=== PATIENT | female | born 1940 | race Caucasian/White ===

== ENCOUNTER 2018-02-25 17:10 | Inpatient (IN) ==
[2018-02-25] MEDS ORDERED: Acetaminophen 325 MG Tablet PO PRN (17:57)
[2018-02-25] MEDS ORDERED: Bisacodyl 10 MG Supp RECTAL PRN (17:57)
--- NOTE | 2018-02-25 18:05 | P.HPIM ---
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 Patient with recent hospitalization at [facility] in around Jan 03 until January 23 after being diagnosed with pneumonia, sepsis, encephalopathy and UTI. She was discharged home but ended up falling at home resulting in a closed impacted comminuted distal radial and ulnar fracture on the left side. She was hospitalized at [facility] in [place]. She was evaluated by Ortho and had a cast placed. She is currently non-weight bearing to the left upper extremity. Patient was also noted to have volume overload with a history of diastolic heart failure and stage III chronic kidney disease. Patient was diuresed with Lasix and Bumex during her hospitalization. Patient has CLL and was noted to be anemic with a Hgb of 6.1 and required 2 units of PRBC's with improvement in her hemoglobin to 9.1. Patients stated that she has required repeat transfusions over the past year. She was admitted to [facility] from [facility] 02/17/18. The hospitalist service was consulted for medical management. stated that patient has had recurrent pneumonia since July of this year. Patient reports travel to [place] in July of this year. Patient became increasingly more hypoxic while at rehab. She required 4 L of supplemental O2 via nasal cannula. Chest x-ray was completed 02/22/18 and showed a diffusely abnormal lung exam, probable acute multifocal pneumonia vs diffuse fibrotic process. CT chest was completed for follow up 02/22/18 and showed patchy diffuse mixed interstitial and alveolar infiltrates involving all segments of both lungs. Bilateral pleural effusions were noted right greater than left. Patient was started on Zosyn and Levaquin IV. VQ scan was completed 02/23/18 and showed low probability of PE. A BNP level was checked and resulted as slightly over 400. Patient received IV Lasix 2 days in a row with worsening shortness of breath. Patient complains of moderate shortness of breath while at rest and moderate to severe dyspnea with mild exertion. She denies chest pain, cough, fever or chills. Also denies lower extremity pain/edema. Olivia was called and patient is being transferred to [facility] under the care of the hospitalist service for continued treatment of pneumonia. Inpatient Certification Inpatient Certification: I certify that the inpatient services were ordered in accordance with Medicare regulations governing the order. This includes certification that hospital inpatient services are reasonable and necessary and in the case of services not specified as inpatient-only under 42 CFR 419.22(n), that they are appropriately provided as inpatient services in accordance to with the 2-midnight benchmark under 43 CFR 412.3(e) Review of Systems ROS Unobtainable: other (except as documented in HPI all other systems reviewed and negative) PMFSH History History Provided By: Patient, Family Member and Medical Record Medical History Medical History Alzheimer's dementia (Acute) Anxiety (Acute) CAD (coronary artery disease) (Acute) CKD (chronic kidney disease), stage III (Acute) CLL (chronic lymphocytic leukemia) (Acute) CVA (cerebral vascular accident) (Acute) H/O recurrent pneumonia (Acute) History of recurrent UTIs (Acute) Hyperlipidemia (Acute) Hypertension (Acute) Urinary incontinence (Acute) Surgical History Surgical History History of appendectomy (Acute) History of bilateral knee replacement (Acute) Family History Family History Mother CAD (coronary artery disease) CVA (cerebral vascular accident) Father CVA (cerebral vascular accident) Social History Social History Substance History: No History of Abuse Second Hand Smoke Exposure: No Smoking Status: Former smoker Tobacco Type: Cigarettes Packs Per Day: 1 Cigarettes Per Day: 20.0 Years Smoked: 30 Pack-Years: 30.00 Number of Pack-Years (if former smoker): 30 Smoking End Date: 1998 How Often Do You Have a Drink Containing Alcohol: Never Hx Recent Travel: No Medications and Allergies Allergies Allergy/AdvReac Type Severity Reaction Status Date / Time latex Allergy Rash, Verified 02/18/18 06:07 Localized soy Allergy Congestion Verified 02/18/18 06:07 sulfadiazine Allergy Hives Verified 02/18/18 06:07 wheat [Flour] Allergy Rash Verified 02/18/18 06:07 Home Medications Medication Instructions Recorded Confirmed Type amlodipine [Norvasc] 5 mg PO BID 02/17/18 02/17/18 History cholestyramine (with sugar) 4 g PO BID 02/17/18 02/17/18 History donepezil 10 mg PO HS 02/17/18 02/17/18 History escitalopram oxalate 20 mg PO DAILY 02/17/18 02/17/18 History hydralazine 75 mg PO Q8H 02/17/18 02/17/18 History levothyroxine [Synthroid] 50 mcg PO DAILY@0600 02/17/18 02/17/18 History metoprolol tartrate 25 mg PO BID 02/17/18 02/17/18 History montelukast 10 mg PO HS 02/17/18 02/17/18 History pantoprazole 20 mg PO DAILY 02/17/18 02/17/18 History pravastatin 20 mg PO HS 02/17/18 02/17/18 History Physical Exam Constitutional mild distress, average body habitus and diaphoretic Routine HEENT Exam Head: Present normocephalic and atraumatic Eye: Present EOMI, PERRL and normal accommodation ENT: Present mucous membranes moist Routine Neck Exam Present supple; Absent JVD and tracheal deviation Routine Respiratory Exam Present crackles; Absent accessory muscle use and wheezes Routine Cardiovascular Exam Present RRR, S1 and S2; Absent murmur Routine Abdominal Exam Present soft and normoactive bowel sounds; Absent distended Routine Extremities Exam Present full ROM and pulses intact; Absent cyanosis and edema Routine Skin Exam Present intact Routine Neurological Exam Present alert, oriented X3, CN II-XII intact and moving all extremities Routine Psychiatric Exam Present normal affect and cooperative Caprini VTE Risk Assessment Caprini VTE Risk Assessment: Moderate/High Risk (score >= 2) Caprini Risk Assessment Model: Point Value = 1 Point Value = 2 Point Value = 3 Point Value = 5 Age 41-60 Minor surgery BMI > 25 kg/m2 Swollen legs Varicose veins or History of unexplained or recurrent spontaneous Oral contraceptives or hormone replacement Sepsis (< 1 month) Serious lung disease, including pneumonia (< 1 month) Abnormal pulmonary function Acute myocardial infarction Congestive heart failure (< 1 month) History of inflammatory bowel disease Medical patient at bed rest Age 61-74 Arthroscopic surgery Major open surgery (> 45 min) Laparoscopic surgery (> 45 min) Malignancy Confined to bed (> 72 hours) Immobilizing plaster cast Central venous access Age >= 75 History of VTE Family history of VTE Factor V Leiden Prothrombin [id number] Lupus anticoagulant Anticardiolipin antibodies Elevated serum homocysteine Heparin-induced thrombocytopenia Other congenital or acquired thrombophilia Stroke (< 1 month) Elective arthroplasty Hip, pelvis, or leg fracture Acute spinal cord injury (< 1 month) Prophylaxis Regimen: Total Risk Factor Score Risk Level Prophylaxis Regimen 0-1 Low Early ambulation 2 Moderate Order ONE of the following: *Sequential Compression Device (SCD) *Heparin 5000 units SQ BID 3-4 Higher Order ONE of the following medications: *Heparin 5000 units SQ TID *Enoxaparin/Lovenox 40 mg SQ daily (WT < 150 kg, CrCl > 30 mL/min) *Enoxaparin/Lovenox 30 mg SQ daily (WT < 150 kg, CrCl > 10-29 mL/min) *Enoxaparin/Lovenox 30 mg SQ BID (WT < 150 kg, CrCl > 30 mL/min) AND/OR *Sequential Compression Device (SCD) 5 or more Highest Order ONE of the following medications: *Heparin 5000 units SQ TID (Preferred with Epidurals) *Enoxaparin/Lovenox 40 mg SQ daily (WT < 150 kg, CrCl > 30 mL/min) *Enoxaparin/Lovenox 30 mg SQ daily (WT < 150 kg, CrCl > 10-29 mL/min) *Enoxaparin/Lovenox 30 mg SQ BID (WT < 150 kg, CrCl > 30 mL/min) AND *Sequential Compression Device (SCD) Assessment and Plan Plan Patient is a 78 year old female with a past medical history significant for CLL, recent pneumonia, diastolic heart failure, stage III CKD, and left sided hand fracture. She was admitted from [facility] to [facility] under the care of the hospitalist service for progressively worsening shortness secondary to recurrent pneumonia. Pneumonia, suspect atypical? -pt will be admitted to [facility] -continue Zosyn and Levaquin -Solumedrol IV -duonebs IV Q6H -consult pulmonary and ID -check urine legionella, histoplasma urine -blastomyces Abs -repeat labs in am Acute on chronic hypoxic respiratory failure -continue supplemental O2 PRN -see treatment plan as outlined above Diastolic heart failure w/ volume overload -no echo on file, unknown EF -continue diuretics, monitor renal function and electrolytes -cardiology consulted and we appreciate their input -tele monitoring -strict I&O, daily weight, low NA diet -cardiology consulted Chronic kidney disease, stage III -monitor renal function closely -avoid nephrotoxic meds Closed, impacted, comminuted left distal radial and ulnar fracture with cast in place -PT/OT eval/treat -pain meds PRN CLL with hx of blood transfusions -continue to monitor H/H -transfuse for Hgb < 7 -consult Oncology Anemia, multifactorial -type and screen ordered today -repeat CBC in am Alzheimer dementia with no behavioral disturbance -continue home meds MDM: self Code: Full GI ppx: PPI, PO intake DVT ppx: SCD's
[2018-02-25] MEDS: MethylPREDNISolone Sod Succinate Inj 40 MG/ML Vial IV.PUSH SCH ×2 (18:24→23:53)
[2018-02-25] MEDS: levoFLOXacin 750 MG Tablet PO SCH (18:30)
[2018-02-25 18:32] LABS: ABG Base Excess -4.7 mmol/L (-2-2); ABG PCO2 29 mmHg (38-42); ABG PO2 59 mmHG (61-120)
--- NOTE | 2018-02-25 18:42 | XR ---
EXAM DATE: 02/25/2018 6:33 PM EST AGE/SEX: 78 years / Female INDICATIONS: CHF. CLINICAL DATA: This is the patient's subsequent encounter. Patient reports that signs and symptoms h ave been present for 2 weeks and indicates a pain score of Nonresponsive. MEDICAL/SURGICAL HISTORY: Hypertension. CABG. COMPARISON: [facility], CHEST 1V SINGLE AP, 02/22/2018. . FINDINGS: Diffuse pulmonary infiltrates persist. There is slight worsening in the right mid lung. Left side myra ears relatively unchanged. Very small bilateral effusions are likely. No pneumothorax. Heart size stable, within normal limits. Median sternotomy and CABG changes are again noted. CONCLUSION: Diffuse pulmonary opacities again noted, slightly worse on the right and not significantly changed on the left. Electronically signed by: Joao Srivastava MD 02/25/2018 6:41 PM EST
[2018-02-25] MEDS: Piperacil/Tazo 3.375 GM Premix 50 ML IV.SIG SCH (20:30)
[2018-02-25 20:50] LABS: Amorphous Sediment,Urine Few /hpf; Bacteria,Urine Few /hpf; Bilirubin,Urine Negative (Negative); Clarity,Urine Cloudy (Clear); Glucose,Urine (UA) Negative (Negative); Leukocyte Esterase,Urine Negative (Negative); Mucus,Urine Few /lpf (Occasional); Nitrite,Urine Negative (Negative); Specific Gravity,Urine 1.008 (1.002-1.035); Squamous Epithelial Cell,Urine 4 /hpf (0-5)
[2018-02-25] MEDS: Montelukast 10 MG Tablet PO SCH (21:21)
[2018-02-25] MEDS: Senna/Docusate Sodium 8.6/50 MG Tablet PO SCH (21:21)
[2018-02-25] MEDS: amLODIPine 5 MG Tablet PO SCH (21:23)
[2018-02-25] MEDS: hydrALAZINE 25 MG Tablet PO SCH (21:23)
[2018-02-25] MEDS: Metoprolol Tartrate 25 MG Tablet PO SCH (21:23)
[2018-02-26] MEDS: Piperacil/Tazo 3.375 GM Premix 50 ML IV.SIG SCH ×4 (02:30→20:30)
[2018-02-26] MEDS: Chlorhexidine Gluconate 2% 1 Pack (2 Cloths) TOPICAL SCH (03:58)
[2018-02-26] MEDS ORDERED: Chlorhexidine Gluconate 2% 1 Pack (2 Cloths) TOPICAL PRN (04:00)
[2018-02-26 05:55] LABS: INR 1.1 Ratio; Prothrombin Time 10.7 sec (9.8-11.6)
[2018-02-26 05:56] LABS: Baso % (Auto) 0.2 % (0.0-2.0); Hematocrit 23.1 % (35.0-46.0); Hemoglobin 7.8 gm/dL (11.6-15.3); Lymph # (Auto) 0.1 th/mm3 (1.0-4.8); Lymph % (Auto) 0.9 % (9.0-44.0); Mean Corpuscular HGB Conc 33.8 % (32.0-36.0); Mean Corpuscular Hemoglobin 32.1 pg (27.0-34.0); Mean Platelet Volume 7.8 fL (7.0-11.0); Mono % (Auto) 0.4 % (0.0-8.0); Neut # (Auto) 9.9 th/mm3 (1.8-7.7); Neut % (Auto) 98.5 % (16.0-70.0); Platelet Count 119 th/mm3 (150-450); Red Blood Count 2.43 mil/mm3 (4.00-5.30); Red Cell Distribution Width 18.9 % (11.6-17.2); White Blood Count 10.1 th/mm3 (4.0-11.0)
[2018-02-26] MEDS: hydrALAZINE 25 MG Tablet PO SCH ×3 (06:05→21:27)
[2018-02-26] MEDS: MethylPREDNISolone Sod Succinate Inj 40 MG/ML Vial IV.PUSH SCH ×3 (06:05→18:12)
[2018-02-26] MEDS: Isosorbide Mononitrate 30 MG ER 24HR Tablet (Imdur) PO SCH (06:08)
[2018-02-26 06:16] LABS: Albumin 2.3 g/dL (3.4-5.0); Anion Gap 12 meq/L (5-15); Aspartate Aminotransferase 14 U/L (15-37); Blood Urea Nitrogen 50 mg/dL (7-18); Chloride 107 meq/L (98-107); Glomerular Filtration Rate 28 mL/min (>89); Glucose,Random 180 mg/dL (74-106); Potassium 4.1 meq/L (3.5-5.1); Sodium 139 meq/L (136-145)
[2018-02-26 06:21] LABS: Alanine Aminotransferase 22 U/L (10-53); Alkaline Phosphatase 99 U/L (45-117); Total Protein 6.3 g/dL (6.4-8.2)
[2018-02-26] MEDS: amLODIPine 5 MG Tablet PO SCH ×2 (08:06→21:27)
[2018-02-26] MEDS: Pantoprazole Sodium 20 MG DR Tablet PO SCH (08:06)
[2018-02-26] MEDS: Metoprolol Tartrate 25 MG Tablet PO SCH ×2 (08:06→21:26)
[2018-02-26] MEDS: Senna/Docusate Sodium 8.6/50 MG Tablet PO SCH ×2 (08:06→21:26)
[2018-02-26] MEDS: buPROPion 150 MG 12 HR Tablet PO SCH (08:06)
--- NOTE | 2018-02-26 08:13 | P.PN ---
Subjective Interval history: Follow up for possible pneumonia, congestive heart failure, CKD. Patient is resting in bed. No acute concerns. Currently on nasal cannula. Remains afebrile. Physical Exam Vital signs: Vital Signs 02/25/18 17:45 02/25/18 19:15 02/25/18 19:52 Temperature 97.8 F Pulse Rate 66 68 Respiratory Rate 26 H 28 H Blood Pressure 118/51 L Pulse Oximetry 88 L 95 02/25/18 19:55 02/25/18 20:00 02/25/18 21:00 Temperature Pulse Rate 69 77 73 Respiratory Rate 16 16 29 H Blood Pressure Pulse Oximetry 92 L 95 02/25/18 21:16 02/25/18 22:00 02/25/18 23:00 Temperature Pulse Rate 75 61 59 L Respiratory Rate 25 H 22 24 Blood Pressure 102/58 L Pulse Oximetry 94 L 93 L 95 02/25/18 23:11 02/25/18 23:31 02/26/18 00:00 Temperature 97.7 F Pulse Rate 64 58 L 62 Respiratory Rate 16 19 16 Blood Pressure 109/52 L 104/50 L Pulse Oximetry 93 L 93 L 02/26/18 01:00 02/26/18 02:00 02/26/18 03:00 Temperature Pulse Rate 63 61 64 Respiratory Rate 27 H 32 H 24 Blood Pressure 107/51 L 122/56 L Pulse Oximetry 91 L 90 L 91 L 02/26/18 03:01 02/26/18 03:23 02/26/18 04:00 Temperature Pulse Rate 65 70 70 Respiratory Rate 24 16 29 H Blood Pressure 166/69 H Pulse Oximetry 91 L 94 L 02/26/18 04:01 02/26/18 05:00 02/26/18 06:00 Temperature 97.8 F Pulse Rate 68 80 75 Respiratory Rate 32 H 23 29 H Blood Pressure 146/65 H 142/62 H Pulse Oximetry 94 L 90 L 91 L 02/26/18 06:01 02/26/18 08:10 Temperature Pulse Rate 77 73 Respiratory Rate 25 H 18 Blood Pressure 141/57 H Pulse Oximetry 91 L 94 L Intake & Output 02/25/18 02/26/18 02/26/18 18:59 06:59 18:59 Intake Total 100 / 100 Output Total 1500 / 1500 Balance -1400 / -1400 Weight 53.5 kg Intake: IV 100 / 100 Zosyn 3.375 GM Premix 50 ML @ 100 / 100 100 mls/hr IV.SIG Q6H [facility] Rx#: [id number] Output: Urine Amount (Catheter) 1500 / 1500 Indwelling Urethral Catheter 1500 / 1500 Other: Date of Last Bowel Movement 02/24/18 Weight On Admission 54 kg Narrative: GENERAL: Alert, NAD. SKIN: Warm and dry. HEAD: Normocephalic. EYES: No scleral icterus. No injection or drainage. NECK: Supple, trachea midline. No JVD or lymphadenopathy. CARDIOVASCULAR: Regular rate and rhythm without gallops, or rubs. There is a systolic murmur present best heard on the left sternal border. RESPIRATORY: Moderate air entry, coarse breath sounds noted. GASTROINTESTINAL: Abdomen soft, non-tender, nondistended. MUSCULOSKELETAL: No cyanosis, or edema. BACK: Nontender without obvious deformity. No CVA tenderness. - Urinary Catheter Management Indwelling Urethral Catheter Cath placed during this visit: yes Reason for continuing: Hourly intake/output Insertion date: 02/25/18 Insertion time: 19:58 Results - Labs CBC & Chem 7: 02/26/18 04:40 02/26/18 04:40 Laboratory Results - last 24 hr 02/25/18 02/25/18 02/25/18 18:05 18:18 19:45 WBC RBC Hgb Hct MCV MCH MCHC RDW Plt Count MPV Neut % (Auto) Lymph % (Auto) [place] % (Auto) Eos % (Auto) Baso % (Auto) Neut # (Auto) Lymph # (Auto) [place] # (Auto) Eos # (Auto) Baso # (Auto) WBC Differential Differential Comment PT INR Puncture Site Right radial Patient Temperature 98.6 O2 Saturation 87 L* ABG pH 7.43 H ABG pCO2 29 L ABG pO2 59 L* ABG HCO3 19 L ABG O2 Content 11.1 L ABG Base Excess -4.7 L ABG Methemoglobin 2.1 H Andrew Test Present Hemoglobin 9.0 L Carboxyhemoglobin 1.6 O2 Delivery Device Sm Liter Flow 6.00 Critical Value Yes Sodium Potassium Chloride Carbon Dioxide Anion Gap BUN Creatinine Estimated GFR Random Glucose Calcium Ferritin Total Bilirubin AST ALT Alkaline Phosphatase Total Protein Albumin Urine Color Light-yellow Urine Clarity Cloudy H Urine pH 5.0 Ur Specific [place] 1.008 Urine Protein 100 H Urine Glucose (UA) Negative Urine Ketones Negative Urine Occult Blood Negative Urine Nitrate Negative Urine Bilirubin Negative Urine Urobilinogen Less than 2 Ur Leukocyte Esterase Negative Urine RBC Less than 1 Urine WBC Less than 1 Ur Squamous Epith Cells 4 Amorphous Sediment Few H Urine Bacteria Few H Urine Mucus Few H Ur Microscopic Review Not Reportable Nasal Screen MRSA (PCR) Not detected 02/25/18 02/26/18 02/26/18 20:14 04:40 04:40 WBC 10.1 RBC 2.43 L Hgb 7.8 L Hct 23.1 L MCV 95.0 MCH 32.1 MCHC 33.8 RDW 18.9 H Plt Count 119 L MPV 7.8 Neut % (Auto) 98.5 H Lymph % (Auto) 0.9 L [place] % (Auto) 0.4 Eos % (Auto) 0.0 Baso % (Auto) 0.2 Neut # (Auto) 9.9 H Lymph # (Auto) 0.1 L [place] # (Auto) 0.0 Eos # (Auto) 0.0 Baso # (Auto) 0.0 WBC Differential . Differential Comment Auto diff final PT 10.7 INR 1.1 Puncture Site Patient Temperature O2 Saturation ABG pH ABG pCO2 ABG pO2 ABG HCO3 ABG O2 Content ABG Base Excess ABG Methemoglobin Andrew Test Hemoglobin Carboxyhemoglobin O2 Delivery Device Liter Flow Critical Value Sodium Potassium Chloride Carbon Dioxide Anion Gap BUN Creatinine Estimated GFR Random Glucose Calcium Ferritin 1906 H Total Bilirubin AST ALT Alkaline Phosphatase Total Protein Albumin Urine Color Urine Clarity Urine pH Ur Specific [place] Urine Protein Urine Glucose (UA) Urine Ketones Urine Occult Blood Urine Nitrate Urine Bilirubin Urine Urobilinogen Ur Leukocyte Esterase Urine RBC Urine WBC Ur Squamous Epith Cells Amorphous Sediment Urine Bacteria Urine Mucus Ur Microscopic Review Nasal Screen MRSA (PCR) 02/26/18 04:40 WBC RBC Hgb Hct MCV MCH MCHC RDW Plt Count MPV Neut % (Auto) Lymph % (Auto) [place] % (Auto) Eos % (Auto) Baso % (Auto) Neut # (Auto) Lymph # (Auto) [place] # (Auto) Eos # (Auto) Baso # (Auto) WBC Differential Differential Comment PT INR Puncture Site Patient Temperature O2 Saturation ABG pH ABG pCO2 ABG pO2 ABG HCO3 ABG O2 Content ABG Base Excess ABG Methemoglobin Andrew Test Hemoglobin Carboxyhemoglobin O2 Delivery Device Liter Flow Critical Value Sodium 139 Potassium 4.1 Chloride 107 Carbon Dioxide 20.0 L Anion Gap 12 BUN 50 H Creatinine 1.75 H Estimated GFR 28 L Random Glucose 180 H Calcium 8.0 L Ferritin Total Bilirubin 0.5 AST 14 L ALT 22 Alkaline Phosphatase 99 Total Protein 6.3 L D Albumin 2.3 L Urine Color Urine Clarity Urine pH Ur Specific [place] Urine Protein Urine Glucose (UA) Urine Ketones Urine Occult Blood Urine Nitrate Urine Bilirubin Urine Urobilinogen Ur Leukocyte Esterase Urine RBC Urine WBC Ur Squamous Epith Cells Amorphous Sediment Urine Bacteria Urine Mucus Ur Microscopic Review Nasal Screen MRSA (PCR) Microbiology 02/25/18 20:20 Urine - Catheterized Urine Legionella Antigen - Final Presumptive negative for Legionella pneumophila serogroup 1 antigen in urine, suggesting no recent or recurrent infection. Infection due to Legionella cannot be ruled out since other serogroups and species may cause disease, antigen may not be present in urine in early infection, and the level of antigen present in the urine may be below the detection limit of the test. - Imaging Impressions Chest X-Ray 02/25/18 00:00 CONCLUSION: Diffuse pulmonary opacities again noted, slightly worse on the right and not significantly changed on the left. - Procedures None Assessment and Plan - Plan Patient is a 78 year old female with a past medical history significant for CLL, recent pneumonia, diastolic heart failure, stage III CKD, and left sided hand fracture. She was admitted from [facility] to [facility] under the care of the hospitalist service for progressively worsening shortness secondary to recurrent pneumonia. Acute on chronic hypoxic respiratory failure Pneumonia - possibly atypical. -continue Zosyn and Levaquin. ID consulted. -Solumedrol IV -duonebs IV Q6H -pulmonary consulted. Patient may need bronchoscopy. -Urine legionella, histoplasma urine pending. -Blastomyces ab pending. -continue supplemental O2 PRN Diastolic heart failure w/ volume overload -Will order Echo. -continue diuretics, monitor renal function and electrolytes -cardiology following. -strict I&O, daily weight, low Na diet Chronic kidney disease, stage III -Creatinine around 1.75, baseline appears to be around 1.6. -avoid nephrotoxic meds Closed, impacted, comminuted left distal radial and ulnar fracture with cast in place -PT/OT eval/treat -pain meds PRN CLL with hx of blood transfusions -continue to monitor H/H -transfuse for Hgb < 7 -consult Oncology Anemia, multifactorial -type and screen ordered today -repeat CBC in am Alzheimer dementia with no behavioral disturbance -continue home meds Full code. SCDs.
--- NOTE | 2018-02-26 09:03 | MB ---
cc: Dung Carson MD DATE: 02/26/2018 REQUESTING PHYSICIAN: Desean August MD REASON FOR CONSULTATION: Evaluation of 78-year-old lady with anemia and possible history of CLL requiring multiple blood transfusions. I saw Mrs. Christian in room 523. She is on oxygen by nonrebreather mask. She gave me the history that she had been receiving blood transfusions, under Dr. Evans's supervision. She had a bone marrow biopsy a year ago, which showed what she described as a prelude to leukemia, I presume it is a myelodysplastic syndrome, and was being managed apparently with multiple blood transfusions, last about a month prior to coming to the hospital. In the interim, she also received Procrit injections for the same diagnosis and apparently developed a stroke 3 months ago, hence Procrit was stopped. She is currently admitted to the hospital with shortness of breath and was transferred from rehab to 523 after worsening of shortness of breath. She had a history of multiple blood transfusions, recent pneumonia and sepsis, diastolic heart failure, CKD stage III and coronary artery disease, and CVA as mentioned. She also has a diagnosis of Alzheimer's dementia, per the medical record here in the hospital, and history of recurrent urinary tract infections. Currently Mrs. Christian states she actually feels much better and she appears to be more comfortable on the oxygen by nonrebreather. She has no specific complaints, specifically no chest pains or palpitations. No dizziness or blackouts. REVIEW OF SYSTEMS: She denies any motor or sensory symptoms at this time. She has no hemoptysis, but has chronic cough and shortness of breath, but appears comfortable at this time with nonrebreather. No abdominal pain, distention, nausea or vomiting. No blood in the stool or black stools. No frequency or urgency. No fevers. PAST MEDICAL HISTORY: As above. PAST SURGICAL HISTORY: Appendectomy, bilateral knee replacement surgeries. FAMILY HISTORY: Noncontributory. MEDICATIONS: She is on: 1. Albuterol. 2. Amlodipine. 3. Aspirin. 4. Bisacodyl. 5. Bumetanide. 6. Bupropion. 7. Chlorhexidine. 8. Cholestyramine. 9. Diphenhydramine. 10. Escitalopram. 11. Imdur. 12. Lactulose. 13. Levaquin. 14. Cozaar. 15. Methylprednisolone. 16. Montelukast. 17. Ondansetron p.r.n. 18. Pantoprazole. 19. Zosyn. 20. Mirapex. 21. Pravachol. 22. Colace. 23. Senokot. PHYSICAL EXAMINATION: GENERAL: Elderly lady, appearing older than stated age and chronically ill, appears in no acute distress. VITAL SIGNS: Stable. She is afebrile. Pallor present. No icterus. No palpable adenopathy in the neck or axilla. HEENT: Without oropharyngeal lesion, specifically no gum bleeding or hypertrophy. Alert and oriented x 4. Responsive to questions appropriately. Memory seems to have been decreased. No meningeal signs. NECK: No JVD. HEART: S1, S2. Regular rate and rhythm, tachycardic. No gallops or rubs could be heard. LUNGS: Bilaterally with coarse breath sounds and expiratory crackles, but no wheezes, No dullness. ABDOMEN: Soft, without palpable organomegaly, specifically no splenomegaly. EXTREMITIES: No edema or evidence of DVTs. No petechia, ecchymosis or bruises. Bilateral knee replacement surgical scars noted. LABORATORY DATA: Reviewed. Her hemoglobin today is 7.8 with hematocrit of 23.1, MCV 95, platelets 119 and white count of 10,100 with 9900 neutrophils. Chest x-ray from yesterday showed decreased pulmonary opacities again noted, slightly worse on the right and not significantly changed in the left compared to 02/22/2018. IMPRESSION: A 78-year-old lady with a history of possible MDS by bone marrow biopsy approximately a year ago, managed initially with Procrit and subsequently with blood transfusions. Currently has a worsening pneumonia requiring hospitalizations. I reviewed her old history from the hospital, starting from 01/03/2018. She has been in [facility] and had to be transferred with acute worsening of shortness of breath, possibly due to worsening of pneumonia. Her hematologic issues appear to be mainly transfusion-dependent myelodysplastic syndrome. She has received multiple blood transfusions and apparently developed a stroke while on Procrit, and hence Procrit was discontinued. At this point, her mainstay of hematologic management would be blood transfusion to keep hemoglobin above 7 grams, which it is now, and avoid aggressive transfusions in view of possible iron overload. In addition, her shortness of breath is mostly from her pneumonia and congestive heart failure, and fluid overload could be provided by minimizing blood transfusions at this time unless the patient is decompensating. In view of her multiple blood transfusions I will check serum iron levels at this time, and also her hemoglobin has dropped over the last few weeks without obvious etiology and hence will check her stool occult blood. In addition, she has anemia of renal insufficiency, but because of the history of recent stroke, we will avoid Procrit. She also has mild thrombocytopenia secondary possibly to her MDS but contributing factors of infection and medications also taken into consideration. She does not need any platelet transfusion at this time. We will see her in followup in the hospital. Please do not hesitate to call me if you have any questions. MD NIKA Lara/raj , 08:33 AM , 08:46 AM
--- NOTE | 2018-02-26 10:12 | P.CONID ---
History of Present Illness Service: infectious disease Consult date: 02/26/18 Requesting Physician: Romeo Aguilera Reason for Consult: Evaluation and Mment of Recurrent Pneumonia Primary Care Provider: UNKNOWN Chief Complaint: progressively worsening shortness of breath, pneumonia History of Present Illness: Ms. Christian a 78-year-old female with past medical history significant for, CLL requiring multiple transfusions in the past. 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 Most of the history was obtained by review of medical records as patient is a poor historian. Patient was also recently hospitalized at [place] and thereafter transferred to [facility]. She was hospitalized between January 03 after being diagnosed with pneumonia, sepsis, encephalopathy reportedly discharged home and ended up falling at home resulting in a closed impacted community distal radial and ulnar fracture on the left side. She was thereafter hospitalized at [facility]. She was evaluated by orthopedics at that hospital. Patient has needing transfusions in the past. Patient has been treated for recurrent pneumonia as well as recurrent urinary tract infections. Reported travel history to [place] in July 2017 but patient reports that she stayed at home mostly. Prior to these occurrences Patient became increasingly short of breath while at [facility] requiring 4 L supplemental O2 via nasal cannula. A CT of the chest was done on February 22 which showed patchy diffuse mixed interstitial and alveolar infiltrates all patient was also noted to have bilateral pleural effusions. She was empirically treated with Zosyn and Levaquin IV. A VQ scan done on February 23 showed low probability of PE. 400 and patient is known to have diastolic heart failure. Patient received IV Lasix 2 days in a row with worsening shortness of breath and therefore I had a CAT was called and patient was transferred to [facility] under the care of infectious diseases consulted for evaluation and management of recurrent pneumonia. PMHx Alzheimer's dementia (Acute) Anxiety (Acute) CAD (coronary artery disease) (Acute) CKD (chronic kidney disease), stage III (Acute) CLL (chronic lymphocytic leukemia) (Acute) CVA (cerebral vascular accident) (Acute) H/O recurrent pneumonia (Acute) History of recurrent UTIs (Acute) Hyperlipidemia (Acute) Hypertension (Acute) Urinary incontinence (Acute) PSHX History of appendectomy (Acute) History of bilateral knee replacement (Acute) Review of Systems All other systems reviewed negative except as stated in HPI [facility] - History History Provided By: Patient, Family Member, Medical Record - Medical History Medical History: Medical History (Last Reviewed 02/26/18 @ 07:31 by Nicolas Venegas) Alzheimer's dementia Anxiety CAD (coronary artery disease) CKD (chronic kidney disease), stage III CLL (chronic lymphocytic leukemia) CVA (cerebral vascular accident) H/O recurrent pneumonia History of recurrent UTIs Hyperlipidemia Hypertension Urinary incontinence - Surgical History Surgical History: Surgical History (Last Reviewed 02/26/18 @ 07:31 by Nicolas Venegas) History of appendectomy History of bilateral knee replacement - Family History Family History: Family History (Last Reviewed 02/25/18 @ 18:35 by Bryanna Weaver APRN) Mother CAD (coronary artery disease) CVA (cerebral vascular accident) Father CVA (cerebral vascular accident) - Tobacco History Second Hand Smoke Exposure: No Smoking Status: Former smoker Tobacco Type: Cigarettes Packs Per Day: 1 Years Smoked: 30 Number of Pack Years (if former smoker): 30 Smoking End Date: 1998 - Alcohol History How Often Do You Have a Drink Containing Alcohol: Never - Substance Use History Substance History: No History of Abuse - Travel History History of Recent Travel: No - Immunization History Tetanus Immunization: Unable to Assess Hx Influenza Vaccine This Season: Yes Medications and Allergies Active Medications: Active Medications Acetaminophen (Tylenol) 650 mg PO Q4H PRN PRN Reason: Temp > 100.4 Al Hydroxide/Mg Hydroxide (Milk Of Radha Liq) 30 ml PO Q12H PRN PRN Reason: Mild Constipation Albuterol (Albuterol Neb (Prn)) 2.5 mg NEB Q2HR NEB PRN PRN Reason: SHORTNESS OF BREATH Albuterol (Duoneb Neb (Miryam)) 1 ampul NEB Q4HR NEB MIRYAM Last Admin: 02/26/18 08:09 Dose: 1 ampul Amlodipine Besylate (Norvasc) 5 mg PO BID [facility] Last Admin: 02/26/18 08:06 Dose: 5 mg Aspirin (Ecotrin) 81 mg PO DAILY [facility] Last Admin: 02/26/18 08:06 Dose: 81 mg Bisacodyl (Dulcolax Supp) 10 mg RECTAL DAILY PRN PRN Reason: SEVERE CONSITIPATION Bumetanide (Bumex Inj) 1 mg IV.PUSH BID@0900,1800 [facility] Last Admin: 02/26/18 09:07 Dose: 1 mg Bupropion HCl (Wellbutrin Sr) 150 mg PO DAILY [facility] Last Admin: 02/26/18 08:06 Dose: 150 mg Chlorhexidine Gluconate (Chlorhexidine 2% Cloth) 3 pack TOPICAL DAILY@0400 [facility] Stop: 03/03/18 03:59 Last Admin: 02/26/18 03:58 Dose: 3 pack Chlorhexidine Gluconate (Chlorhexidine 2% Cloth) 3 pack TOPICAL DAILY@0400 PRN PRN Reason: Extra cloth needed Stop: 03/03/18 03:59 Cholestyramine Resin (Questran 4 Gm Pkt) 4 gm PO BID@0700,1900 [facility] Last Admin: 02/26/18 06:09 Dose: 4 gm Diphenhydramine HCl (Benadryl) 25 mg PO HS PRN PRN Reason: Insomnia Donepezil HCl (Aricept) 10 mg PO HS [facility] Last Admin: 02/25/18 21:23 Dose: 10 mg Escitalopram Oxalate (Lexapro) 20 mg PO DAILY [facility] Last Admin: 02/26/18 08:06 Dose: 20 mg Hydralazine HCl (Apresoline) 75 mg PO Q8HR [facility] Last Admin: 02/26/18 06:05 Dose: 75 mg Piperacillin/Tazobactam/Dextrose (Zosyn 3.375 Gm Premix) 50 mls @ 100 mls/hr IV.SIG Q6H [facility] Last Infusion: 02/26/18 08:30 Dose: Infused Isosorbide Mononitrate (Imdur) 30 mg PO DAILY@0700 [facility] Last Admin: 02/26/18 06:08 Dose: 30 mg Lactulose (Lactulose Liq) 30 ml PO DAILY PRN PRN Reason: SEVERE CONSITIPATION Levofloxacin (Levaquin) 750 mg PO Q48H [facility] Last Admin: 02/25/18 18:30 Dose: 750 mg Losartan Potassium (Cozaar) 50 mg PO DAILY [facility] Last Admin: 02/26/18 08:05 Dose: 50 mg Methylprednisolone Sodium Succinate (Solumedrol Inj) 60 mg IV.PUSH Q6H [facility] Last Admin: 02/26/18 06:05 Dose: 60 mg Metoprolol Tartrate (Lopressor) 25 mg PO BID [facility] Last Admin: 02/26/18 08:06 Dose: 25 mg Miscellaneous (Pill Splitter) 1 each OTHER [facility] [place] Montelukast Sodium (Singulair) 10 mg PO HS [facility] Last Admin: 02/25/18 21:21 Dose: 10 mg Ondansetron HCl (Zofran Inj) 4 mg IV.PUSH Q6H PRN PRN Reason: NAUSEA OR VOMITING Pantoprazole Sodium (Protonix) 20 mg PO DAILY [facility] Last Admin: 02/26/18 08:06 Dose: 20 mg Pramipexole Dihydrochloride (Mirapex) 0.125 mg PO BID [facility] Last Admin: 02/26/18 08:06 Dose: 0.125 mg Pravastatin Sodium (Pravachol) 20 mg PO HS [facility] Last Admin: 02/25/18 21:22 Dose: 20 mg Senna/Docusate Sodium (Mima-Colace) 1 tab PO BID [facility] Last Admin: 02/26/18 08:06 Dose: 1 tab Sennosides (Senokot) 17.2 mg PO Q12H PRN PRN Reason: Moderate Constipation Sodium Chloride (Ns Flush) 2 ml IV.FLUSH BID [facility] Last Admin: 02/26/18 08:06 Dose: 2 ml Sodium Chloride (Ns Flush) 2 ml IV.FLUSH PRN PRN PRN Reason: FLUSH AFTER USING IV ACCESS Allergies Allergy/AdvReac Type Severity Reaction Status Date / Time latex Allergy Rash, Verified 02/18/18 06:07 Localized soy Allergy Congestion Verified 02/18/18 06:07 sulfadiazine Allergy Hives Verified 02/18/18 06:07 wheat [Flour] Allergy Rash Verified 02/18/18 06:07 Home Medications Medication Instructions Recorded Confirmed Type amlodipine [Norvasc] 5 mg PO BID 02/17/18 02/17/18 History cholestyramine (with sugar) 4 g PO BID 02/17/18 02/17/18 History donepezil 10 mg PO HS 02/17/18 02/17/18 History escitalopram oxalate 20 mg PO DAILY 02/17/18 02/17/18 History hydralazine 75 mg PO Q8H 02/17/18 02/17/18 History levothyroxine [Synthroid] 50 mcg PO DAILY@0600 02/17/18 02/17/18 History metoprolol tartrate 25 mg PO BID 02/17/18 02/17/18 History montelukast 10 mg PO HS 02/17/18 02/17/18 History pantoprazole 20 mg PO DAILY 02/17/18 02/17/18 History pravastatin 20 mg PO HS 02/17/18 02/17/18 History Exam Vital signs: Vital Signs 02/25/18 17:45 02/25/18 19:15 02/25/18 19:52 Temperature 97.8 F Pulse Rate 66 68 Respiratory Rate 26 H 28 H Blood Pressure 118/51 L Pulse Oximetry 88 L 95 02/25/18 19:55 02/25/18 20:00 02/25/18 21:00 Temperature Pulse Rate 69 77 73 Respiratory Rate 16 16 29 H Blood Pressure Pulse Oximetry 92 L 95 02/25/18 21:16 02/25/18 22:00 02/25/18 23:00 Temperature Pulse Rate 75 61 59 L Respiratory Rate 25 H 22 24 Blood Pressure 102/58 L Pulse Oximetry 94 L 93 L 95 02/25/18 23:11 02/25/18 23:31 02/26/18 00:00 Temperature 97.7 F Pulse Rate 64 58 L 62 Respiratory Rate 16 19 16 Blood Pressure 109/52 L 104/50 L Pulse Oximetry 93 L 93 L 02/26/18 01:00 02/26/18 02:00 02/26/18 03:00 Temperature Pulse Rate 63 61 64 Respiratory Rate 27 H 32 H 24 Blood Pressure 107/51 L 122/56 L Pulse Oximetry 91 L 90 L 91 L 02/26/18 03:01 02/26/18 03:23 02/26/18 04:00 Temperature Pulse Rate 65 70 70 Respiratory Rate 24 16 29 H Blood Pressure 166/69 H Pulse Oximetry 91 L 94 L 02/26/18 04:01 02/26/18 05:00 02/26/18 06:00 Temperature 97.8 F Pulse Rate 68 80 75 Respiratory Rate 32 H 23 29 H Blood Pressure 146/65 H 142/62 H Pulse Oximetry 94 L 90 L 91 L 02/26/18 06:01 02/26/18 08:00 02/26/18 08:10 Temperature 98.4 F Pulse Rate 77 65 73 Respiratory Rate 25 H 25 H 18 Blood Pressure 141/57 H 143/63 H Pulse Oximetry 91 L 96 94 L Intake & Output 02/25/18 02/26/18 02/26/18 18:59 06:59 18:59 Intake Total 100 / 100 50 / 50 Output Total 1500 / 1500 Balance -1400 / -1400 50 / 50 Weight 53.5 kg Intake: IV 100 / 100 50 / 50 Zosyn 3.375 GM Premix 50 ML @ 100 / 100 50 / 50 100 mls/hr IV.SIG Q6H MIRYAM Rx#: [id number] Output: Urine Amount (Catheter) 1500 / 1500 Indwelling Urethral Catheter 1500 / 1500 Other: Date of Last Bowel Movement 02/24/18 02/24/18 Weight On Admission 54 kg Narrative: GENERAL: Well-nourished well-developed, not in acute distress SKIN: Cool and dry, no generalized rash HEAD: Atraumatic. Normocephalic. No temporal or scalp tenderness. EYES: Pupils equal round and reactive. Scleral icterus. No injection or drainage. No petechia ENT: Nothing abnormal detected NECK: Trachea midline. Supple, nontender, no meningeal signs. CARDIOVASCULAR: HS audible. RESPIRATORY: Clear to auscultation bilaterally. Air entry decreased in the bases. GASTROINTESTINAL: Abdomen soft nontender. MUSCULOSKELETAL: Extremities without clubbing, cyanosis. NEUROLOGICAL: Alert oriented 3. Psych cooperative IV line sites ok. Results - Labs CBC & Chem 7: 03/02/18 00:50 03/01/18 10:37 Labs: Laboratory Results - last 24 hr 02/25/18 02/25/18 02/25/18 18:05 18:18 19:45 WBC RBC Hgb Hct MCV MCH MCHC RDW Plt Count MPV Neut % (Auto) Lymph % (Auto) Colbert % (Auto) Eos % (Auto) Baso % (Auto) Neut # (Auto) Lymph # (Auto) Colbert # (Auto) Eos # (Auto) Baso # (Auto) WBC Differential Differential Comment PT INR Puncture Site Right radial Patient Temperature 98.6 O2 Saturation 87 L* ABG pH 7.43 H ABG pCO2 29 L ABG pO2 59 L* ABG HCO3 19 L ABG O2 Content 11.1 L ABG Base Excess -4.7 L ABG Methemoglobin 2.1 H Andrew Test Present Hemoglobin 9.0 L Carboxyhemoglobin 1.6 O2 Delivery Device Sm Liter Flow 6.00 Critical Value Yes Sodium Potassium Chloride Carbon Dioxide Anion Gap BUN Creatinine Estimated GFR Random Glucose Calcium Ferritin Total Bilirubin AST ALT Alkaline Phosphatase Total Protein Albumin Urine Color Light-yellow Urine Clarity Cloudy H Urine pH 5.0 Ur Specific Blackstone 1.008 Urine Protein 100 H Urine Glucose (UA) Negative Urine Ketones Negative Urine Occult Blood Negative Urine Nitrate Negative Urine Bilirubin Negative Urine Urobilinogen Less than 2 Ur Leukocyte Esterase Negative Urine RBC Less than 1 Urine WBC Less than 1 Ur Squamous Epith Cells 4 Amorphous Sediment Few H Urine Bacteria Few H Urine Mucus Few H Ur Microscopic Review Not Reportable Nasal Screen MRSA (PCR) Not detected 02/25/18 02/26/18 02/26/18 20:14 04:40 04:40 WBC 10.1 RBC 2.43 L Hgb 7.8 L Hct 23.1 L MCV 95.0 MCH 32.1 MCHC 33.8 RDW 18.9 H Plt Count 119 L MPV 7.8 Neut % (Auto) 98.5 H Lymph % (Auto) 0.9 L Colbert % (Auto) 0.4 Eos % (Auto) 0.0 Baso % (Auto) 0.2 Neut # (Auto) 9.9 H Lymph # (Auto) 0.1 L Colbert # (Auto) 0.0 Eos # (Auto) 0.0 Baso # (Auto) 0.0 WBC Differential . Differential Comment Auto diff final PT 10.7 INR 1.1 Puncture Site Patient Temperature O2 Saturation ABG pH ABG pCO2 ABG pO2 ABG HCO3 ABG O2 Content ABG Base Excess ABG Methemoglobin Andrew Test Hemoglobin Carboxyhemoglobin O2 Delivery Device Liter Flow Critical Value Sodium Potassium Chloride Carbon Dioxide Anion Gap BUN Creatinine Estimated GFR Random Glucose Calcium Ferritin 1906 H Total Bilirubin AST ALT Alkaline Phosphatase Total Protein Albumin Urine Color Urine Clarity Urine pH Ur Specific Blackstone Urine Protein Urine Glucose (UA) Urine Ketones Urine Occult Blood Urine Nitrate Urine Bilirubin Urine Urobilinogen Ur Leukocyte Esterase Urine RBC Urine WBC Ur Squamous Epith Cells Amorphous Sediment Urine Bacteria Urine Mucus Ur Microscopic Review Nasal Screen MRSA (PCR) 02/26/18 04:40 WBC RBC Hgb Hct MCV MCH MCHC RDW Plt Count MPV Neut % (Auto) Lymph % (Auto) Colbert % (Auto) Eos % (Auto) Baso % (Auto) Neut # (Auto) Lymph # (Auto) Colbert # (Auto) Eos # (Auto) Baso # (Auto) WBC Differential Differential Comment PT INR Puncture Site Patient Temperature O2 Saturation ABG pH ABG pCO2 ABG pO2 ABG HCO3 ABG O2 Content ABG Base Excess ABG Methemoglobin Andrew Test Hemoglobin Carboxyhemoglobin O2 Delivery Device Liter Flow Critical Value Sodium 139 Potassium 4.1 Chloride 107 Carbon Dioxide 20.0 L Anion Gap 12 BUN 50 H Creatinine 1.75 H Estimated GFR 28 L Random Glucose 180 H Calcium 8.0 L Ferritin Total Bilirubin 0.5 AST 14 L ALT 22 Alkaline Phosphatase 99 Total Protein 6.3 L D Albumin 2.3 L Urine Color Urine Clarity Urine pH Ur Specific Blackstone Urine Protein Urine Glucose (UA) Urine Ketones Urine Occult Blood Urine Nitrate Urine Bilirubin Urine Urobilinogen Ur Leukocyte Esterase Urine RBC Urine WBC Ur Squamous Epith Cells Amorphous Sediment Urine Bacteria Urine Mucus Ur Microscopic Review Nasal Screen MRSA (PCR) - Imaging Impressions Chest X-Ray 02/25/18 00:00 CONCLUSION: Diffuse pulmonary opacities again noted, slightly worse on the right and not significantly changed on the left. Assessment and Plan - Plan Healthcare associated pneumonia Recurrent pneumonia History of recurrent UTIs History of dementia History of CLL with chronic anemia requiring multiple transfusions. Recommendations Continue Zosyn IV Continue Levaquin IV Fungal workup for recurrent pneumonia sent follow cultures Follow clinical course Wait pulmonary input: Will likely need bronchoscopy considering this is a recurrent process. No family in the room would like to get palliative care on board to address goals of care to determine if they would like to proceed with bronchoscopy and aggressive care. Discussed with nurse taking care of the patient.
--- NOTE | 2018-02-26 10:20 | P.PNCA ---
Subjective Interval history: asleep in nad Medications and Allergies Active Medications: Active Medications Acetaminophen (Tylenol) 650 mg PO Q4H PRN PRN Reason: Temp > 100.4 Al Hydroxide/Mg Hydroxide (Milk Of Radha Litom) 30 ml PO Q12H PRN PRN Reason: Mild Constipation Albuterol (Albuterol Neb (Prn)) 2.5 mg NEB Q2HR NEB PRN PRN Reason: SHORTNESS OF BREATH Albuterol (Duoneb Neb ([facility])) 1 ampul NEB Q4HR NEB [facility] Last Admin: 02/26/18 08:09 Dose: 1 ampul Amlodipine Besylate (Norvasc) 5 mg PO BID [facility] Last Admin: 02/26/18 08:06 Dose: 5 mg Aspirin (Ecotrin) 81 mg PO DAILY [facility] Last Admin: 02/26/18 08:06 Dose: 81 mg Bisacodyl (Dulcolax Supp) 10 mg RECTAL DAILY PRN PRN Reason: SEVERE CONSITIPATION Bumetanide (Bumex Inj) 1 mg IV.PUSH BID@0900,1800 [facility] Last Admin: 02/26/18 09:07 Dose: 1 mg Bupropion HCl (Wellbutrin Sr) 150 mg PO DAILY [facility] Last Admin: 02/26/18 08:06 Dose: 150 mg Chlorhexidine Gluconate (Chlorhexidine 2% Cloth) 3 pack TOPICAL DAILY@0400 [facility] Stop: 03/03/18 03:59 Last Admin: 02/26/18 03:58 Dose: 3 pack Chlorhexidine Gluconate (Chlorhexidine 2% Cloth) 3 pack TOPICAL DAILY@0400 PRN PRN Reason: Extra cloth needed Stop: 03/03/18 03:59 Cholestyramine Resin (Questran 4 Gm Pkt) 4 gm PO BID@0700,1900 [facility] Last Admin: 02/26/18 06:09 Dose: 4 gm Diphenhydramine HCl (Benadryl) 25 mg PO HS PRN PRN Reason: Insomnia Donepezil HCl (Aricept) 10 mg PO HS [facility] Last Admin: 02/25/18 21:23 Dose: 10 mg Escitalopram Oxalate (Lexapro) 20 mg PO DAILY [facility] Last Admin: 02/26/18 08:06 Dose: 20 mg Hydralazine HCl (Apresoline) 75 mg PO Q8HR [facility] Last Admin: 02/26/18 06:05 Dose: 75 mg Piperacillin/Tazobactam/Dextrose (Zosyn 3.375 Gm Premix) 50 mls @ 100 mls/hr IV.SIG Q6H [facility] Last Infusion: 02/26/18 08:30 Dose: Infused Isosorbide Mononitrate (Imdur) 30 mg PO DAILY@0700 [facility] Last Admin: 02/26/18 06:08 Dose: 30 mg Lactulose (Lactulose Liq) 30 ml PO DAILY PRN PRN Reason: SEVERE CONSITIPATION Levofloxacin (Levaquin) 750 mg PO Q48H [facility] Last Admin: 02/25/18 18:30 Dose: 750 mg Losartan Potassium (Cozaar) 50 mg PO DAILY [facility] Last Admin: 02/26/18 08:05 Dose: 50 mg Methylprednisolone Sodium Succinate (Solumedrol Inj) 60 mg IV.PUSH Q6H [facility] Last Admin: 02/26/18 06:05 Dose: 60 mg Metoprolol Tartrate (Lopressor) 25 mg PO BID [facility] Last Admin: 02/26/18 08:06 Dose: 25 mg Miscellaneous (Pill Splitter) 1 each OTHER [facility] Montelukast Sodium (Singulair) 10 mg PO [facility] Last Admin: 02/25/18 21:21 Dose: 10 mg Ondansetron HCl (Zofran Inj) 4 mg IV.PUSH Q6H PRN PRN Reason: NAUSEA OR VOMITING Pantoprazole Sodium (Protonix) 20 mg PO DAILY [facility] Last Admin: 02/26/18 08:06 Dose: 20 mg Pramipexole Dihydrochloride (Mirapex) 0.125 mg PO BID [facility] Last Admin: 02/26/18 08:06 Dose: 0.125 mg Pravastatin Sodium (Pravachol) 20 mg PO HS [facility] Last Admin: 02/25/18 21:22 Dose: 20 mg Senna/Docusate Sodium (Mima-Colace) 1 tab PO BID [facility] Last Admin: 02/26/18 08:06 Dose: 1 tab Sennosides (Senokot) 17.2 mg PO Q12H PRN PRN Reason: Moderate Constipation Sodium Chloride (Ns Flush) 2 ml IV.FLUSH BID [facility] Last Admin: 02/26/18 08:06 Dose: 2 ml Sodium Chloride (Ns Flush) 2 ml IV.FLUSH PRN PRN PRN Reason: FLUSH AFTER USING IV ACCESS Allergies Allergy/AdvReac Type Severity Reaction Status Date / Time latex Allergy Rash, Verified 02/18/18 06:07 Localized soy Allergy Congestion Verified 02/18/18 06:07 sulfadiazine Allergy Hives Verified 02/18/18 06:07 wheat [Flour] Allergy Rash Verified 02/18/18 06:07 Home Medications Medication Instructions Recorded Confirmed Type amlodipine [Norvasc] 5 mg PO BID 02/17/18 02/17/18 History cholestyramine (with sugar) 4 g PO BID 02/17/18 02/17/18 History donepezil 10 mg PO HS 02/17/18 02/17/18 History escitalopram oxalate 20 mg PO DAILY 02/17/18 02/17/18 History hydralazine 75 mg PO Q8H 02/17/18 02/17/18 History levothyroxine [Synthroid] 50 mcg PO DAILY@0600 02/17/18 02/17/18 History metoprolol tartrate 25 mg PO BID 02/17/18 02/17/18 History montelukast 10 mg PO HS 02/17/18 02/17/18 History pantoprazole 20 mg PO DAILY 02/17/18 02/17/18 History pravastatin 20 mg PO HS 02/17/18 02/17/18 History Physical Exam Vital signs: Vital Signs 02/25/18 17:45 02/25/18 19:15 02/25/18 19:52 Temperature 97.8 F Pulse Rate 66 68 Respiratory Rate 26 H 28 H Blood Pressure 118/51 L Pulse Oximetry 88 L 95 02/25/18 19:55 02/25/18 20:00 02/25/18 21:00 Temperature Pulse Rate 69 77 73 Respiratory Rate 16 16 29 H Blood Pressure Pulse Oximetry 92 L 95 02/25/18 21:16 02/25/18 22:00 02/25/18 23:00 Temperature Pulse Rate 75 61 59 L Respiratory Rate 25 H 22 24 Blood Pressure 102/58 L Pulse Oximetry 94 L 93 L 95 02/25/18 23:11 02/25/18 23:31 02/26/18 00:00 Temperature 97.7 F Pulse Rate 64 58 L 62 Respiratory Rate 16 19 16 Blood Pressure 109/52 L 104/50 L Pulse Oximetry 93 L 93 L 02/26/18 01:00 02/26/18 02:00 02/26/18 03:00 Temperature Pulse Rate 63 61 64 Respiratory Rate 27 H 32 H 24 Blood Pressure 107/51 L 122/56 L Pulse Oximetry 91 L 90 L 91 L 02/26/18 03:01 02/26/18 03:23 02/26/18 04:00 Temperature Pulse Rate 65 70 70 Respiratory Rate 24 16 29 H Blood Pressure 166/69 H Pulse Oximetry 91 L 94 L 02/26/18 04:01 02/26/18 05:00 02/26/18 06:00 Temperature 97.8 F Pulse Rate 68 80 75 Respiratory Rate 32 H 23 29 H Blood Pressure 146/65 H 142/62 H Pulse Oximetry 94 L 90 L 91 L 02/26/18 06:01 02/26/18 08:00 02/26/18 08:10 Temperature 98.4 F Pulse Rate 77 65 73 Respiratory Rate 25 H 25 H 18 Blood Pressure 141/57 H 143/63 H Pulse Oximetry 91 L 96 94 L Intake & Output 02/25/18 02/26/18 02/26/18 18:59 06:59 18:59 Intake Total 100 / 100 50 / 50 Output Total 1500 / 1500 Balance -1400 / -1400 50 / 50 Weight 53.5 kg Intake: IV 100 / 100 50 / 50 Zosyn 3.375 GM Premix 50 ML @ 100 / 100 50 / 50 100 mls/hr IV.SIG Q6H [facility] Rx#: [id number] Output: Urine Amount (Catheter) 1500 / 1500 Indwelling Urethral Catheter 1500 / 1500 Other: Date of Last Bowel Movement 02/24/18 02/24/18 Weight On Admission 54 kg - Constitutional no acute distress - Routine HEENT Exam Head: Present: normocephalic - Routine Neck Exam Present: supple - Routine Respiratory Exam Present: CTA bilaterally - Routine Cardiovascular Exam Present: S1, S2 - Routine Abdominal Exam Present: soft - Routine Extremities Exam Comments: no damien - Urinary Catheter Management Indwelling Urethral Catheter Cath placed during this visit: yes Reason for continuing: Hourly intake/output Insertion date: 02/25/18 Insertion time: 19:58 Results 02/26/18 04:40 02/26/18 04:40 Cardiac Enzymes 02/26/18 Range/Units 04:40 AST 14 L (15-37) U/L Coagulation 02/26/18 Range/Units 04:40 PT 10.7 (9.8-11.6) sec CBC 02/26/18 Range/Units 04:40 WBC 10.1 (4.0-11.0) th/mm3 RBC 2.43 L (4.00-5.30) mil/mm3 Hgb 7.8 L (11.6-15.3) gm/dL Hct 23.1 L (35.0-46.0) % Plt Count 119 L (150-450) th/mm3 Neut # (Auto) 9.9 H (1.8-7.7) th/mm3 Lymph # (Auto) 0.1 L (1.0-4.8) th/mm3 [place] # (Auto) 0.0 (0.0-0.9) th/mm3 Eos # (Auto) 0.0 (0.0-0.4) th/mm3 Baso # (Auto) 0.0 (0.0-0.2) th/mm3 Comprehensive Metabolic Panel 02/26/18 Range/Units 04:40 Sodium 139 (136-145) meq/L Potassium 4.1 (3.5-5.1) meq/L Chloride 107 (98-107) meq/L Carbon Dioxide 20.0 L (21.0-32.0) meq/L BUN 50 H (7-18) mg/dL Creatinine 1.75 H (0.50-1.00) mg/dL Calcium 8.0 L (8.5-10.1) mg/dL AST 14 L (15-37) U/L ALT 22 (10-53) U/L Alkaline Phosphatase 99 (45-117) U/L Total Protein 6.3 L D (6.4-8.2) g/dL Albumin 2.3 L (3.4-5.0) g/dL Intake and Output 02/25/18 02/26/18 02/26/18 22:59 06:59 14:59 Intake Total 50 / 50 50 / 50 50 / 50 Output Total 1500 / 1500 Balance 50 / 50 -1450 / -1450 50 / 50 Intake: IV 50 / 50 50 / 50 50 / 50 Zosyn 3.375 GM Premix 50 ML @ 50 / 50 50 / 50 50 / 50 100 mls/hr IV.SIG Q6H [facility] Rx#: [id number] Output: Urine Amount (Catheter) 1500 / 1500 Indwelling Urethral Catheter 1500 / 1500 Other: Date of Last Bowel Movement 02/24/18 02/24/18 02/24/18 Weight 54 kg 53.5 kg Weight On Admission 54 kg - Imaging and Cardiology Imaging: Impressions Chest X-Ray 02/25/18 00:00 CONCLUSION: Diffuse pulmonary opacities again noted, slightly worse on the right and not significantly changed on the left. Assessment and Plan - Assessment (1) Dyspnea Code(s): R06.00 - Dyspnea, unspecified Status: Acute (2) Chronic kidney disease Code(s): N18.9 - Chronic kidney disease, unspecified Status: Chronic (3) CLL (chronic lymphocytic leukemia) Code(s): C91.90 - Lymphoid leukemia, unspecified not having achieved remission Status: Chronic (4) Wrist fracture, left Code(s): S62.102A - Fracture of unspecified carpal bone, left wrist, initial encounter for closed fracture Status: Acute (5) Acute hypoxemic respiratory failure Code(s): J96.01 - Acute respiratory failure with hypoxia Status: Resolved (6) Diastolic CHF Code(s): I50.30 - Unspecified diastolic (congestive) heart failure Status: Chronic - Plan 1.) CHF - rec f/u 2d echo and trend in bnp, check serial trop (4) Wrist fracture, left Qualifiers: Encounter type: subsequent encounter Fracture type: closed Fracture healing : with routine healing Qualified Code(s): S62.102D - Fracture of unspecified carpal bone, left wrist, subsequent encounter for fracture with routine healing (6) Diastolic CHF Qualifiers: Heart failure chronicity: acute on chronic Qualified Code(s): I50.33 - Acute on chronic diastolic (congestive) heart failure
[2018-02-26] MEDS: Montelukast 10 MG Tablet PO SCH (21:27)
--- NOTE | 2018-02-26 23:16 | ECG ---
Date Performed: 02/25/2018 Time Performed: 18:42:57 PTAGE: 78 years EKG: Sinus rhythm NORMAL ECG NO PREVIOUS TRACING DOCTOR: Jerad Topete Interpretating Date/Time 02/26/2018 23:15:24
[2018-02-27] MEDS: MethylPREDNISolone Sod Succinate Inj 40 MG/ML Vial IV.PUSH SCH ×4 (00:30→18:05)
[2018-02-27] MEDS: Piperacil/Tazo 3.375 GM Premix 50 ML IV.SIG SCH ×4 (01:30→21:24)
[2018-02-27] MEDS: Chlorhexidine Gluconate 2% 1 Pack (2 Cloths) TOPICAL SCH (05:21)
[2018-02-27] MEDS: Isosorbide Mononitrate 30 MG ER 24HR Tablet (Imdur) PO SCH (06:20)
[2018-02-27] MEDS: hydrALAZINE 25 MG Tablet PO SCH ×3 (06:20→21:24)
[2018-02-27] MEDS: Senna/Docusate Sodium 8.6/50 MG Tablet PO SCH ×2 (08:00→21:24)
[2018-02-27] MEDS: Pantoprazole Sodium 20 MG DR Tablet PO SCH (08:01)
[2018-02-27] MEDS: buPROPion 150 MG 12 HR Tablet PO SCH (08:01)
--- NOTE | 2018-02-27 09:51 | P.PNONC ---
Subjective Interval history: Afebrile. Patient sleeping on approach, awakens easily to voice. She reports she is feeling much better, breathing has improved. She is currently on high flow O2 via NC. Objective Vital Signs/Intake & Output: Vital Signs 02/26/18 10:00 02/26/18 10:01 02/26/18 11:00 Temperature Pulse Rate 75 76 73 Respiratory Rate 26 H 35 H 30 H Blood Pressure 105/67 101/48 L Pulse Oximetry 02/26/18 11:31 02/26/18 12:00 02/26/18 12:31 Temperature 98.4 F Pulse Rate 70 66 69 Respiratory Rate 24 16 20 Blood Pressure 116/54 L 111/53 L Pulse Oximetry 96 97 02/26/18 13:00 02/26/18 14:00 02/26/18 14:55 Temperature Pulse Rate 62 68 70 Respiratory Rate 22 20 24 Blood Pressure 113/52 L 86/43 L 88/44 L Pulse Oximetry 97 93 L 97 02/26/18 15:00 02/26/18 15:45 02/26/18 16:00 Temperature 98.6 F Pulse Rate 67 67 66 Respiratory Rate 27 H 22 18 Blood Pressure 88/44 L 92/49 L 86/43 L Pulse Oximetry 98 97 96 02/26/18 16:03 02/26/18 17:00 02/26/18 17:01 Temperature Pulse Rate 68 65 66 Respiratory Rate 20 28 H 26 H Blood Pressure 107/50 L Pulse Oximetry 87 L 88 L 02/26/18 18:00 02/26/18 18:01 02/26/18 19:00 Temperature Pulse Rate 74 78 72 Respiratory Rate 26 H 31 H 28 H Blood Pressure 106/50 L 109/54 L Pulse Oximetry 88 L 89 L 98 02/26/18 20:00 02/26/18 20:12 02/26/18 21:00 Temperature 98.3 F Pulse Rate 68 70 67 Respiratory Rate 19 20 16 Blood Pressure 114/59 L 111/51 L Pulse Oximetry 94 L 95 94 L 02/26/18 22:00 02/26/18 23:00 02/26/18 23:29 Temperature Pulse Rate 60 62 58 L Respiratory Rate 17 23 20 Blood Pressure 110/50 L 110/52 L Pulse Oximetry 94 L 02/27/18 00:00 02/27/18 01:00 02/27/18 02:00 Temperature 98.3 F Pulse Rate 60 59 L 60 Respiratory Rate 16 18 21 Blood Pressure 112/48 L 102/49 L 118/53 L Pulse Oximetry 95 100 96 02/27/18 03:00 02/27/18 03:39 02/27/18 04:00 Temperature 98.3 F Pulse Rate 60 60 68 Respiratory Rate 17 24 20 Blood Pressure 115/55 L 128/60 Pulse Oximetry 98 95 02/27/18 05:00 02/27/18 05:01 02/27/18 06:00 Temperature Pulse Rate 60 60 61 Respiratory Rate 24 25 H 28 H Blood Pressure 116/52 L 122/56 L Pulse Oximetry 86 L 86 L 92 L 02/27/18 07:00 02/27/18 07:47 02/27/18 07:48 Temperature Pulse Rate 64 79 Respiratory Rate 24 22 Blood Pressure 125/57 L Pulse Oximetry 93 L 94 L 02/27/18 08:00 02/27/18 08:01 02/27/18 09:00 Temperature 98.3 F Pulse Rate 65 65 73 Respiratory Rate Blood Pressure 103/49 L Pulse Oximetry 100 02/27/18 09:14 Temperature Pulse Rate 71 Respiratory Rate Blood Pressure 100/49 L Pulse Oximetry Intake & Output 02/26/18 02/27/18 02/27/18 18:59 06:59 18:59 Intake Total 820 / 820 820 / 820 Output Total 650 / 650 650 / 650 Balance 170 / 170 170 / 170 Weight 55 kg Intake: IV 100 / 100 100 / 100 Zosyn 3.375 GM Premix 50 ML @ 100 / 100 100 / 100 100 mls/hr IV.SIG Q6H [facility] Rx#: [id number] Oral 720 / 720 720 / 720 Output: Urine Amount (Catheter) 650 / 650 650 / 650 Indwelling Urethral Catheter 650 / 650 650 / 650 Other: Date of Last Bowel Movement 02/24/18 02/24/18 # Bowel Movements 0 0 Result Diagrams: 02/28/18 05:51 02/26/18 04:40 Laboratory Results: Laboratory Results - last 24 hr 02/26/18 02/26/18 02/27/18 10:58 10:58 05:27 Troponin I Less than 0.02 L B-Natriuretic Peptide 511 H 369 H 02/27/18 05:27 Troponin I Less than 0.02 L B-Natriuretic Peptide Culture Results: Microbiology 02/25/18 20:20 Legionella Antigen - Final Urine - Catheterized Urine Presumptive negative for Legionella pneumophila serogroup 1 antigen in urine, suggesting no recent or recurrent infection. Infection due to Legionella cannot be ruled out since other serogroups and species may cause disease, antigen may not be present in urine in early infection, and the level of antigen present in the urine may be below the detection limit of the test. Medications: Active Medications Generic Name Dose Route Start Last Admin Trade Name Freq PRN Reason Stop Dose Admin Albuterol 1 ampul 02/25/18 20:00 02/27/18 07:48 Duoneb Neb ([facility]) NEB 1 ampul Q4HR NEB IMRYAM Administration Amlodipine Besylate 5 mg 02/25/18 21:00 02/26/18 21:27 Norvasc PO 5 mg BID MIRYAM Administration Aspirin 81 mg 02/26/18 09:00 02/27/18 08:02 Ecotrin PO 81 mg DAILY MIR[facility]AM Administration Bumetanide 1 mg 02/25/18 23:30 02/27/18 08:04 Bumex Inj IV.PUSH 1 mg BID@0900,1800 M[facility] Administration Bupropion HCl 150 mg 02/26/18 09:00 02/27/18 08:01 Wellbutrin Sr PO 150 mg DAILY [facility] Administration Chlorhexidine Gluconate 3 pack 02/26/18 04:00 02/27/18 05:21 Chlorhexidine 2% Cloth TOPICAL 03/03/18 03:59 3 pack DAILY@0400 M[facility] Administration Cholestyramine Resin 4 gm 02/25/18 19:00 02/27/18 06:20 Questran 4 Gm Pkt PO 4 gm BID@0700,1900 [facility] Administration Donepezil HCl 10 mg 02/25/18 21:00 02/26/18 21:27 Aricept PO 10 mg HS MIR[facility]AM Administration Escitalopram Oxalate 20 mg 02/26/18 09:00 02/27/18 08:00 Lexapro PO 20 mg DAILY [facility] Administration Hydralazine HCl 75 mg 02/25/18 22:00 02/27/18 06:20 Apresoline PO 75 mg Q8HR [facility] Administration Piperacillin/Tazobactam/Dextrose 50 mls @ 100 mls/hr 02/25/18 20:00 02/27/18 07:59 Zosyn 3.375 Gm Premix IV.SIG 100 mls/hr Q6H [facility] Administration Isosorbide Mononitrate 30 mg 02/26/18 07:00 02/27/18 06:20 Imdur PO 30 mg DAILY@0700 [facility] Administration Levofloxacin 750 mg 02/25/18 18:15 02/25/18 18:30 Levaquin PO 750 mg Q48H [facility] Administration Losartan Potassium 50 mg 02/26/18 09:00 02/26/18 08:05 Cozaar PO 50 mg DAILY M[facility] Administration Methylprednisolone Sodium Succinate 60 mg 02/25/18 18:30 02/27/18 06:20 Solumedrol Inj IV.PUSH 60 mg Q6H [facility] Administration Metoprolol Tartrate 25 mg 02/25/18 21:00 02/26/18 21:26 Lopressor PO 25 mg BID [facility] Administration Montelukast Sodium 10 mg 02/25/18 21:00 02/26/18 21:27 Singulair PO 10 mg HS [facility] Administration Pantoprazole Sodium 20 mg 02/26/18 09:00 02/27/18 08:01 Protonix PO 20 mg DAILY [facility] Administration Pramipexole Dihydrochloride 0.125 mg 02/25/18 21:00 02/27/18 07:59 Mirapex PO 0.125 mg BID [facility] Administration Pravastatin Sodium 20 mg 02/25/18 21:00 02/26/18 21:26 Pravachol PO 20 mg HS MIR[facility]AM Administration Senna/Docusate Sodium 1 tab 02/25/18 21:00 02/27/18 08:00 Mima-Colace PO 1 tab BID [facility] Administration Sennosides 17.2 mg 02/25/18 17:57 02/27/18 08:01 Senokot PO 17.2 mg Q12H PRN Administration Moderate Constipation Sodium Chloride 2 ml 02/25/18 21:00 02/27/18 08:01 Ns Flush IV.FLUSH 2 ml BID [facility] Administration Objective Remarks: GENERAL: Well-nourished, well-developed elderly female patient, in no acute distress. SKIN: Warm and dry. HEAD: Normocephalic. EYES: No scleral icterus. No injection or drainage. NECK: Supple, trachea midline. CARDIOVASCULAR: Regular rate and rhythm without murmurs. RESPIRATORY: Breath sounds equal bilaterally. No accessory muscle use. High flow O2 via NC. GASTROINTESTINAL: Abdomen soft, non-tender, nondistended. EXTREMITIES: No cyanosis, or edema. MUSCULOSKELETAL: Adequate muscle tone. NEUROLOGICAL: No obvious focal deficit. Alert, and oriented x3. PSYCHIATRIC: Appropriate mood and affect; insight and judgment normal. Assessment/Plan - Plan Ms. Christian is a pleasant 78-year-old female patient who is currently hospitalized from [facility] for acute worsening of shortness of breath. 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 Other medical ailments include CVA 3 months ago, pneumonia, sepsis, diastolic heart failure, CKD stage III and coronary artery disease. Per her medical chart she also has a history of Alzheimer's dementia. Recommendations: 1. Possible MDS, Procrit has been held related to recent strokes, patient reports frequent blood transfusions. 2. Anemia of renal insufficiency, avoid Procrit due to recent stroke, avoid aggressive transfusions due to iron overload. Maintain hemoglobin above 7 g/dL. 3. Repeat CBC in the a.m. - Attending Statement Pt seen in room 523. "I feel better". Off oxygen and looks comfortable. No evidence of active bleeding. No other change in PE. No evidence of active bleeding. Will check CBC stat and transfuse as needed.
[2018-02-27] MEDS: Metoprolol Tartrate 25 MG Tablet PO SCH ×2 (10:05→21:24)
[2018-02-27] MEDS: amLODIPine 5 MG Tablet PO SCH ×2 (10:05→21:24)
--- NOTE | 2018-02-27 10:38 | P.PNPAL ---
Reason for Visit Reason for visit: Dyspnea, pain, debility/weakness Subjective Subjective/Interval History: Patient seen for follow-up of dyspnea, pain, debility and weakness as well as goals of medical treatment. This is a 78-year-old female previously seen by palliative care 02/[facility], see consultation by Luma Marquis APRN, who was subsequently transferred to intensive medical care due to worsening dyspnea and more fragile respiratory status. She was seen by Dr. Desean August for cardiology, covering for Dr. Wells, for management of diastolic CHF. He opined that her hypoxia appeared disproportionate to the elevation of BNP, suggesting that her hypoxia was related to underlying lung disease and/or pneumonia. Her troponin has been remained flat at less than 0.02 x 3 draws. Her B natruretic peptide remains mildly elevated at 369. She was also seen by Dr. 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 Her Procrit was discontinued after sustaining a stroke while on Procrit. He recommended maintaining hemoglobin greater than 7 and monitoring CBC. Infectious disease consultation was obtained for recurrent pneumonia, healthcare associated pneumonia, recurrent UTIs and recommended continuing Zosyn and Levaquin with fungal workup for recurrent pneumonia and suggested bronchoscopy considering this is a recurrent process. Blood cultures drawn are pending. Urine cultures show presumptive negative for Legionella, confirming 02/23 specimen also negative for Legionella and strep pneumoniae. At this time pulmonology is not recommending bronchoscopy as patient appears to be improving. She remains on high flow nasal cannula O2 at 30 L/min and is dyspneic with conversation. . Family/Friend Interactions: No family is at bedside at this time. Objective Vital Signs: Vital Signs 02/26/18 11:00 02/26/18 11:02/26/18 12:00 Temperature 98.4 F Pulse Rate 73 70 66 Respiratory Rate 30 H 24 16 Blood Pressure 101/48 L 116/54 L Pulse Oximetry 96 02/26/18 12:31 02/26/18 13:00 02/26/18 14:00 Temperature Pulse Rate 69 62 68 Respiratory Rate 20 22 20 Blood Pressure 111/53 L 113/52 L 86/43 L Pulse Oximetry 97 97 93 L 02/26/18 14:55 02/26/18 15:00 02/26/18 15:45 Temperature Pulse Rate 70 67 67 Respiratory Rate 24 27 H 22 Blood Pressure 88/44 L 88/44 L 92/49 L Pulse Oximetry 97 98 97 02/26/18 16:00 02/26/18 16:03 02/26/18 17:00 Temperature 98.6 F Pulse Rate 66 68 65 Respiratory Rate 18 20 28 H Blood Pressure 86/43 L Pulse Oximetry 96 87 L 02/26/18 17:01 02/26/18 18:00 02/26/18 18:01 Temperature Pulse Rate 66 74 78 Respiratory Rate 26 H 26 H 31 H Blood Pressure 107/50 L 106/50 L Pulse Oximetry 88 L 88 L 89 L 02/26/18 19:00 02/26/18 20:00 02/26/18 20:12 Temperature 98.3 F Pulse Rate 72 68 70 Respiratory Rate 28 H 19 20 Blood Pressure 109/54 L 114/59 L Pulse Oximetry 98 94 L 95 02/26/18 21:00 02/26/18 22:00 02/26/18 23:00 Temperature Pulse Rate 67 60 62 Respiratory Rate 16 17 23 Blood Pressure 111/51 L 110/50 L 110/52 L Pulse Oximetry 94 L 94 L 02/26/18 23:29 02/27/18 00:00 02/27/18 01:00 Temperature 98.3 F Pulse Rate 58 L 60 59 L Respiratory Rate 20 16 18 Blood Pressure 112/48 L 102/49 L Pulse Oximetry 95 100 02/27/18 02:00 02/27/18 03:00 02/27/18 03:39 Temperature Pulse Rate 60 60 60 Respiratory Rate 21 17 24 Blood Pressure 118/53 L 115/55 L Pulse Oximetry 96 98 02/27/18 04:00 02/27/18 05:00 02/27/18 05:01 Temperature 98.3 F Pulse Rate 68 60 60 Respiratory Rate 20 24 25 H Blood Pressure 128/60 116/52 L Pulse Oximetry 95 86 L 86 L 02/27/18 06:00 02/27/18 07:00 02/27/18 07:47 Temperature Pulse Rate 61 64 79 Respiratory Rate 28 H 24 22 Blood Pressure 122/56 L 125/57 L Pulse Oximetry 92 L 93 L 02/27/18 07:48 02/27/18 08:00 02/27/18 08:01 Temperature 98.3 F Pulse Rate 65 65 Respiratory Rate Blood Pressure 103/49 L Pulse Oximetry 94 L 02/27/18 09:00 02/27/18 09:14 02/27/18 10:00 Temperature Pulse Rate 73 71 62 Respiratory Rate 22 Blood Pressure 100/49 L Pulse Oximetry 100 100 02/27/18 10:01 Temperature Pulse Rate 62 Respiratory Rate 16 Blood Pressure 112/51 L Pulse Oximetry 100 Intake & Output 02/26/18 02/27/18 02/27/18 18:59 06:59 18:59 Intake Total 820 / 820 820 / 820 50 / 50 Output Total 650 / 650 650 / 650 Balance 170 / 170 170 / 170 50 / 50 Weight 121 lb 4.068 oz Intake: IV 100 / 100 100 / 100 50 / 50 Zosyn 3.375 GM Premix 50 ML @ 100 / 100 100 / 100 50 / 50 100 mls/hr IV.SIG Q6H [facility] Rx#: [id number] Oral 720 / 720 720 / 720 Output: Urine Amount (Catheter) 650 / 650 650 / 650 Indwelling Urethral Catheter 650 / 650 650 / 650 Other: Date of Last Bowel Movement 02/24/18 02/24/18 # Bowel Movements 0 0 Physical Exam: GENERAL: Well-nourished, well-developed elderly female patient, in no acute distress. SKIN: Warm and dry. HEAD: Normocephalic. EYES: No scleral icterus. No injection or drainage. NECK: Supple, trachea midline. CARDIOVASCULAR: Regular rate and rhythm without murmurs. RESPIRATORY: Breath sounds equal, diminished bilaterally. No accessory muscle use. High flow O2 via NC at 38 L/min. GASTROINTESTINAL: Abdomen soft, non-tender, nondistended. EXTREMITIES: No cyanosis, or edema. MUSCULOSKELETAL: Adequate muscle tone. NEUROLOGICAL: Alert, and oriented x3. No focal deficit noted. PSYCHIATRIC: Appears mildly anxious, slightly flat affect. . Diagnostic Tests Laboratory: Laboratory Results - last 72 hr 02/25/18 02/25/18 02/25/18 18:05 18:18 19:45 WBC RBC Hgb Hct MCV MCH MCHC RDW Plt Count MPV Neut % (Auto) Lymph % (Auto) [place] % (Auto) Eos % (Auto) Baso % (Auto) Neut # (Auto) Lymph # (Auto) [place] # (Auto) Eos # (Auto) Baso # (Auto) WBC Differential Differential Comment PT INR Puncture Site Right radial Patient Temperature 98.6 O2 Saturation 87 L* ABG pH 7.43 H ABG pCO2 29 L ABG pO2 59 L* ABG HCO3 19 L ABG O2 Content 11.1 L ABG Base Excess -4.7 L ABG Methemoglobin 2.1 H Andrew Test Present Hemoglobin 9.0 L Carboxyhemoglobin 1.6 O2 Delivery Device Sm Liter Flow 6.00 Critical Value Yes Sodium Potassium Chloride Carbon Dioxide Anion Gap BUN Creatinine Estimated GFR Random Glucose Calcium Ferritin Total Bilirubin AST ALT Alkaline Phosphatase Troponin I B-Natriuretic Peptide Total Protein Albumin Urine Color Light-yellow Urine Clarity Cloudy H Urine pH 5.0 Ur Specific [place] 1.008 Urine Protein 100 H Urine Glucose (UA) Negative Urine Ketones Negative Urine Occult Blood Negative Urine Nitrate Negative Urine Bilirubin Negative Urine Urobilinogen Less than 2 Ur Leukocyte Esterase Negative Urine RBC Less than 1 Urine WBC Less than 1 Ur Squamous Epith Cells 4 Amorphous Sediment Few H Urine Bacteria Few H Urine Mucus Few H Ur Microscopic Review Not Reportable Nasal Screen MRSA (PCR) Not detected 02/25/18 02/26/18 02/26/18 20:14 04:40 04:40 WBC 10.1 RBC 2.43 L Hgb 7.8 L Hct 23.1 L MCV 95.0 MCH 32.1 MCHC 33.8 RDW 18.9 H Plt Count 119 L MPV 7.8 Neut % (Auto) 98.5 H Lymph % (Auto) 0.9 L [place] % (Auto) 0.4 Eos % (Auto) 0.0 Baso % (Auto) 0.2 Neut # (Auto) 9.9 H Lymph # (Auto) 0.1 L [place] # (Auto) 0.0 Eos # (Auto) 0.0 Baso # (Auto) 0.0 WBC Differential . Differential Comment Auto diff final PT 10.7 INR 1.1 Puncture Site Patient Temperature O2 Saturation ABG pH ABG pCO2 ABG pO2 ABG HCO3 ABG O2 Content ABG Base Excess ABG Methemoglobin Andrew Test Hemoglobin Carboxyhemoglobin O2 Delivery Device Liter Flow Critical Value Sodium Potassium Chloride Carbon Dioxide Anion Gap BUN Creatinine Estimated GFR Random Glucose Calcium Ferritin 1906 H Total Bilirubin AST ALT Alkaline Phosphatase Troponin I B-Natriuretic Peptide Total Protein Albumin Urine Color Urine Clarity Urine pH Ur Specific [place] Urine Protein Urine Glucose (UA) Urine Ketones Urine Occult Blood Urine Nitrate Urine Bilirubin Urine Urobilinogen Ur Leukocyte Esterase Urine RBC Urine WBC Ur Squamous Epith Cells Amorphous Sediment Urine Bacteria Urine Mucus Ur Microscopic Review Nasal Screen MRSA (PCR) 02/26/18 02/26/18 02/26/18 04:40 10:58 10:58 WBC RBC Hgb Hct MCV MCH MCHC RDW Plt Count MPV Neut % (Auto) Lymph % (Auto) [place] % (Auto) Eos % (Auto) Baso % (Auto) Neut # (Auto) Lymph # (Auto) [place] # (Auto) Eos # (Auto) Baso # (Auto) WBC Differential Differential Comment PT INR Puncture Site Patient Temperature O2 Saturation ABG pH ABG pCO2 ABG pO2 ABG HCO3 ABG O2 Content ABG Base Excess ABG Methemoglobin Andrew Test Hemoglobin Carboxyhemoglobin O2 Delivery Device Liter Flow Critical Value Sodium 139 Potassium 4.1 Chloride 107 Carbon Dioxide 20.0 L Anion Gap 12 BUN 50 H Creatinine 1.75 H Estimated GFR 28 L Random Glucose 180 H Calcium 8.0 L Ferritin Total Bilirubin 0.5 AST 14 L ALT 22 Alkaline Phosphatase 99 Troponin I Less than 0.02 L B-Natriuretic Peptide 511 H Total Protein 6.3 L D Albumin 2.3 L Urine Color Urine Clarity Urine pH Ur Specific [place] Urine Protein Urine Glucose (UA) Urine Ketones Urine Occult Blood Urine Nitrate Urine Bilirubin Urine Urobilinogen Ur Leukocyte Esterase Urine RBC Urine WBC Ur Squamous Epith Cells Amorphous Sediment Urine Bacteria Urine Mucus Ur Microscopic Review Nasal Screen MRSA (PCR) 02/27/18 02/27/18 05:27 05:27 WBC RBC Hgb Hct MCV MCH MCHC RDW Plt Count MPV Neut % (Auto) Lymph % (Auto) [place] % (Auto) Eos % (Auto) Baso % (Auto) Neut # (Auto) Lymph # (Auto) [place] # (Auto) Eos # (Auto) Baso # (Auto) WBC Differential Differential Comment PT INR Puncture Site Patient Temperature O2 Saturation ABG pH ABG pCO2 ABG pO2 ABG HCO3 ABG O2 Content ABG Base Excess ABG Methemoglobin Andrew Test Hemoglobin Carboxyhemoglobin O2 Delivery Device Liter Flow Critical Value Sodium Potassium Chloride Carbon Dioxide Anion Gap BUN Creatinine Estimated GFR Random Glucose Calcium Ferritin Total Bilirubin AST ALT Alkaline Phosphatase Troponin I Less than 0.02 L B-Natriuretic Peptide 369 H Total Protein Albumin Urine Color Urine Clarity Urine pH Ur Specific [place] Urine Protein Urine Glucose (UA) Urine Ketones Urine Occult Blood Urine Nitrate Urine Bilirubin Urine Urobilinogen Ur Leukocyte Esterase Urine RBC Urine WBC Ur Squamous Epith Cells Amorphous Sediment Urine Bacteria Urine Mucus Ur Microscopic Review Nasal Screen MRSA (PCR) Result Diagrams: 02/26/18 04:40 02/26/18 04:40 Microbiology: Microbiology 02/25/18 20:20 Legionella Antigen - Final Urine - Catheterized Urine Presumptive negative for Legionella pneumophila serogroup 1 antigen in urine, suggesting no recent or recurrent infection. Infection due to Legionella cannot be ruled out since other serogroups and species may cause disease, antigen may not be present in urine in early infection, and the level of antigen present in the urine may be below the detection limit of the test. Imaging: Chest X-Ray 02/25/18 00:00 CONCLUSION: Diffuse pulmonary opacities again noted, slightly worse on the right and not significantly changed on the left. Assessment and Plan Pertinent Non-Medical Issues: Psychosocial: Patient originally from [place] area has lived in [place] since the . Moved here to retire. Formerly worked for the [employer] in [place]. Has an adult daughter in [place] remains in close communication with. Also supported by . They have a small dog named Umair whom they greatly enjoy. Spiritual: Furniture [employer] Inspector available Legal:pt currently a&o, able to make her decisions, she indicates she has paperwork completed naming her wishes and decision makers states it is her . Proxy Would be her per [place] statutes. Ethical issues impacting care:no ethical issues identified Important Contacts: Bishop Christian [phone] . Prognosis: This patient was admitted to [facility] 02/17/18. This was following acute hospitalization for arm fracture, complicated by pneumonia. Patient reports multiple hospitalizations for recurrent pneumonia since July of this year. She has had progressive physical and functional decline since that time. Shortness of breath and current medical conditions are limiting her ability to rehab in the past few days. Currently with maximized medical treatment. High risk for further decline. Possible may get through this and resume rehabilitation attempts however does remain continued decline and recurrent complications/setbacks due to debilitated status, multiple comorbidities and recurrent pneumonia. Code Status: Full Code Plan: PLAN: Legal decision maker: Patient is currently capacitated to make her own decisions and states that she does have completed advanced directives naming her as her healthcare surrogate. Per [place] statutes, her would be the proxy decision-maker Goals: Remain aggressive to include full code. Extensive patient education provided regarding the burdens and benefits of intubation/resuscitation. CODE STATUS: FULL CODE SYMPTOMS: * Dyspnea: Patient has had multiple recurrent pneumonia episodes since July 2017 with frequent hospitalizations. She is currently receiving albuterol, Robitussin, Levaquin, Solu-Medrol, Singulair, Zosyn. She is currently on 30 L nasal cannula O2 via high flow saturating adequately, but remains mildly dyspneic with conversation. * Pain: Mild pain second to left upper extremity fracture, hydrocodone is available as needed, used sparingly. * Debility/weakness: Failed [facility] re[facility] secondary to increasing dyspnea and recurrent pneumonia. Per physical therapy evaluation, she is at extraordinarily high risk for falls and will need continued rehabilitation at a facility upon discharge. Patient states her ultimate goal is to return home with her who provides her care. Palliative care will continue to follow the patient during hospital course as condition evolves, to assist patient/decision-maker with understanding of their medical conditions, weighing benefits/burdens of treatment options, for clarification of goals of treatment. Additionally will assist with any symptoms of palliative concern. . Attestation Attestation: To help prompt me to consider important information that might be impacting today's encounter and assessment, information from prior notes written by myself or my colleagues may have been "brought forward" into today's note. My signature on this note, however, is an attestation that I personally performed the exam, history, and/or decision-making noted today, and, unless otherwise indicated, the interactions with patient, family, and staff as well as the review of records all occurred today. I also attest that the listed assessment and stated plan reflect my best clinical judgment today based on the combination of historical information, prior notes, and today's exam/ interactions. When time spent is documented, it refers only to time spent today by the signer, or if indicated, combined time spent today by collaborating physician/nurse practitioner. .
--- NOTE | 2018-02-27 10:46 | P.PNID ---
Subjective Remarks: Ms. Christian a 78-year-old female with past medical history significant for, CLL requiring multiple transfusions in the past. 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 Most of the history was obtained by review of medical records as patient is a poor historian. Patient was also recently hospitalized at [facility] and thereafter transferred to [facility]. She was hospitalized between January 03 after being diagnosed with pneumonia, sepsis, encephalopathy reportedly discharged home and ended up falling at home resulting in a closed impacted community distal radial and ulnar fracture on the left side. She was thereafter hospitalized at [facility]. She was evaluated by orthopedics at that hospital. Patient has needing transfusions in the past. Patient has been treated for recurrent pneumonia as well as recurrent urinary tract infections. Reported travel history to [place] in July 2017 but patient reports that she stayed at home mostly. Prior to these occurrences Patient became increasingly short of breath while at [facility] requiring 4 L supplemental O2 via nasal cannula. A CT of the chest was done on February 22 which showed patchy diffuse mixed interstitial and alveolar infiltrates all patient was also noted to have bilateral pleural effusions. She was empirically treated with Zosyn and Levaquin IV. A VQ scan done on February 23 showed low probability of PE. Patient is known to have diastolic heart failure. Patient received IV Lasix 2 days in a row with worsening shortness of breath and therefore I had a CAT was called and [place] [facility] the care of factious diseases consulted for evaluation and management of recurrent pneumonia. Overnight events reviewed. No fever No rash No diarrhea Antibiotics: Zosyn IV Levaquin Lines: Lines ok Past Medical History: reviewed Allergies/Adverse Reactions: Allergies latex Allergy (Verified 02/18/18 06:07) Rash, Localized soy Allergy (Verified 02/18/18 06:07) Congestion sinus congestion sulfadiazine Allergy (Verified 02/18/18 06:07) Hives wheat [Flour] Allergy (Verified 02/18/18 06:07) Rash Eczema Objective Vital Signs 02/26/18 11:00 02/26/18 11:31 02/26/18 12:00 Temperature 98.4 F Pulse Rate 73 70 66 Respiratory Rate 30 H 24 16 Blood Pressure 101/48 L 116/54 L Pulse Oximetry 96 02/26/18 12:31 02/26/18 13:00 02/26/18 14:00 Temperature Pulse Rate 69 62 68 Respiratory Rate 20 22 20 Blood Pressure 111/53 L 113/52 L 86/43 L Pulse Oximetry 97 97 93 L 02/26/18 14:55 02/26/18 15:00 02/26/18 15:45 Temperature Pulse Rate 70 67 67 Respiratory Rate 24 27 H 22 Blood Pressure 88/44 L 88/44 L 92/49 L Pulse Oximetry 97 98 97 02/26/18 16:00 02/26/18 16:03 02/26/18 17:00 Temperature 98.6 F Pulse Rate 66 68 65 Respiratory Rate 18 20 28 H Blood Pressure 86/43 L Pulse Oximetry 96 87 L 02/26/18 17:01 02/26/18 18:00 02/26/18 18:01 Temperature Pulse Rate 66 74 78 Respiratory Rate 26 H 26 H 31 H Blood Pressure 107/50 L 106/50 L Pulse Oximetry 88 L 88 L 89 L 02/26/18 19:00 02/26/18 20:00 02/26/18 20:12 Temperature 98.3 F Pulse Rate 72 68 70 Respiratory Rate 28 H 19 20 Blood Pressure 109/54 L 114/59 L Pulse Oximetry 98 94 L 95 02/26/18 21:00 02/26/18 22:00 02/26/18 23:00 Temperature Pulse Rate 67 60 62 Respiratory Rate 16 17 23 Blood Pressure 111/51 L 110/50 L 110/52 L Pulse Oximetry 94 L 94 L 02/26/18 23:29 02/27/18 00:00 02/27/18 01:00 Temperature 98.3 F Pulse Rate 58 L 60 59 L Respiratory Rate 20 16 18 Blood Pressure 112/48 L 102/49 L Pulse Oximetry 95 100 02/27/18 02:00 02/27/18 03:00 02/27/18 03:39 Temperature Pulse Rate 60 60 60 Respiratory Rate 21 17 24 Blood Pressure 118/53 L 115/55 L Pulse Oximetry 96 98 02/27/18 04:00 02/27/18 05:00 02/27/18 05:01 Temperature 98.3 F Pulse Rate 68 60 60 Respiratory Rate 20 24 25 H Blood Pressure 128/60 116/52 L Pulse Oximetry 95 86 L 86 L 02/27/18 06:00 02/27/18 07:00 02/27/18 07:47 Temperature Pulse Rate 61 64 79 Respiratory Rate 28 H 24 22 Blood Pressure 122/56 L 125/57 L Pulse Oximetry 92 L 93 L 02/27/18 07:48 02/27/18 08:00 02/27/18 08:01 Temperature 98.3 F Pulse Rate 65 65 Respiratory Rate Blood Pressure 103/49 L Pulse Oximetry 94 L 02/27/18 09:00 02/27/18 09:14 02/27/18 10:00 Temperature Pulse Rate 73 71 62 Respiratory Rate 22 Blood Pressure 100/49 L Pulse Oximetry 100 100 02/27/18 10:01 Temperature Pulse Rate 62 Respiratory Rate 16 Blood Pressure 112/51 L Pulse Oximetry 100 Intake & Output 02/26/18 02/27/18 02/27/18 18:59 06:59 18:59 Intake Total 820 / 820 820 / 820 50 / 50 Output Total 650 / 650 650 / 650 Balance 170 / 170 170 / 170 50 / 50 Weight 55 kg Intake: IV 100 / 100 100 / 100 50 / 50 Zosyn 3.375 GM Premix 50 ML @ 100 / 100 100 / 100 50 / 50 100 mls/hr IV.SIG Q6H [facility] Rx#: [id number] Oral 720 / 720 720 / 720 Output: Urine Amount (Catheter) 650 / 650 650 / 650 Indwelling Urethral Catheter 650 / 650 650 / 650 Other: Date of Last Bowel Movement 02/24/18 02/24/18 # Bowel Movements 0 0 02/26/18 10:55 Blood - Peripheral Aerobic Blood Culture - Pending 02/26/18 10:55 Blood - Peripheral Anaerobic Blood Culture - Pending 02/26/18 10:55 Blood - Peripheral Aerobic Blood Culture - Pending 02/26/18 10:55 Blood - Peripheral Anaerobic Blood Culture - Pending 02/26/18 11:08 Blood - Peripheral Blood Fungal Culture - Pending 02/26/18 11:08 Blood - Peripheral Blood Fungal Culture - Pending 02/25/18 20:20 Urine - Catheterized Urine Legionella Antigen - Final Presumptive negative for Legionella pneumophila serogroup 1 antigen in urine, suggesting no recent or recurrent infection. Infection due to Legionella cannot be ruled out since other serogroups and species may cause disease, antigen may not be present in urine in early infection, and the level of antigen present in the urine may be below the detection limit of the test. Lab - Hematology Results 02/26/18 04:40 WBC 10.1 RBC 2.43 L Hgb 7.8 L Hct 23.1 L MCV 95.0 MCH 32.1 MCHC 33.8 RDW 18.9 H Plt Count 119 L MPV 7.8 Neut % (Auto) 98.5 H Lymph % (Auto) 0.9 L [place] % (Auto) 0.4 Eos % (Auto) 0.0 Baso % (Auto) 0.2 Neut # (Auto) 9.9 H Lymph # (Auto) 0.1 L [place] # (Auto) 0.0 Eos # (Auto) 0.0 Baso # (Auto) 0.0 WBC Differential . Differential Comment Auto diff final Lab - Chemistry Results 02/25/18 02/26/18 02/26/18 20:14 04:40 10:58 Sodium 139 Potassium 4.1 Chloride 107 Carbon Dioxide 20.0 L Anion Gap 12 BUN 50 H Creatinine 1.75 H Estimated GFR 28 L Random Glucose 180 H Calcium 8.0 L Ferritin 1906 H Total Bilirubin 0.5 AST 14 L ALT 22 Alkaline Phosphatase 99 Troponin I B-Natriuretic Peptide 511 H Total Protein 6.3 L D Albumin 2.3 L 02/26/18 02/27/18 02/27/18 10:58 05:27 05:27 Sodium Potassium Chloride Carbon Dioxide Anion Gap BUN Creatinine Estimated GFR Random Glucose Calcium Ferritin Total Bilirubin AST ALT Alkaline Phosphatase Troponin I Less than 0.02 L Less than 0.02 L B-Natriuretic Peptide 369 H Total Protein Albumin Imaging: ITS Impressions Chest X-Ray 02/25/18 00:00 CONCLUSION: Diffuse pulmonary opacities again noted, slightly worse on the right and not significantly changed on the left. Physical Exam: GENERAL: Well-nourished well-developed, not in acute distress SKIN: Cool and dry, no generalized rash HEAD: Atraumatic. Normocephalic. No temporal or scalp tenderness. EYES: Pupils equal round and reactive. Scleral icterus. No injection or drainage. No petechia ENT: Nothing abnormal detected NECK: Trachea midline. Supple, nontender, no meningeal signs. CARDIOVASCULAR: HS audible. RESPIRATORY: Clear to auscultation bilaterally. Air entry decreased in the bases. GASTROINTESTINAL: Abdomen soft nontender. MUSCULOSKELETAL: Extremities without clubbing, cyanosis. NEUROLOGICAL: Alert oriented 3. Psych cooperative IV line sites ok. Assessment and Plan - Plan Healthcare associated pneumonia Recurrent pneumonia History of recurrent UTIs History of dementia History of CLL with chronic anemia requiring multiple transfusions. Recommendations Continue Zosyn IV Continue Levaquin Follow clinical course covering for me this weekend.
[2018-02-27 12:27] LABS: Mean Corpuscular HGB Conc 33.6 % (32.0-36.0); Mean Corpuscular Hemoglobin 32.1 pg (27.0-34.0); Mean Corpuscular Volume 95.5 fL (80.0-100.0); Mean Platelet Volume 7.7 fL (7.0-11.0); Platelet Count 100 th/mm3 (150-450); Red Blood Count 2.16 mil/mm3 (4.00-5.30); Red Cell Distribution Width 18.4 % (11.6-17.2)
[2018-02-27 12:35] LABS: Hematocrit 20.6 % (35.0-46.0); Hemoglobin 6.9 gm/dL (11.6-15.3)
--- NOTE | 2018-02-27 12:55 | P.PN ---
Subjective Interval history: Follow up for pneumonia, congestive heart failure, CKD. Patient is currently doing well. No acute concerns. Currently undergoing echo study. No fever, chills. Her Hgb is 6.9 today. Physical Exam Vital signs: Vital Signs 02/26/18 13:00 02/26/18 14:00 02/26/18 14:55 Temperature Pulse Rate 62 68 70 Respiratory Rate 22 20 24 Blood Pressure 113/52 L 86/43 L 88/44 L Pulse Oximetry 97 93 L 97 02/26/18 15:00 02/26/18 15:45 02/26/18 16:00 Temperature 98.6 F Pulse Rate 67 67 66 Respiratory Rate 27 H 22 18 Blood Pressure 88/44 L 92/49 L 86/43 L Pulse Oximetry 98 97 96 02/26/18 16:03 02/26/18 17:00 02/26/18 17:01 Temperature Pulse Rate 68 65 66 Respiratory Rate 20 28 H 26 H Blood Pressure 107/50 L Pulse Oximetry 87 L 88 L 02/26/18 18:00 02/26/18 18:01 02/26/18 19:00 Temperature Pulse Rate 74 78 72 Respiratory Rate 26 H 31 H 28 H Blood Pressure 106/50 L 109/54 L Pulse Oximetry 88 L 89 L 98 02/26/18 20:00 02/26/18 20:12 02/26/18 21:00 Temperature 98.3 F Pulse Rate 68 70 67 Respiratory Rate 19 20 16 Blood Pressure 114/59 L 111/51 L Pulse Oximetry 94 L 95 94 L 02/26/18 22:00 02/26/18 23:00 02/26/18 23:29 Temperature Pulse Rate 60 62 58 L Respiratory Rate 17 23 20 Blood Pressure 110/50 L 110/52 L Pulse Oximetry 94 L 02/27/18 00:00 02/27/18 01:00 02/27/18 02:00 Temperature 98.3 F Pulse Rate 60 59 L 60 Respiratory Rate 16 18 21 Blood Pressure 112/48 L 102/49 L 118/53 L Pulse Oximetry 95 100 96 02/27/18 03:00 02/27/18 03:39 02/27/18 04:00 Temperature 98.3 F Pulse Rate 60 60 68 Respiratory Rate 17 24 20 Blood Pressure 115/55 L 128/60 Pulse Oximetry 98 95 02/27/18 05:00 02/27/18 05:01 02/27/18 06:00 Temperature Pulse Rate 60 60 61 Respiratory Rate 24 25 H 28 H Blood Pressure 116/52 L 122/56 L Pulse Oximetry 86 L 86 L 92 L 02/27/18 07:00 02/27/18 07:47 02/27/18 07:48 Temperature Pulse Rate 64 79 Respiratory Rate 24 22 Blood Pressure 125/57 L Pulse Oximetry 93 L 94 L 02/27/18 08:00 02/27/18 08:01 02/27/18 09:00 Temperature 98.3 F Pulse Rate 65 65 73 Respiratory Rate Blood Pressure 103/49 L Pulse Oximetry 100 02/27/18 09:14 02/27/18 10:00 02/27/18 10:01 Temperature Pulse Rate 71 62 62 Respiratory Rate 22 16 Blood Pressure 100/49 L 112/51 L Pulse Oximetry 100 100 02/27/18 11:10 Temperature Pulse Rate 65 Respiratory Rate 17 Blood Pressure Pulse Oximetry Intake & Output 02/26/18 02/27/18 02/27/18 18:59 06:59 18:59 Intake Total 820 / 820 820 / 820 50 / 50 Output Total 650 / 650 650 / 650 Balance 170 / 170 170 / 170 50 / 50 Weight 55 kg Intake: IV 100 / 100 100 / 100 50 / 50 Zosyn 3.375 GM Premix 50 ML @ 100 / 100 100 / 100 50 / 50 100 mls/hr IV.SIG Q6H CHELI Rx#: [id number] Oral 720 / 720 720 / 720 Output: Urine Amount (Catheter) 650 / 650 650 / 650 Indwelling Urethral Catheter 650 / 650 650 / 650 Other: Date of Last Bowel Movement 02/24/18 02/24/18 # Bowel Movements 0 0 Narrative: GENERAL: Alert, NAD. SKIN: Warm and dry. HEAD: Normocephalic. EYES: No scleral icterus. No injection or drainage. NECK: Supple, trachea midline. No JVD or lymphadenopathy. CARDIOVASCULAR: Regular rate and rhythm without gallops, or rubs. There is a systolic murmur present best heard on the left sternal border. RESPIRATORY: Moderate air entry, coarse breath sounds noted. GASTROINTESTINAL: Abdomen soft, non-tender, nondistended. MUSCULOSKELETAL: No cyanosis, or edema. BACK: Nontender without obvious deformity. No CVA tenderness. - Urinary Catheter Management Indwelling Urethral Catheter Cath placed during this visit: yes Reason for continuing: Hourly intake/output Insertion date: 02/25/18 Insertion time: 19:58 Results - Labs CBC & Chem 7: 02/27/18 11:50 02/26/18 04:40 Laboratory Results - last 24 hr 02/27/18 02/27/18 02/27/18 05:27 05:27 11:50 WBC 10.0 RBC 2.16 L Hgb 6.9 L* Hct 20.6 L* MCV 95.5 MCH 32.1 MCHC 33.6 RDW 18.4 H Plt Count 100 L MPV 7.7 Troponin I Less than 0.02 L B-Natriuretic Peptide 369 H Microbiology 02/26/18 10:55 Blood - Peripheral Aerobic Blood Culture - Preliminary No growth in 1 day 02/26/18 10:55 Blood - Peripheral Anaerobic Blood Culture - Preliminary No growth in 1 day 02/26/18 10:55 Blood - Peripheral Aerobic Blood Culture - Preliminary No growth in 1 day 02/26/18 10:55 Blood - Peripheral Anaerobic Blood Culture - Preliminary No growth in 1 day 02/25/18 20:20 Urine - Catheterized Urine Legionella Antigen - Final Presumptive negative for Legionella pneumophila serogroup 1 antigen in urine, suggesting no recent or recurrent infection. Infection due to Legionella cannot be ruled out since other serogroups and species may cause disease, antigen may not be present in urine in early infection, and the level of antigen present in the urine may be below the detection limit of the test. - Procedures None Assessment and Plan - Plan Patient is a 78 year old female with a past medical history significant for CLL, recent pneumonia, diastolic heart failure, stage III CKD, and left sided hand fracture. She was admitted from [facility] to [facility] under the care of the hospitalist service for progressively worsening shortness secondary to recurrent pneumonia. Acute on chronic hypoxic respiratory failure Pneumonia - possibly atypical. -continue Zosyn and Levaquin. ID consulted. -Solumedrol IV -duonebs IV Q6H -pulmonary consulted. Patient may need bronchoscopy. -Urine legionella, histoplasma urine pending. -Blastomyces ab pending. -continue supplemental O2 PRN -Palliative care on board. Diastolic heart failure w/ volume overload -Echo pending today. -continue diuretics, monitor renal function and electrolytes -cardiology following. -strict I&O, daily weight, low Na diet Chronic kidney disease, stage III -Creatinine around 1.75, baseline appears to be around 1.6. -avoid nephrotoxic meds Closed, impacted, comminuted left distal radial and ulnar fracture with cast in place -PT/OT eval/treat -pain meds PRN CLL with hx of blood transfusions -continue to monitor H/H -Hgb 6.9 today. Will likely need 1-2 units of PRBCs today. RN to let Oncologist know. Alzheimer dementia with no behavioral disturbance -continue home meds Full code. SCDs.
--- NOTE | 2018-02-27 15:55 | ECHRPT ---
Indication: HEART FAILURE CONCLUSIONS Normal left ventricular size. Mild concentric left ventricular hypertrophy. The left ventricular systolic function is normal with an estimated ejection fraction in the range of 60-65%. The left atrial size is moderately dilated. Moderate to severe aortic valve regurgitation. Mild aortic valve stenosis. 19 mean mmhg gradient The estimated pulmonary arterial pressure is 61 mmHg. There is moderate to severe tricuspid valve regurgitation. BP: / HR: Rhythm: MEASUREMENTS (Male / Female) Normal Values Technical Quality: 2D ECHO LV Diastolic Diameter PLAX 4.2 cm 4.2 - 5.9 / 3.9 - 5.3 cm LV Systolic Diameter PLAX 2.8 cm IVS Diastolic Thickness 1.3 cm 0.6 - 1.0 / 0.6 - 0.9 cm LVPW Diastolic Thickness 1.4 cm 0.6 - 1.0 / 0.6 - 0.9 cm LV Relative Wall Thickness 0.6 RV Internal Dim ED PLAX 2.2 cm LVOT Diameter 1.7 cm Aortic Root Diameter 2.6 cm LA Systolic Diameter LX 4.0 cm 3.0 - 4.0 / 2.7 - 3.8 cm LV Ejection Fraction MOD BP 69.8 % >= 55 % LV Ejection Fraction MOD 4C 71.3 % LV Ejection Fraction 4C AL 71.9 % LV Ejection Fraction MOD 2C 67.6 % LV Ejection Fraction 2C AL 68.6 % M-MODE Aortic Root Diameter MM 3.2 cm LA Systolic Diameter MM 5.0 cm LA Ao Ratio MM 1.6 AV Cusp Separation MM 1.3 cm DOPPLER AV Peak Velocity 299.8 cm/s AV Peak Gradient 35.9 mmHg AV Mean Gradient 18.7 mmHg AV Velocity Time Integral 68.5 cm AI Peak Velocity 439.0 cm/s AI Peak Gradient 77.1 mmHg AI Pressure Half Time 264.0 ms LVOT Peak Velocity 113.0 cm/s LVOT Peak Gradient 5.1 mmHg LVOT Velocity Time Integral 33.0 cm AV Area Cont Eq vti 1.1 cm AV Area Cont Eq pk 0.9 cm Mitral E Point Velocity 123.0 cm/s Mitral A Point Velocity 104.0 cm/s Mitral E to A Ratio 1.2 LV E' Lateral Velocity 10.5 cm/s Mitral E to LV E' Lateral Ratio 11.7 LV E' Septal Velocity 5.7 cm/s Mitral E to LV E' Septal Ratio 21.8 TR Peak Velocity 358.0 cm/s TR Peak Gradient 51.3 mmHg Right Atrial Pressure 10.0 mmHg Pulmonary Artery Systolic Pressu 61.3 mmHg Right Ventricular Systolic Press 61.3 mmHg PV Peak Velocity 194.0 cm/s PV Peak Gradient 15.1 mmHg FINDINGS LEFT VENTRICLE Normal left ventricular size. Mild concentric left ventricular hypertrophy. The left ventricular systolic function is normal with an estimated ejection fraction in the range of 60-65%. LEFT ATRIUM The left atrial size is moderately dilated. AORTIC VALVE [id number] aortic valve regurgitation. Mild aortic valve stenosis. 19 mean mmhg gradient TRICUSPID VALVE The estimated pulmonary arterial pressure is 61 mmHg. There is moderate to severe tricuspid valve regurgitation. Desean August MD, FACC, [facility] (Electronically Signed) Final Date:27 February 2018 15:54
--- NOTE | 2018-02-27 17:00 | P.PNCA ---
Subjective Interval history: asleep in nad Medications and Allergies Active Medications: Active Medications Acetaminophen (Tylenol) 650 mg PO Q4H PRN PRN Reason: Temp > 100.4 Al Hydroxide/Mg Hydroxide (Milk Of Radha Litom) 30 ml PO Q12H PRN PRN Reason: Mild Constipation Albuterol (Albuterol Neb (Prn)) 2.5 mg NEB Q2HR NEB PRN PRN Reason: SHORTNESS OF BREATH Albuterol (Duoneb Neb ([facility])) 1 ampul NEB Q4HR NEB [facility] Last Admin: 02/27/18 16:47 Dose: 1 ampul Amlodipine Besylate (Norvasc) 5 mg PO BID [facility] Last Admin: 02/27/18 10:05 Dose: Not Given Aspirin (Ecotrin) 81 mg PO DAILY [facility] Last Admin: 02/27/18 08:02 Dose: 81 mg Bisacodyl (Dulcolax Supp) 10 mg RECTAL DAILY PRN PRN Reason: SEVERE CONSITIPATION Bumetanide (Bumex Inj) 1 mg IV.PUSH BID@0900,1800 [facility] Last Admin: 02/27/18 08:04 Dose: 1 mg Bupropion HCl (Wellbutrin Sr) 150 mg PO DAILY [facility] Last Admin: 02/27/18 08:01 Dose: 150 mg Chlorhexidine Gluconate (Chlorhexidine 2% Cloth) 3 pack TOPICAL DAILY@0400 [facility] Stop: 03/03/18 03:59 Last Admin: 02/27/18 05:21 Dose: 3 pack Chlorhexidine Gluconate (Chlorhexidine 2% Cloth) 3 pack TOPICAL DAILY@0400 PRN PRN Reason: Extra cloth needed Stop: 03/03/18 03:59 Cholestyramine Resin (Questran 4 Gm Pkt) 4 gm PO BID@0700,1900 [facility] Last Admin: 02/27/18 06:20 Dose: 4 gm Diphenhydramine HCl (Benadryl) 25 mg PO HS PRN PRN Reason: Insomnia Donepezil HCl (Aricept) 10 mg PO HS [facility] Last Admin: 02/26/18 21:27 Dose: 10 mg Escitalopram Oxalate (Lexapro) 20 mg PO DAILY [facility] Last Admin: 02/27/18 08:00 Dose: 20 mg Hydralazine HCl (Apresoline) 75 mg PO Q8HR [facility] Last Admin: 02/27/18 13:46 Dose: Not Given Piperacillin/Tazobactam/Dextrose (Zosyn 3.375 Gm Premix) 50 mls @ 100 mls/hr IV.SIG Q6H [facility] Last Infusion: 02/27/18 15:06 Dose: Infused Isosorbide Mononitrate (Imdur) 30 mg PO DAILY@0700 [facility] Last Admin: 02/27/18 06:20 Dose: 30 mg Lactulose (Lactulose Liq) 30 ml PO DAILY PRN PRN Reason: SEVERE CONSITIPATION Levofloxacin (Levaquin) 750 mg PO Q48H [facility] Last Admin: 02/25/18 18:30 Dose: 750 mg Losartan Potassium (Cozaar) 50 mg PO DAILY [facility] Last Admin: 02/27/18 10:05 Dose: Not Given Methylprednisolone Sodium Succinate (Solumedrol Inj) 60 mg IV.PUSH Q6H [facility] Last Admin: 02/27/18 13:46 Dose: 60 mg Metoprolol Tartrate (Lopressor) 25 mg PO BID [facility] Last Admin: 02/27/18 10:05 Dose: Not Given Miscellaneous (Pill Splitter) 1 each OTHER [facility] Montelukast Sodium (Singulair) 10 mg PO [facility] Last Admin: 02/26/18 21:27 Dose: 10 mg Ondansetron HCl (Zofran Inj) 4 mg IV.PUSH Q6H PRN PRN Reason: NAUSEA OR VOMITING Pantoprazole Sodium (Protonix) 20 mg PO DAILY [facility] Last Admin: 02/27/18 08:01 Dose: 20 mg Pramipexole Dihydrochloride (Mirapex) 0.125 mg PO BID [facility] Last Admin: 02/27/18 07:59 Dose: 0.125 mg Pravastatin Sodium (Pravachol) 20 mg PO HS [facility] Last Admin: 02/26/18 21:26 Dose: 20 mg Senna/Docusate Sodium (Mima-Colace) 1 tab PO BID [facility] Last Admin: 02/27/18 08:00 Dose: 1 tab Sennosides (Senokot) 17.2 mg PO Q12H PRN PRN Reason: Moderate Constipation Last Admin: 02/27/18 08:01 Dose: 17.2 mg Sodium Chloride (Ns Flush) 2 ml IV.FLUSH BID [facility] Last Admin: 02/27/18 08:01 Dose: 2 ml Sodium Chloride (Ns Flush) 2 ml IV.FLUSH PRN PRN PRN Reason: FLUSH AFTER USING IV ACCESS Allergies Allergy/AdvReac Type Severity Reaction Status Date / Time latex Allergy Rash, Verified 02/18/18 06:07 Localized soy Allergy Congestion Verified 02/18/18 06:07 sulfadiazine Allergy Hives Verified 02/18/18 06:07 wheat [Flour] Allergy Rash Verified 02/18/18 06:07 Home Medications Medication Instructions Recorded Confirmed Type amlodipine [Norvasc] 5 mg PO BID 02/17/18 02/17/18 History cholestyramine (with sugar) 4 g PO BID 02/17/18 02/17/18 History donepezil 10 mg PO HS 02/17/18 02/17/18 History escitalopram oxalate 20 mg PO DAILY 02/17/18 02/17/18 History hydralazine 75 mg PO Q8H 02/17/18 02/17/18 History levothyroxine [Synthroid] 50 mcg PO DAILY@0600 02/17/18 02/17/18 History metoprolol tartrate 25 mg PO BID 02/17/18 02/17/18 History montelukast 10 mg PO HS 02/17/18 02/17/18 History pantoprazole 20 mg PO DAILY 02/17/18 02/17/18 History pravastatin 20 mg PO HS 02/17/18 02/17/18 History Physical Exam Vital signs: Vital Signs 02/26/18 17:00 02/26/18 17:01 02/26/18 18:00 Temperature Pulse Rate 65 66 74 Respiratory Rate 28 H 26 H 26 H Blood Pressure 107/50 L Pulse Oximetry 87 L 88 L 88 L 02/26/18 18:01 02/26/18 19:00 02/26/18 20:00 Temperature 98.3 F Pulse Rate 78 72 68 Respiratory Rate 31 H 28 H 19 Blood Pressure 106/50 L 109/54 L 114/59 L Pulse Oximetry 89 L 98 94 L 02/26/18 20:12 02/26/18 21:00 02/26/18 22:00 Temperature Pulse Rate 70 67 60 Respiratory Rate 20 16 17 Blood Pressure 111/51 L 110/50 L Pulse Oximetry 95 94 L 02/26/18 23:00 02/26/18 23:29 02/27/18 00:00 Temperature 98.3 F Pulse Rate 62 58 L 60 Respiratory Rate 23 20 16 Blood Pressure 110/52 L 112/48 L Pulse Oximetry 94 L 95 02/27/18 01:00 02/27/18 02:00 02/27/18 03:00 Temperature Pulse Rate 59 L 60 60 Respiratory Rate 18 21 17 Blood Pressure 102/49 L 118/53 L 115/55 L Pulse Oximetry 100 96 98 02/27/18 03:39 02/27/18 04:00 02/27/18 05:00 Temperature 98.3 F Pulse Rate 60 68 60 Respiratory Rate 24 20 24 Blood Pressure 128/60 Pulse Oximetry 95 86 L 02/27/18 05:01 02/27/18 06:00 02/27/18 07:00 Temperature Pulse Rate 60 61 64 Respiratory Rate 25 H 28 H 24 Blood Pressure 116/52 L 122/56 L 125/57 L Pulse Oximetry 86 L 92 L 93 L 02/27/18 07:47 02/27/18 07:48 02/27/18 08:00 Temperature Pulse Rate 79 65 Respiratory Rate 22 Blood Pressure Pulse Oximetry 94 L 02/27/18 08:01 02/27/18 09:00 02/27/18 09:14 Temperature 98.3 F Pulse Rate 65 73 71 Respiratory Rate Blood Pressure 103/49 L 100/49 L Pulse Oximetry 100 02/27/18 10:00 02/27/18 10:01 02/27/18 11:00 Temperature Pulse Rate 62 62 68 Respiratory Rate 22 16 17 Blood Pressure 112/51 L 110/53 L Pulse Oximetry 100 100 02/27/18 11:10 02/27/18 12:00 02/27/18 13:00 Temperature Pulse Rate 65 63 70 Respiratory Rate 17 15 19 Blood Pressure 101/48 L 97/46 L Pulse Oximetry 02/27/18 14:00 02/27/18 15:00 02/27/18 15:01 Temperature Pulse Rate 80 70 70 Respiratory Rate 23 17 16 Blood Pressure 98/49 L 112/52 L Pulse Oximetry 97 100 99 02/27/18 15:21 02/27/18 15:30 02/27/18 15:31 Temperature 97.9 F 97.9 F Pulse Rate 71 68 68 Respiratory Rate 16 18 16 Blood Pressure 112/52 L 113/51 L 113/51 L Pulse Oximetry 94 L 95 96 02/27/18 15:45 02/27/18 15:59 02/27/18 16:00 Temperature 97.9 F 98 F Pulse Rate 86 65 Respiratory Rate 15 15 Blood Pressure 128/56 L 113/51 L 113/51 L Pulse Oximetry 95 99 02/27/18 16:48 Temperature Pulse Rate 65 Respiratory Rate 15 Blood Pressure Pulse Oximetry Intake & Output 02/26/18 02/27/18 02/27/18 18:59 06:59 18:59 Intake Total 820 / 820 820 / 820 100 / 100 Output Total 650 / 650 650 / 650 Balance 170 / 170 170 / 170 100 / 100 Weight 55 kg Intake: IV 100 / 100 100 / 100 100 / 100 Zosyn 3.375 GM Premix 50 ML @ 100 / 100 100 / 100 100 / 100 100 mls/hr IV.SIG Q6H [facility]LI Rx#: [id number] Oral 720 / 720 720 / 720 Intake (Blood Product) Amt 0 / 0 Rbc As-3 Leukoreduced Unit 0 / 0 [id number] Output: Urine Amount (Catheter) 650 / 650 650 / 650 Indwelling Urethral Catheter 650 / 650 650 / 650 Other: Date of Last Bowel Movement 02/24/18 02/24/18 # Bowel Movements 0 0 - Constitutional no acute distress - Routine HEENT Exam Head: Present: normocephalic - Routine Neck Exam Present: supple, JVD - Routine Respiratory Exam Present: decreased breath sounds - Routine Cardiovascular Exam Present: S1, S2 - Routine Abdominal Exam Present: soft - Routine Extremities Exam Comments: no damien - Urinary Catheter Management Indwelling Urethral Catheter Cath placed during this visit: yes Reason for continuing: Hourly intake/output Insertion date: 02/25/18 Insertion time: 19:58 Results 02/27/18 11:50 02/26/18 04:40 Cardiac Enzymes 02/26/18 02/26/18 02/26/18 Range/Units 04:40 10:58 10:58 AST 14 L (15-37) U/L Troponin I Less than 0.02 L (0.02-0.05) ng/mL B-Natriuretic Peptide 511 H (0-100) pg/mL 02/27/18 02/27/18 Range/Units 05:27 05:27 AST (15-37) U/L Troponin I Less than 0.02 L (0.02-0.05) ng/mL B-Natriuretic Peptide 369 H (0-100) pg/mL Coagulation 02/26/18 02/26/18 02/27/18 Range/Units 04:40 10:58 05:27 PT 10.7 (9.8-11.6) sec B-Natriuretic Peptide 511 H 369 H (0-100) pg/mL CBC 02/26/18 02/27/18 Range/Units 04:40 11:50 WBC 10.1 10.0 (4.0-11.0) th/mm3 RBC 2.43 L 2.16 L (4.00-5.30) mil/mm3 Hgb 7.8 L 6.9 L* (11.6-15.3) gm/dL Hct 23.1 L 20.6 L* (35.0-46.0) % Plt Count 119 L 100 L (150-450) th/mm3 Neut # (Auto) 9.9 H (1.8-7.7) th/mm3 Lymph # (Auto) 0.1 L (1.0-4.8) th/mm3 [place] # (Auto) 0.0 (0.0-0.9) th/mm3 Eos # (Auto) 0.0 (0.0-0.4) th/mm3 Baso # (Auto) 0.0 (0.0-0.2) th/mm3 Comprehensive Metabolic Panel 02/26/18 Range/Units 04:40 Sodium 139 (136-145) meq/L Potassium 4.1 (3.5-5.1) meq/L Chloride 107 (98-107) meq/L Carbon Dioxide 20.0 L (21.0-32.0) meq/L BUN 50 H (7-18) mg/dL Creatinine 1.75 H (0.50-1.00) mg/dL Calcium 8.0 L (8.5-10.1) mg/dL AST 14 L (15-37) U/L ALT 22 (10-53) U/L Alkaline Phosphatase 99 (45-117) U/L Total Protein 6.3 L D (6.4-8.2) g/dL Albumin 2.3 L (3.4-5.0) g/dL Intake and Output 02/27/18 02/27/18 02/27/18 06:59 14:59 22:59 Intake Total 770 / 770 50 / 50 50 / 50 Output Total 650 / 650 Balance 120 / 120 50 / 50 50 / 50 Intake: IV 50 / 50 50 / 50 50 / 50 Zosyn 3.375 GM Premix 50 ML @ 50 / 50 50 / 50 50 / 50 100 mls/hr IV.SIG Q6H [facility]LI Rx#: [id number] Oral 720 / 720 Intake (Blood Product) Amt 0 / 0 Rbc As-3 Leukoreduced Unit 0 / 0 [id number] Output: Urine Amount (Catheter) 650 / 650 Indwelling Urethral Catheter 650 / 650 Other: Date of Last Bowel Movement 02/24/18 # Bowel Movements 0 Weight 55 kg - Imaging and Cardiology Imaging: Impressions Chest X-Ray 02/25/18 00:00 CONCLUSION: Diffuse pulmonary opacities again noted, slightly worse on the right and not significantly changed on the left. Assessment and Plan - Assessment (1) Dyspnea Code(s): R06.00 - Dyspnea, unspecified Status: Acute (2) Chronic kidney disease Code(s): N18.9 - Chronic kidney disease, unspecified Status: Chronic (3) CLL (chronic lymphocytic leukemia) Code(s): C91.90 - Lymphoid leukemia, unspecified not having achieved remission Status: Chronic (4) Wrist fracture, left Code(s): S62.102A - Fracture of unspecified carpal bone, left wrist, initial encounter for closed fracture Status: Acute (5) Acute hypoxemic respiratory failure Code(s): J96.01 - Acute respiratory failure with hypoxia Status: Resolved (6) Diastolic CHF Code(s): I50.30 - Unspecified diastolic (congestive) heart failure Status: Chronic - Plan 1.) CHF - rai=475, ef=65%, pasp=61 mm hg, mod severe AI, mild as, hypoxia appears to be primarily due to anemia and pneumonia; transfusion has been ordered; rec continue medical management due to multiple comorbidities and contraindications to anticoagulation (4) Wrist fracture, left Qualifiers: Encounter type: subsequent encounter Fracture type: closed Fracture healing : with routine healing Qualified Code(s): S62.102D - Fracture of unspecified carpal bone, left wrist, subsequent encounter for fracture with routine healing (6) Diastolic CHF Qualifiers: Heart failure chronicity: acute on chronic Qualified Code(s): I50.33 - Acute on chronic diastolic (congestive) heart failure
--- NOTE | 2018-02-27 17:13 | P.PN ---
Subjective Interval history: LAERT ON O2 VIA MASK NAD Physical Exam Vital signs: Vital Signs 02/26/18 18:00 02/26/18 18:01 02/26/18 19:00 Temperature Pulse Rate 74 78 72 Respiratory Rate 26 H 31 H 28 H Blood Pressure 106/50 L 109/54 L Pulse Oximetry 88 L 89 L 98 02/26/18 20:00 02/26/18 20:12 02/26/18 21:00 Temperature 98.3 F Pulse Rate 68 70 67 Respiratory Rate 19 20 16 Blood Pressure 114/59 L 111/51 L Pulse Oximetry 94 L 95 94 L 02/26/18 22:00 02/26/18 23:00 02/26/18 23:29 Temperature Pulse Rate 60 62 58 L Respiratory Rate 17 23 20 Blood Pressure 110/50 L 110/52 L Pulse Oximetry 94 L 02/27/18 00:00 02/27/18 01:00 02/27/18 02:00 Temperature 98.3 F Pulse Rate 60 59 L 60 Respiratory Rate 16 18 21 Blood Pressure 112/48 L 102/49 L 118/53 L Pulse Oximetry 95 100 96 02/27/18 03:00 02/27/18 03:39 02/27/18 04:00 Temperature 98.3 F Pulse Rate 60 60 68 Respiratory Rate 17 24 20 Blood Pressure 115/55 L 128/60 Pulse Oximetry 98 95 02/27/18 05:00 02/27/18 05:01 02/27/18 06:00 Temperature Pulse Rate 60 60 61 Respiratory Rate 24 25 H 28 H Blood Pressure 116/52 L 122/56 L Pulse Oximetry 86 L 86 L 92 L 02/27/18 07:00 02/27/18 07:47 02/27/18 07:48 Temperature Pulse Rate 64 79 Respiratory Rate 24 22 Blood Pressure 125/57 L Pulse Oximetry 93 L 94 L 02/27/18 08:00 02/27/18 08:01 02/27/18 09:00 Temperature 98.3 F Pulse Rate 65 65 73 Respiratory Rate Blood Pressure 103/49 L Pulse Oximetry 100 02/27/18 09:14 02/27/18 10:00 02/27/18 10:01 Temperature Pulse Rate 71 62 62 Respiratory Rate 22 16 Blood Pressure 100/49 L 112/51 L Pulse Oximetry 100 100 02/27/18 11:00 02/27/18 11:10 02/27/18 12:00 Temperature Pulse Rate 68 65 63 Respiratory Rate 17 17 15 Blood Pressure 110/53 L 101/48 L Pulse Oximetry 02/27/18 13:00 02/27/18 14:00 02/27/18 15:00 Temperature Pulse Rate 70 80 70 Respiratory Rate 19 23 17 Blood Pressure 97/46 L 98/49 L Pulse Oximetry 97 100 02/27/18 15:01 02/27/18 15:21 02/27/18 15:30 Temperature 97.9 F Pulse Rate 70 71 68 Respiratory Rate 16 16 18 Blood Pressure 112/52 L 112/52 L 113/51 L Pulse Oximetry 99 94 L 95 02/27/18 15:31 02/27/18 15:45 02/27/18 15:59 Temperature 97.9 F 97.9 F 98 F Pulse Rate 68 86 65 Respiratory Rate 16 15 15 Blood Pressure 113/51 L 128/56 L 113/51 L Pulse Oximetry 96 95 99 02/27/18 16:00 02/27/18 16:48 Temperature Pulse Rate 65 Respiratory Rate 15 Blood Pressure 113/51 L Pulse Oximetry Intake & Output 02/26/18 02/27/18 02/27/18 18:59 06:59 18:59 Intake Total 820 / 820 820 / 820 100 / 100 Output Total 650 / 650 650 / 650 Balance 170 / 170 170 / 170 100 / 100 Weight 55 kg Intake: IV 100 / 100 100 / 100 100 / 100 Zosyn 3.375 GM Premix 50 ML @ 100 / 100 100 / 100 100 / 100 100 mls/hr IV.SIG Q6H [facility] Rx#: [id number] Oral 720 / 720 720 / 720 Intake (Blood Product) Amt 0 / 0 Rbc As-3 Leukoreduced Unit 0 / 0 [id number] Output: Urine Amount (Catheter) 650 / 650 650 / 650 Indwelling Urethral Catheter 650 / 650 650 / 650 Other: Date of Last Bowel Movement 02/24/18 02/24/18 # Bowel Movements 0 0 Narrative: GENERAL: Alert, NAD. SKIN: Warm and dry. HEAD: Normocephalic. EYES: No scleral icterus. No injection or drainage. NECK: Supple, trachea midline. No JVD or lymphadenopathy. CARDIOVASCULAR: Regular rate and rhythm without gallops, or rubs. There is a systolic murmur present best heard on the left sternal border. RESPIRATORY: Moderate air entry, coarse breath sounds noted. GASTROINTESTINAL: Abdomen soft, non-tender, nondistended. MUSCULOSKELETAL: No cyanosis, or edema. BACK: Nontender without obvious deformity. No CVA tenderness. - Urinary Catheter Management Indwelling Urethral Catheter Cath placed during this visit: yes Reason for continuing: Hourly intake/output Insertion date: 02/25/18 Insertion time: 19:58 Results - Labs CBC & Chem 7: 02/27/18 11:50 02/26/18 04:40 Laboratory Results - last 24 hr 02/27/18 02/27/18 02/27/18 05:27 05:27 11:50 WBC 10.0 RBC 2.16 L Hgb 6.9 L* Hct 20.6 L* MCV 95.5 MCH 32.1 MCHC 33.6 RDW 18.4 H Plt Count 100 L MPV 7.7 Troponin I Less than 0.02 L B-Natriuretic Peptide 369 H MTS Gel Crossmatch Bld Prod Order Comment 02/27/18 13:49 WBC RBC Hgb Hct MCV MCH MCHC RDW Plt Count MPV Troponin I B-Natriuretic Peptide MTS Gel Crossmatch See Detail Bld Prod Order Comment Microbiology 02/26/18 10:55 Blood - Peripheral Aerobic Blood Culture - Preliminary No growth in 1 day 02/26/18 10:55 Blood - Peripheral Anaerobic Blood Culture - Preliminary No growth in 1 day 02/26/18 10:55 Blood - Peripheral Aerobic Blood Culture - Preliminary No growth in 1 day 02/26/18 10:55 Blood - Peripheral Anaerobic Blood Culture - Preliminary No growth in 1 day - Procedures None Assessment and Plan - Plan RESPIRATORY FAILRE PNA CHF CKD PLAN O2 ANTIBX BRONCHODILATORS O2 NEEDED F/U CXRAY
[2018-02-27] MEDS: levoFLOXacin 750 MG Tablet PO SCH (18:05)
[2018-02-27] MEDS: Montelukast 10 MG Tablet PO SCH (21:24)
[2018-02-28] MEDS: MethylPREDNISolone Sod Succinate Inj 40 MG/ML Vial IV.PUSH SCH ×4 (00:25→18:37)
[2018-02-28] MEDS: Piperacil/Tazo 3.375 GM Premix 50 ML IV.SIG SCH ×4 (02:31→21:00)
[2018-02-28] MEDS: Chlorhexidine Gluconate 2% 1 Pack (2 Cloths) TOPICAL SCH (04:34)
[2018-02-28] MEDS: hydrALAZINE 25 MG Tablet PO SCH ×3 (06:35→21:20)
[2018-02-28 07:11] LABS: Hematocrit 21.2 % (35.0-46.0); Hemoglobin 7.5 gm/dL (11.6-15.3); Lymph # (Auto) 0.1 th/mm3 (1.0-4.8); Lymph % (Auto) 0.9 % (9.0-44.0); Mean Corpuscular HGB Conc 35.5 % (32.0-36.0); Mean Corpuscular Hemoglobin 32.9 pg (27.0-34.0); Mean Corpuscular Volume 92.6 fL (80.0-100.0); Mean Platelet Volume 7.6 fL (7.0-11.0); Mono # (Auto) 0.2 th/mm3 (0.0-0.9); Mono % (Auto) 2.2 % (0.0-8.0); Neut # (Auto) 9.5 th/mm3 (1.8-7.7); Neut % (Auto) 96.9 % (16.0-70.0); Platelet Count 91 th/mm3 (150-450); Red Blood Count 2.29 mil/mm3 (4.00-5.30); Red Cell Distribution Width 17.1 % (11.6-17.2); White Blood Count 9.8 th/mm3 (4.0-11.0)
[2018-02-28] MEDS: Isosorbide Mononitrate 30 MG ER 24HR Tablet (Imdur) PO SCH (07:38)
[2018-02-28] MEDS: amLODIPine 5 MG Tablet PO SCH ×2 (08:32→21:20)
[2018-02-28] MEDS: Metoprolol Tartrate 25 MG Tablet PO SCH ×2 (08:32→21:20)
[2018-02-28] MEDS: Senna/Docusate Sodium 8.6/50 MG Tablet PO SCH ×2 (08:33→20:25)
[2018-02-28] MEDS: Pantoprazole Sodium 20 MG DR Tablet PO SCH (08:33)
[2018-02-28] MEDS: buPROPion 150 MG 12 HR Tablet PO SCH (08:36)
--- NOTE | 2018-02-28 08:43 | XR ---
EXAM DATE: 02/28/2018 8:37 AM EST AGE/SEX: 78 years / Female INDICATIONS: Pneumonia. CLINICAL DATA: This is the patient's subsequent encounter. Patient reports that signs and symptoms h ave been present for 2 weeks and indicates a pain score of 0/10. MEDICAL/SURGICAL HISTORY: . Hypertension. CABG. . COMPARISON: [facility] [place], CHEST 1V SINGLE AP, 02/25/2018. . FINDINGS: The patient is status post sternotomy. The heart size is enlarged. There is diffuse increased density seen throughout the lungs being asymmetric and worse on the right. The costophrenic angles appear gr ossly clear. There are high riding humeral heads bilaterally with degenerative change. CONCLUSION: Diffuse pulmonary consolidation likely related to diffuse processes such as edema or diffuse infectio n. Compared to the prior exam, significant change has not occurred. Electronically signed by: Joao Glaser MD 02/28/2018 8:42 AM EST
[2018-02-28 09:30] LABS: Platelet Morphology Normal (Normal)
--- NOTE | 2018-02-28 09:46 | P.PN ---
Subjective Interval history: Follow up for pneumonia, congestive heart failure, CKD. Patient is resting in bed, doing well. No acute concerns. Denies any chest pain or shortness of breath no fever or chills. Physical Exam Vital signs: Vital Signs 02/27/18 10:00 02/27/18 10:01 02/27/18 11:00 Temperature Pulse Rate 62 62 68 Respiratory Rate 22 16 17 Blood Pressure 112/51 L 110/53 L Pulse Oximetry 100 100 02/27/18 11:10 02/27/18 12:00 02/27/18 13:00 Temperature Pulse Rate 65 63 70 Respiratory Rate 17 15 19 Blood Pressure 101/48 L 97/46 L Pulse Oximetry 02/27/18 14:00 02/27/18 15:00 02/27/18 15:01 Temperature Pulse Rate 80 70 70 Respiratory Rate 23 17 16 Blood Pressure 98/49 L 112/52 L Pulse Oximetry 97 100 99 02/27/18 15:21 02/27/18 15:30 02/27/18 15:31 Temperature 97.9 F 97.9 F Pulse Rate 71 68 68 Respiratory Rate 16 18 16 Blood Pressure 112/52 L 113/51 L 113/51 L Pulse Oximetry 94 L 95 96 02/27/18 15:45 02/27/18 15:59 02/27/18 16:00 Temperature 97.9 F 98 F Pulse Rate 86 65 64 Respiratory Rate 15 15 14 Blood Pressure 128/56 L 113/51 L 113/51 L Pulse Oximetry 95 99 99 02/27/18 16:15 02/27/18 16:30 02/27/18 16:45 Temperature Pulse Rate 65 64 67 Respiratory Rate 15 14 22 Blood Pressure 112/55 L 99/48 L 103/51 L Pulse Oximetry 91 L 02/27/18 16:48 02/27/18 17:00 02/27/18 17:15 Temperature Pulse Rate 65 67 74 Respiratory Rate 15 21 19 Blood Pressure 108/51 L 118/52 L Pulse Oximetry 96 02/27/18 17:30 02/27/18 17:45 02/27/18 18:00 Temperature Pulse Rate 68 75 87 Respiratory Rate 21 18 26 H Blood Pressure 112/53 L 108/51 L 114/55 L Pulse Oximetry 94 L 95 97 02/27/18 18:15 02/27/18 18:30 02/27/18 18:45 Temperature Pulse Rate 76 78 77 Respiratory Rate 19 21 22 Blood Pressure 97/50 L 100/49 L 103/53 L Pulse Oximetry 97 97 96 02/27/18 19:00 02/27/18 19:15 02/27/18 19:30 Temperature Pulse Rate 73 71 69 Respiratory Rate 22 20 22 Blood Pressure 104/52 L 107/51 L 114/56 L Pulse Oximetry 98 98 98 02/27/18 19:45 02/27/18 19:51 02/27/18 20:00 Temperature 98.1 F Pulse Rate 77 68 Respiratory Rate 27 H 20 Blood Pressure 120/56 L Pulse Oximetry 86 L 97 98 02/27/18 20:01 02/27/18 20:15 02/27/18 20:30 Temperature Pulse Rate 70 78 71 Respiratory Rate 21 21 19 Blood Pressure 131/60 121/59 L 113/53 L Pulse Oximetry 97 93 L 97 02/27/18 20:45 02/27/18 21:00 02/27/18 21:15 Temperature Pulse Rate 77 72 72 Respiratory Rate 19 18 16 Blood Pressure 114/56 L 108/51 L 102/51 L Pulse Oximetry 95 96 96 02/27/18 21:30 02/27/18 22:00 02/27/18 22:31 Temperature Pulse Rate 75 80 71 Respiratory Rate 19 24 19 Blood Pressure 100/55 L 95/55 L 117/53 L Pulse Oximetry 94 L 93 L 94 L 02/27/18 23:00 02/27/18 23:30 02/28/18 00:00 Temperature 98.2 F Pulse Rate 73 73 72 Respiratory Rate 19 18 20 Blood Pressure 122/56 L 129/60 124/56 L Pulse Oximetry 97 97 92 L 02/28/18 00:30 02/28/18 01:00 02/28/18 01:30 Temperature Pulse Rate 69 74 76 Respiratory Rate 14 17 11 L Blood Pressure 122/56 L 112/55 L 124/58 L Pulse Oximetry 97 96 94 L 02/28/18 02:00 02/28/18 02:30 02/28/18 03:00 Temperature Pulse Rate 73 74 77 Respiratory Rate 11 L 17 23 Blood Pressure 121/57 L 129/60 140/65 Pulse Oximetry 94 L 94 L 94 L 02/28/18 03:31 02/28/18 04:00 02/28/18 04:01 Temperature 98.3 F Pulse Rate 72 84 79 Respiratory Rate 16 14 8 L Blood Pressure 127/57 L 113/51 L Pulse Oximetry 96 02/28/18 04:11 02/28/18 04:30 02/28/18 05:00 Temperature Pulse Rate 69 90 Respiratory Rate 20 22 Blood Pressure 114/57 L 126/60 Pulse Oximetry 94 L 95 95 02/28/18 05:30 02/28/18 06:00 02/28/18 06:01 Temperature Pulse Rate 82 69 69 Respiratory Rate 13 16 19 Blood Pressure 154/66 H 122/53 L Pulse Oximetry 97 96 96 02/28/18 07:00 Temperature Pulse Rate 73 Respiratory Rate 18 Blood Pressure Pulse Oximetry 98 Intake & Output 02/27/18 02/28/18 02/28/18 18:59 06:59 18:59 Intake Total 100 / 100 340 / 340 Output Total 600 / 600 1000 / 1000 Balance -500 / -500 -660 / -660 Weight 54.2 kg Intake: IV 100 / 100 100 / 100 Zosyn 3.375 GM Premix 50 ML @ 100 / 100 100 / 100 100 mls/hr IV.SIG Q6H [facility] Rx#: [id number] Oral 240 / 240 Intake (Blood Product) Amt 0 / 0 Rbc As-3 Leukoreduced Unit 0 / 0 [id number] Output: Urine 1000 / 1000 Urine Amount (Catheter) 600 / 600 Indwelling Urethral Catheter 600 / 600 Other: # Bowel Movements 0 Narrative: GENERAL: Alert, NAD. SKIN: Warm and dry. HEAD: Normocephalic. EYES: No scleral icterus. No injection or drainage. NECK: Supple, trachea midline. No JVD or lymphadenopathy. CARDIOVASCULAR: Regular rate and rhythm without gallops, or rubs. There is a systolic murmur present best heard on the left sternal border. RESPIRATORY: Moderate air entry, coarse breath sounds noted. GASTROINTESTINAL: Abdomen soft, non-tender, nondistended. MUSCULOSKELETAL: No cyanosis, or edema. BACK: Nontender without obvious deformity. No CVA tenderness. - Urinary Catheter Management Indwelling Urethral Catheter Cath placed during this visit: yes Reason for continuing: Hourly intake/output Insertion date: 02/25/18 Insertion time: 19:58 Results - Labs CBC & Chem 7: 02/28/18 05:51 02/26/18 04:40 Laboratory Results - last 24 hr 02/27/18 02/27/18 02/28/18 11:50 13:49 05:51 WBC 10.0 9.8 RBC 2.16 L 2.29 L Hgb 6.9 L* 7.5 L Hct 20.6 L* 21.2 L MCV 95.5 92.6 MCH 32.1 32.9 MCHC 33.6 35.5 RDW 18.4 H 17.1 Plt Count 100 L 91 L MPV 7.7 7.6 Prelim Diff (Auto) Slide review pending Neut % (Auto) 96.9 H Lymph % (Auto) 0.9 L [place] % (Auto) 2.2 Eos % (Auto) 0.0 Baso % (Auto) 0.0 Neut # (Auto) 9.5 H Lymph # (Auto) 0.1 L [place] # (Auto) 0.2 Eos # (Auto) 0.0 Baso # (Auto) 0.0 WBC Differential . Diff Scan Auto diff confirmed Differential Comment . Platelet Estimate Low L Platelet Morphology Normal B-Natriuretic Peptide MTS Gel Crossmatch See Detail Bld Prod Order Comment 02/28/18 05:51 WBC RBC Hgb Hct MCV MCH MCHC RDW Plt Count MPV Prelim Diff (Auto) Neut % (Auto) Lymph % (Auto) [place] % (Auto) Eos % (Auto) Baso % (Auto) Neut # (Auto) Lymph # (Auto) [place] # (Auto) Eos # (Auto) Baso # (Auto) WBC Differential Diff Scan Differential Comment Platelet Estimate Platelet Morphology B-Natriuretic Peptide 293 H MTS Gel Crossmatch Bld Prod Order Comment Microbiology 02/26/18 10:55 Blood - Peripheral Aerobic Blood Culture - Preliminary No growth in 1 day 02/26/18 10:55 Blood - Peripheral Anaerobic Blood Culture - Preliminary No growth in 1 day 02/26/18 10:55 Blood - Peripheral Aerobic Blood Culture - Preliminary No growth in 1 day 02/26/18 10:55 Blood - Peripheral Anaerobic Blood Culture - Preliminary No growth in 1 day - Imaging Impressions Chest X-Ray 02/28/18 00:00 CONCLUSION: Diffuse pulmonary consolidation likely related to diffuse processes such as edema or diffuse infection. Compared to the prior exam, significant change has not occurred. - Procedures None Assessment and Plan - Plan Patient is a 78 year old female with a past medical history significant for CLL, recent pneumonia, diastolic heart failure, stage III CKD, and left sided hand fracture. She was admitted from [facility] to [facility] [place] under the care of the hospitalist service for progressively worsening shortness secondary to recurrent pneumonia. Acute on chronic hypoxic respiratory failure Pneumonia - possibly atypical. -continue Zosyn and Levaquin per infectious disease recommendations. -Solumedrol IV -duonebs IV Q6H -pulmonary consulted. Patient may need bronchoscopy. -Urine legionella, histoplasma urine pending. -Blastomyces ab pending. -continue supplemental O2 PRN -Palliative care on board. Diastolic heart failure w/ volume overload Pulmonary hypertension -Echo shows normal LV size, EF 60-65%. Pulmonary artery pressure 61 mmHg. -continue diuretics, monitor renal function and electrolytes -cardiology following. -strict I&O, daily weight, low Na diet Chronic kidney disease, stage III -Creatinine around 1.75, baseline appears to be around 1.6. -avoid nephrotoxic meds Closed, impacted, comminuted left distal radial and ulnar fracture with cast in place -PT/OT eval/treat -pain meds PRN CLL with hx of blood transfusions -continue to monitor H/H -Hgb 6.9 yesterday, received 1 unit transfusion. Repeat Hgb 7.5. Alzheimer dementia with no behavioral disturbance -continue home meds Full code. SCDs.
--- NOTE | 2018-02-28 10:34 | P.PNONC ---
Subjective Interval history: Patient sleeping on approach, awakens easily to voice. She denies any of breath. Denies any bleeding. Objective Vital Signs/Intake & Output: Vital Signs 02/27/18 11:00 02/27/18 11:10 02/27/18 12:00 Temperature Pulse Rate 68 65 63 Respiratory Rate 17 17 15 Blood Pressure 110/53 L 101/48 L Pulse Oximetry 02/27/18 13:00 02/27/18 14:00 02/27/18 15:00 Temperature Pulse Rate 70 80 70 Respiratory Rate 19 23 17 Blood Pressure 97/46 L 98/49 L Pulse Oximetry 97 100 02/27/18 15:01 02/27/18 15:21 02/27/18 15:30 Temperature 97.9 F Pulse Rate 70 71 68 Respiratory Rate 16 16 18 Blood Pressure 112/52 L 112/52 L 113/51 L Pulse Oximetry 99 94 L 95 02/27/18 15:31 02/27/18 15:45 02/27/18 15:59 Temperature 97.9 F 97.9 F 98 F Pulse Rate 68 86 65 Respiratory Rate 16 15 15 Blood Pressure 113/51 L 128/56 L 113/51 L Pulse Oximetry 96 95 99 02/27/18 16:00 02/27/18 16:15 02/27/18 16:30 Temperature Pulse Rate 64 65 64 Respiratory Rate 14 15 14 Blood Pressure 113/51 L 112/55 L 99/48 L Pulse Oximetry 99 91 L 02/27/18 16:45 02/27/18 16:48 02/27/18 17:00 Temperature Pulse Rate 67 65 67 Respiratory Rate 22 15 21 Blood Pressure 103/51 L 108/51 L Pulse Oximetry 02/27/18 17:15 02/27/18 17:30 02/27/18 17:45 Temperature Pulse Rate 74 68 75 Respiratory Rate 19 21 18 Blood Pressure 118/52 L 112/53 L 108/51 L Pulse Oximetry 96 94 L 95 02/27/18 18:00 02/27/18 18:15 02/27/18 18:30 Temperature Pulse Rate 87 76 78 Respiratory Rate 26 H 19 21 Blood Pressure 114/55 L 97/50 L 100/49 L Pulse Oximetry 97 97 97 02/27/18 18:45 02/27/18 19:00 02/27/18 19:15 Temperature Pulse Rate 77 73 71 Respiratory Rate 22 22 20 Blood Pressure 103/53 L 104/52 L 107/51 L Pulse Oximetry 96 98 98 02/27/18 19:30 02/27/18 19:45 02/27/18 19:51 Temperature Pulse Rate 69 77 Respiratory Rate 22 27 H Blood Pressure 114/56 L 120/56 L Pulse Oximetry 98 86 L 97 02/27/18 20:00 02/27/18 20:01 02/27/18 20:15 Temperature 98.1 F Pulse Rate 68 70 78 Respiratory Rate 20 21 21 Blood Pressure 131/60 121/59 L Pulse Oximetry 98 97 93 L 02/27/18 20:30 02/27/18 20:45 02/27/18 21:00 Temperature Pulse Rate 71 77 72 Respiratory Rate 19 19 18 Blood Pressure 113/53 L 114/56 L 108/51 L Pulse Oximetry 97 95 96 02/27/18 21:15 02/27/18 21:30 02/27/18 22:00 Temperature Pulse Rate 72 75 80 Respiratory Rate 16 19 24 Blood Pressure 102/51 L 100/55 L 95/55 L Pulse Oximetry 96 94 L 93 L 02/27/18 22:31 02/27/18 23:00 02/27/18 23:30 Temperature 98.2 F Pulse Rate 71 73 73 Respiratory Rate 19 19 18 Blood Pressure 117/53 L 122/56 L 129/60 Pulse Oximetry 94 L 97 97 02/28/18 00:00 02/28/18 00:30 02/28/18 01:00 Temperature Pulse Rate 72 69 74 Respiratory Rate 20 14 17 Blood Pressure 124/56 L 122/56 L 112/55 L Pulse Oximetry 92 L 97 96 02/28/18 01:30 02/28/18 02:00 02/28/18 02:30 Temperature Pulse Rate 76 73 74 Respiratory Rate 11 L 11 L 17 Blood Pressure 124/58 L 121/57 L 129/60 Pulse Oximetry 94 L 94 L 94 L 02/28/18 03:00 02/28/18 03:31 02/28/18 04:00 Temperature 98.3 F Pulse Rate 77 72 84 Respiratory Rate 23 16 14 Blood Pressure 140/65 127/57 L Pulse Oximetry 94 L 96 02/28/18 04:01 02/28/18 04:11 02/28/18 04:30 Temperature Pulse Rate 79 69 Respiratory Rate 8 L 20 Blood Pressure 113/51 L 114/57 L Pulse Oximetry 94 L 95 02/28/18 05:00 02/28/18 05:30 02/28/18 06:00 Temperature Pulse Rate 90 82 69 Respiratory Rate 22 13 16 Blood Pressure 126/60 154/66 H Pulse Oximetry 95 97 96 02/28/18 06:01 02/28/18 07:00 Temperature Pulse Rate 69 73 Respiratory Rate 19 18 Blood Pressure 122/53 L Pulse Oximetry 96 98 Intake & Output 02/27/18 02/28/18 02/28/18 18:59 06:59 18:59 Intake Total 100 / 100 340 / 340 Output Total 600 / 600 1000 / 1000 Balance -500 / -500 -660 / -660 Weight 54.2 kg Intake: IV 100 / 100 100 / 100 Zosyn 3.375 GM Premix 50 ML @ 100 / 100 100 / 100 100 mls/hr IV.SIG Q6H [facility] Rx#: [id number] Oral 240 / 240 Intake (Blood Product) Amt 0 / 0 Rbc As-3 Leukoreduced Unit 0 / 0 [id number] Output: Urine 1000 / 1000 Urine Amount (Catheter) 600 / 600 Indwelling Urethral Catheter 600 / 600 Other: # Bowel Movements 0 Result Diagrams: 02/28/18 05:51 02/26/18 04:40 Laboratory Results: Laboratory Results - last 24 hr 02/27/18 02/27/18 02/28/18 11:50 13:49 05:51 WBC 10.0 9.8 RBC 2.16 L 2.29 L Hgb 6.9 L* 7.5 L Hct 20.6 L* 21.2 L MCV 95.5 92.6 MCH 32.1 32.9 MCHC 33.6 35.5 RDW 18.4 H 17.1 Plt Count 100 L 91 L MPV 7.7 7.6 Prelim Diff (Auto) Slide review pending Neut % (Auto) 96.9 H Lymph % (Auto) 0.9 L [place] % (Auto) 2.2 Eos % (Auto) 0.0 Baso % (Auto) 0.0 Neut # (Auto) 9.5 H Lymph # (Auto) 0.1 L [place] # (Auto) 0.2 Eos # (Auto) 0.0 Baso # (Auto) 0.0 WBC Differential . Diff Scan Auto diff confirmed Differential Comment . Platelet Estimate Low L Platelet Morphology Normal B-Natriuretic Peptide MTS Gel Crossmatch See Detail Bld Prod Order Comment 02/28/18 05:51 WBC RBC Hgb Hct MCV MCH MCHC RDW Plt Count MPV Prelim Diff (Auto) Neut % (Auto) Lymph % (Auto) [place] % (Auto) Eos % (Auto) Baso % (Auto) Neut # (Auto) Lymph # (Auto) [place] # (Auto) Eos # (Auto) Baso # (Auto) WBC Differential Diff Scan Differential Comment Platelet Estimate Platelet Morphology B-Natriuretic Peptide 293 H MTS Gel Crossmatch Bld Prod Order Comment Culture Results: Microbiology 02/26/18 10:55 Aerobic Blood Culture - Preliminary Blood - Peripheral No growth in 1 day Anaerobic Blood Culture - Preliminary No growth in 1 day 02/26/18 10:55 Aerobic Blood Culture - Preliminary Blood - Peripheral No growth in 1 day Anaerobic Blood Culture - Preliminary No growth in 1 day 02/25/18 20:20 Legionella Antigen - Final Urine - Catheterized Urine Presumptive negative for Legionella pneumophila serogroup 1 antigen in urine, suggesting no recent or recurrent infection. Infection due to Legionella cannot be ruled out since other serogroups and species may cause disease, antigen may not be present in urine in early infection, and the level of antigen present in the urine may be below the detection limit of the test. Imaging Studies: Impressions Chest X-Ray 02/28/18 00:00 CONCLUSION: Diffuse pulmonary consolidation likely related to diffuse processes such as edema or diffuse infection. Compared to the prior exam, significant change has not occurred. Medications: Active Medications Generic Name Dose Route Start Last Admin Trade Name Everq PRN Reason Stop Dose Admin Albuterol 1 ampul 02/25/18 20:00 02/28/18 08:37 Duoneb Neb ([facility]) NEB 1 ampul Q4HR NEB [facility] Administration Amlodipine Besylate 5 mg 02/25/18 21:00 02/28/18 08:32 Norvasc PO 5 mg BID [facility] Administration Aspirin 81 mg 02/26/18 09:00 02/28/18 08:32 Ecotrin PO 81 mg DAILY [facility] Administration Bumetanide 1 mg 02/25/18 23:30 02/28/18 08:37 Bumex Inj IV.PUSH 1 mg BID@0900,1800 [facility] Administration Bupropion HCl 150 mg 02/26/18 09:00 02/28/18 08:36 Wellbutrin Sr PO 150 mg DAILY [facility] Administration Chlorhexidine Gluconate 3 pack 02/26/18 04:00 02/28/18 04:34 Chlorhexidine 2% Cloth TOPICAL 03/03/18 03:59 3 pack DAILY@0400 [facility] Administration Cholestyramine Resin 4 gm 02/25/18 19:00 02/28/18 08:31 Questran 4 Gm Pkt PO 4 gm BID@0700,1900 [facility] Administration Donepezil HCl 10 mg 02/25/18 21:00 02/27/18 21:24 Aricept PO 10 mg HS [facility] Administration Escitalopram Oxalate 20 mg 02/26/18 09:00 02/28/18 08:32 Lexapro PO 20 mg DAILY [facility] Administration Hydralazine HCl 75 mg 02/25/18 22:00 02/27/18 21:24 Apresoline PO Not Given Q8HR [facility] Piperacillin/Tazobactam/Dextrose 50 mls @ 100 mls/hr 02/25/18 20:00 02/28/18 08:31 Zosyn 3.375 Gm Premix IV.SIG 100 mls/hr Q6H [facility] Administration Isosorbide Mononitrate 30 mg 02/26/18 07:00 02/27/18 06:20 Imdur PO 30 mg DAILY@0700 [facility] Administration Levofloxacin 750 mg 02/25/18 18:15 02/27/18 18:05 Levaquin PO 750 mg Q48H [facility] Administration Losartan Potassium 50 mg 02/26/18 09:00 02/28/18 08:32 Cozaar PO 50 mg DAILY [facility] Administration Methylprednisolone Sodium Succinate 60 mg 02/25/18 18:30 02/28/18 00:25 Solumedrol Inj IV.PUSH 60 mg Q6H [facility] Administration Metoprolol Tartrate 25 mg 02/25/18 21:00 02/28/18 08:32 Lopressor PO 25 mg BID [facility] Administration Montelukast Sodium 10 mg 02/25/18 21:00 02/27/18 21:24 Singulair PO 10 mg HS [facility] Administration Pantoprazole Sodium 20 mg 02/26/18 09:00 02/28/18 08:33 Protonix PO 20 mg DAILY [facility] Administration Pramipexole Dihydrochloride 0.125 mg 02/25/18 21:00 02/28/18 08:32 Mirapex PO 0.125 mg BID [facility] Administration Pravastatin Sodium 20 mg 02/25/18 21:00 02/27/18 21:23 Pravachol PO 20 mg HS [facility] Administration Senna/Docusate Sodium 1 tab 02/25/18 21:00 02/28/18 08:33 Mima-Colace PO 1 tab BID [facility] Administration Sennosides 17.2 mg 02/25/18 17:57 02/27/18 08:01 Senokot PO 17.2 mg Q12H PRN Administration Moderate Constipation Sodium Chloride 2 ml 02/25/18 21:00 02/28/18 08:32 Ns Flush IV.FLUSH 2 ml BID [facility] Administration Objective Remarks: GENERAL: Well-nourished, well-developed elderly female patient, in no acute distress. SKIN: Warm and dry. HEAD: Normocephalic. EYES: No scleral icterus. No injection or drainage. NECK: Supple, trachea midline. CARDIOVASCULAR: +S1/S2 without murmurs. RESPIRATORY: Breath sounds equal bilaterally. Nonlabored at rest. High flow O2 via NC. GASTROINTESTINAL: Abdomen soft, non-tender, nondistended. EXTREMITIES: No cyanosis, or edema. MUSCULOSKELETAL: Adequate muscle tone. NEUROLOGICAL: No obvious focal deficit. Sleep on approach, awakens easily to voice. PSYCHIATRIC: Appropriate mood and affect; insight and judgment normal. Assessment/Plan - Plan Ms. Christian is a pleasant 78-year-old female patient who is currently hospitalized from [facility] for acute worsening of shortness of breath. 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 Other medical ailments include CVA 3 months ago, pneumonia, sepsis, diastolic heart failure, CKD stage III and coronary artery disease. Per her medical chart she also has a history of Alzheimer's dementia. Recommendations: 1. Possible MDS, Procrit has been held related to recent strokes, patient reports frequent blood transfusions. 2. Anemia of renal insufficiency, avoid Procrit due to recent stroke, avoid aggressive transfusions due to iron overload. Maintain hemoglobin above 7 g/dL. 3. BNP trending down, patient denies any shortness of breath. 4. Repeat CBC in the a.m. - Attending Statement The exam, history, and the medical decision-making described in the above note were completed with the assistance of the mid-level provider. I reviewed and agree with the findings presented. I attest that I had a [id number] encounter with the patient on the same day, and personally performed and documented my assessment and findings in the medical record. Heart failure remains the major issue. She was given a transfusion and her current hemoglobin is 7.5. I am not too worried about cardiac damage due to iron overload with a serum saturation of 38%. One usually sees higher saturations in clinically meaningful iron overload regardless of the mechanism. In addition the ejection fraction is 60-65% which will not be compatible with a cardiomyopathy from iron overload. We will continue to transfuse if hemoglobin is less than 7 and if a higher hemoglobin was required I would not be reluctant to give her an extra unit.
--- NOTE | 2018-02-28 14:10 | P.PNCA ---
Subjective Interval history: eating lunch in nad Medications and Allergies Active Medications: Active Medications Acetaminophen (Tylenol) 650 mg PO Q4H PRN PRN Reason: Temp > 100.4 Al Hydroxide/Mg Hydroxide (Milk Of Radha Liq) 30 ml PO Q12H PRN PRN Reason: Mild Constipation Albuterol (Albuterol Neb (Prn)) 2.5 mg NEB Q2HR NEB PRN PRN Reason: SHORTNESS OF BREATH Albuterol (Duoneb Neb ([facility])) 1 ampul NEB Q4HR NEB [facility] Last Admin: 02/28/18 12:04 Dose: 1 ampul Amlodipine Besylate (Norvasc) 5 mg PO BID [facility] Last Admin: 02/28/18 08:32 Dose: 5 mg Aspirin (Ecotrin) 81 mg PO DAILY [facility] Last Admin: 02/28/18 08:32 Dose: 81 mg Bisacodyl (Dulcolax Supp) 10 mg RECTAL DAILY PRN PRN Reason: SEVERE CONSITIPATION Bumetanide (Bumex Inj) 1 mg IV.PUSH BID@0900,1800 [facility] Last Admin: 02/28/18 08:37 Dose: 1 mg Bupropion HCl (Wellbutrin Sr) 150 mg PO DAILY [facility] Last Admin: 02/28/18 08:36 Dose: 150 mg Chlorhexidine Gluconate (Chlorhexidine 2% Cloth) 3 pack TOPICAL DAILY@0400 [facility] Stop: 03/03/18 03:59 Last Admin: 02/28/18 04:34 Dose: 3 pack Chlorhexidine Gluconate (Chlorhexidine 2% Cloth) 3 pack TOPICAL DAILY@0400 PRN PRN Reason: Extra cloth needed Stop: 03/03/18 03:59 Cholestyramine Resin (Questran 4 Gm Pkt) 4 gm PO BID@0700,1900 [facility] Last Admin: 02/28/18 08:31 Dose: 4 gm Diphenhydramine HCl (Benadryl) 25 mg PO HS PRN PRN Reason: Insomnia Donepezil HCl (Aricept) 10 mg PO HS [facility] Last Admin: 02/27/18 21:24 Dose: 10 mg Escitalopram Oxalate (Lexapro) 20 mg PO DAILY [facility] Last Admin: 02/28/18 08:32 Dose: 20 mg Hydralazine HCl (Apresoline) 75 mg PO Q8HR [facility] Last Admin: 02/27/18 21:24 Dose: Not Given Piperacillin/Tazobactam/Dextrose (Zosyn 3.375 Gm Premix) 50 mls @ 100 mls/hr IV.SIG Q6H [facility] Last Admin: 02/28/18 08:31 Dose: 100 mls/hr Isosorbide Mononitrate (Imdur) 30 mg PO DAILY@0700 [facility] Last Admin: 02/27/18 06:20 Dose: 30 mg Lactulose (Lactulose Liq) 30 ml PO DAILY PRN PRN Reason: SEVERE CONSITIPATION Levofloxacin (Levaquin) 750 mg PO Q48H [facility] Last Admin: 02/27/18 18:05 Dose: 750 mg Losartan Potassium (Cozaar) 50 mg PO DAILY [facility] Last Admin: 02/28/18 08:32 Dose: 50 mg Methylprednisolone Sodium Succinate (Solumedrol Inj) 60 mg IV.PUSH Q6H [facility] Last Admin: 02/28/18 00:25 Dose: 60 mg Metoprolol Tartrate (Lopressor) 25 mg PO BID [facility] Last Admin: 02/28/18 08:32 Dose: 25 mg Miscellaneous (Pill Splitter) 1 each OTHER [facility] Montelukast Sodium (Singulair) 10 mg PO HS [facility] Last Admin: 02/27/18 21:24 Dose: 10 mg Ondansetron HCl (Zofran Inj) 4 mg IV.PUSH Q6H PRN PRN Reason: NAUSEA OR VOMITING Pantoprazole Sodium (Protonix) 20 mg PO DAILY [facility] Last Admin: 02/28/18 08:33 Dose: 20 mg Pramipexole Dihydrochloride (Mirapex) 0.125 mg PO BID [facility] Last Admin: 02/28/18 08:32 Dose: 0.125 mg Pravastatin Sodium (Pravachol) 20 mg PO HS [facility] Last Admin: 02/27/18 21:23 Dose: 20 mg Senna/Docusate Sodium (Mima-Colace) 1 tab PO BID [facility] Last Admin: 02/28/18 08:33 Dose: 1 tab Sennosides (Senokot) 17.2 mg PO Q12H PRN PRN Reason: Moderate Constipation Last Admin: 02/27/18 08:01 Dose: 17.2 mg Sodium Chloride (Ns Flush) 2 ml IV.FLUSH BID [facility] Last Admin: 02/28/18 08:32 Dose: 2 ml Sodium Chloride (Ns Flush) 2 ml IV.FLUSH PRN PRN PRN Reason: FLUSH AFTER USING IV ACCESS Allergies Allergy/AdvReac Type Severity Reaction Status Date / Time latex Allergy Rash, Verified 02/18/18 06:07 Localized soy Allergy Congestion Verified 02/18/18 06:07 sulfadiazine Allergy Hives Verified 02/18/18 06:07 wheat [Flour] Allergy Rash Verified 02/18/18 06:07 Home Medications Medication Instructions Recorded Confirmed Type amlodipine [Norvasc] 5 mg PO BID 02/17/18 02/17/18 History cholestyramine (with sugar) 4 g PO BID 02/17/18 02/17/18 History donepezil 10 mg PO HS 02/17/18 02/17/18 History escitalopram oxalate 20 mg PO DAILY 02/17/18 02/17/18 History hydralazine 75 mg PO Q8H 02/17/18 02/17/18 History levothyroxine [Synthroid] 50 mcg PO DAILY@0600 02/17/18 02/17/18 History metoprolol tartrate 25 mg PO BID 02/17/18 02/17/18 History montelukast 10 mg PO HS 02/17/18 02/17/18 History pantoprazole 20 mg PO DAILY 02/17/18 02/17/18 History pravastatin 20 mg PO HS 02/17/18 02/17/18 History Physical Exam Vital signs: Vital Signs 02/27/18 15:00 02/27/18 15:01 02/27/18 15:21 Temperature 97.9 F Pulse Rate 70 70 71 Respiratory Rate 17 16 16 Blood Pressure 112/52 L 112/52 L Pulse Oximetry 100 99 94 L 02/27/18 15:30 02/27/18 15:31 02/27/18 15:45 Temperature 97.9 F 97.9 F Pulse Rate 68 68 86 Respiratory Rate 18 16 15 Blood Pressure 113/51 L 113/51 L 128/56 L Pulse Oximetry 95 96 95 02/27/18 15:59 02/27/18 16:00 02/27/18 16:15 Temperature 98 F Pulse Rate 65 64 65 Respiratory Rate 15 14 15 Blood Pressure 113/51 L 113/51 L 112/55 L Pulse Oximetry 99 99 02/27/18 16:30 02/27/18 16:45 02/27/18 16:48 Temperature Pulse Rate 64 67 65 Respiratory Rate 14 22 15 Blood Pressure 99/48 L 103/51 L Pulse Oximetry 91 L 02/27/18 17:00 02/27/18 17:15 02/27/18 17:30 Temperature Pulse Rate 67 74 68 Respiratory Rate 21 19 21 Blood Pressure 108/51 L 118/52 L 112/53 L Pulse Oximetry 96 94 L 02/27/18 17:45 02/27/18 18:00 02/27/18 18:15 Temperature Pulse Rate 75 87 76 Respiratory Rate 18 26 H 19 Blood Pressure 108/51 L 114/55 L 97/50 L Pulse Oximetry 95 97 97 02/27/18 18:30 02/27/18 18:45 02/27/18 19:00 Temperature Pulse Rate 78 77 73 Respiratory Rate 21 22 22 Blood Pressure 100/49 L 103/53 L 104/52 L Pulse Oximetry 97 96 98 02/27/18 19:15 02/27/18 19:30 02/27/18 19:45 Temperature Pulse Rate 71 69 77 Respiratory Rate 20 22 27 H Blood Pressure 107/51 L 114/56 L 120/56 L Pulse Oximetry 98 98 86 L 02/27/18 19:51 02/27/18 20:00 02/27/18 20:01 Temperature 98.1 F Pulse Rate 68 70 Respiratory Rate 20 21 Blood Pressure 131/60 Pulse Oximetry 97 98 97 02/27/18 20:15 02/27/18 20:30 02/27/18 20:45 Temperature Pulse Rate 78 71 77 Respiratory Rate 21 19 19 Blood Pressure 121/59 L 113/53 L 114/56 L Pulse Oximetry 93 L 97 95 02/27/18 21:00 02/27/18 21:15 02/27/18 21:30 Temperature Pulse Rate 72 72 75 Respiratory Rate 18 16 19 Blood Pressure 108/51 L 102/51 L 100/55 L Pulse Oximetry 96 96 94 L 02/27/18 22:00 02/27/18 22:31 02/27/18 23:00 Temperature Pulse Rate 80 71 73 Respiratory Rate 24 19 19 Blood Pressure 95/55 L 117/53 L 122/56 L Pulse Oximetry 93 L 94 L 97 02/27/18 23:30 02/28/18 00:00 02/28/18 00:30 Temperature 98.2 F Pulse Rate 73 72 69 Respiratory Rate 18 20 14 Blood Pressure 129/60 124/56 L 122/56 L Pulse Oximetry 97 92 L 97 02/28/18 01:00 02/28/18 01:30 02/28/18 02:00 Temperature Pulse Rate 74 76 73 Respiratory Rate 17 11 L 11 L Blood Pressure 112/55 L 124/58 L 121/57 L Pulse Oximetry 96 94 L 94 L 02/28/18 02:30 02/28/18 03:00 02/28/18 03:31 Temperature Pulse Rate 74 77 72 Respiratory Rate 17 23 16 Blood Pressure 129/60 140/65 127/57 L Pulse Oximetry 94 L 94 L 96 02/28/18 04:00 02/28/18 04:01 02/28/18 04:11 Temperature 98.3 F Pulse Rate 84 79 Respiratory Rate 14 8 L Blood Pressure 113/51 L Pulse Oximetry 94 L 02/28/18 04:30 02/28/18 05:00 02/28/18 05:30 Temperature Pulse Rate 69 90 82 Respiratory Rate 20 22 13 Blood Pressure 114/57 L 126/60 154/66 H Pulse Oximetry 95 95 97 02/28/18 06:00 02/28/18 06:01 02/28/18 07:00 Temperature Pulse Rate 69 69 73 Respiratory Rate 16 19 18 Blood Pressure 122/53 L Pulse Oximetry 96 96 98 02/28/18 11:00 Temperature Pulse Rate 77 Respiratory Rate 18 Blood Pressure Pulse Oximetry Intake & Output 02/27/18 02/28/18 02/28/18 18:59 06:59 18:59 Intake Total 100 / 100 340 / 340 Output Total 600 / 600 1000 / 1000 Balance -500 / -500 -660 / -660 Weight 54.2 kg Intake: IV 100 / 100 100 / 100 Zosyn 3.375 GM Premix 50 ML @ 100 / 100 100 / 100 100 mls/hr IV.SIG Q6H [facility] Rx#: [id number] Oral 240 / 240 Intake (Blood Product) Amt 0 / 0 Rbc As-3 Leukoreduced Unit 0 / 0 [id number] Output: Urine 1000 / 1000 Urine Amount (Catheter) 600 / 600 Indwelling Urethral Catheter 600 / 600 Other: # Bowel Movements 0 - Constitutional no acute distress - Routine HEENT Exam Head: Present: normocephalic - Routine Neck Exam Present: supple - Routine Respiratory Exam Present: decreased breath sounds, CTA bilaterally - Routine Cardiovascular Exam Present: S1, S2 - Routine Abdominal Exam Present: soft - Routine Extremities Exam Comments: no damien - Urinary Catheter Management Indwelling Urethral Catheter Cath placed during this visit: yes Reason for continuing: Hourly intake/output Insertion date: 02/25/18 Insertion time: 19:58 Results 02/28/18 05:51 02/26/18 04:40 Cardiac Enzymes 02/27/18 02/27/18 02/28/18 Range/Units 05:27 05:27 05:51 Troponin I Less than 0.02 L (0.02-0.05) ng/mL B-Natriuretic Peptide 369 H 293 H (0-100) pg/mL Coagulation 02/27/18 02/28/18 Range/Units 05:27 05:51 B-Natriuretic Peptide 369 H 293 H (0-100) pg/mL CBC 02/27/18 02/28/18 Range/Units 11:50 05:51 WBC 10.0 9.8 (4.0-11.0) th/mm3 RBC 2.16 L 2.29 L (4.00-5.30) mil/mm3 Hgb 6.9 L* 7.5 L (11.6-15.3) gm/dL Hct 20.6 L* 21.2 L (35.0-46.0) % Plt Count 100 L 91 L (150-450) th/mm3 Neut # (Auto) 9.5 H (1.8-7.7) th/mm3 Lymph # (Auto) 0.1 L (1.0-4.8) th/mm3 [place] # (Auto) 0.2 (0.0-0.9) th/mm3 Eos # (Auto) 0.0 (0.0-0.4) th/mm3 Baso # (Auto) 0.0 (0.0-0.2) th/mm3 Intake and Output 02/27/18 02/28/18 02/28/18 22:59 06:59 14:59 Intake Total 100 / 100 290 / 290 Output Total 600 / 600 1000 / 1000 Balance -500 / -500 -710 / -710 Intake: IV 100 / 100 50 / 50 Zosyn 3.375 GM Premix 50 ML @ 100 / 100 50 / 50 100 mls/hr IV.SIG Q6H [facility] Rx#: [id number] Oral 240 / 240 Intake (Blood Product) Amt 0 / 0 Rbc As-3 Leukoreduced Unit 0 / 0 [id number] Output: Urine 1000 / 1000 Urine Amount (Catheter) 600 / 600 Indwelling Urethral Catheter 600 / 600 Other: # Bowel Movements 0 Weight 54.2 kg - Imaging and Cardiology Imaging: Impressions Chest X-Ray 02/28/18 00:00 CONCLUSION: Diffuse pulmonary consolidation likely related to diffuse processes such as edema or diffuse infection. Compared to the prior exam, significant change has not occurred. Assessment and Plan - Assessment (1) Dyspnea Code(s): R06.00 - Dyspnea, unspecified Status: Acute (2) Chronic kidney disease Code(s): N18.9 - Chronic kidney disease, unspecified Status: Chronic (3) CLL (chronic lymphocytic leukemia) Code(s): C91.90 - Lymphoid leukemia, unspecified not having achieved remission Status: Chronic (4) Wrist fracture, left Code(s): S62.102A - Fracture of unspecified carpal bone, left wrist, initial encounter for closed fracture Status: Acute (5) Acute hypoxemic respiratory failure Code(s): J96.01 - Acute respiratory failure with hypoxia Status: Resolved (6) Diastolic CHF Code(s): I50.30 - Unspecified diastolic (congestive) heart failure Status: Chronic - Plan 1.) CHF - fju=018, ef=65%, pasp=61 mm hg, mod severe AI, mild as, hypoxia appears to be primarily due to anemia and pneumonia; clinically improved after transfusion. rec continue medical management due to multiple comorbidities and contraindications to anticoagulation (4) Wrist fracture, left Qualifiers: Encounter type: subsequent encounter Fracture type: closed Fracture healing : with routine healing Qualified Code(s): S62.102D - Fracture of unspecified carpal bone, left wrist, subsequent encounter for fracture with routine healing (6) Diastolic CHF Qualifiers: Heart failure chronicity: acute on chronic Qualified Code(s): I50.33 - Acute on chronic diastolic (congestive) heart failure
--- NOTE | 2018-02-28 17:53 | P.PN ---
Subjective Interval history: ALERT LESS SOB Physical Exam Vital signs: Vital Signs 02/27/18 18:00 02/27/18 18:15 02/27/18 18:30 Temperature Pulse Rate 87 76 78 Respiratory Rate 26 H 19 21 Blood Pressure 114/55 L 97/50 L 100/49 L Pulse Oximetry 97 97 97 02/27/18 18:45 02/27/18 19:00 02/27/18 19:15 Temperature Pulse Rate 77 73 71 Respiratory Rate 22 22 20 Blood Pressure 103/53 L 104/52 L 107/51 L Pulse Oximetry 96 98 98 02/27/18 19:30 02/27/18 19:45 02/27/18 19:51 Temperature Pulse Rate 69 77 Respiratory Rate 22 27 H Blood Pressure 114/56 L 120/56 L Pulse Oximetry 98 86 L 97 02/27/18 20:00 02/27/18 20:01 02/27/18 20:15 Temperature 98.1 F Pulse Rate 68 70 78 Respiratory Rate 20 21 21 Blood Pressure 131/60 121/59 L Pulse Oximetry 98 97 93 L 02/27/18 20:30 02/27/18 20:45 02/27/18 21:00 Temperature Pulse Rate 71 77 72 Respiratory Rate 19 19 18 Blood Pressure 113/53 L 114/56 L 108/51 L Pulse Oximetry 97 95 96 02/27/18 21:15 02/27/18 21:30 02/27/18 22:00 Temperature Pulse Rate 72 75 80 Respiratory Rate 16 19 24 Blood Pressure 102/51 L 100/55 L 95/55 L Pulse Oximetry 96 94 L 93 L 02/27/18 22:31 02/27/18 23:00 02/27/18 23:30 Temperature 98.2 F Pulse Rate 71 73 73 Respiratory Rate 19 19 18 Blood Pressure 117/53 L 122/56 L 129/60 Pulse Oximetry 94 L 97 97 02/28/18 00:00 02/28/18 00:30 02/28/18 01:00 Temperature Pulse Rate 72 69 74 Respiratory Rate 20 14 17 Blood Pressure 124/56 L 122/56 L 112/55 L Pulse Oximetry 92 L 97 96 02/28/18 01:30 02/28/18 02:00 02/28/18 02:30 Temperature Pulse Rate 76 73 74 Respiratory Rate 11 L 11 L 17 Blood Pressure 124/58 L 121/57 L 129/60 Pulse Oximetry 94 L 94 L 94 L 02/28/18 03:00 02/28/18 03:31 02/28/18 04:00 Temperature 98.3 F Pulse Rate 77 72 84 Respiratory Rate 23 16 14 Blood Pressure 140/65 127/57 L Pulse Oximetry 94 L 96 02/28/18 04:01 02/28/18 04:11 02/28/18 04:30 Temperature Pulse Rate 79 69 Respiratory Rate 8 L 20 Blood Pressure 113/51 L 114/57 L Pulse Oximetry 94 L 95 02/28/18 05:00 02/28/18 05:30 02/28/18 06:00 Temperature Pulse Rate 90 82 69 Respiratory Rate 22 13 16 Blood Pressure 126/60 154/66 H Pulse Oximetry 95 97 96 02/28/18 06:01 02/28/18 07:00 02/28/18 11:00 Temperature Pulse Rate 69 73 77 Respiratory Rate 19 18 18 Blood Pressure 122/53 L Pulse Oximetry 96 98 02/28/18 16:34 Temperature Pulse Rate 78 Respiratory Rate 18 Blood Pressure Pulse Oximetry Intake & Output 02/27/18 02/28/18 02/28/18 18:59 06:59 18:59 Intake Total 100 / 100 340 / 340 Output Total 600 / 600 1000 / 1000 Balance -500 / -500 -660 / -660 Weight 54.2 kg Intake: IV 100 / 100 100 / 100 Zosyn 3.375 GM Premix 50 ML @ 100 / 100 100 / 100 100 mls/hr IV.SIG Q6H [facility] Rx#: [id number] Oral 240 / 240 Intake (Blood Product) Amt 0 / 0 Rbc As-3 Leukoreduced Unit 0 / 0 [id number] Output: Urine 1000 / 1000 Urine Amount (Catheter) 600 / 600 Indwelling Urethral Catheter 600 / 600 Other: # Bowel Movements 0 Narrative: GENERAL: Alert, NAD. SKIN: Warm and dry. HEAD: Normocephalic. EYES: No scleral icterus. No injection or drainage. NECK: Supple, trachea midline. No JVD or lymphadenopathy. CARDIOVASCULAR: Regular rate and rhythm without gallops, or rubs. There is a systolic murmur present best heard on the left sternal border. RESPIRATORY: Moderate air entry, coarse breath sounds noted. GASTROINTESTINAL: Abdomen soft, non-tender, nondistended. MUSCULOSKELETAL: No cyanosis, or edema. BACK: Nontender without obvious deformity. No CVA tenderness. - Urinary Catheter Management Indwelling Urethral Catheter Cath placed during this visit: yes Reason for continuing: Hourly intake/output Insertion date: 02/25/18 Insertion time: 19:58 Results - Labs CBC & Chem 7: 02/28/18 05:51 02/26/18 04:40 Laboratory Results - last 24 hr 02/27/18 02/28/18 02/28/18 13:49 05:51 05:51 WBC 9.8 RBC 2.29 L Hgb 7.5 L Hct 21.2 L MCV 92.6 MCH 32.9 MCHC 35.5 RDW 17.1 Plt Count 91 L MPV 7.6 Prelim Diff (Auto) Slide review pending Neut % (Auto) 96.9 H Lymph % (Auto) 0.9 L [place] % (Auto) 2.2 Eos % (Auto) 0.0 Baso % (Auto) 0.0 Neut # (Auto) 9.5 H Lymph # (Auto) 0.1 L [place] # (Auto) 0.2 Eos # (Auto) 0.0 Baso # (Auto) 0.0 WBC Differential . Diff Scan Auto diff confirmed Differential Comment . Platelet Estimate Low L Platelet Morphology Normal B-Natriuretic Peptide 293 H MTS Gel Crossmatch See Detail Microbiology 02/26/18 10:55 Blood - Peripheral Aerobic Blood Culture - Preliminary No growth in 2 days 02/26/18 10:55 Blood - Peripheral Anaerobic Blood Culture - Preliminary No growth in 2 days 02/26/18 10:55 Blood - Peripheral Aerobic Blood Culture - Preliminary No growth in 2 days 02/26/18 10:55 Blood - Peripheral Anaerobic Blood Culture - Preliminary No growth in 2 days - Imaging Impressions Chest X-Ray 02/28/18 00:00 CONCLUSION: Diffuse pulmonary consolidation likely related to diffuse processes such as edema or diffuse infection. Compared to the prior exam, significant change has not occurred. - Procedures None Assessment and Plan - Plan RESPIRATORY FAILRE PNA CHF CKD PLAN O2 ANTIBX BRONCHODILATORS O2 NEEDED
[2018-02-28] MEDS: Montelukast 10 MG Tablet PO SCH (20:24)
[2018-03-01] MEDS: MethylPREDNISolone Sod Succinate Inj 40 MG/ML Vial IV.PUSH SCH ×3 (00:08→13:25)
[2018-03-01] MEDS: Piperacil/Tazo 3.375 GM Premix 50 ML IV.SIG SCH ×4 (03:09→21:53)
[2018-03-01] MEDS: Chlorhexidine Gluconate 2% 1 Pack (2 Cloths) TOPICAL SCH (03:09)
[2018-03-01] MEDS: hydrALAZINE 25 MG Tablet PO SCH ×3 (06:49→21:58)
[2018-03-01] MEDS: Isosorbide Mononitrate 30 MG ER 24HR Tablet (Imdur) PO SCH (07:10)
[2018-03-01] MEDS: amLODIPine 5 MG Tablet PO SCH ×2 (09:18→21:57)
--- NOTE | 2018-03-01 09:41 | P.PNONC ---
Subjective Interval history: Patient sitting up in bed, awake and alert, in no acute distress. She is just finished her breakfast, it appears she ate 100% of her meal. She denies any shortness of breath. Objective Vital Signs/Intake & Output: Vital Signs 02/28/18 11:00 02/28/18 11:50 02/28/18 12:00 Temperature Pulse Rate 77 75 75 Respiratory Rate 18 21 22 Blood Pressure 97/51 L Pulse Oximetry 98 96 02/28/18 12:10 02/28/18 12:20 02/28/18 12:30 Temperature Pulse Rate 74 71 75 Respiratory Rate 18 19 17 Blood Pressure 97/49 L 88/43 L 95/50 L Pulse Oximetry 100 98 99 02/28/18 12:40 02/28/18 12:50 02/28/18 13:00 Temperature Pulse Rate 78 97 H 101 H Respiratory Rate 21 20 29 H Blood Pressure 104/51 L 103/55 L 104/53 L Pulse Oximetry 98 97 97 02/28/18 13:10 02/28/18 13:20 02/28/18 13:30 Temperature Pulse Rate 88 87 86 Respiratory Rate 28 H 23 24 Blood Pressure 96/55 L 94/46 L 94/51 L Pulse Oximetry 94 L 95 97 02/28/18 13:40 02/28/18 13:50 02/28/18 14:00 Temperature Pulse Rate 85 84 83 Respiratory Rate 23 23 21 Blood Pressure 97/51 L 92/48 L 98/51 L Pulse Oximetry 97 98 97 02/28/18 14:10 02/28/18 14:20 02/28/18 14:30 Temperature Pulse Rate 83 81 80 Respiratory Rate 22 23 22 Blood Pressure 98/54 L 100/52 L 98/51 L Pulse Oximetry 97 97 97 02/28/18 14:45 02/28/18 15:00 02/28/18 15:30 Temperature Pulse Rate 79 77 76 Respiratory Rate 27 H 24 21 Blood Pressure 99/53 L 96/49 L 100/52 L Pulse Oximetry 96 98 98 02/28/18 16:00 02/28/18 16:30 02/28/18 16:34 Temperature Pulse Rate 78 81 78 Respiratory Rate 25 H 27 H 18 Blood Pressure 110/55 L 122/55 L Pulse Oximetry 97 91 L 02/28/18 17:00 02/28/18 17:30 02/28/18 18:00 Temperature Pulse Rate 95 H 83 98 H Respiratory Rate 21 22 24 Blood Pressure 109/54 L 102/50 L Pulse Oximetry 99 95 94 L 02/28/18 18:01 02/28/18 18:30 02/28/18 19:00 Temperature Pulse Rate 101 H 97 H 86 Respiratory Rate 27 H 27 H 29 H Blood Pressure 146/60 H 111/52 L 111/56 L Pulse Oximetry 94 L 95 96 02/28/18 19:30 02/28/18 20:00 02/28/18 20:02 Temperature 97.8 F Pulse Rate 82 82 81 Respiratory Rate 23 21 24 Blood Pressure 122/58 L 109/55 L Pulse Oximetry 96 94 L 93 L 02/28/18 20:30 02/28/18 21:00 02/28/18 21:07 Temperature Pulse Rate 81 79 79 Respiratory Rate 23 23 25 H Blood Pressure 102/51 L 93/45 L 91/48 L Pulse Oximetry 94 L 94 L 96 02/28/18 21:30 02/28/18 22:00 02/28/18 22:30 Temperature Pulse Rate 78 80 80 Respiratory Rate 16 20 23 Blood Pressure 123/58 L 120/59 L 146/63 H Pulse Oximetry 95 94 L 92 L 02/28/18 23:00 02/28/18 23:01 02/28/18 23:30 Temperature Pulse Rate 82 82 79 Respiratory Rate 21 23 28 H Blood Pressure 133/60 126/60 Pulse Oximetry 91 L 92 L 93 L 02/28/18 23:52 03/01/18 00:00 03/01/18 00:30 Temperature 98.5 F Pulse Rate 80 81 79 Respiratory Rate 24 30 H 23 Blood Pressure 132/63 123/57 L Pulse Oximetry 94 L 96 03/01/18 01:00 03/01/18 01:30 03/01/18 02:00 Temperature Pulse Rate 79 80 81 Respiratory Rate 22 23 25 H Blood Pressure 122/59 L 129/58 L 123/60 Pulse Oximetry 94 L 96 95 03/01/18 02:30 03/01/18 03:00 03/01/18 03:30 Temperature Pulse Rate 77 78 80 Respiratory Rate 26 H 24 28 H Blood Pressure 136/61 131/74 146/66 H Pulse Oximetry 96 96 96 03/01/18 04:00 03/01/18 04:01 03/01/18 04:12 Temperature 98.4 F Pulse Rate 80 77 82 Respiratory Rate 21 19 20 Blood Pressure 117/55 L Pulse Oximetry 90 L 93 L 93 L 03/01/18 04:30 03/01/18 05:00 03/01/18 05:30 Temperature Pulse Rate 75 71 71 Respiratory Rate 22 19 20 Blood Pressure 125/62 127/55 L 135/60 Pulse Oximetry 96 93 L 95 03/01/18 06:00 03/01/18 07:00 Temperature Pulse Rate 74 81 Respiratory Rate 17 18 Blood Pressure 154/68 H Pulse Oximetry 94 L 95 Intake & Output 02/28/18 03/01/18 03/01/18 18:59 06:59 18:59 Intake Total 925 / 925 300 / 300 Output Total 1000 / 1000 1000 / 1000 Balance -75 / -75 -700 / -700 Weight 55 kg Intake: IV 100 / 100 100 / 100 Zosyn 3.375 GM Premix 50 ML @ 100 / 100 100 / 100 100 mls/hr IV.SIG Q6H [facility] Rx#: [id number] Oral 825 / 825 200 / 200 Output: Urine Amount (Catheter) 1000 / 1000 1000 / 1000 Indwelling Urethral Catheter 1000 / 1000 1000 / 1000 Other: Date of Last Bowel Movement 02/28/18 03/01/18 # Bowel Movements 1 2 Result Diagrams: 03/01/18 10:37 03/01/18 10:37 Laboratory Results: Laboratory Results - last 24 hr 03/01/18 05:19 B-Natriuretic Peptide 226 H Culture Results: Microbiology 02/26/18 10:55 Aerobic Blood Culture - Preliminary Blood - Peripheral No growth in 2 days Anaerobic Blood Culture - Preliminary No growth in 2 days 02/26/18 10:55 Aerobic Blood Culture - Preliminary Blood - Peripheral No growth in 2 days Anaerobic Blood Culture - Preliminary No growth in 2 days 02/25/18 20:20 Legionella Antigen - Final Urine - Catheterized Urine Presumptive negative for Legionella pneumophila serogroup 1 antigen in urine, suggesting no recent or recurrent infection. Infection due to Legionella cannot be ruled out since other serogroups and species may cause disease, antigen may not be present in urine in early infection, and the level of antigen present in the urine may be below the detection limit of the test. Medications: Active Medications Generic Name Dose Route Start Last Admin Trade Name Nicole PRN Reason Stop Dose Admin Albuterol 1 ampul 02/25/18 20:00 03/01/18 09:26 Duoneb Neb (Miryam) NEB 1 ampul Q4HR NEB MIRYAM Administration Amlodipine Besylate 5 mg 02/25/18 21:00 02/28/18 21:20 Norvasc PO Not Given BID MIRYAM Aspirin 81 mg 02/26/18 09:00 02/28/18 08:32 Ecotrin PO 81 mg DAILY MIRYAM Administration Bumetanide 1 mg 02/25/18 23:30 02/28/18 21:13 Bumex Inj IV.PUSH Not Given BID@0900,1800 [facility] Bupropion HCl 150 mg 02/26/18 09:00 02/28/18 08:36 Wellbutrin Sr PO 150 mg DAILY MIRYAM Administration Chlorhexidine Gluconate 3 pack 02/26/18 04:00 03/01/18 03:09 Chlorhexidine 2% Cloth TOPICAL 03/03/18 03:59 3 pack DAILY@0400 MIRYAM Administration Cholestyramine Resin 4 gm 02/25/18 19:00 02/28/18 19:41 Questran 4 Gm Pkt PO 4 gm BID@0700,1900 [facility] Administration Donepezil HCl 10 mg 02/25/18 21:00 02/28/18 20:25 Aricept PO 10 mg HS MIRYAM Administration Escitalopram Oxalate 20 mg 02/26/18 09:00 02/28/18 08:32 Lexapro PO 20 mg DAILY MIRYAM Administration Hydralazine HCl 75 mg 02/25/18 22:00 03/01/18 06:49 Apresoline PO 75 mg Q8HR MIRYAM Administration Piperacillin/Tazobactam/Dextrose 50 mls @ 100 mls/hr 02/25/18 20:00 03/01/18 06:47 Zosyn 3.375 Gm Premix IV.SIG Infused Q6H [facility] Infusion Isosorbide Mononitrate 30 mg 02/26/18 07:00 03/01/18 07:10 Imdur PO Not Given DAILY@0700 [facility] Levofloxacin 750 mg 02/25/18 18:15 02/27/18 18:05 Levaquin PO 750 mg Q48H MIRYAM Administration Losartan Potassium 50 mg 02/26/18 09:00 02/28/18 08:32 Cozaar PO 50 mg DAILY MIRYAM Administration Methylprednisolone Sodium Succinate 60 mg 02/25/18 18:30 03/01/18 06:48 Solumedrol Inj IV.PUSH 60 mg Q6H MIRYAM Administration Metoprolol Tartrate 25 mg 02/25/18 21:00 02/28/18 21:20 Lopressor PO Not Given BID MIRYAM Montelukast Sodium 10 mg 02/25/18 21:00 02/28/18 20:24 Singulair PO 10 mg HS MIRYAM Administration Pantoprazole Sodium 20 mg 02/26/18 09:00 02/28/18 08:33 Protonix PO 20 mg DAILY MIRYAM Administration Pramipexole Dihydrochloride 0.125 mg 02/25/18 21:00 02/28/18 20:26 Mirapex PO 0.125 mg BID MIRYAM Administration Pravastatin Sodium 20 mg 02/25/18 21:00 02/28/18 20:25 Pravachol PO 20 mg HS MIRYAM Administration Senna/Docusate Sodium 1 tab 02/25/18 21:00 02/28/18 20:25 Mima-Colace PO 1 tab BID MIRYAM Administration Sennosides 17.2 mg 02/25/18 17:57 02/27/18 08:01 Senokot PO 17.2 mg Q12H PRN Administration Moderate Constipation Sodium Chloride 2 ml 02/25/18 21:00 02/28/18 20:25 Ns Flush IV.FLUSH 2 ml BID MIRYAM Administration Objective Remarks: GENERAL: Well-nourished, well-developed elderly female patient, in no acute distress. SKIN: Warm and dry. HEAD: Normocephalic. EYES: No scleral icterus. No injection or drainage. NECK: Supple, trachea midline. CARDIOVASCULAR: +S1/S2 3/6 systolic murmur. RESPIRATORY: Breath sounds equal bilaterally. Nonlabored at rest. High flow O2 via NC. GASTROINTESTINAL: Abdomen soft, non-tender, nondistended. EXTREMITIES: No cyanosis, or edema. cast to left forearm. MUSCULOSKELETAL: Adequate muscle tone. NEUROLOGICAL: No obvious focal deficit. Awake and alert. PSYCHIATRIC: Appropriate mood and affect; insight and judgment normal. Assessment/Plan - Plan Ms. Christian is a pleasant 78-year-old female patient who is currently hospitalized from [facility] for acute worsening of shortness of breath. 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 Other medical ailments include CVA 3 months ago, pneumonia, sepsis, diastolic heart failure, CKD stage III and coronary artery disease. Per her medical chart she also has a history of Alzheimer's dementia. Recommendations: 1. Possible MDS, Procrit has been held related to recent strokes, patient reports frequent blood transfusions. 2. Anemia of renal insufficiency, avoid Procrit due to recent stroke, avoid aggressive transfusions due to iron overload. Maintain hemoglobin above 7 g/ dL. CBC pending. 3. BNP trending down, patient denies any shortness of breath. 4. Continue supportive care. - Attending Statement The exam, history, and the medical decision-making described in the above note were completed with the assistance of the mid-level provider. I reviewed and agree with the findings presented. I attest that I had a [id number] encounter with the patient on the same day, and personally performed and documented my assessment and findings in the medical record. Since receiving 1 unit of blood the patient feels better. Her field nurse case manager and her hospitalist Dr. Aguilera likewise feel she is better. I am going to give her second unit of packed cells. I am not worried about the iron issue as her saturation is not elevated and her major problem is getting through the immediate events. She is receiving high-dose steroids. Have spoken with Dr. Aguilera and the dose will be decreased. Will transfuse a unit slowly and check a CBC tomorrow.
[2018-03-01] MEDS: Senna/Docusate Sodium 8.6/50 MG Tablet PO SCH ×2 (10:07→21:57)
[2018-03-01] MEDS: Metoprolol Tartrate 25 MG Tablet PO SCH ×2 (10:07→21:57)
[2018-03-01] MEDS: buPROPion 150 MG 12 HR Tablet PO SCH (10:08)
[2018-03-01] MEDS: Pantoprazole Sodium 20 MG DR Tablet PO SCH (10:08)
[2018-03-01 11:01] LABS: Baso % (Auto) 0.1 % (0.0-2.0); Hematocrit 21.5 % (35.0-46.0); Hemoglobin 7.6 gm/dL (11.6-15.3); Lymph # (Auto) 0.1 th/mm3 (1.0-4.8); Lymph % (Auto) 0.8 % (9.0-44.0); Mean Corpuscular HGB Conc 35.2 % (32.0-36.0); Mean Corpuscular Hemoglobin 32.8 pg (27.0-34.0); Mean Corpuscular Volume 93.3 fL (80.0-100.0); Mean Platelet Volume 7.5 fL (7.0-11.0); Mono # (Auto) 0.1 th/mm3 (0.0-0.9); Mono % (Auto) 1.2 % (0.0-8.0); Neut % (Auto) 97.9 % (16.0-70.0); Platelet Count 76 th/mm3 (150-450); Red Blood Count 2.31 mil/mm3 (4.00-5.30); Red Cell Distribution Width 17.1 % (11.6-17.2); White Blood Count 9.2 th/mm3 (4.0-11.0)
[2018-03-01 11:20] LABS: Alanine Aminotransferase 52 U/L (10-53); Albumin 2.3 g/dL (3.4-5.0); Alkaline Phosphatase 90 U/L (45-117); Anion Gap 12 meq/L (5-15); Aspartate Aminotransferase 37 U/L (15-37); Blood Urea Nitrogen 59 mg/dL (7-18); Calcium 7.7 mg/dL (8.5-10.1); Carbon Dioxide 21.5 meq/L (21.0-32.0); Chloride 106 meq/L (98-107); Glomerular Filtration Rate 25 mL/min (>89); Glucose,Random 209 mg/dL (74-106); Sodium 139 meq/L (136-145); Total Protein 5.7 g/dL (6.4-8.2)
[2018-03-01 11:53] LABS: Platelet Morphology Normal (Normal)
--- NOTE | 2018-03-01 12:52 | P.PN ---
Subjective Interval history: Follow up for pneumonia, congestive heart failure, CKD. Patient is resting in bed, reports feeling much better. No fever or chills. She is still on high flow oxygen. Physical Exam Vital signs: Vital Signs 02/28/18 13:00 02/28/18 13:10 02/28/18 13:20 Temperature Pulse Rate 101 H 88 87 Respiratory Rate 29 H 28 H 23 Blood Pressure 104/53 L 96/55 L 94/46 L Pulse Oximetry 97 94 L 95 02/28/18 13:30 02/28/18 13:40 02/28/18 13:50 Temperature Pulse Rate 86 85 84 Respiratory Rate 24 23 23 Blood Pressure 94/51 L 97/51 L 92/48 L Pulse Oximetry 97 97 98 02/28/18 14:00 02/28/18 14:10 02/28/18 14:20 Temperature Pulse Rate 83 83 81 Respiratory Rate 21 22 23 Blood Pressure 98/51 L 98/54 L 100/52 L Pulse Oximetry 97 97 97 02/28/18 14:30 02/28/18 14:45 02/28/18 15:00 Temperature Pulse Rate 80 79 77 Respiratory Rate 22 27 H 24 Blood Pressure 98/51 L 99/53 L 96/49 L Pulse Oximetry 97 96 98 02/28/18 15:30 02/28/18 16:00 02/28/18 16:30 Temperature Pulse Rate 76 78 81 Respiratory Rate 21 25 H 27 H Blood Pressure 100/52 L 110/55 L 122/55 L Pulse Oximetry 98 97 91 L 02/28/18 16:34 02/28/18 17:00 02/28/18 17:30 Temperature Pulse Rate 78 95 H 83 Respiratory Rate 18 21 22 Blood Pressure 109/54 L 102/50 L Pulse Oximetry 99 95 02/28/18 18:00 02/28/18 18:01 02/28/18 18:30 Temperature Pulse Rate 98 H 101 H 97 H Respiratory Rate 24 27 H 27 H Blood Pressure 146/60 H 111/52 L Pulse Oximetry 94 L 94 L 95 02/28/18 19:00 02/28/18 19:30 02/28/18 20:00 Temperature 97.8 F Pulse Rate 86 82 82 Respiratory Rate 29 H 23 21 Blood Pressure 111/56 L 122/58 L 109/55 L Pulse Oximetry 96 96 94 L 02/28/18 20:02 11/24/18 20:30 02/28/18 21:00 Temperature Pulse Rate 81 81 79 Respiratory Rate 24 23 23 Blood Pressure 102/51 L 93/45 L Pulse Oximetry 93 L 94 L 94 L 02/28/18 21:07 02/28/18 21:30 02/28/18 22:00 Temperature Pulse Rate 79 78 80 Respiratory Rate 25 H 16 20 Blood Pressure 91/48 L 123/58 L 120/59 L Pulse Oximetry 96 95 94 L 02/28/18 22:30 02/28/18 23:00 02/28/18 23:01 Temperature Pulse Rate 80 82 82 Respiratory Rate 23 21 23 Blood Pressure 146/63 H 133/60 Pulse Oximetry 92 L 91 L 92 L 02/28/18 23:30 02/28/18 23:52 03/01/18 00:00 Temperature 98.5 F Pulse Rate 79 80 81 Respiratory Rate 28 H 24 30 H Blood Pressure 126/60 132/63 Pulse Oximetry 93 L 94 L 03/01/18 00:30 03/01/18 01:00 03/01/18 01:30 Temperature Pulse Rate 79 79 80 Respiratory Rate 23 22 23 Blood Pressure 123/57 L 122/59 L 129/58 L Pulse Oximetry 96 94 L 96 03/01/18 02:00 03/01/18 02:30 03/01/18 03:00 Temperature Pulse Rate 81 77 78 Respiratory Rate 25 H 26 H 24 Blood Pressure 123/60 136/61 131/74 Pulse Oximetry 95 96 96 03/01/18 03:30 03/01/18 04:00 03/01/18 04:01 Temperature 98.4 F Pulse Rate 80 80 77 Respiratory Rate 28 H 21 19 Blood Pressure 146/66 H 117/55 L Pulse Oximetry 96 90 L 93 L 03/01/18 04:12 03/01/18 04:30 03/01/18 05:00 Temperature Pulse Rate 82 75 71 Respiratory Rate 20 22 19 Blood Pressure 125/62 127/55 L Pulse Oximetry 93 L 96 93 L 03/01/18 05:30 03/01/18 06:00 03/01/18 07:00 Temperature Pulse Rate 71 74 81 Respiratory Rate 20 17 18 Blood Pressure 135/60 154/68 H Pulse Oximetry 95 94 L 95 03/01/18 11:00 Temperature Pulse Rate 68 Respiratory Rate 18 Blood Pressure Pulse Oximetry Intake & Output 02/28/18 03/01/18 03/01/18 18:59 06:59 18:59 Intake Total 925 / 925 300 / 300 Output Total 1000 / 1000 1000 / 1000 Balance -75 / -75 -700 / -700 Weight 55 kg Intake: IV 100 / 100 100 / 100 Zosyn 3.375 GM Premix 50 ML @ 100 / 100 100 / 100 100 mls/hr IV.SIG Q6H [facility] Rx#: [id number] Oral 825 / 825 200 / 200 Output: Urine Amount (Catheter) 1000 / 1000 1000 / 1000 Indwelling Urethral Catheter 1000 / 1000 1000 / 1000 Other: Date of Last Bowel Movement 02/28/18 03/01/18 # Bowel Movements 1 2 Narrative: GENERAL: Alert, NAD. SKIN: Warm and dry. HEAD: Normocephalic. EYES: No scleral icterus. No injection or drainage. NECK: Supple, trachea midline. No JVD or lymphadenopathy. CARDIOVASCULAR: Regular rate and rhythm without gallops, or rubs. There is a systolic murmur present best heard on the left sternal border. RESPIRATORY: Moderate air entry, coarse breath sounds noted. GASTROINTESTINAL: Abdomen soft, non-tender, nondistended. MUSCULOSKELETAL: No cyanosis, or edema. BACK: Nontender without obvious deformity. No CVA tenderness. - Urinary Catheter Management Indwelling Urethral Catheter Cath placed during this visit: yes Reason for continuing: Hourly intake/output Insertion date: 02/25/18 Insertion time: 19:58 Results - Labs CBC & Chem 7: 03/01/18 10:37 03/01/18 10:37 Laboratory Results - last 24 hr 03/01/18 03/01/18 03/01/18 05:19 10:37 10:37 WBC 9.2 RBC 2.31 L Hgb 7.6 L Hct 21.5 L MCV 93.3 MCH 32.8 MCHC 35.2 RDW 17.1 Plt Count 76 L MPV 7.5 Prelim Diff (Auto) Slide review pending Neut % (Auto) 97.9 H Lymph % (Auto) 0.8 L [place] % (Auto) 1.2 Eos % (Auto) 0.0 Baso % (Auto) 0.1 Neut # (Auto) 9.0 H Lymph # (Auto) 0.1 L [place] # (Auto) 0.1 Eos # (Auto) 0.0 Baso # (Auto) 0.0 WBC Differential . Diff Scan Auto diff confirmed Differential Comment . Platelet Estimate Low L Platelet Morphology Normal Sodium 139 Potassium 4.0 Chloride 106 Carbon Dioxide 21.5 Anion Gap 12 BUN 59 H Creatinine 1.94 H Estimated GFR 25 L Random Glucose 209 H Calcium 7.7 L Total Bilirubin 0.5 AST 37 ALT 52 Alkaline Phosphatase 90 B-Natriuretic Peptide 226 H Total Protein 5.7 L D Albumin 2.3 L Microbiology 02/26/18 10:55 Blood - Peripheral Aerobic Blood Culture - Preliminary No growth in 3 days 02/26/18 10:55 Blood - Peripheral Anaerobic Blood Culture - Preliminary No growth in 3 days 02/26/18 10:55 Blood - Peripheral Aerobic Blood Culture - Preliminary No growth in 3 days 02/26/18 10:55 Blood - Peripheral Anaerobic Blood Culture - Preliminary No growth in 3 days - Procedures None Assessment and Plan - Plan Patient is a 78 year old female with a past medical history significant for CLL, recent pneumonia, diastolic heart failure, stage III CKD, and left sided hand fracture. She was admitted from [facility] to [facility] under the care of the hospitalist service for progressively worsening shortness secondary to recurrent pneumonia. Acute on chronic hypoxic respiratory failure Pneumonia - possibly atypical. -continue Zosyn and Levaquin per infectious disease recommendations. -Solumedrol IV -duonebs IV Q6H -pulmonary consulted. Patient may need bronchoscopy. -Urine legionella, histoplasma urine pending. -Blastomyces ab pending. -continue supplemental oxygen. Currently on high flow oxygen. Once she is on simple nasal cannula, patient can likely be transferred to the floor. -Palliative care on board. Diastolic heart failure w/ volume overload Pulmonary hypertension -Echo shows normal LV size, EF 60-65%. Pulmonary artery pressure 61 mmHg. -continue diuretics, monitor renal function and electrolytes -cardiology following. -strict I&O, daily weight, low Na diet Chronic kidney disease, stage III -Creatinine around 1.75, baseline appears to be around 1.6. -avoid nephrotoxic meds Closed, impacted, comminuted left distal radial and ulnar fracture with cast in place -PT/OT eval/treat -pain meds PRN CLL with hx of blood transfusions -continue to monitor H/H -Hgb 6.9 on 02/27/2018, received 1 unit transfusion. Repeat Hgb 7.5. Alzheimer dementia with no behavioral disturbance -continue home meds Full code. SCDs.
--- NOTE | 2018-03-01 14:36 | P.PNCA ---
Subjective Interval history: alert in nad Medications and Allergies Active Medications: Active Medications Acetaminophen (Tylenol) 650 mg PO Q4H PRN PRN Reason: Temp > 100.4 Al Hydroxide/Mg Hydroxide (Milk Of Radha Liq) 30 ml PO Q12H PRN PRN Reason: Mild Constipation Albuterol (Albuterol Neb (Prn)) 2.5 mg NEB Q2HR NEB PRN PRN Reason: SHORTNESS OF BREATH Albuterol (Duoneb Neb (Formerly [facility])) 1 ampul NEB Q4HR NEB [facility] Last Admin: 03/01/18 12:44 Dose: 1 ampul Amlodipine Besylate (Norvasc) 5 mg PO BID [facility] Last Admin: 02/28/18 21:20 Dose: Not Given Aspirin (Ecotrin) 81 mg PO DAILY [facility] Last Admin: 03/01/18 10:06 Dose: 81 mg Bisacodyl (Dulcolax Supp) 10 mg RECTAL DAILY PRN PRN Reason: SEVERE CONSITIPATION Bumetanide (Bumex Inj) 1 mg IV.PUSH BID@0900,1800 [facility] Last Admin: 03/01/18 10:05 Dose: 1 mg Bupropion HCl (Wellbutrin Sr) 150 mg PO DAILY [facility] Last Admin: 03/01/18 10:08 Dose: 150 mg Chlorhexidine Gluconate (Chlorhexidine 2% Cloth) 3 pack TOPICAL DAILY@0400 [facility] Stop: 03/03/18 03:59 Last Admin: 03/01/18 03:09 Dose: 3 pack Chlorhexidine Gluconate (Chlorhexidine 2% Cloth) 3 pack TOPICAL DAILY@0400 PRN PRN Reason: Extra cloth needed Stop: 03/03/18 03:59 Cholestyramine Resin (Questran 4 Gm Pkt) 4 gm PO BID@0700,1900 [facility] Last Admin: 03/01/18 07:04 Dose: 4 gm Diphenhydramine HCl (Benadryl) 25 mg PO HS PRN PRN Reason: Insomnia Donepezil HCl (Aricept) 10 mg PO HS [facility] Last Admin: 02/28/18 20:25 Dose: 10 mg Escitalopram Oxalate (Lexapro) 20 mg PO DAILY [facility] Last Admin: 03/01/18 10:06 Dose: 20 mg Hydralazine HCl (Apresoline) 75 mg PO Q8HR [facility] Last Admin: 03/01/18 06:49 Dose: 75 mg Piperacillin/Tazobactam/Dextrose (Zosyn 3.375 Gm Premix) 50 mls @ 100 mls/hr IV.SIG Q6H [facility] Last Admin: 03/01/18 10:04 Dose: 100 mls/hr Isosorbide Mononitrate (Imdur) 30 mg PO DAILY@0700 [facility] Last Admin: 03/01/18 07:10 Dose: Not Given Lactulose (Lactulose Liq) 30 ml PO DAILY PRN PRN Reason: SEVERE CONSITIPATION Levofloxacin (Levaquin) 750 mg PO Q48H [facility] Last Admin: 02/27/18 18:05 Dose: 750 mg Losartan Potassium (Cozaar) 50 mg PO DAILY [facility] Last Admin: 03/01/18 10:06 Dose: Not Given Methylprednisolone Sodium Succinate (Solumedrol Inj) 60 mg IV.PUSH Q6H [facility] Last Admin: 03/01/18 06:48 Dose: 60 mg Metoprolol Tartrate (Lopressor) 25 mg PO BID [facility] Last Admin: 03/01/18 10:07 Dose: Not Given Miscellaneous (Pill Splitter) 1 each OTHER [facility] Montelukast Sodium (Singulair) 10 mg PO HS [facility] Last Admin: 02/28/18 20:24 Dose: 10 mg Ondansetron HCl (Zofran Inj) 4 mg IV.PUSH Q6H PRN PRN Reason: NAUSEA OR VOMITING Pantoprazole Sodium (Protonix) 20 mg PO DAILY [facility] Last Admin: 03/01/18 10:08 Dose: 20 mg Pramipexole Dihydrochloride (Mirapex) 0.125 mg PO BID [facility] Last Admin: 03/01/18 10:07 Dose: 0.125 mg Pravastatin Sodium (Pravachol) 20 mg PO HS [facility] Last Admin: 02/28/18 20:25 Dose: 20 mg Senna/Docusate Sodium (Mima-Colace) 1 tab PO BID [facility] Last Admin: 03/01/18 10:07 Dose: 1 tab Sennosides (Senokot) 17.2 mg PO Q12H PRN PRN Reason: Moderate Constipation Last Admin: 02/27/18 08:01 Dose: 17.2 mg Sodium Chloride (Ns Flush) 2 ml IV.FLUSH BID [facility] Last Admin: 03/01/18 10:07 Dose: 2 ml Sodium Chloride (Ns Flush) 2 ml IV.FLUSH PRN PRN PRN Reason: FLUSH AFTER USING IV ACCESS Allergies Allergy/AdvReac Type Severity Reaction Status Date / Time latex Allergy Rash, Verified 02/18/18 06:07 Localized soy Allergy Congestion Verified 02/18/18 06:07 sulfadiazine Allergy Hives Verified 02/18/18 06:07 wheat [Flour] Allergy Rash Verified 02/18/18 06:07 Home Medications Medication Instructions Recorded Confirmed Type amlodipine [Norvasc] 5 mg PO BID 02/17/18 02/17/18 History cholestyramine (with sugar) 4 g PO BID 02/17/18 02/17/18 History donepezil 10 mg PO HS 02/17/18 02/17/18 History escitalopram oxalate 20 mg PO DAILY 02/17/18 02/17/18 History hydralazine 75 mg PO Q8H 02/17/18 02/17/18 History levothyroxine [Synthroid] 50 mcg PO DAILY@0600 02/17/18 02/17/18 History metoprolol tartrate 25 mg PO BID 02/17/18 02/17/18 History montelukast 10 mg PO HS 02/17/18 02/17/18 History pantoprazole 20 mg PO DAILY 02/17/18 02/17/18 History pravastatin 20 mg PO HS 02/17/18 02/17/18 History Physical Exam Vital signs: Vital Signs 02/28/18 14:45 02/28/18 15:00 02/28/18 15:30 Temperature Pulse Rate 79 77 76 Respiratory Rate 27 H 24 21 Blood Pressure 99/53 L 96/49 L 100/52 L Pulse Oximetry 96 98 98 02/28/18 16:00 02/28/18 16:30 02/28/18 16:34 Temperature Pulse Rate 78 81 78 Respiratory Rate 25 H 27 H 18 Blood Pressure 110/55 L 122/55 L Pulse Oximetry 97 91 L 02/28/18 17:00 02/28/18 17:30 02/28/18 18:00 Temperature Pulse Rate 95 H 83 98 H Respiratory Rate 21 22 24 Blood Pressure 109/54 L 102/50 L Pulse Oximetry 99 95 94 L 02/28/18 18:01 02/28/18 18:30 02/28/18 19:00 Temperature Pulse Rate 101 H 97 H 86 Respiratory Rate 27 H 27 H 29 H Blood Pressure 146/60 H 111/52 L 111/56 L Pulse Oximetry 94 L 95 96 02/28/18 19:30 02/28/18 20:00 02/28/18 20:02 Temperature 97.8 F Pulse Rate 82 82 81 Respiratory Rate 23 21 24 Blood Pressure 122/58 L 109/55 L Pulse Oximetry 96 94 L 93 L 02/28/18 20:30 02/28/18 21:00 02/28/18 21:07 Temperature Pulse Rate 81 79 79 Respiratory Rate 23 23 25 H Blood Pressure 102/51 L 93/45 L 91/48 L Pulse Oximetry 94 L 94 L 96 02/28/18 21:30 02/28/18 22:00 02/28/18 22:30 Temperature Pulse Rate 78 80 80 Respiratory Rate 16 20 23 Blood Pressure 123/58 L 120/59 L 146/63 H Pulse Oximetry 95 94 L 92 L 02/28/18 23:00 02/28/18 23:01 02/28/18 23:30 Temperature Pulse Rate 82 82 79 Respiratory Rate 21 23 28 H Blood Pressure 133/60 126/60 Pulse Oximetry 91 L 92 L 93 L 02/28/18 23:52 03/01/18 00:00 03/01/18 00:30 Temperature 98.5 F Pulse Rate 80 81 79 Respiratory Rate 24 30 H 23 Blood Pressure 132/63 123/57 L Pulse Oximetry 94 L 96 03/01/18 01:00 03/01/18 01:30 03/01/18 02:00 Temperature Pulse Rate 79 80 81 Respiratory Rate 22 23 25 H Blood Pressure 122/59 L 129/58 L 123/60 Pulse Oximetry 94 L 96 95 03/01/18 02:30 03/01/18 03:00 03/01/18 03:30 Temperature Pulse Rate 77 78 80 Respiratory Rate 26 H 24 28 H Blood Pressure 136/61 131/74 146/66 H Pulse Oximetry 96 96 96 03/01/18 04:00 03/01/18 04:01 03/01/18 04:12 Temperature 98.4 F Pulse Rate 80 77 82 Respiratory Rate 21 19 20 Blood Pressure 117/55 L Pulse Oximetry 90 L 93 L 93 L 03/01/18 04:30 03/01/18 05:00 03/01/18 05:30 Temperature Pulse Rate 75 71 71 Respiratory Rate 22 19 20 Blood Pressure 125/62 127/55 L 135/60 Pulse Oximetry 96 93 L 95 03/01/18 06:00 03/01/18 07:00 03/01/18 11:00 Temperature Pulse Rate 74 81 68 Respiratory Rate 17 18 18 Blood Pressure 154/68 H Pulse Oximetry 94 L 95 Intake & Output 02/28/18 03/01/18 03/01/18 18:59 06:59 18:59 Intake Total 925 / 925 300 / 300 Output Total 1000 / 1000 1000 / 1000 Balance -75 / -75 -700 / -700 Weight 55 kg Intake: IV 100 / 100 100 / 100 Zosyn 3.375 GM Premix 50 ML @ 100 / 100 100 / 100 100 mls/hr IV.SIG Q6H [facility] Rx#: [id number] Oral 825 / 825 200 / 200 Output: Urine Amount (Catheter) 1000 / 1000 1000 / 1000 Indwelling Urethral Catheter 1000 / 1000 1000 / 1000 Other: Date of Last Bowel Movement 02/28/18 03/01/18 # Bowel Movements 1 2 - Constitutional no acute distress - Routine HEENT Exam Head: Present: normocephalic - Routine Neck Exam Present: supple - Routine Respiratory Exam Present: CTA bilaterally - Routine Cardiovascular Exam Present: S1 - Routine Abdominal Exam Present: soft - Routine Extremities Exam Comments: no damien - Urinary Catheter Management Indwelling Urethral Catheter Cath placed during this visit: yes Reason for continuing: Hourly intake/output Insertion date: 02/25/18 Insertion time: 19:58 Results 03/01/18 10:37 03/01/18 10:37 Cardiac Enzymes 02/28/18 03/01/18 03/01/18 Range/Units 05:51 05:19 10:37 AST 37 (15-37) U/L B-Natriuretic Peptide 293 H 226 H (0-100) pg/mL Coagulation 02/28/18 03/01/18 Range/Units 05:51 05:19 B-Natriuretic Peptide 293 H 226 H (0-100) pg/mL CBC 02/28/18 03/01/18 Range/Units 05:51 10:37 WBC 9.8 9.2 (4.0-11.0) th/mm3 RBC 2.29 L 2.31 L (4.00-5.30) mil/mm3 Hgb 7.5 L 7.6 L (11.6-15.3) gm/dL Hct 21.2 L 21.5 L (35.0-46.0) % Plt Count 91 L 76 L (150-450) th/mm3 Neut # (Auto) 9.5 H 9.0 H (1.8-7.7) th/mm3 Lymph # (Auto) 0.1 L 0.1 L (1.0-4.8) th/mm3 Kimball # (Auto) 0.2 0.1 (0.0-0.9) th/mm3 Eos # (Auto) 0.0 0.0 (0.0-0.4) th/mm3 Baso # (Auto) 0.0 0.0 (0.0-0.2) th/mm3 Comprehensive Metabolic Panel 03/01/18 Range/Units 10:37 Sodium 139 (136-145) meq/L Potassium 4.0 (3.5-5.1) meq/L Chloride 106 (98-107) meq/L Carbon Dioxide 21.5 (21.0-32.0) meq/L BUN 59 H (7-18) mg/dL Creatinine 1.94 H (0.50-1.00) mg/dL Calcium 7.7 L (8.5-10.1) mg/dL AST 37 (15-37) U/L ALT 52 (10-53) U/L Alkaline Phosphatase 90 (45-117) U/L Total Protein 5.7 L D (6.4-8.2) g/dL Albumin 2.3 L (3.4-5.0) g/dL Intake and Output 02/28/18 03/01/18 03/01/18 22:59 06:59 14:59 Intake Total 925 / 925 250 / 250 Output Total 999 / 999 999 / 999 Balance -75 / -75 -750 / -750 Intake: IV 100 / 100 50 / 50 Zosyn 3.375 GM Premix 50 ML @ 100 / 100 50 / 50 100 mls/hr IV.SIG Q6H [facility] Rx#: [id number] Oral 825 / 825 200 / 200 Output: Urine Amount (Catheter) 999 1000 / 1000 Indwelling Urethral Catheter 1000 / 1000 1000 / 1000 Other: Date of Last Bowel Movement 02/28/18 03/01/18 # Bowel Movements 1 2 Weight 55 kg - Imaging and Cardiology Imaging: Impressions Chest X-Ray 02/28/18 00:00 CONCLUSION: Diffuse pulmonary consolidation likely related to diffuse processes such as edema or diffuse infection. Compared to the prior exam, significant change has not occurred. Assessment and Plan - Assessment (1) Dyspnea Code(s): R06.00 - Dyspnea, unspecified Status: Acute (2) Chronic kidney disease Code(s): N18.9 - Chronic kidney disease, unspecified Status: Chronic (3) CLL (chronic lymphocytic leukemia) Code(s): C91.90 - Lymphoid leukemia, unspecified not having achieved remission Status: Chronic (4) Wrist fracture, left Code(s): S62.102A - Fracture of unspecified carpal bone, left wrist, initial encounter for closed fracture Status: Acute (5) Diastolic CHF Code(s): I50.30 - Unspecified diastolic (congestive) heart failure Status: Chronic - Plan 1.) CHF - bnp and hgb improving, ef=65%, pasp=61 mm hg, mod severe AI, mild as, hypoxia appears to be primarily due to anemia and pneumonia; clinically improved after transfusion. rec continue medical management due to multiple comorbidities and contraindications to anticoagulation, f/u bnp (4) Wrist fracture, left Qualifiers: Encounter type: subsequent encounter Fracture type: closed Fracture healing : with routine healing Qualified Code(s): S62.102D - Fracture of unspecified carpal bone, left wrist, subsequent encounter for fracture with routine healing (5) Diastolic CHF Qualifiers: Heart failure chronicity: acute on chronic Qualified Code(s): I50.33 - Acute on chronic diastolic (congestive) heart failure
[2018-03-01] MEDS ORDERED: Acetaminophen 325 MG Tablet PO PRN (15:31)
[2018-03-01] MEDS ORDERED: Sodium Chlor 0.9% Inj 250 ML IV.SIG SCH (16:00)
--- NOTE | 2018-03-01 16:05 | P.PN ---
Subjective Interval history: alert nad on o2 Physical Exam Vital signs: Vital Signs 02/28/18 16:30 02/28/18 16:34 02/28/18 17:00 Temperature Pulse Rate 81 78 95 H Respiratory Rate 27 H 18 21 Blood Pressure 122/55 L 109/54 L Pulse Oximetry 91 L 99 02/28/18 17:30 02/28/18 18:00 02/28/18 18:01 Temperature Pulse Rate 83 98 H 101 H Respiratory Rate 22 24 27 H Blood Pressure 102/50 L 146/60 H Pulse Oximetry 95 94 L 94 L 02/28/18 18:30 02/28/18 19:00 02/28/18 19:30 Temperature Pulse Rate 97 H 86 82 Respiratory Rate 27 H 29 H 23 Blood Pressure 111/52 L 111/56 L 122/58 L Pulse Oximetry 95 96 96 02/28/18 20:00 02/28/18 20:02 02/28/18 20:30 Temperature 97.8 F Pulse Rate 82 81 81 Respiratory Rate 21 24 23 Blood Pressure 109/55 L 102/51 L Pulse Oximetry 94 L 93 L 94 L 02/28/18 21:00 02/28/18 21:07 02/28/18 21:30 Temperature Pulse Rate 79 79 78 Respiratory Rate 23 25 H 16 Blood Pressure 93/45 L 91/48 L 123/58 L Pulse Oximetry 94 L 96 95 02/28/18 22:00 02/28/18 22:30 02/28/18 23:00 Temperature Pulse Rate 80 80 82 Respiratory Rate 20 23 21 Blood Pressure 120/59 L 146/63 H Pulse Oximetry 94 L 92 L 91 L 02/28/18 23:01 02/28/18 23:30 02/28/18 23:52 Temperature Pulse Rate 82 79 80 Respiratory Rate 23 28 H 24 Blood Pressure 133/60 126/60 Pulse Oximetry 92 L 93 L 03/01/18 00:00 03/01/18 00:30 03/01/18 01:00 Temperature 98.5 F Pulse Rate 81 79 79 Respiratory Rate 30 H 23 22 Blood Pressure 132/63 123/57 L 122/59 L Pulse Oximetry 94 L 96 94 L 03/01/18 01:30 03/01/18 02:00 03/01/18 02:30 Temperature Pulse Rate 80 81 77 Respiratory Rate 23 25 H 26 H Blood Pressure 129/58 L 123/60 136/61 Pulse Oximetry 96 95 96 03/01/18 03:00 03/01/18 03:30 03/01/18 04:00 Temperature 98.4 F Pulse Rate 78 80 80 Respiratory Rate 24 28 H 21 Blood Pressure 131/74 146/66 H Pulse Oximetry 96 96 90 L 03/01/18 04:01 03/01/18 04:12 03/01/18 04:30 Temperature Pulse Rate 77 82 75 Respiratory Rate 19 20 22 Blood Pressure 117/55 L 125/62 Pulse Oximetry 93 L 93 L 96 03/01/18 05:00 03/01/18 05:30 03/01/18 06:00 Temperature Pulse Rate 71 71 74 Respiratory Rate 19 20 17 Blood Pressure 127/55 L 135/60 154/68 H Pulse Oximetry 93 L 95 94 L 03/01/18 07:00 03/01/18 11:00 03/01/18 15:00 Temperature Pulse Rate 81 68 93 H Respiratory Rate 18 18 18 Blood Pressure Pulse Oximetry 95 Intake & Output 02/28/18 03/01/18 03/01/18 18:59 06:59 18:59 Intake Total 925 / 925 300 / 300 Output Total 1000 / 1000 1000 / 1000 Balance -75 / -75 -700 / -700 Weight 55 kg Intake: IV 100 / 100 100 / 100 Zosyn 3.375 GM Premix 50 ML @ 100 / 100 100 / 100 100 mls/hr IV.SIG Q6H [facility] Rx#: [id number] Oral 825 / 825 200 / 200 Output: Urine Amount (Catheter) 1000 / 1000 1000 / 1000 Indwelling Urethral Catheter 1000 / 1000 1000 / 1000 Other: Date of Last Bowel Movement 02/28/18 03/01/18 # Bowel Movements 1 2 Narrative: GENERAL: Alert, NAD. SKIN: Warm and dry. HEAD: Normocephalic. EYES: No scleral icterus. No injection or drainage. NECK: Supple, trachea midline. No JVD or lymphadenopathy. CARDIOVASCULAR: Regular rate and rhythm without gallops, or rubs. There is a systolic murmur present best heard on the left sternal border. RESPIRATORY: Moderate air entry, coarse breath sounds noted. GASTROINTESTINAL: Abdomen soft, non-tender, nondistended. MUSCULOSKELETAL: No cyanosis, or edema. BACK: Nontender without obvious deformity. No CVA tenderness. - Urinary Catheter Management Indwelling Urethral Catheter Cath placed during this visit: yes Reason for continuing: Hourly intake/output Insertion date: 02/25/18 Insertion time: 19:58 Results - Labs CBC & Chem 7: 03/01/18 10:37 03/01/18 10:37 Laboratory Results - last 24 hr 03/01/18 03/01/18 03/01/18 05:19 10:37 10:37 WBC 9.2 RBC 2.31 L Hgb 7.6 L Hct 21.5 L MCV 93.3 MCH 32.8 MCHC 35.2 RDW 17.1 Plt Count 76 L MPV 7.5 Prelim Diff (Auto) Slide review pending Neut % (Auto) 97.9 H Lymph % (Auto) 0.8 L Robertson % (Auto) 1.2 Eos % (Auto) 0.0 Baso % (Auto) 0.1 Neut # (Auto) 9.0 H Lymph # (Auto) 0.1 L Robertson # (Auto) 0.1 Eos # (Auto) 0.0 Baso # (Auto) 0.0 WBC Differential . Diff Scan Auto diff confirmed Differential Comment . Platelet Estimate Low L Platelet Morphology Normal Sodium 139 Potassium 4.0 Chloride 106 Carbon Dioxide 21.5 Anion Gap 12 BUN 59 H Creatinine 1.94 H Estimated GFR 25 L Random Glucose 209 H Calcium 7.7 L Total Bilirubin 0.5 AST 37 ALT 52 Alkaline Phosphatase 90 B-Natriuretic Peptide 226 H Total Protein 5.7 L D Albumin 2.3 L Microbiology 02/26/18 10:55 Blood - Peripheral Aerobic Blood Culture - Preliminary No growth in 3 days 02/26/18 10:55 Blood - Peripheral Anaerobic Blood Culture - Preliminary No growth in 3 days 02/26/18 10:55 Blood - Peripheral Aerobic Blood Culture - Preliminary No growth in 3 days 02/26/18 10:55 Blood - Peripheral Anaerobic Blood Culture - Preliminary No growth in 3 days - Procedures None Assessment and Plan - Plan RESPIRATORY FAILRE PNA CHF CKD PLAN O2 ANTIBX BRONCHODILATORS O2 NEEDED
[2018-03-01] MEDS: levoFLOXacin 750 MG Tablet PO SCH (20:05)
[2018-03-01] MEDS: predniSONE 20 MG Tablet PO SCH (21:54)
[2018-03-01] MEDS: Montelukast 10 MG Tablet PO SCH (22:00)
[2018-03-02] MEDS: Piperacil/Tazo 3.375 GM Premix 50 ML IV.SIG SCH ×4 (01:02→20:19)
[2018-03-02] MEDS: hydrALAZINE 25 MG Tablet PO SCH ×4 (01:02→21:29)
[2018-03-02 01:13] LABS: Hematocrit 24.3 % (35.0-46.0); Hemoglobin 8.1 gm/dL (11.6-15.3)
[2018-03-02] MEDS: Chlorhexidine Gluconate 2% 1 Pack (2 Cloths) TOPICAL SCH (06:20)
[2018-03-02] MEDS: Isosorbide Mononitrate 30 MG ER 24HR Tablet (Imdur) PO SCH (06:20)
[2018-03-02] MEDS: amLODIPine 5 MG Tablet PO SCH ×2 (10:29→21:31)
[2018-03-02] MEDS: predniSONE 20 MG Tablet PO SCH ×2 (10:29→21:31)
[2018-03-02] MEDS: Pantoprazole Sodium 20 MG DR Tablet PO SCH (10:29)
[2018-03-02] MEDS: Metoprolol Tartrate 25 MG Tablet PO SCH ×2 (10:29→21:31)
[2018-03-02] MEDS: buPROPion 150 MG 12 HR Tablet PO SCH (10:29)
[2018-03-02] MEDS: Senna/Docusate Sodium 8.6/50 MG Tablet PO SCH ×2 (10:30→21:32)
--- NOTE | 2018-03-02 10:46 | P.PNONC ---
Subjective Interval history: Afebrile. Patient sitting in chair, eyes closed on approach, awakens easily. She has no complaints at this time. She denies any shortness of breath. Objective Vital Signs/Intake & Output: Vital Signs 03/01/18 11:00 03/01/18 11:31 03/01/18 12:00 Temperature Pulse Rate 72 74 72 Respiratory Rate 26 H 23 24 Blood Pressure 112/55 L 139/60 Pulse Oximetry 94 L 94 L 93 L 03/01/18 12:12 03/01/18 12:18 03/01/18 12:30 Temperature Pulse Rate 69 74 69 Respiratory Rate 21 26 H 20 Blood Pressure 121/58 L 122/56 L 117/54 L Pulse Oximetry 93 L 92 L 95 03/01/18 13:00 03/01/18 13:31 03/01/18 14:00 Temperature Pulse Rate 68 72 97 H Respiratory Rate 19 15 33 H Blood Pressure 119/57 L 137/58 L 115/81 Pulse Oximetry 95 94 L 82 L 03/01/18 14:30 03/01/18 15:00 03/01/18 15:30 Temperature Pulse Rate 98 H 91 H 87 Respiratory Rate 20 29 H 24 Blood Pressure 119/56 L 132/55 L 114/56 L Pulse Oximetry 90 L 91 L 91 L 03/01/18 16:00 03/01/18 16:30 03/01/18 17:00 Temperature Pulse Rate 82 86 77 Respiratory Rate 28 H 29 H 27 H Blood Pressure 114/55 L 112/52 L 107/51 L Pulse Oximetry 96 96 93 L 03/01/18 18:00 03/01/18 18:03 03/01/18 19:00 Temperature 97.9 F 98.3 F 97.8 F Pulse Rate 87 78 93 H Respiratory Rate 19 19 21 Blood Pressure 174/74 H 128/56 L 211/86 H Pulse Oximetry 92 L 96 03/01/18 20:00 03/01/18 20:54 03/01/18 20:55 Temperature Pulse Rate 85 80 Respiratory Rate 24 16 Blood Pressure 175/74 H Pulse Oximetry 95 95 03/01/18 21:00 03/01/18 22:00 03/01/18 23:00 Temperature Pulse Rate 80 79 76 Respiratory Rate 14 13 14 Blood Pressure 154/67 H 152/65 H 159/72 H Pulse Oximetry 97 97 97 03/02/18 00:00 03/02/18 01:00 03/02/18 02:00 Temperature 97.5 F L Pulse Rate 76 78 83 Respiratory Rate 17 14 25 H Blood Pressure 174/77 H 173/76 H 162/71 H Pulse Oximetry 96 96 95 03/02/18 03:00 03/02/18 04:00 03/02/18 05:00 Temperature 97.9 F Pulse Rate 80 77 77 Respiratory Rate 27 H 27 H 17 Blood Pressure 160/73 H 160/74 H 157/94 H Pulse Oximetry 95 89 L 94 L 03/02/18 06:00 03/02/18 07:42 Temperature Pulse Rate 75 79 Respiratory Rate 20 24 Blood Pressure 170/76 H Pulse Oximetry 95 93 L Intake & Output 03/01/18 03/02/18 03/02/18 18:59 06:59 18:59 Intake Total 950 / 950 700 / 700 50 / 50 Output Total 900 / 900 1200 / 1200 Balance 50 / 50 -500 / -500 50 / 50 Weight 57 kg Intake: IV 100 / 100 100 / 100 50 / 50 Zosyn 3.375 GM Premix 50 ML @ 100 / 100 100 / 100 50 / 50 100 mls/hr IV.SIG Q6H [facility] Rx#: [id number] Oral 850 / 850 200 / 200 Intake (Blood Product) Amt 0 / 0 400 / 400 Rbc As-3 Leukoreduced Unit 0 / 0 400 / 400 [id number] Output: Urine 900 / 900 Urine Amount (Catheter) 1200 / 1200 Indwelling Urethral Catheter 1200 / 1200 Other: Date of Last Bowel Movement 03/01/18 03/02/18 # Bowel Movements 2 1 Result Diagrams: 03/02/18 00:50 03/01/18 10:37 Laboratory Results: Laboratory Results - last 24 hr 02/27/18 03/01/18 03/01/18 13:49 10:37 10:37 WBC 9.2 RBC 2.31 L Hgb 7.6 L Hct 21.5 L MCV 93.3 MCH 32.8 MCHC 35.2 RDW 17.1 Plt Count 76 L MPV 7.5 Prelim Diff (Auto) Slide review pending Neut % (Auto) 97.9 H Lymph % (Auto) 0.8 L [place] % (Auto) 1.2 Eos % (Auto) 0.0 Baso % (Auto) 0.1 Neut # (Auto) 9.0 H Lymph # (Auto) 0.1 L [place] # (Auto) 0.1 Eos # (Auto) 0.0 Baso # (Auto) 0.0 WBC Differential . Diff Scan Auto diff confirmed Differential Comment . Platelet Estimate Low L Platelet Morphology Normal Sodium 139 Potassium 4.0 Chloride 106 Carbon Dioxide 21.5 Anion Gap 12 BUN 59 H Creatinine 1.94 H Estimated GFR 25 L Random Glucose 209 H Calcium 7.7 L Total Bilirubin 0.5 AST 37 ALT 52 Alkaline Phosphatase 90 B-Natriuretic Peptide Total Protein 5.7 L D Albumin 2.3 L Blood Type Antibody Screen MTS Gel Crossmatch See Detail 03/01/18 03/02/18 03/02/18 16:35 00:50 00:50 WBC RBC Hgb 8.1 L Hct 24.3 L MCV MCH MCHC RDW Plt Count MPV Prelim Diff (Auto) Neut % (Auto) Lymph % (Auto) [place] % (Auto) Eos % (Auto) Baso % (Auto) Neut # (Auto) Lymph # (Auto) [place] # (Auto) Eos # (Auto) Baso # (Auto) WBC Differential Diff Scan Differential Comment Platelet Estimate Platelet Morphology Sodium Potassium Chloride Carbon Dioxide Anion Gap BUN Creatinine Estimated GFR Random Glucose Calcium Total Bilirubin AST ALT Alkaline Phosphatase B-Natriuretic Peptide 263 H Total Protein Albumin Blood Type O Positive Antibody Screen Negative MTS Gel Crossmatch See Detail Culture Results: Microbiology 03/01/18 16:00 Stool Occult Blood (EAN) - Final Stool Hemoccult positive 02/26/18 10:55 Aerobic Blood Culture - Preliminary Blood - Peripheral No growth in 3 days Anaerobic Blood Culture - Preliminary No growth in 3 days 02/26/18 10:55 Aerobic Blood Culture - Preliminary Blood - Peripheral No growth in 3 days Anaerobic Blood Culture - Preliminary No growth in 3 days Medications: Active Medications Generic Name Dose Route Start Last Admin Trade Name Freq PRN Reason Stop Dose Admin Acetaminophen 650 mg 02/25/18 17:57 03/01/18 17:58 Tylenol PO 650 mg Q4H PRN Administration Temp > 100.4 Albuterol 2.5 mg 02/25/18 18:09 03/02/18 07:42 Albuterol Neb (Prn) NEB 2.5 mg Q2HR NEB PRN Administration SHORTNESS OF BREATH Amlodipine Besylate 5 mg 02/25/18 21:00 03/02/18 10:29 Norvasc PO 5 mg BID CHELI Administration Aspirin 81 mg 02/26/18 09:00 03/02/18 10:29 Ecotrin PO 81 mg DAILY CHELI Administration Bumetanide 1 mg 02/25/18 23:30 03/02/18 10:33 Bumex Inj IV.PUSH 1 mg BID@0900,1800 CHELI Administration Bupropion HCl 150 mg 02/26/18 09:00 03/02/18 10:29 Wellbutrin Sr PO 150 mg DAILY CHELI Administration Chlorhexidine Gluconate 3 pack 02/26/18 04:00 03/02/18 06:20 Chlorhexidine 2% Cloth TOPICAL 03/03/18 03:59 3 pack DAILY@0400 CHELI Administration Cholestyramine Resin 4 gm 02/25/18 19:00 03/02/18 07:51 Questran 4 Gm Pkt PO 4 gm BID@0700,1900 CHELI Administration Diphenhydramine HCl 25 mg 03/01/18 15:31 03/01/18 17:58 Benadryl PO 25 mg Q4H PRN Administration SEE LABEL COMMENTS Donepezil HCl 10 mg 02/25/18 21:00 03/01/18 21:54 Aricept PO 10 mg HS CHELI Administration Escitalopram Oxalate 20 mg 02/26/18 09:00 03/02/18 10:29 Lexapro PO 20 mg DAILY CHELI Administration Hydralazine HCl 75 mg 02/25/18 22:00 03/02/18 06:20 Apresoline PO 75 mg Q8HR CHELI Administration Piperacillin/Tazobactam/Dextrose 50 mls @ 100 mls/hr 02/25/18 20:00 03/02/18 09:51 Zosyn 3.375 Gm Premix IV.SIG Infused Q6H CHELI Infusion Isosorbide Mononitrate 30 mg 02/26/18 07:00 03/02/18 06:20 Imdur PO 30 mg DAILY@0700 CHELI Administration Levofloxacin 750 mg 02/25/18 18:15 03/01/18 20:05 Levaquin PO 750 mg Q48H CHELI Administration Losartan Potassium 50 mg 02/26/18 09:00 03/02/18 10:29 Cozaar PO 50 mg DAILY CHELI Administration Metoprolol Tartrate 25 mg 02/25/18 21:00 03/02/18 10:29 Lopressor PO 25 mg BID CHELI Administration Montelukast Sodium 10 mg 02/25/18 21:00 03/01/18 22:00 Singulair PO 10 mg HS CHELI Administration Pantoprazole Sodium 20 mg 02/26/18 09:00 03/02/18 10:29 Protonix PO 20 mg DAILY CHELI Administration Pramipexole Dihydrochloride 0.125 mg 02/25/18 21:00 03/02/18 10:28 Mirapex PO 0.125 mg BID CHELI Administration Pravastatin Sodium 20 mg 02/25/18 21:00 03/01/18 21:53 Pravachol PO 20 mg HS CEHLI Administration Prednisone 20 mg 03/01/18 21:00 03/02/18 10:29 Deltasone PO 03/04/18 20:59 20 mg BID CHELI Administration Senna/Docusate Sodium 1 tab 02/25/18 21:00 03/02/18 10:30 Mima-Colace PO Not Given BID CHELI Sennosides 17.2 mg 02/25/18 17:57 02/27/18 08:01 Senokot PO 17.2 mg Q12H PRN Administration Moderate Constipation Sodium Chloride 2 ml 02/25/18 21:00 03/02/18 10:29 Ns Flush IV.FLUSH 2 ml BID CHELI Administration Objective Remarks: GENERAL: Well-nourished, well-developed elderly female patient, in no acute distress. SKIN: Warm and dry. HEAD: Normocephalic. EYES: No scleral icterus. No injection or drainage. NECK: Supple, trachea midline. CARDIOVASCULAR: +S1/S2 3/6 systolic murmur. RESPIRATORY: Breath sounds equal bilaterally. Nonlabored at rest. High flow O2 via NC. GASTROINTESTINAL: Abdomen soft, non-tender, nondistended. EXTREMITIES: No cyanosis, or edema. cast to left forearm. MUSCULOSKELETAL: Adequate muscle tone. NEUROLOGICAL: No obvious focal deficit. Awake and alert. PSYCHIATRIC: Appropriate mood and affect; insight and judgment normal. Assessment/Plan - Plan Ms. Christian is a pleasant 78-year-old female patient who is currently hospitalized from [facility] for acute worsening of shortness of breath. 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 Other medical ailments include CVA 3 months ago, pneumonia, sepsis, diastolic heart failure, CKD stage III and coronary artery disease. Per her medical chart she also has a history of Alzheimer's dementia. Recommendations: 1. Possible MDS, Procrit has been held related to recent strokes, patient reports frequent blood transfusions. 2. Anemia of renal insufficiency, avoid Procrit due to recent stroke, avoid aggressive transfusions due to iron overload. Maintain hemoglobin above 7 g/dL. 3. Patient has received 2 units of PRBCs this hospitalization. She was found to be stool Hemoccult positive, will defer to attending in regards to possible further GI workup given the patients current respiratory status. 3. BNP trended up slightly today. Objectively denies shortness of breath. No edema noted. 4. Continue supportive care. - Attending Statement Pt seen in rm 523; appears much stronger and in NAD. States v"I feel fine". On O2 by NC. Pallor present. Grade III Systolic murmur unchanged. Rest of PE also unchanged. Labs reviewed. Impr : MDS. Supportive transfusions in view of h/o CVA while on Procrit. Will be followed up.
--- NOTE | 2018-03-02 11:02 | P.PNID ---
Subjective Remarks: Ms. Christian a 78-year-old female with past medical history significant for, CLL requiring multiple transfusions in the past. 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 Most of the history was obtained by review of medical records as patient is a poor historian. Patient was also recently hospitalized at [place] and thereafter transferred to [facility]. She was hospitalized between January 03 after being diagnosed with pneumonia, sepsis, encephalopathy reportedly discharged home and ended up falling at home resulting in a closed impacted community distal radial and ulnar fracture on the left side. She was thereafter hospitalized at [facility]. She was evaluated by orthopedics at that hospital. Patient has needing transfusions in the past. Patient has been treated for recurrent pneumonia as well as recurrent urinary tract infections. Reported travel history to [place] in July 2017 but patient reports that she stayed at home mostly. Prior to these occurrences Patient became increasingly short of breath while at [facility] requiring 4 L supplemental O2 via nasal cannula. A CT of the chest was done on February 22 which showed patchy diffuse mixed interstitial and alveolar infiltrates all patient was also noted to have bilateral pleural effusions. She was empirically treated with Zosyn and Levaquin IV. A VQ scan done on February 23 showed low probability of PE. Patient is known to have diastolic heart failure. Patient received IV Lasix 2 days in a row with worsening shortness of breath and therefore I had a CAT was called and patient was transferred to [facility] under the care of factious diseases consulted for evaluation and management of recurrent pneumonia. Overnight events reviewed. No fever No rash No diarrhea Still on high flow oxygen remains in ICU desats on change of position Pulm following. Antibiotics: Zosyn IV Levaquin Lines: Lines ok Past Medical History: reviewed Allergies/Adverse Reactions: Allergies latex Allergy (Verified 02/18/18 06:07) Rash, Localized soy Allergy (Verified 02/18/18 06:07) Congestion sinus congestion sulfadiazine Allergy (Verified 02/18/18 06:07) Hives wheat [Flour] Allergy (Verified 02/18/18 06:07) Rash Eczema Objective Vital Signs 03/01/18 11:31 03/01/18 12:00 03/01/18 12:12 Temperature Pulse Rate 74 72 69 Respiratory Rate 23 24 21 Blood Pressure 139/60 121/58 L Pulse Oximetry 94 L 93 L 93 L 03/01/18 12:18 03/01/18 12:30 03/01/18 13:00 Temperature Pulse Rate 74 69 68 Respiratory Rate 26 H 20 19 Blood Pressure 122/56 L 117/54 L 119/57 L Pulse Oximetry 92 L 95 95 03/01/18 13:31 03/01/18 14:00 03/01/18 14:30 Temperature Pulse Rate 72 97 H 98 H Respiratory Rate 15 33 H 20 Blood Pressure 137/58 L 115/81 119/56 L Pulse Oximetry 94 L 82 L 90 L 03/01/18 15:00 03/01/18 15:30 03/01/18 16:00 Temperature Pulse Rate 91 H 87 82 Respiratory Rate 29 H 24 28 H Blood Pressure 132/55 L 114/56 L 114/55 L Pulse Oximetry 91 L 91 L 96 03/01/18 16:30 03/01/18 17:00 03/01/18 18:00 Temperature 97.9 F Pulse Rate 86 77 87 Respiratory Rate 29 H 27 H 19 Blood Pressure 112/52 L 107/51 L 174/74 H Pulse Oximetry 96 93 L 03/01/18 18:03 03/01/18 19:00 03/01/18 20:00 Temperature 98.3 F 97.8 F Pulse Rate 78 93 H 85 Respiratory Rate 19 21 24 Blood Pressure 128/56 L 211/86 H 175/74 H Pulse Oximetry 92 L 96 95 03/01/18 20:54 03/01/18 20:55 03/01/18 21:00 Temperature Pulse Rate 80 80 Respiratory Rate 16 14 Blood Pressure 154/67 H Pulse Oximetry 95 97 03/01/18 22:00 03/01/18 23:00 03/02/18 00:00 Temperature 97.5 F L Pulse Rate 79 76 76 Respiratory Rate 13 14 17 Blood Pressure 152/65 H 159/72 H 174/77 H Pulse Oximetry 97 97 96 03/02/18 01:00 03/02/18 02:00 03/02/18 03:00 Temperature Pulse Rate 78 83 80 Respiratory Rate 14 25 H 27 H Blood Pressure 173/76 H 162/71 H 160/73 H Pulse Oximetry 96 95 95 03/02/18 04:00 03/02/18 05:00 03/02/18 06:00 Temperature 97.9 F Pulse Rate 77 77 75 Respiratory Rate 27 H 17 20 Blood Pressure 160/74 H 157/94 H 170/76 H Pulse Oximetry 89 L 94 L 95 03/02/18 07:42 Temperature Pulse Rate 79 Respiratory Rate 24 Blood Pressure Pulse Oximetry 93 L Intake & Output 03/01/18 03/02/18 03/02/18 18:59 06:59 18:59 Intake Total 950 / 950 700 / 700 50 / 50 Output Total 900 / 900 1200 / 1200 Balance 50 / 50 -500 / -500 50 / 50 Weight 57 kg Intake: IV 100 / 100 100 / 100 50 / 50 Zosyn 3.375 GM Premix 50 ML @ 100 / 100 100 / 100 50 / 50 100 mls/hr IV.SIG Q6H [facility] Rx#: [id number] Oral 850 / 850 200 / 200 Intake (Blood Product) Amt 0 / 0 400 / 400 Rbc As-3 Leukoreduced Unit 0 / 0 400 / 400 [id number] Output: Urine 900 / 900 Urine Amount (Catheter) 1200 / 1200 Indwelling Urethral Catheter 1200 / 1200 Other: Date of Last Bowel Movement 03/01/18 03/02/18 # Bowel Movements 2 1 03/01/18 16:00 Stool Stool Occult Blood (EAN) - Final Hemoccult positive 02/26/18 10:55 Blood - Peripheral Aerobic Blood Culture - Preliminary No growth in 3 days 02/26/18 10:55 Blood - Peripheral Anaerobic Blood Culture - Preliminary No growth in 3 days 02/26/18 10:55 Blood - Peripheral Aerobic Blood Culture - Preliminary No growth in 3 days 02/26/18 10:55 Blood - Peripheral Anaerobic Blood Culture - Preliminary No growth in 3 days Lab - Hematology Results 03/01/18 03/02/18 10:37 00:50 WBC 9.2 RBC 2.31 L Hgb 7.6 L 8.1 L Hct 21.5 L 24.3 L MCV 93.3 MCH 32.8 MCHC 35.2 RDW 17.1 Plt Count 76 L MPV 7.5 Prelim Diff (Auto) Slide review pending Neut % (Auto) 97.9 H Lymph % (Auto) 0.8 L [place] % (Auto) 1.2 Eos % (Auto) 0.0 Baso % (Auto) 0.1 Neut # (Auto) 9.0 H Lymph # (Auto) 0.1 L [place] # (Auto) 0.1 Eos # (Auto) 0.0 Baso # (Auto) 0.0 WBC Differential . Diff Scan Auto diff confirmed Differential Comment . Platelet Estimate Low L Platelet Morphology Normal Lab - Chemistry Results 03/01/18 03/01/18 03/02/18 05:19 10:37 00:50 Sodium 139 Potassium 4.0 Chloride 106 Carbon Dioxide 21.5 Anion Gap 12 BUN 59 H Creatinine 1.94 H Estimated GFR 25 L Random Glucose 209 H Calcium 7.7 L Total Bilirubin 0.5 AST 37 ALT 52 Alkaline Phosphatase 90 B-Natriuretic Peptide 226 H 263 H Total Protein 5.7 L D Albumin 2.3 L Imaging: ITS Impressions Chest X-Ray 02/28/18 00:00 CONCLUSION: Diffuse pulmonary consolidation likely related to diffuse processes such as edema or diffuse infection. Compared to the prior exam, significant change has not occurred. Physical Exam: GENERAL: Well-nourished well-developed, not in acute distress SKIN: Cool and dry, no generalized rash HEAD: Atraumatic. Normocephalic. No temporal or scalp tenderness. EYES: Pupils equal round and reactive. Scleral icterus. No injection or drainage. No petechia ENT: Nothing abnormal detected NECK: Trachea midline. Supple, nontender, no meningeal signs. CARDIOVASCULAR: HS audible. RESPIRATORY: Clear to auscultation bilaterally. Air entry decreased in the bases. GASTROINTESTINAL: Abdomen soft nontender. MUSCULOSKELETAL: Extremities without clubbing, cyanosis. NEUROLOGICAL: Alert oriented 3. Psych cooperative IV line sites ok. Assessment and Plan - Plan Healthcare associated pneumonia Recurrent pneumonia History of recurrent UTIs History of dementia History of CLL with chronic anemia requiring multiple transfusions. Recommendations Continue Zosyn IV Continue Levaquin Follow clinical course If resp status improves would like to get bronch as this is recurrent pneumonia now several times a year. Appreciate palliative care consult. everette Stephens.
--- NOTE | 2018-03-02 13:28 | P.PN ---
Subjective Interval history: Follow up for pneumonia, congestive heart failure, CKD. Patient is currently sitting in her chair, denies any chest pain, fever or chills. She is on high flow oxygen. After blood transfusion, she feels much better. We discussed again regarding CODE STATUS. Patient unequivocally mentions that she would like to be full code and continue aggressive care. Physical Exam Vital signs: Vital Signs 03/01/18 13:31 03/01/18 14:00 03/01/18 14:30 Temperature Pulse Rate 72 97 H 98 H Respiratory Rate 15 33 H 20 Blood Pressure 137/58 L 115/81 119/56 L Pulse Oximetry 94 L 82 L 90 L 03/01/18 15:00 03/01/18 15:30 03/01/18 16:00 Temperature Pulse Rate 91 H 87 82 Respiratory Rate 29 H 24 28 H Blood Pressure 132/55 L 114/56 L 114/55 L Pulse Oximetry 91 L 91 L 96 03/01/18 16:30 03/01/18 17:00 03/01/18 18:00 Temperature 97.9 F Pulse Rate 86 77 87 Respiratory Rate 29 H 27 H 19 Blood Pressure 112/52 L 107/51 L 174/74 H Pulse Oximetry 96 93 L 03/01/18 18:03 03/01/18 18:45 03/01/18 19:00 Temperature 98.3 F 97.8 F Pulse Rate 78 80 93 H Respiratory Rate 19 25 H 21 Blood Pressure 128/56 L 166/70 H 211/86 H Pulse Oximetry 92 L 96 96 03/01/18 19:15 03/01/18 19:30 03/01/18 20:00 Temperature Pulse Rate 85 87 85 Respiratory Rate 23 15 24 Blood Pressure 184/76 H 174/74 H 175/74 H Pulse Oximetry 95 94 L 95 03/01/18 20:54 03/01/18 20:55 03/01/18 21:00 Temperature Pulse Rate 80 80 Respiratory Rate 16 14 Blood Pressure 154/67 H Pulse Oximetry 95 97 03/01/18 21:55 03/01/18 22:00 03/01/18 22:16 Temperature Pulse Rate 78 79 81 Respiratory Rate 11 L 13 15 Blood Pressure 148/63 H 152/65 H 173/72 H Pulse Oximetry 96 97 96 03/01/18 22:30 03/01/18 23:00 03/02/18 00:00 Temperature 97.5 F L Pulse Rate 78 76 76 Respiratory Rate 14 14 17 Blood Pressure 152/67 H 159/72 H 174/77 H Pulse Oximetry 97 97 96 03/02/18 01:00 03/02/18 01:52 03/02/18 02:00 Temperature Pulse Rate 78 79 83 Respiratory Rate 14 27 H 25 H Blood Pressure 173/76 H 152/70 H 162/71 H Pulse Oximetry 96 95 95 03/02/18 03:00 03/02/18 04:00 03/02/18 05:00 Temperature 97.9 F Pulse Rate 80 77 77 Respiratory Rate 27 H 27 H 17 Blood Pressure 160/73 H 160/74 H 157/94 H Pulse Oximetry 95 89 L 94 L 03/02/18 06:00 03/02/18 06:43 03/02/18 07:00 Temperature Pulse Rate 75 79 69 Respiratory Rate 20 10 L 19 Blood Pressure 170/76 H 148/67 H 154/70 H Pulse Oximetry 95 93 L 96 03/02/18 07:42 03/02/18 08:00 03/02/18 09:00 Temperature 97.5 F L Pulse Rate 79 73 81 Respiratory Rate 24 18 26 H Blood Pressure 166/72 H 158/70 H Pulse Oximetry 93 L 94 L 91 L 03/02/18 10:00 03/02/18 11:00 Temperature Pulse Rate 82 68 Respiratory Rate 22 23 Blood Pressure 133/60 140/65 Pulse Oximetry 91 L 95 Intake & Output 03/01/18 03/02/18 03/02/18 18:59 06:59 18:59 Intake Total 950 / 950 700 / 700 50 / 50 Output Total 900 / 900 1200 / 1200 Balance 50 / 50 -500 / -500 50 / 50 Weight 57 kg Intake: IV 100 / 100 100 / 100 50 / 50 Zosyn 3.375 GM Premix 50 ML @ 100 / 100 100 / 100 50 / 50 100 mls/hr IV.SIG Q6H [facility] Rx#: [id number] Oral 850 / 850 200 / 200 Intake (Blood Product) Amt 0 / 0 400 / 400 Rbc As-3 Leukoreduced Unit 0 / 0 400 / 400 [id number] Output: Urine 900 / 900 Urine Amount (Catheter) 1200 / 1200 Indwelling Urethral Catheter 1200 / 1200 Other: Date of Last Bowel Movement 03/01/18 03/02/18 # Bowel Movements 2 1 Narrative: GENERAL: Alert, NAD. SKIN: Warm and dry. HEAD: Normocephalic. EYES: No scleral icterus. No injection or drainage. NECK: Supple, trachea midline. No JVD or lymphadenopathy. CARDIOVASCULAR: Regular rate and rhythm without murmurs, gallops, or rubs. RESPIRATORY: Moderate air entry, no appreciable wheezing. No accessory muscle use. GASTROINTESTINAL: Abdomen soft, non-tender, nondistended. MUSCULOSKELETAL: No cyanosis, or edema. BACK: Nontender without obvious deformity. No CVA tenderness. - Urinary Catheter Management Indwelling Urethral Catheter Cath placed during this visit: yes Reason for continuing: Hourly intake/output Insertion date: 02/25/18 Insertion time: 19:58 Results - Labs CBC & Chem 7: 03/02/18 00:50 03/01/18 10:37 Laboratory Results - last 24 hr 02/25/18 02/26/18 02/26/18 20:14 10:58 10:58 Hgb Hct B-Natriuretic Peptide Blastomyces Ab (EIA) Negative Negative M. pneumoniae Interp . Mycoplasma pneumon IgG Positive Mycoplasma pneumon IgM Negative Blood Type Antibody Screen MTS Gel Crossmatch 02/27/18 03/01/18 03/02/18 13:49 16:35 00:50 Hgb Hct B-Natriuretic Peptide 263 H Blastomyces Ab (EIA) M. pneumoniae Interp Mycoplasma pneumon IgG Mycoplasma pneumon IgM Blood Type O Positive Antibody Screen Negative MTS Gel Crossmatch See Detail See Detail 03/02/18 00:50 Hgb 8.1 L Hct 24.3 L B-Natriuretic Peptide Blastomyces Ab (EIA) M. pneumoniae Interp Mycoplasma pneumon IgG Mycoplasma pneumon IgM Blood Type Antibody Screen MTS Gel Crossmatch Microbiology 02/26/18 10:55 Blood - Peripheral Aerobic Blood Culture - Preliminary No growth in 4 days 02/26/18 10:55 Blood - Peripheral Anaerobic Blood Culture - Preliminary No growth in 4 days 02/26/18 10:55 Blood - Peripheral Aerobic Blood Culture - Preliminary No growth in 4 days 02/26/18 10:55 Blood - Peripheral Anaerobic Blood Culture - Preliminary No growth in 4 days 03/01/18 16:00 Stool Stool Occult Blood (EAN) - Final Hemoccult positive - Procedures None Assessment and Plan - Plan Patient is a 78 year old female with a past medical history significant for CLL, recent pneumonia, diastolic heart failure, stage III CKD, and left sided hand fracture. She was admitted from [facility] to [facility] under the care of the hospitalist service for progressively worsening shortness secondary to recurrent pneumonia. Acute on chronic hypoxic respiratory failure Pneumonia - possibly atypical. -continue Zosyn and Levaquin per infectious disease recommendations. -Continue prednisone 20 mg twice daily -duonebs IV Q6H -pulmonary consulted. Patient may need bronchoscopy. -Urine legionella, histoplasma urine pending. Mycoplasma pneumonia IgG positive. -Blastomyces ab pending. -continue supplemental oxygen. Currently on high flow oxygen. Once she is on simple nasal cannula, patient can likely be transferred to the floor. -Palliative care on board. Patient desires aggressive care and full code. Diastolic heart failure w/ volume overload Pulmonary hypertension -Echo shows normal LV size, EF 60-65%. Pulmonary artery pressure 61 mmHg. -continue diuretics, monitor renal function and electrolytes -cardiology following. -strict I&O, daily weight, low Na diet Chronic kidney disease, stage III -Creatinine around 1.75, baseline appears to be around 1.6. -avoid nephrotoxic meds Closed, impacted, comminuted left distal radial and ulnar fracture with cast in place -PT/OT eval/treat -pain meds PRN CLL with hx of blood transfusions -continue to monitor H/H -Hgb 6.9 on 02/27/2018, received 2 units of PRBCs so far. Hemoglobin 8.1 today. 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 nightly. Full code. SCDs.
[2018-03-02 14:04] LABS: Histoplasma Antigen Result Negative (Negative); Histoplasma Antigen Value 0 ng/mL
--- NOTE | 2018-03-02 14:52 | P.PNPAL ---
Reason for Visit Reason for visit: Dyspnea, debility/weakness Subjective Subjective/Interval History: Patient seen for follow-up of dyspnea, debility and weakness as well as goals of medical treatment. This is a 78-year-old female previously seen by palliative care 02/25 in [facility], see consultation by Luma Marquis APRN, who was subsequently transferred to intensive medical care due to worsening dyspnea and more fragile respiratory status. She remains in the intensive care unit on high flow nasal cannula oxygen at 20 L /min at 40% FiO2. She has been having some mild epistaxis and complains that her nose feels very dry from the high flow oxygen. She does not appear to be dyspneic with conversation and was able to ambulate from bed to chair with assistance today. She denied dyspnea during that transfer. Her oxygen is being weaned, but slowly. She will remain in ICU as long as she is on high flow nasal oxygen. She remains a maximum assist transfer to ambulate the 2-3 feet from bed to chair. Per physical therapy evaluation she tends to fall back with poor balance. She recently suffered a fall fracturing her left wrist, now in cast. She was previously receiving therapy at [facility] and plans to return to [facility] when cleared medically to continue her rehabilitation. She also would like to continue physical therapy at home. She is declining inpatient admission to a penitentiary facility and wants to go home. . Family/Friend Interactions: Spoke with patient's via telephone. He has difficulty making the trip up to [place] which is 30 miles away from his home in [place]. He is agreeable with his 's plan to go to [facility] to attempt to complete therapy but does have some concerns about her returning home as he feels she will be a "lot to handle". He states that they do not have the financial resources for additional therapy beyond [facility] but if funded, he would consider continuing her therapy beyond the acute inpatient stage to assist her in regaining some strength to be able to return home. Palliative care contact information provided for any further concerns or questions. . Objective Vital Signs: Vital Signs 03/01/18 14:30 03/01/18 15:00 03/01/18 15:30 Temperature Pulse Rate 98 H 91 H 87 Respiratory Rate 20 29 H 24 Blood Pressure 119/56 L 132/55 L 114/56 L Pulse Oximetry 90 L 91 L 91 L 03/01/18 16:00 03/01/18 16:30 03/01/18 17:00 Temperature Pulse Rate 82 86 77 Respiratory Rate 28 H 29 H 27 H Blood Pressure 114/55 L 112/52 L 107/51 L Pulse Oximetry 96 96 93 L 03/01/18 18:00 03/01/18 18:03 03/01/18 18:45 Temperature 97.9 F 98.3 F Pulse Rate 87 78 80 Respiratory Rate 19 19 25 H Blood Pressure 174/74 H 128/56 L 166/70 H Pulse Oximetry 92 L 96 03/01/18 19:00 03/01/18 19:15 03/01/18 19:30 Temperature 97.8 F Pulse Rate 93 H 85 87 Respiratory Rate 21 23 15 Blood Pressure 211/86 H 184/76 H 174/74 H Pulse Oximetry 96 95 94 L 03/01/18 20:00 03/01/18 20:54 03/01/18 20:55 Temperature Pulse Rate 85 80 Respiratory Rate 24 16 Blood Pressure 175/74 H Pulse Oximetry 95 95 03/01/18 21:00 03/01/18 21:55 03/01/18 22:00 Temperature Pulse Rate 80 78 79 Respiratory Rate 14 11 L 13 Blood Pressure 154/67 H 148/63 H 152/65 H Pulse Oximetry 97 96 97 03/01/18 22:16 03/01/18 22:30 03/01/18 23:00 Temperature Pulse Rate 81 78 76 Respiratory Rate 15 14 14 Blood Pressure 173/72 H 152/67 H 159/72 H Pulse Oximetry 96 97 97 03/02/18 00:00 03/02/18 01:00 03/02/18 01:52 Temperature 97.5 F L Pulse Rate 76 78 79 Respiratory Rate 17 14 27 H Blood Pressure 174/77 H 173/76 H 152/70 H Pulse Oximetry 96 96 95 03/02/18 02:00 03/02/18 03:00 03/02/18 04:00 Temperature 97.9 F Pulse Rate 83 80 77 Respiratory Rate 25 H 27 H 27 H Blood Pressure 162/71 H 160/73 H 160/74 H Pulse Oximetry 95 95 89 L 03/02/18 05:00 03/02/18 06:00 03/02/18 06:43 Temperature Pulse Rate 77 75 79 Respiratory Rate 17 20 10 L Blood Pressure 157/94 H 170/76 H 148/67 H Pulse Oximetry 94 L 95 93 L 03/02/18 07:00 03/02/18 07:42 03/02/18 08:00 Temperature 97.5 F L Pulse Rate 69 79 73 Respiratory Rate 19 24 18 Blood Pressure 154/70 H 166/72 H Pulse Oximetry 96 93 L 94 L 03/02/18 09:00 03/02/18 10:00 03/02/18 11:00 Temperature Pulse Rate 81 82 68 Respiratory Rate 26 H 22 23 Blood Pressure 158/70 H 133/60 140/65 Pulse Oximetry 91 L 91 L 95 Intake & Output 03/01/18 03/02/18 03/02/18 18:59 06:59 18:59 Intake Total 950 / 950 700 / 700 50 / 50 Output Total 900 / 900 1200 / 1200 Balance 50 / 50 -500 / -500 50 / 50 Weight 125 lb 10.616 oz Intake: IV 100 / 100 100 / 100 50 / 50 Zosyn 3.375 GM Premix 50 ML @ 100 / 100 100 / 100 50 / 50 100 mls/hr IV.SIG Q6H [facility] Rx#: [id number] Oral 850 / 850 200 / 200 Intake (Blood Product) Amt 0 / 0 400 / 400 Rbc As-3 Leukoreduced Unit 0 / 0 400 / 400 [id number] Output: Urine 900 / 900 Urine Amount (Catheter) 1200 / 1200 Indwelling Urethral Catheter 1200 / 1200 Other: Date of Last Bowel Movement 03/01/18 03/02/18 # Bowel Movements 2 1 Physical Exam: GENERAL: Well-nourished, well-developed elderly female patient, in no acute distress. SKIN: Warm and dry. HEAD: Normocephalic. EYES/nose: No scleral icterus. No injection or drainage. Nose with small amount of dried blood around nares. NECK: Supple, trachea midline. CARDIOVASCULAR: Regular rate and rhythm 2/6 systolic ejection murmur. RESPIRATORY: Breath sounds equal, diminished bilaterally. No accessory muscle use. High flow O2 via NC at 20 L/min 40% FI02. GASTROINTESTINAL: Abdomen soft, non-tender, nondistended. EXTREMITIES: No cyanosis, or edema. MUSCULOSKELETAL: Adequate muscle tone. Left arm cast without edema. NEUROLOGICAL: Alert, and oriented x3. No focal deficit noted. PSYCHIATRIC: Appears mildly anxious, slightly flat affect. . Diagnostic Tests Laboratory: Laboratory Results - last 72 hr 02/25/18 02/25/18 02/26/18 20:14 20:20 10:58 WBC RBC Hgb Hct MCV MCH MCHC RDW Plt Count MPV Prelim Diff (Auto) Neut % (Auto) Lymph % (Auto) [place] % (Auto) Eos % (Auto) Baso % (Auto) Neut # (Auto) Lymph # (Auto) [place] # (Auto) Eos # (Auto) Baso # (Auto) WBC Differential Diff Scan Differential Comment Platelet Estimate Platelet Morphology Sodium Potassium Chloride Carbon Dioxide Anion Gap BUN Creatinine Estimated GFR Random Glucose Calcium Total Bilirubin AST ALT Alkaline Phosphatase B-Natriuretic Peptide Total Protein Albumin Blastomyces Ab (EIA) Negative Urine Histoplasma Ag 0 U Histoplasma Ag Detec Negative M. pneumoniae Interp . Mycoplasma pneumon IgG Positive Mycoplasma pneumon IgM Negative Blood Type Antibody Screen MTS Gel Crossmatch Bld Prod Order Comment 02/26/18 02/27/18 02/28/18 10:58 13:49 05:51 WBC 9.8 RBC 2.29 L Hgb 7.5 L Hct 21.2 L MCV 92.6 MCH 32.9 MCHC 35.5 RDW 17.1 Plt Count 91 L MPV 7.6 Prelim Diff (Auto) Slide review pending Neut % (Auto) 96.9 H Lymph % (Auto) 0.9 L [place] % (Auto) 2.2 Eos % (Auto) 0.0 Baso % (Auto) 0.0 Neut # (Auto) 9.5 H Lymph # (Auto) 0.1 L [place] # (Auto) 0.2 Eos # (Auto) 0.0 Baso # (Auto) 0.0 WBC Differential . Diff Scan Auto diff confirmed Differential Comment . Platelet Estimate Low L Platelet Morphology Normal Sodium Potassium Chloride Carbon Dioxide Anion Gap BUN Creatinine Estimated GFR Random Glucose Calcium Total Bilirubin AST ALT Alkaline Phosphatase B-Natriuretic Peptide Total Protein Albumin Blastomyces Ab (EIA) Negative Urine Histoplasma Ag U Histoplasma Ag Detec M. pneumoniae Interp Mycoplasma pneumon IgG Mycoplasma pneumon IgM Blood Type Antibody Screen MTS Gel Crossmatch See Detail Bld Prod Order Comment 02/28/18 03/01/18 03/01/18 05:51 05:19 10:37 WBC 9.2 RBC 2.31 L Hgb 7.6 L Hct 21.5 L MCV 93.3 MCH 32.8 MCHC 35.2 RDW 17.1 Plt Count 76 L MPV 7.5 Prelim Diff (Auto) Slide review pending Neut % (Auto) 97.9 H Lymph % (Auto) 0.8 L [place] % (Auto) 1.2 Eos % (Auto) 0.0 Baso % (Auto) 0.1 Neut # (Auto) 9.0 H Lymph # (Auto) 0.1 L [place] # (Auto) 0.1 Eos # (Auto) 0.0 Baso # (Auto) 0.0 WBC Differential . Diff Scan Auto diff confirmed Differential Comment . Platelet Estimate Low L Platelet Morphology Normal Sodium Potassium Chloride Carbon Dioxide Anion Gap BUN Creatinine Estimated GFR Random Glucose Calcium Total Bilirubin AST ALT Alkaline Phosphatase B-Natriuretic Peptide 293 H 226 H Total Protein Albumin Blastomyces Ab (EIA) Urine Histoplasma Ag U Histoplasma Ag Detec M. pneumoniae Interp Mycoplasma pneumon IgG Mycoplasma pneumon IgM Blood Type Antibody Screen MTS Gel Crossmatch Bld Prod Order Comment 03/01/18 03/01/18 03/02/18 10:37 16:35 00:50 WBC RBC Hgb Hct MCV MCH MCHC RDW Plt Count MPV Prelim Diff (Auto) Neut % (Auto) Lymph % (Auto) [place] % (Auto) Eos % (Auto) Baso % (Auto) Neut # (Auto) Lymph # (Auto) [place] # (Auto) Eos # (Auto) Baso # (Auto) WBC Differential Diff Scan Differential Comment Platelet Estimate Platelet Morphology Sodium 139 Potassium 4.0 Chloride 106 Carbon Dioxide 21.5 Anion Gap 12 BUN 59 H Creatinine 1.94 H Estimated GFR 25 L Random Glucose 209 H Calcium 7.7 L Total Bilirubin 0.5 AST 37 ALT 52 Alkaline Phosphatase 90 B-Natriuretic Peptide 263 H Total Protein 5.7 L D Albumin 2.3 L Blastomyces Ab (EIA) Urine Histoplasma Ag U Histoplasma Ag Detec M. pneumoniae Interp Mycoplasma pneumon IgG Mycoplasma pneumon IgM Blood Type O Positive Antibody Screen Negative MTS Gel Crossmatch See Detail Bld Prod Order Comment 03/02/18 00:50 WBC RBC Hgb 8.1 L Hct 24.3 L MCV MCH MCHC RDW Plt Count MPV Prelim Diff (Auto) Neut % (Auto) Lymph % (Auto) [place] % (Auto) Eos % (Auto) Baso % (Auto) Neut # (Auto) Lymph # (Auto) [place] # (Auto) Eos # (Auto) Baso # (Auto) WBC Differential Diff Scan Differential Comment Platelet Estimate Platelet Morphology Sodium Potassium Chloride Carbon Dioxide Anion Gap BUN Creatinine Estimated GFR Random Glucose Calcium Total Bilirubin AST ALT Alkaline Phosphatase B-Natriuretic Peptide Total Protein Albumin Blastomyces Ab (EIA) Urine Histoplasma Ag U Histoplasma Ag Detec M. pneumoniae Interp Mycoplasma pneumon IgG Mycoplasma pneumon IgM Blood Type Antibody Screen MTS Gel Crossmatch Bld Prod Order Comment Result Diagrams: 03/02/18 00:50 03/01/18 10:37 Microbiology: Microbiology 02/26/18 10:55 Aerobic Blood Culture - Preliminary Blood - Peripheral No growth in 4 days Anaerobic Blood Culture - Preliminary No growth in 4 days 02/26/18 10:55 Aerobic Blood Culture - Preliminary Blood - Peripheral No growth in 4 days Anaerobic Blood Culture - Preliminary No growth in 4 days 03/01/18 16:00 Stool Occult Blood (EAN) - Final Stool Hemoccult positive Imaging: Chest X-Ray 02/25/18 00:00 CONCLUSION: Diffuse pulmonary opacities again noted, slightly worse on the right and not significantly changed on the left. Chest X-Ray 02/28/18 00:00 CONCLUSION: Diffuse pulmonary consolidation likely related to diffuse processes such as edema or diffuse infection. Compared to the prior exam, significant change has not occurred. Assessment and Plan - Disease Oriented Problem List (1) Pain (2) Weakness (3) Chronic kidney disease (4) Metabolic encephalopathy (5) UTI (urinary tract infection) (6) Pneumonia (7) Uncontrolled hypertension Pertinent Non-Medical Issues: Psychosocial: Patient originally from [place] area has lived in [place] since the . Moved here to retire. 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 Has an adult daughter in [place] remains in close communication with. Also supported by . They have a small dog named Umair whom they greatly enjoy. Spiritual: User Support Analyst Supervisor available Legal:pt currently a&o, able to make her decisions, she indicates she has paperwork completed naming her wishes and decision makers states it is her . Proxy Would be her per [place] statutes. Ethical issues impacting care:no ethical issues identified Important Contacts: Bishop Christian [phone] . Prognosis: This patient was admitted to [facility] 02/17/18. This was following acute hospitalization for arm fracture, complicated by pneumonia. Patient reports multiple hospitalizations for recurrent pneumonia since July of this year. She has had progressive physical and functional decline since that time. Shortness of breath and current medical conditions are limiting her ability to rehab in the past few days. Currently with maximized medical treatment. High risk for further decline. Possible may get through this and resume rehabilitation attempts however does remain continued decline and recurrent complications/setbacks due to debilitated status, multiple comorbidities and recurrent pneumonia. Code Status: Full Code Plan: PLAN: Legal decision maker: Patient is currently capacitated to make her own decisions and states that she does have completed advanced directives naming her as her healthcare surrogate. Per [place] statutes, her would be the proxy decision-maker Goals: Remain aggressive to include full code. Extensive patient education provided regarding the burdens and benefits of intubation/resuscitation, but she remains fully committed to all aggressive measures just. CODE STATUS: FULL CODE SYMPTOMS: * Dyspnea: Patient has had multiple recurrent pneumonia episodes since July 2017 with frequent hospitalizations. She is currently receiving albuterol, Levaquin, prednisone, Singulair, Zosyn. She is currently on 20 L nasal cannula O2 via high flow saturating adequately on 40% FiO2, not dyspneic with conversation. * Debility/weakness: Failed [facility] rehab secondary to increasing dyspnea and recurrent pneumonia. Per physical therapy evaluation, she is at extraordinarily high risk for falls and will need continued rehabilitation at a facility upon discharge. Patient states her ultimate goal is to return home with her who provides her care and wishes to return back to [facility] to complete her therapy once stable. Palliative care will continue to follow the patient during hospital course as condition evolves, to assist patient/decision-maker with understanding of their medical conditions, weighing benefits/burdens of treatment options, for clarification of goals of treatment. Additionally will assist with any symptoms of palliative concern. . Attestation Attestation: To help prompt me to consider important information that might be impacting today's encounter and assessment, information from prior notes written by myself or my colleagues may have been "brought forward" into today's note. My signature on this note, however, is an attestation that I personally performed the exam, history, and/or decision-making noted today, and, unless otherwise indicated, the interactions with patient, family, and staff as well as the review of records all occurred today. I also attest that the listed assessment and stated plan reflect my best clinical judgment today based on the combination of historical information, prior notes, and today's exam/ interactions. When time spent is documented, it refers only to time spent today by the signer, or if indicated, combined time spent today by collaborating physician/nurse practitioner. .
[2018-03-02] MEDS: Montelukast 10 MG Tablet PO SCH (21:30)
[2018-03-03] MEDS: Piperacil/Tazo 3.375 GM Premix 50 ML IV.SIG SCH ×4 (01:36→21:19)
[2018-03-03] MEDS: hydrALAZINE 25 MG Tablet PO SCH ×3 (06:11→21:20)
[2018-03-03] MEDS: Isosorbide Mononitrate 30 MG ER 24HR Tablet (Imdur) PO SCH (06:11)
[2018-03-03] MEDS: amLODIPine 5 MG Tablet PO SCH ×2 (09:22→21:20)
[2018-03-03] MEDS: predniSONE 20 MG Tablet PO SCH ×2 (09:22→21:20)
[2018-03-03] MEDS: Pantoprazole Sodium 20 MG DR Tablet PO SCH (09:22)
[2018-03-03] MEDS: Metoprolol Tartrate 25 MG Tablet PO SCH ×2 (09:22→21:22)
[2018-03-03] MEDS: buPROPion 150 MG 12 HR Tablet PO SCH (09:22)
[2018-03-03] MEDS: Senna/Docusate Sodium 8.6/50 MG Tablet PO SCH ×2 (09:25→21:22)
[2018-03-03 14:16] LABS: Histoplasma Antigen Result Negative (Negative); Histoplasma Antigen Value 0.06 ng/mL
[2018-03-03 14:29] LABS: Hematocrit 30.2 % (35.0-46.0); Hemoglobin 10.3 gm/dL (11.6-15.3); Mean Corpuscular HGB Conc 34.1 % (32.0-36.0); Mean Corpuscular Hemoglobin 31.8 pg (27.0-34.0); Mean Corpuscular Volume 93.1 fL (80.0-100.0); Mean Platelet Volume 7.5 fL (7.0-11.0); Platelet Count 112 th/mm3 (150-450); Red Blood Count 3.25 mil/mm3 (4.00-5.30); Red Cell Distribution Width 17.6 % (11.6-17.2); White Blood Count 14.3 th/mm3 (4.0-11.0)
--- NOTE | 2018-03-03 14:39 | P.PN ---
Subjective Interval history: Follow up for pneumonia, congestive heart failure, CKD. Patient is doing well, sitting in her chair - continue to require high flow O2. No fever, chills. Tolerating diet well. Physical Exam Vital signs: Vital Signs 03/02/18 15:00 03/02/18 16:00 03/02/18 17:00 Temperature Pulse Rate 65 67 69 Respiratory Rate 29 H 30 H 14 Blood Pressure 131/62 147/68 H 152/67 H Pulse Oximetry 95 94 L 95 03/02/18 18:00 03/02/18 19:00 03/02/18 20:00 Temperature 98.6 F Pulse Rate 82 79 78 Respiratory Rate 24 20 27 H Blood Pressure 166/73 H 136/64 134/63 Pulse Oximetry 94 L 94 L 87 L 03/02/18 20:15 03/02/18 21:00 03/02/18 22:00 Temperature Pulse Rate 70 68 Respiratory Rate 22 24 Blood Pressure 150/66 H 152/69 H Pulse Oximetry 92 L 95 94 L 03/02/18 23:00 03/03/18 00:00 03/03/18 01:00 Temperature Pulse Rate 65 68 68 Respiratory Rate 23 18 24 Blood Pressure 158/70 H 172/74 H 149/67 H Pulse Oximetry 91 L 90 L 91 L 03/03/18 02:00 03/03/18 03:00 03/03/18 04:00 Temperature Pulse Rate 64 61 58 L Respiratory Rate 14 13 15 Blood Pressure 157/71 H 159/74 H 165/74 H Pulse Oximetry 95 93 L 94 L 03/03/18 05:00 03/03/18 05:08 03/03/18 06:00 Temperature Pulse Rate 61 71 61 Respiratory Rate 15 22 13 Blood Pressure 189/81 H 174/76 H Pulse Oximetry 94 L 90 L 94 L 03/03/18 06:01 03/03/18 06:14 03/03/18 06:33 Temperature Pulse Rate 61 65 59 L Respiratory Rate 18 25 H 21 Blood Pressure 199/83 H 194/75 H 183/80 H Pulse Oximetry 94 L 92 L 92 L Intake & Output 03/02/18 03/03/18 03/03/18 18:59 06:59 18:59 Intake Total 830 / 830 200 / 200 Output Total 800 / 800 Balance 30 / 30 200 / 200 Weight 54.5 kg Intake: IV 350 / 350 100 / 100 Zosyn 3.375 GM Premix 50 ML @ 100 / 100 100 / 100 100 mls/hr IV.SIG Q6H CHELI Rx#: [id number] NS Inj 250 ML @ 15 mls/hr IV. 250 / 250 SIG ONCE CHELI Rx#:[id number] Oral 480 / 480 100 / 100 Output: Urine 800 / 800 Other: # Incontinent Voids 6 Date of Last Bowel Movement 03/02/18 03/03/18 # Bowel Movements 1 # Incontinent Bowel Movements 2 Narrative: GENERAL: Alert, NAD. SKIN: Warm and dry. HEAD: Normocephalic. EYES: No scleral icterus. No injection or drainage. NECK: Supple, trachea midline. No JVD or lymphadenopathy. CARDIOVASCULAR: Regular rate and rhythm without murmurs, gallops, or rubs. RESPIRATORY: Moderate air entry, no appreciable wheezing. No accessory muscle use. GASTROINTESTINAL: Abdomen soft, non-tender, nondistended. MUSCULOSKELETAL: No cyanosis, or edema. BACK: Nontender without obvious deformity. No CVA tenderness. - Urinary Catheter Management Indwelling Urethral Catheter Cath placed during this visit: yes, but has since been removed by the nurse Reason for continuing: Decision to DC catheter Insertion date: 02/25/18 Insertion time: 19:58 Removal date: 03/02/18 Removal time: 17:00 Results - Labs CBC & Chem 7: 03/03/18 14:12 03/01/18 10:37 Laboratory Results - last 24 hr 02/26/18 03/03/18 13:35 14:12 WBC 14.3 H RBC 3.25 L Hgb 10.3 L D Hct 30.2 L MCV 93.1 MCH 31.8 MCHC 34.1 RDW 17.6 H Plt Count 112 L D MPV 7.5 Urine Histoplasma Ag 0.06 U Histoplasma Ag Detec Negative Microbiology 02/26/18 10:55 Blood - Peripheral Aerobic Blood Culture - Final No growth in 5 days 02/26/18 10:55 Blood - Peripheral Anaerobic Blood Culture - Final No growth in 5 days 02/26/18 10:55 Blood - Peripheral Aerobic Blood Culture - Final No growth in 5 days 02/26/18 10:55 Blood - Peripheral Anaerobic Blood Culture - Final No growth in 5 days - Procedures None Assessment and Plan - Plan Patient is a 78 year old female with a past medical history significant for CLL, recent pneumonia, diastolic heart failure, stage III CKD, and left sided hand fracture. She was admitted from [facility] to [facility] under the care of the hospitalist service for progressively worsening shortness secondary to recurrent pneumonia. Acute on chronic hypoxic respiratory failure Pneumonia - possibly atypical. -continue Zosyn and Levaquin per infectious disease recommendations. -Continue prednisone 20 mg twice daily -duonebs IV Q6H -pulmonary consulted. Patient may need bronchoscopy. -Urine legionella, histoplasma urine pending. Mycoplasma pneumonia IgG positive. -Blastomyces ab pending. -continue supplemental oxygen. Currently on high flow oxygen. Once she is on simple nasal cannula, patient can likely be transferred to the floor. -Palliative care on board. Patient desires aggressive care and full code. -Discussed with ID who will check procalcitonin level. Diastolic heart failure w/ volume overload Pulmonary hypertension -Echo shows normal LV size, EF 60-65%. Pulmonary artery pressure 61 mmHg. -continue diuretics, monitor renal function and electrolytes -cardiology following. -strict I&O, daily weight, low Na diet Chronic kidney disease, stage III -Creatinine around 1.75, baseline appears to be around 1.6. -avoid nephrotoxic meds Closed, impacted, comminuted left distal radial and ulnar fracture with cast in place -PT/OT eval/treat -pain meds PRN CLL with hx of blood transfusions -continue to monitor H/H -Hgb 6.9 on 02/27/2018, received 2 units of PRBCs so far. Hemoglobin around 10 today. 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 nightly. Full code. SCDs.
--- NOTE | 2018-03-03 15:45 | P.PNONC ---
Subjective Interval history: Patient sitting up in bed, phlebotomies at the bedside. She reports that she is tired because she has not napped today. Denies shortness of breath. Denies any bleeding. Objective Vital Signs/Intake & Output: Vital Signs 03/02/18 16:00 03/02/18 17:00 03/02/18 18:00 Temperature Pulse Rate 67 69 82 Respiratory Rate 30 H 14 24 Blood Pressure 147/68 H 152/67 H 166/73 H Pulse Oximetry 94 L 95 94 L 03/02/18 19:00 03/02/18 20:00 03/02/18 20:15 Temperature 98.6 F Pulse Rate 79 78 Respiratory Rate 20 27 H Blood Pressure 136/64 134/63 Pulse Oximetry 94 L 87 L 92 L 03/02/18 21:00 03/02/18 22:00 03/02/18 23:00 Temperature Pulse Rate 70 68 65 Respiratory Rate 22 24 23 Blood Pressure 150/66 H 152/69 H 158/70 H Pulse Oximetry 95 94 L 91 L 03/03/18 00:00 03/03/18 01:00 03/03/18 02:00 Temperature Pulse Rate 68 68 64 Respiratory Rate 18 24 14 Blood Pressure 172/74 H 149/67 H 157/71 H Pulse Oximetry 90 L 91 L 95 03/03/18 03:00 03/03/18 04:00 03/03/18 05:00 Temperature Pulse Rate 61 58 L 61 Respiratory Rate 13 15 15 Blood Pressure 159/74 H 165/74 H 189/81 H Pulse Oximetry 93 L 94 L 94 L 03/03/18 05:08 03/03/18 06:00 03/03/18 06:01 Temperature Pulse Rate 71 61 61 Respiratory Rate 22 13 18 Blood Pressure 174/76 H 199/83 H Pulse Oximetry 90 L 94 L 94 L 03/03/18 06:14 03/03/18 06:33 Temperature Pulse Rate 65 59 L Respiratory Rate 25 H 21 Blood Pressure 194/75 H 183/80 H Pulse Oximetry 92 L 92 L Intake & Output 03/02/18 03/03/18 03/03/18 18:59 06:59 18:59 Intake Total 830 / 830 200 / 200 Output Total 800 / 800 Balance 30 / 30 200 / 200 Weight 54.5 kg Intake: IV 350 / 350 100 / 100 Zosyn 3.375 GM Premix 50 ML @ 100 / 100 100 / 100 100 mls/hr IV.SIG Q6H CHELI Rx#: [id number] NS Inj 250 ML @ 15 mls/hr IV. 250 / 250 SIG ONCE CHELI Rx#:[id number] Oral 480 / 480 100 / 100 Output: Urine 800 / 800 Other: # Incontinent Voids 6 Date of Last Bowel Movement 03/02/18 03/03/18 # Bowel Movements 1 # Incontinent Bowel Movements 2 Result Diagrams: 03/03/18 14:12 03/01/18 10:37 Laboratory Results: Laboratory Results - last 24 hr 02/26/18 03/03/18 13:35 14:12 WBC 14.3 H RBC 3.25 L Hgb 10.3 L D Hct 30.2 L MCV 93.1 MCH 31.8 MCHC 34.1 RDW 17.6 H Plt Count 112 L D MPV 7.5 Urine Histoplasma Ag 0.06 U Histoplasma Ag Detec Negative Culture Results: Microbiology 02/26/18 10:55 Aerobic Blood Culture - Final Blood - Peripheral No growth in 5 days Anaerobic Blood Culture - Final No growth in 5 days 02/26/18 10:55 Aerobic Blood Culture - Final Blood - Peripheral No growth in 5 days Anaerobic Blood Culture - Final No growth in 5 days 03/01/18 16:00 Stool Occult Blood (EAN) - Final Stool Hemoccult positive Medications: Active Medications Generic Name Dose Route Start Last Admin Trade Name Freq PRN Reason Stop Dose Admin Acetaminophen 650 mg 02/25/18 17:57 03/01/18 17:58 Tylenol PO 650 mg Q4H PRN Administration Temp > 100.4 Albuterol 2.5 mg 02/25/18 18:09 03/02/18 07:42 Albuterol Neb (Prn) NEB 2.5 mg Q2HR NEB PRN Administration SHORTNESS OF BREATH Amlodipine Besylate 5 mg 02/25/18 21:00 03/03/18 09:22 Norvasc PO 5 mg BID CHELI Administration Aspirin 81 mg 02/26/18 09:00 03/03/18 09:22 Ecotrin PO 81 mg DAILY CHELI Administration Bumetanide 1 mg 02/25/18 23:30 03/03/18 09:24 Bumex Inj IV.PUSH 1 mg BID@0900,1800 CHELI Administration Bupropion HCl 150 mg 02/26/18 09:00 03/03/18 09:22 Wellbutrin Sr PO 150 mg DAILY CHELI Administration Cholestyramine Resin 4 gm 02/25/18 19:00 03/03/18 08:35 Questran 4 Gm Pkt PO 4 gm BID@0700,1900 CHELI Administration Diphenhydramine HCl 25 mg 02/25/18 18:14 03/03/18 01:33 Benadryl PO 25 mg HS PRN Administration Insomnia Diphenhydramine HCl 25 mg 03/01/18 15:31 03/01/18 17:58 Benadryl PO 25 mg Q4H PRN Administration SEE LABEL COMMENTS Donepezil HCl 10 mg 02/25/18 21:00 03/02/18 21:30 Aricept PO 10 mg HS CHELI Administration Escitalopram Oxalate 20 mg 02/26/18 09:00 03/03/18 09:22 Lexapro PO 20 mg DAILY CHELI Administration Hydralazine HCl 75 mg 02/25/18 22:00 03/03/18 06:11 Apresoline PO 75 mg Q8HR CHELI Administration Piperacillin/Tazobactam/Dextrose 50 mls @ 100 mls/hr 02/25/18 20:00 03/03/18 09:23 Zosyn 3.375 Gm Premix IV.SIG 100 mls/hr Q6H CHELI Administration Isosorbide Mononitrate 30 mg 02/26/18 07:00 03/03/18 06:11 Imdur PO 30 mg DAILY@0700 CHELI Administration Levofloxacin 750 mg 02/25/18 18:15 03/01/18 20:05 Levaquin PO 750 mg Q48H CHELI Administration Losartan Potassium 50 mg 02/26/18 09:00 03/03/18 09:23 Cozaar PO 50 mg DAILY CHELI Administration Metoprolol Tartrate 25 mg 02/25/18 21:00 03/03/18 09:22 Lopressor PO 25 mg BID CHELI Administration Montelukast Sodium 10 mg 02/25/18 21:00 03/02/18 21:30 Singulair PO 10 mg HS CHELI Administration Pantoprazole Sodium 20 mg 02/26/18 09:00 03/03/18 09:22 Protonix PO 20 mg DAILY CHELI Administration Pramipexole Dihydrochloride 0.125 mg 02/25/18 21:00 03/03/18 09:23 Mirapex PO 0.125 mg BID CHELI Administration Pravastatin Sodium 20 mg 02/25/18 21:00 03/02/18 21:31 Pravachol PO 20 mg HS CHELI Administration Prednisone 20 mg 03/01/18 21:00 03/03/18 09:22 Deltasone PO 03/04/18 20:59 20 mg BID CHELI Administration Senna/Docusate Sodium 1 tab 02/25/18 21:00 03/03/18 09:25 Mima-Colace PO Not Given BID CHELI Sennosides 17.2 mg 02/25/18 17:57 02/27/18 08:01 Senokot PO 17.2 mg Q12H PRN Administration Moderate Constipation Sodium Chloride 2 ml 02/25/18 21:00 03/03/18 09:25 Ns Flush IV.FLUSH 2 ml BID CHELI Administration Objective Remarks: GENERAL: Well-nourished, well-developed elderly female patient, in no acute distress. SKIN: Warm and dry. HEAD: Normocephalic. EYES: No scleral icterus. No injection or drainage. NECK: Supple, trachea midline. CARDIOVASCULAR: +S1/S2 3/6 systolic murmur. RESPIRATORY: Breath sounds equal bilaterally. Nonlabored at rest. High flow O2 via NC. GASTROINTESTINAL: Abdomen soft, non-tender, nondistended. EXTREMITIES: No cyanosis, or edema. cast to left forearm, fingers warm, pink cap refill <2 sec. MUSCULOSKELETAL: Adequate muscle tone. NEUROLOGICAL: No obvious focal deficit. Awake and alert. PSYCHIATRIC: Appropriate mood and affect; insight and judgment normal. Assessment/Plan - Plan Ms. Christian is a pleasant 78-year-old female patient who is currently hospitalized from [facility] for acute worsening of shortness of breath. 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 Other medical ailments include CVA 3 months ago, pneumonia, sepsis, diastolic heart failure, CKD stage III and coronary artery disease. Per her medical chart she also has a history of Alzheimer's dementia. Recommendations: 1. Possible MDS, Procrit has been held related to recent strokes, patient reports frequent blood transfusions. 2. Anemia of renal insufficiency, avoid Procrit due to recent stroke, avoid aggressive transfusions due to iron overload. Maintain hemoglobin above 7 g/dL. 3. Stool Hemoccult positive, will defer to attending in regards to possible further GI workup given the patients current respiratory status. 3. Hemoglobin has increased to 10.3, platelet count has increased to 112,000. 4. Continue supportive care.
[2018-03-03] MEDS: levoFLOXacin 750 MG Tablet PO SCH (18:03)
[2018-03-03] MEDS: Montelukast 10 MG Tablet PO SCH (21:20)
--- NOTE | 2018-03-03 22:36 | P.PN ---
Subjective Interval history: ALERT LESS SOB Physical Exam Vital signs: Vital Signs 03/02/18 23:00 03/03/18 00:00 03/03/18 01:00 Pulse Rate 65 68 68 Respiratory Rate 23 18 24 Blood Pressure 158/70 H 172/74 H 149/67 H Pulse Oximetry 91 L 90 L 91 L 03/03/18 02:00 03/03/18 03:00 03/03/18 04:00 Pulse Rate 64 61 58 L Respiratory Rate 14 13 15 Blood Pressure 157/71 H 159/74 H 165/74 H Pulse Oximetry 95 93 L 94 L 03/03/18 05:00 03/03/18 05:08 03/03/18 06:00 Pulse Rate 61 71 61 Respiratory Rate 15 22 13 Blood Pressure 189/81 H 174/76 H Pulse Oximetry 94 L 90 L 94 L 03/03/18 06:01 03/03/18 06:14 03/03/18 06:33 Pulse Rate 61 65 59 L Respiratory Rate 18 25 H 21 Blood Pressure 199/83 H 194/75 H 183/80 H Pulse Oximetry 94 L 92 L 92 L 03/03/18 07:00 03/03/18 08:00 03/03/18 09:00 Pulse Rate 58 L 67 63 Respiratory Rate 25 H 19 20 Blood Pressure 175/74 H 163/72 H 187/80 H Pulse Oximetry 93 L 92 L 95 03/03/18 10:00 03/03/18 11:00 03/03/18 12:00 Pulse Rate 63 61 62 Respiratory Rate 21 20 16 Blood Pressure 163/71 H 159/72 H Pulse Oximetry 96 94 L 97 03/03/18 12:01 03/03/18 12:34 03/03/18 13:00 Pulse Rate 62 62 62 Respiratory Rate 14 20 13 Blood Pressure 184/79 H 180/77 H 171/72 H Pulse Oximetry 97 97 93 L 03/03/18 14:00 03/03/18 15:00 03/03/18 16:00 Pulse Rate 73 55 L 70 Respiratory Rate 19 24 36 H Blood Pressure 158/70 H 158/70 H Pulse Oximetry 95 94 L 88 L 03/03/18 16:01 03/03/18 17:00 03/03/18 18:00 Pulse Rate 66 61 79 Respiratory Rate 29 H 16 29 H Blood Pressure 176/74 H 188/77 H 180/79 H Pulse Oximetry 88 L 98 94 L 03/03/18 18:42 Pulse Rate 79 Respiratory Rate 20 Blood Pressure 153/68 H Pulse Oximetry 97 Intake & Output 03/03/18 03/03/18 03/04/18 06:59 18:59 06:59 Intake Total 200 / 200 100 / 100 Balance 200 / 200 100 / 100 Weight 54.5 kg Intake: IV 100 / 100 100 / 100 Zosyn 3.375 GM Premix 50 ML @ 100 / 100 100 / 100 100 mls/hr IV.SIG Q6H CHELI Rx#: [id number] Oral 100 / 100 Other: # Voids 4 # Incontinent Voids 6 Date of Last Bowel Movement 03/03/18 03/03/18 # Bowel Movements 4 # Incontinent Bowel Movements 2 Narrative: GENERAL: Alert, NAD. SKIN: Warm and dry. HEAD: Normocephalic. EYES: No scleral icterus. No injection or drainage. NECK: Supple, trachea midline. No JVD or lymphadenopathy. CARDIOVASCULAR: Regular rate and rhythm without murmurs, gallops, or rubs. RESPIRATORY: Moderate air entry, no appreciable wheezing. No accessory muscle use. GASTROINTESTINAL: Abdomen soft, non-tender, nondistended. MUSCULOSKELETAL: No cyanosis, or edema. BACK: Nontender without obvious deformity. No CVA tenderness. - Urinary Catheter Management Indwelling Urethral Catheter Cath placed during this visit: yes, but has since been removed by the nurse Reason for continuing: Decision to DC catheter Insertion date: 02/25/18 Insertion time: 19:58 Removal date: 03/02/18 Removal time: 17:00 Results - Labs CBC & Chem 7: 03/03/18 14:12 03/01/18 10:37 Laboratory Results - last 24 hr 02/26/18 03/03/18 13:35 14:12 WBC 14.3 H RBC 3.25 L Hgb 10.3 L D Hct 30.2 L MCV 93.1 MCH 31.8 MCHC 34.1 RDW 17.6 H Plt Count 112 L D MPV 7.5 Urine Histoplasma Ag 0.06 U Histoplasma Ag Detec Negative Microbiology 02/26/18 10:55 Blood - Peripheral Aerobic Blood Culture - Final No growth in 5 days 02/26/18 10:55 Blood - Peripheral Anaerobic Blood Culture - Final No growth in 5 days 02/26/18 10:55 Blood - Peripheral Aerobic Blood Culture - Final No growth in 5 days 02/26/18 10:55 Blood - Peripheral Anaerobic Blood Culture - Final No growth in 5 days - Procedures None Assessment and Plan - Plan RESPIRATORY FAILRE PNA CHF CKD PLAN O2 ANTIBX BRONCHODILATORS O2 NEEDED INCREASE ACTIVITY
[2018-03-04] MEDS: Piperacil/Tazo 3.375 GM Premix 50 ML IV.SIG SCH ×4 (03:29→21:33)
[2018-03-04] MEDS: Isosorbide Mononitrate 30 MG ER 24HR Tablet (Imdur) PO SCH (06:31)
[2018-03-04] MEDS: hydrALAZINE 25 MG Tablet PO SCH ×3 (06:31→21:23)
[2018-03-04] MEDS: Metoprolol Tartrate 25 MG Tablet PO SCH ×2 (08:31→20:45)
[2018-03-04] MEDS: Pantoprazole Sodium 20 MG DR Tablet PO SCH (08:31)
[2018-03-04] MEDS: amLODIPine 5 MG Tablet PO SCH ×2 (08:31→20:45)
[2018-03-04] MEDS: buPROPion 150 MG 12 HR Tablet PO SCH (08:31)
[2018-03-04] MEDS: predniSONE 20 MG Tablet PO SCH (08:31)
[2018-03-04] MEDS: Senna/Docusate Sodium 8.6/50 MG Tablet PO SCH ×2 (08:32→20:45)
--- NOTE | 2018-03-04 09:24 | P.PN ---
Subjective Interval history: Follow up for pneumonia, congestive heart failure, CKD. Patient is doing well. Resting in bed. On NC 4L and saturating well over 95%. No fever, chills. Physical Exam Vital signs: Vital Signs 03/03/18 10:00 03/03/18 11:00 03/03/18 12:00 Temperature Pulse Rate 63 61 62 Respiratory Rate 21 20 16 Blood Pressure 163/71 H 159/72 H Pulse Oximetry 96 94 L 97 03/03/18 12:01 03/03/18 12:34 03/03/18 13:00 Temperature Pulse Rate 62 62 62 Respiratory Rate 14 20 13 Blood Pressure 184/79 H 180/77 H 171/72 H Pulse Oximetry 97 97 93 L 03/03/18 14:00 03/03/18 15:00 03/03/18 16:00 Temperature Pulse Rate 73 55 L 70 Respiratory Rate 19 24 36 H Blood Pressure 158/70 H 158/70 H Pulse Oximetry 95 94 L 88 L 03/03/18 16:01 03/03/18 17:00 03/03/18 18:00 Temperature Pulse Rate 66 61 79 Respiratory Rate 29 H 16 29 H Blood Pressure 176/74 H 188/77 H 180/79 H Pulse Oximetry 88 L 98 94 L 03/03/18 18:42 03/03/18 19:00 03/03/18 20:00 Temperature 97.8 F Pulse Rate 79 76 64 Respiratory Rate 20 25 H 18 Blood Pressure 153/68 H 146/66 H 146/66 H Pulse Oximetry 97 95 96 03/03/18 21:00 03/03/18 21:32 03/03/18 22:00 Temperature Pulse Rate 68 65 66 Respiratory Rate 32 H 22 16 Blood Pressure 157/68 H 170/74 H Pulse Oximetry 92 L 96 95 03/03/18 23:00 03/03/18 23:30 03/04/18 00:00 Temperature Pulse Rate 60 61 62 Respiratory Rate 14 18 19 Blood Pressure 153/71 H 139/65 146/66 H Pulse Oximetry 94 L 94 L 93 L 03/04/18 00:30 03/04/18 01:00 03/04/18 01:30 Temperature 99.1 F Pulse Rate 65 66 65 Respiratory Rate 19 26 H 30 H Blood Pressure 149/92 H 158/72 H 152/67 H Pulse Oximetry 95 94 L 94 L 03/04/18 02:00 03/04/18 02:30 03/04/18 03:00 Temperature Pulse Rate 61 63 60 Respiratory Rate 21 20 25 H Blood Pressure 152/70 H 161/69 H 158/72 H Pulse Oximetry 94 L 96 95 03/04/18 03:30 03/04/18 04:00 03/04/18 04:30 Temperature 98.1 F Pulse Rate 66 59 L 61 Respiratory Rate 24 24 30 H Blood Pressure 154/69 H 151/66 H 168/73 H Pulse Oximetry 96 96 94 L 03/04/18 05:00 03/04/18 05:01 03/04/18 05:30 Temperature Pulse Rate 60 61 62 Respiratory Rate 20 26 H 22 Blood Pressure 169/74 H 170/77 H Pulse Oximetry 95 95 95 03/04/18 06:00 03/04/18 06:31 03/04/18 07:00 Temperature Pulse Rate 60 68 69 Respiratory Rate 28 H 16 21 Blood Pressure 173/74 H 172/106 H Pulse Oximetry 96 95 93 L 03/04/18 07:01 03/04/18 07:31 03/04/18 08:00 Temperature 97.8 F Pulse Rate 66 62 57 L Respiratory Rate 24 22 13 Blood Pressure 188/80 H 160/70 H 170/71 H Pulse Oximetry 95 95 99 03/04/18 08:30 03/04/18 09:00 Temperature Pulse Rate 60 72 Respiratory Rate 17 23 Blood Pressure 167/74 H 141/65 H Pulse Oximetry 99 90 L Intake & Output 03/03/18 03/04/18 03/04/18 18:59 06:59 18:59 Intake Total 100 / 100 300 / 300 Output Total 225 / 225 Balance 100 / 100 75 / 75 Weight 50 kg Intake: IV 100 / 100 100 / 100 Zosyn 3.375 GM Premix 50 ML @ 100 / 100 100 / 100 100 mls/hr IV.SIG Q6H CHELI Rx#: [id number] Oral 200 / 200 Output: Urine 225 / 225 Other: # Voids 4 # Incontinent Voids 2 Date of Last Bowel Movement 03/03/18 03/03/18 # Bowel Movements 4 # Incontinent Bowel Movements 2 Narrative: GENERAL: Alert, NAD. SKIN: Warm and dry. HEAD: Normocephalic. EYES: No scleral icterus. No injection or drainage. NECK: Supple, trachea midline. No JVD or lymphadenopathy. CARDIOVASCULAR: Regular rate and rhythm without murmurs, gallops, or rubs. RESPIRATORY: Moderate air entry, no appreciable wheezing. No accessory muscle use. GASTROINTESTINAL: Abdomen soft, non-tender, nondistended. MUSCULOSKELETAL: No cyanosis, or edema. BACK: Nontender without obvious deformity. No CVA tenderness. - Urinary Catheter Management Indwelling Urethral Catheter Cath placed during this visit: yes, but has since been removed by the nurse Reason for continuing: Decision to DC catheter Insertion date: 02/25/18 Insertion time: 19:58 Removal date: 03/02/18 Removal time: 17:00 Results - Labs CBC & Chem 7: 03/03/18 14:12 03/01/18 10:37 Laboratory Results - last 24 hr 02/26/18 03/03/18 13:35 14:12 WBC 14.3 H RBC 3.25 L Hgb 10.3 L D Hct 30.2 L MCV 93.1 MCH 31.8 MCHC 34.1 RDW 17.6 H Plt Count 112 L D MPV 7.5 Urine Histoplasma Ag 0.06 U Histoplasma Ag Detec Negative Microbiology 02/26/18 10:55 Blood - Peripheral Aerobic Blood Culture - Final No growth in 5 days 02/26/18 10:55 Blood - Peripheral Anaerobic Blood Culture - Final No growth in 5 days 02/26/18 10:55 Blood - Peripheral Aerobic Blood Culture - Final No growth in 5 days 02/26/18 10:55 Blood - Peripheral Anaerobic Blood Culture - Final No growth in 5 days - Procedures None Assessment and Plan - Plan Patient is a 78 year old female with a past medical history significant for CLL, recent pneumonia, diastolic heart failure, stage III CKD, and left sided hand fracture. She was admitted from [facility] to [facility] under the care of the hospitalist service for progressively worsening shortness secondary to recurrent pneumonia. Acute on chronic hypoxic respiratory failure Pneumonia - possibly atypical. -continue Zosyn and Levaquin per infectious disease recommendations. -Continue prednisone 20 mg twice daily -duonebs IV Q6H -pulmonary consulted. Patient may need bronchoscopy. -Urine legionella, histoplasma urine pending. Mycoplasma pneumonia IgG positive. -Blastomyces ab pending. -continue supplemental oxygen. Will wean down nasal cannula O2 to 2-3 L. -Palliative care on board. Patient desires aggressive care and full code. -Transfer patient to the med-surg floor. Diastolic heart failure w/ volume overload Pulmonary hypertension -Echo shows normal LV size, EF 60-65%. Pulmonary artery pressure 61 mmHg. -continue diuretics, monitor renal function and electrolytes -cardiology following. -strict I&O, daily weight, low Na diet Chronic kidney disease, stage III -Creatinine around 1.75 --> 1.94. Possibly due to diuretic use. -avoid nephrotoxic meds Closed, impacted, comminuted left distal radial and ulnar fracture with cast in place -PT/OT eval/treat -pain meds PRN CLL with hx of blood transfusions -continue to monitor H/H -Hgb 6.9 on 02/27/2018, received 2 units of PRBCs so far. Hemoglobin around 10 currently. 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 nightly. Full code. SCDs.
[2018-03-04 10:52] LABS: Baso % (Auto) 0.3 % (0.0-2.0); Eos # (Auto) 0.1 th/mm3 (0.0-0.4); Eos % (Auto) 0.6 % (0.0-4.0); Hematocrit 26.5 % (35.0-46.0); Hemoglobin 9.1 gm/dL (11.6-15.3); Lymph # (Auto) 0.1 th/mm3 (1.0-4.8); Lymph % (Auto) 1.4 % (9.0-44.0); Mean Corpuscular HGB Conc 34.2 % (32.0-36.0); Mean Corpuscular Hemoglobin 31.8 pg (27.0-34.0); Mean Corpuscular Volume 92.8 fL (80.0-100.0); Mean Platelet Volume 7.6 fL (7.0-11.0); Mono # (Auto) 0.3 th/mm3 (0.0-0.9); Mono % (Auto) 2.6 % (0.0-8.0); Neut # (Auto) 9.7 th/mm3 (1.8-7.7); Neut % (Auto) 95.1 % (16.0-70.0); Platelet Count 95 th/mm3 (150-450); Red Blood Count 2.85 mil/mm3 (4.00-5.30); Red Cell Distribution Width 17.9 % (11.6-17.2); White Blood Count 10.2 th/mm3 (4.0-11.0)
--- NOTE | 2018-03-04 11:03 | XR ---
EXAM DATE: 03/04/2018 10:46 AM EST AGE/SEX: 78 years / Female INDICATIONS: Difficulty breathing. CLINICAL DATA: This is the patient's subsequent encounter. Patient reports that signs and symptoms h ave been present for 4 - 6 days and indicates a pain score of 2/10. MEDICAL/SURGICAL HISTORY: . Cardiovascular disease. Leukemia. Hypertension. Appendectomy. Total knee replacement, left. Total knee replacement, right. . COMPARISON: [facility], CT CHEST W/O CONTRAST, 02/22/2018. . FINDINGS: Single view of the thorax demonstrates the heart to be mildly enlarged. The patient is post median st ernotomy. There is diffuse interstitial prominence throughout the pulmonary parenchyma this appears m inimally improved when compared to previous examination of 02/28/2018. Study would suggest combinatio n of interstitial fibrotic change in CHF. There are degenerative changes in the shoulders bilaterally. CONCLUSION: Interstitial fibrotic change with probable superimposed CHF. This is relatively stable compared to pr evious. Electronically signed by: Filippo Costa MD 03/04/2018 11:01 AM EST
[2018-03-04 11:13] LABS: Calcium 7.8 mg/dL (8.5-10.1); Carbon Dioxide 26.6 meq/L (21.0-32.0)
--- NOTE | 2018-03-04 12:10 | P.PNPAL ---
Reason for Visit Reason for visit: Dyspnea, debility/weakness Subjective Subjective/Interval History: Patient seen for follow-up of dyspnea, debility and weakness as well as goals of medical treatment. This is a 78-year-old female previously seen by palliative care 02/25 in [facility], see consultation by Luma Marquis APRN, who was subsequently transferred to intensive medical care due to worsening dyspnea and more fragile respiratory status. She was successfully weaned off high flow nasal cannula to 4 L nasal cannula. She is minimally dyspneic at rest, voice remains soft, slightly hoarse. She states she is less uncomfortable on the lower flow O2. She did note mild dyspnea getting up yesterday with physical therapy and sitting in a chair, but states that resolved with rest. Physical therapy note indicates that the patient was able to perform bed mobility with assistance, continue to have posterior lean when standing. She remained unsteady without loss of balance is able to stand pivot and ambulate 2- 3 feet to the chair. She is improving at this time and again expresses her interest in returning to [facility] for continued therapy. . Family/Friend Interactions: No family is at bedside at this time. . Advance Directives Living Will: Completed, but not made available Health Care Surrogate: Completed, but not made available Objective Vital Signs: Vital Signs 03/03/18 12:00 03/03/18 12:01 03/03/18 12:34 Temperature Pulse Rate 62 62 62 Respiratory Rate 16 14 20 Blood Pressure 184/79 H 180/77 H Pulse Oximetry 97 97 97 03/03/18 13:00 03/03/18 14:00 03/03/18 15:00 Temperature Pulse Rate 62 73 55 L Respiratory Rate 13 19 24 Blood Pressure 171/72 H 158/70 H 158/70 H Pulse Oximetry 93 L 95 94 L 03/03/18 16:00 03/03/18 16:01 03/03/18 17:00 Temperature Pulse Rate 70 66 61 Respiratory Rate 36 H 29 H 16 Blood Pressure 176/74 H 188/77 H Pulse Oximetry 88 L 88 L 98 03/03/18 18:00 03/03/18 18:42 03/03/18 19:00 Temperature Pulse Rate 79 79 76 Respiratory Rate 29 H 20 25 H Blood Pressure 180/79 H 153/68 H 146/66 H Pulse Oximetry 94 L 97 95 03/03/18 20:00 03/03/18 21:00 03/03/18 21:32 Temperature 97.8 F Pulse Rate 64 68 65 Respiratory Rate 18 32 H 22 Blood Pressure 146/66 H 157/68 H Pulse Oximetry 96 92 L 96 03/03/18 22:00 03/03/18 23:00 03/03/18 23:30 Temperature Pulse Rate 66 60 61 Respiratory Rate 16 14 18 Blood Pressure 170/74 H 153/71 H 139/65 Pulse Oximetry 95 94 L 94 L 03/04/18 00:00 03/04/18 00:30 03/04/18 01:00 Temperature 99.1 F Pulse Rate 62 65 66 Respiratory Rate 19 19 26 H Blood Pressure 146/66 H 149/92 H 158/72 H Pulse Oximetry 93 L 95 94 L 03/04/18 01:30 03/04/18 02:00 03/04/18 02:30 Temperature Pulse Rate 65 61 63 Respiratory Rate 30 H 21 20 Blood Pressure 152/67 H 152/70 H 161/69 H Pulse Oximetry 94 L 94 L 96 03/04/18 03:00 03/04/18 03:30 03/04/18 04:00 Temperature 98.1 F Pulse Rate 60 66 59 L Respiratory Rate 25 H 24 24 Blood Pressure 158/72 H 154/69 H 151/66 H Pulse Oximetry 95 96 96 03/04/18 04:30 03/04/18 05:00 03/04/18 05:01 Temperature Pulse Rate 61 60 61 Respiratory Rate 30 H 20 26 H Blood Pressure 168/73 H 169/74 H Pulse Oximetry 94 L 95 95 03/04/18 05:30 03/04/18 06:00 03/04/18 06:31 Temperature Pulse Rate 62 60 68 Respiratory Rate 22 28 H 16 Blood Pressure 170/77 H 173/74 H 172/106 H Pulse Oximetry 95 96 95 03/04/18 07:00 03/04/18 07:01 03/04/18 07:31 Temperature Pulse Rate 69 66 62 Respiratory Rate 21 24 22 Blood Pressure 188/80 H 160/70 H Pulse Oximetry 93 L 95 95 03/04/18 07:44 03/04/18 08:00 03/04/18 08:30 Temperature 97.8 F Pulse Rate 57 L 60 Respiratory Rate 13 17 Blood Pressure 170/71 H 167/74 H Pulse Oximetry 96 99 99 03/04/18 09:00 03/04/18 09:30 03/04/18 10:00 Temperature Pulse Rate 72 61 62 Respiratory Rate 23 20 13 Blood Pressure 141/65 H 164/74 H 147/68 H Pulse Oximetry 90 L 96 95 03/04/18 10:30 Temperature Pulse Rate 67 Respiratory Rate 16 Blood Pressure 148/67 H Pulse Oximetry 95 Intake & Output 03/03/18 03/04/18 03/04/18 18:59 06:59 18:59 Intake Total 100 / 100 300 / 300 50 / 50 Output Total 225 / 225 Balance 100 / 100 75 / 75 50 / 50 Weight 110 lb 3.698 oz Intake: IV 100 / 100 100 / 100 50 / 50 Zosyn 3.375 GM Premix 50 ML @ 100 / 100 100 / 100 50 / 50 100 mls/hr IV.SIG Q6H CHELI Rx#: [id number] Oral 200 / 200 Output: Urine 225 / 225 Other: # Voids 4 # Incontinent Voids 2 Date of Last Bowel Movement 03/03/18 03/03/18 # Bowel Movements 4 # Incontinent Bowel Movements 2 Physical Exam: GENERAL: Well-nourished, well-developed elderly female patient, sitting up in bed in no acute distress. SKIN: Warm and dry. HEAD: Normocephalic. EYES/nose: No scleral icterus. No injection or drainage. NECK: Supple, trachea midline. CARDIOVASCULAR: Regular rate and rhythm 2/6 systolic ejection murmur. RESPIRATORY: Breath sounds equal, diminished bilaterally. No accessory muscle use. On nasal cannula O2 4 L/min. GASTROINTESTINAL: Abdomen soft, non-tender, nondistended. EXTREMITIES: No cyanosis, or edema. MUSCULOSKELETAL: Adequate muscle tone. Left arm cast without edema. NEUROLOGICAL: Alert, and oriented x3. No focal deficit noted. PSYCHIATRIC: Appears calm, slightly flat affect. . Diagnostic Tests Laboratory: Laboratory Results - last 72 hr 02/25/18 02/25/18 02/26/18 20:14 20:20 10:58 WBC RBC Hgb Hct MCV MCH MCHC RDW Plt Count MPV Prelim Diff (Auto) Neut % (Auto) Lymph % (Auto) Butler % (Auto) Eos % (Auto) Baso % (Auto) Neut # (Auto) Lymph # (Auto) Butler # (Auto) Eos # (Auto) Baso # (Auto) WBC Differential Diff Scan Differential Comment Platelet Estimate Platelet Morphology Sodium Potassium Chloride Carbon Dioxide Anion Gap BUN Creatinine Estimated GFR Random Glucose Calcium B-Natriuretic Peptide Blastomyces Ab (EIA) Negative Urine Histoplasma Ag 0 U Histoplasma Ag Detec Negative M. pneumoniae Interp . Mycoplasma pneumon IgG Positive Mycoplasma pneumon IgM Negative Blood Type Antibody Screen MTS Gel Crossmatch 02/26/18 02/26/18 02/27/18 10:58 13:35 13:49 WBC RBC Hgb Hct MCV MCH MCHC RDW Plt Count MPV Prelim Diff (Auto) Neut % (Auto) Lymph % (Auto) Butler % (Auto) Eos % (Auto) Baso % (Auto) Neut # (Auto) Lymph # (Auto) Butler # (Auto) Eos # (Auto) Baso # (Auto) WBC Differential Diff Scan Differential Comment Platelet Estimate Platelet Morphology Sodium Potassium Chloride Carbon Dioxide Anion Gap BUN Creatinine Estimated GFR Random Glucose Calcium B-Natriuretic Peptide Blastomyces Ab (EIA) Negative Urine Histoplasma Ag 0.06 U Histoplasma Ag Detec Negative M. pneumoniae Interp Mycoplasma pneumon IgG Mycoplasma pneumon IgM Blood Type Antibody Screen MTS Gel Crossmatch See Detail 03/01/18 03/01/18 03/02/18 10:37 16:35 00:50 WBC RBC Hgb Hct MCV MCH MCHC RDW Plt Count MPV Prelim Diff (Auto) Neut % (Auto) Lymph % (Auto) Butler % (Auto) Eos % (Auto) Baso % (Auto) Neut # (Auto) Lymph # (Auto) Butler # (Auto) Eos # (Auto) Baso # (Auto) WBC Differential . Diff Scan Auto diff confirmed Differential Comment Platelet Estimate Low L Platelet Morphology Normal Sodium Potassium Chloride Carbon Dioxide Anion Gap BUN Creatinine Estimated GFR Random Glucose Calcium B-Natriuretic Peptide 263 H Blastomyces Ab (EIA) Urine Histoplasma Ag U Histoplasma Ag Detec M. pneumoniae Interp Mycoplasma pneumon IgG Mycoplasma pneumon IgM Blood Type O Positive Antibody Screen Negative MTS Gel Crossmatch See Detail 03/02/18 03/03/18 03/04/18 00:50 14:12 10:32 WBC 14.3 H 10.2 RBC 3.25 L 2.85 L Hgb 8.1 L 10.3 L D 9.1 L Hct 24.3 L 30.2 L 26.5 L MCV 93.1 92.8 MCH 31.8 31.8 MCHC 34.1 34.2 RDW 17.6 H 17.9 H Plt Count 112 L D 95 L MPV 7.5 7.6 Prelim Diff (Auto) Slide review pending Neut % (Auto) 95.1 H Lymph % (Auto) 1.4 L Butler % (Auto) 2.6 Eos % (Auto) 0.6 Baso % (Auto) 0.3 Neut # (Auto) 9.7 H Lymph # (Auto) 0.1 L Butler # (Auto) 0.3 Eos # (Auto) 0.1 Baso # (Auto) 0.0 WBC Differential Diff Scan Differential Comment . Platelet Estimate Platelet Morphology Sodium Potassium Chloride Carbon Dioxide Anion Gap BUN Creatinine Estimated GFR Random Glucose Calcium B-Natriuretic Peptide Blastomyces Ab (EIA) Urine Histoplasma Ag U Histoplasma Ag Detec M. pneumoniae Interp Mycoplasma pneumon IgG Mycoplasma pneumon IgM Blood Type Antibody Screen MTS Gel Crossmatch 03/04/18 10:32 WBC RBC Hgb Hct MCV MCH MCHC RDW Plt Count MPV Prelim Diff (Auto) Neut % (Auto) Lymph % (Auto) Butler % (Auto) Eos % (Auto) Baso % (Auto) Neut # (Auto) Lymph # (Auto) Butler # (Auto) Eos # (Auto) Baso # (Auto) WBC Differential Diff Scan Differential Comment Platelet Estimate Platelet Morphology Sodium 138 Potassium 4.0 Chloride 103 Carbon Dioxide 26.6 Anion Gap 8 BUN 59 H Creatinine 1.75 H Estimated GFR 28 L Random Glucose 132 H Calcium 7.8 L B-Natriuretic Peptide Blastomyces Ab (EIA) Urine Histoplasma Ag U Histoplasma Ag Detec M. pneumoniae Interp Mycoplasma pneumon IgG Mycoplasma pneumon IgM Blood Type Antibody Screen MTS Gel Crossmatch Result Diagrams: 03/04/18 10:32 03/04/18 10:32 Microbiology: Microbiology 02/26/18 10:55 Aerobic Blood Culture - Final Blood - Peripheral No growth in 5 days Anaerobic Blood Culture - Final No growth in 5 days 02/26/18 10:55 Aerobic Blood Culture - Final Blood - Peripheral No growth in 5 days Anaerobic Blood Culture - Final No growth in 5 days 03/01/18 16:00 Stool Occult Blood (EAN) - Final Stool Hemoccult positive Imaging: Chest X-Ray 02/25/18 00:00 CONCLUSION: Diffuse pulmonary opacities again noted, slightly worse on the right and not significantly changed on the left. Chest X-Ray 02/28/18 00:00 CONCLUSION: Diffuse pulmonary consolidation likely related to diffuse processes such as edema or diffuse infection. Compared to the prior exam, significant change has not occurred. Chest X-Ray 03/04/18 00:00 CONCLUSION: Interstitial fibrotic change with probable superimposed CHF. This is relatively stable compared to previous. Assessment and Plan - Disease Oriented Problem List (1) Pain (2) Weakness (3) Chronic kidney disease (4) Metabolic encephalopathy (5) Uncontrolled hypertension Pertinent Non-Medical Issues: Psychosocial: Patient originally from [place] area has lived in [place] since the . Moved here to retire. Formerly worked for the [employer] in [place] psychiatric services. Has an adult daughter in [place] remains in close communication with. Also supported by . They have a small dog named Umair whom they greatly enjoy. Spiritual: Human Resources Project Coordinator available Legal:pt currently a&o, able to make her decisions, she indicates she has paperwork completed naming her wishes and decision makers states it is her . Proxy Would be her per [place] statutes. Ethical issues impacting care:no ethical issues identified Important Contacts: Bishop Christian [phone] . Prognosis: This patient was admitted to [facility] 02/17/18. This was following acute hospitalization for arm fracture, complicated by pneumonia. Patient reports multiple hospitalizations for recurrent pneumonia since July of this year. She has had progressive physical and functional decline since that time. Shortness of breath and current medical conditions are limiting her ability to rehab in the past few days. Currently with maximized medical treatment. High risk for further decline. Possible may get through this and resume rehabilitation attempts however does remain continued decline and recurrent complications/setbacks due to debilitated status, multiple comorbidities and recurrent pneumonia. Code Status: Full Code Plan: PLAN: Legal decision maker: Patient is currently capacitated to make her own decisions and states that she does have completed advanced directives naming her as her healthcare surrogate. Per [place] statutes, her would be the proxy decision-maker Goals: Remain aggressive to include full code. Extensive patient education provided regarding the burdens and benefits of intubation/resuscitation, but she remains fully committed to all aggressive measures just. CODE STATUS: FULL CODE SYMPTOMS: * Dyspnea: Patient has had multiple recurrent pneumonia episodes since July 2017 with frequent hospitalizations. She is currently receiving albuterol, Levaquin, prednisone, Singulair, Zosyn. She is currently on 4 L nasal cannula O2 saturating adequately, not dyspneic with conversation. * Debility/weakness: Transferred to [facility] from [facility] secondary to increasing dyspnea and recurrent pneumonia. Per physical therapy evaluation, she is at extraordinarily high risk for falls and will need continued rehabilitation at a facility upon discharge. Patient states her ultimate goal is to return home with her who provides her care and wishes to return back to [facility] to complete her therapy once stable. No case management notes available regarding placement. Would recommend reconsulting [facility] for evaluation to prevent delay in discharge. Palliative care will continue to follow the patient during hospital course as condition evolves, to assist patient/decision-maker with understanding of their medical conditions, weighing benefits/burdens of treatment options, for clarification of goals of treatment. Additionally will assist with any symptoms of palliative concern. . Attestation Attestation: To help prompt me to consider important information that might be impacting today's encounter and assessment, information from prior notes written by myself or my colleagues may have been "brought forward" into today's note. My signature on this note, however, is an attestation that I personally performed the exam, history, and/or decision-making noted today, and, unless otherwise indicated, the interactions with patient, family, and staff as well as the review of records all occurred today. I also attest that the listed assessment and stated plan reflect my best clinical judgment today based on the combination of historical information, prior notes, and today's exam/ interactions. When time spent is documented, it refers only to time spent today by the signer, or if indicated, combined time spent today by collaborating physician/nurse practitioner. .
[2018-03-04 12:33] LABS: Platelet Morphology Normal (Normal)
--- NOTE | 2018-03-04 14:55 | P.PNONC ---
Subjective Interval history: Patient awake and alert, no acute distress. She is now on oxygen via nasal cannula. Objective Vital Signs/Intake & Output: Vital Signs 03/03/18 15:00 03/03/18 16:00 03/03/18 16:01 Temperature Pulse Rate 55 L 70 66 Respiratory Rate 24 36 H 29 H Blood Pressure 158/70 H 176/74 H Pulse Oximetry 94 L 88 L 88 L 03/03/18 17:00 03/03/18 18:00 03/03/18 18:42 Temperature Pulse Rate 61 79 79 Respiratory Rate 16 29 H 20 Blood Pressure 188/77 H 180/79 H 153/68 H Pulse Oximetry 98 94 L 97 03/03/18 19:00 03/03/18 20:00 03/03/18 21:00 Temperature 97.8 F Pulse Rate 76 64 68 Respiratory Rate 25 H 18 32 H Blood Pressure 146/66 H 146/66 H Pulse Oximetry 95 96 92 L 03/03/18 21:32 03/03/18 22:00 03/03/18 23:00 Temperature Pulse Rate 65 66 60 Respiratory Rate 22 16 14 Blood Pressure 157/68 H 170/74 H 153/71 H Pulse Oximetry 96 95 94 L 03/03/18 23:30 03/04/18 00:00 03/04/18 00:30 Temperature 99.1 F Pulse Rate 61 62 65 Respiratory Rate 18 19 19 Blood Pressure 139/65 146/66 H 149/92 H Pulse Oximetry 94 L 93 L 95 03/04/18 01:00 03/04/18 01:30 03/04/18 02:00 Temperature Pulse Rate 66 65 61 Respiratory Rate 26 H 30 H 21 Blood Pressure 158/72 H 152/67 H 152/70 H Pulse Oximetry 94 L 94 L 94 L 03/04/18 02:30 03/04/18 03:00 03/04/18 03:30 Temperature Pulse Rate 63 60 66 Respiratory Rate 20 25 H 24 Blood Pressure 161/69 H 158/72 H 154/69 H Pulse Oximetry 96 95 96 03/04/18 04:00 03/04/18 04:30 03/04/18 05:00 Temperature 98.1 F Pulse Rate 59 L 61 60 Respiratory Rate 24 30 H 20 Blood Pressure 151/66 H 168/73 H Pulse Oximetry 96 94 L 95 03/04/18 05:01 03/04/18 05:30 03/04/18 06:00 Temperature Pulse Rate 61 62 60 Respiratory Rate 26 H 22 28 H Blood Pressure 169/74 H 170/77 H 173/74 H Pulse Oximetry 95 95 96 03/04/18 06:31 03/04/18 07:00 03/04/18 07:01 Temperature Pulse Rate 68 69 66 Respiratory Rate 16 21 24 Blood Pressure 172/106 H 188/80 H Pulse Oximetry 95 93 L 95 03/04/18 07:31 03/04/18 07:44 03/04/18 08:00 Temperature 97.8 F Pulse Rate 62 57 L Respiratory Rate 22 13 Blood Pressure 160/70 H 170/71 H Pulse Oximetry 95 96 99 03/04/18 08:30 03/04/18 09:00 03/04/18 09:30 Temperature Pulse Rate 60 72 61 Respiratory Rate 17 23 20 Blood Pressure 167/74 H 141/65 H 164/74 H Pulse Oximetry 99 90 L 96 03/04/18 10:00 03/04/18 10:30 03/04/18 11:01 Temperature Pulse Rate 62 67 59 L Respiratory Rate 13 16 15 Blood Pressure 147/68 H 148/67 H 141/67 H Pulse Oximetry 95 95 95 03/04/18 11:30 03/04/18 12:00 03/04/18 12:30 Temperature 97.7 F Pulse Rate 58 L 61 57 L Respiratory Rate 15 16 14 Blood Pressure 152/70 H 151/67 H 163/74 H Pulse Oximetry 95 97 97 03/04/18 13:00 03/04/18 13:30 03/04/18 14:00 Temperature Pulse Rate 78 67 78 Respiratory Rate 20 28 H 30 H Blood Pressure 169/75 H 143/67 H 137/90 Pulse Oximetry 93 L 94 L 94 L Intake & Output 03/03/18 03/04/18 03/04/18 18:59 06:59 18:59 Intake Total 100 / 100 300 / 300 100 / 100 Output Total 225 / 225 Balance 100 / 100 75 / 75 100 / 100 Weight 50 kg Intake: IV 100 / 100 100 / 100 100 / 100 Zosyn 3.375 GM Premix 50 ML @ 100 / 100 100 / 100 100 / 100 100 mls/hr IV.SIG Q6H CHELI Rx#: [id number] Oral 200 / 200 Output: Urine 225 / 225 Other: # Voids 4 # Incontinent Voids 2 Date of Last Bowel Movement 03/03/18 03/03/18 # Bowel Movements 4 # Incontinent Bowel Movements 2 Result Diagrams: 03/04/18 10:32 03/04/18 10:32 Laboratory Results: Laboratory Results - last 24 hr 03/04/18 03/04/18 03/04/18 10:32 10:32 10:32 WBC 10.2 RBC 2.85 L Hgb 9.1 L Hct 26.5 L MCV 92.8 MCH 31.8 MCHC 34.2 RDW 17.9 H Plt Count 95 L MPV 7.6 Prelim Diff (Auto) Slide review pending Neut % (Auto) 95.1 H Lymph % (Auto) 1.4 L Clinch % (Auto) 2.6 Eos % (Auto) 0.6 Baso % (Auto) 0.3 Neut # (Auto) 9.7 H Lymph # (Auto) 0.1 L Clinch # (Auto) 0.3 Eos # (Auto) 0.1 Baso # (Auto) 0.0 WBC Differential . Diff Scan Auto diff confirmed Differential Comment . Platelet Estimate Low L Platelet Morphology Normal Sodium 138 Potassium 4.0 Chloride 103 Carbon Dioxide 26.6 Anion Gap 8 BUN 59 H Creatinine 1.75 H Estimated GFR 28 L Random Glucose 132 H Calcium 7.8 L Procalcitonin 0.10 H Culture Results: Microbiology 02/26/18 10:55 Aerobic Blood Culture - Final Blood - Peripheral No growth in 5 days Anaerobic Blood Culture - Final No growth in 5 days 02/26/18 10:55 Aerobic Blood Culture - Final Blood - Peripheral No growth in 5 days Anaerobic Blood Culture - Final No growth in 5 days 03/01/18 16:00 Stool Occult Blood (EAN) - Final Stool Hemoccult positive Imaging Studies: Impressions Chest X-Ray 03/04/18 00:00 CONCLUSION: Interstitial fibrotic change with probable superimposed CHF. This is relatively stable compared to previous. Medications: Active Medications Generic Name Dose Route Start Last Admin Trade Name Freq PRN Reason Stop Dose Admin Acetaminophen 650 mg 02/25/18 17:57 03/01/18 17:58 Tylenol PO 650 mg Q4H PRN Administration Temp > 100.4 Albuterol 2.5 mg 02/25/18 18:09 03/02/18 07:42 Albuterol Neb (Prn) NEB 2.5 mg Q2HR NEB PRN Administration SHORTNESS OF BREATH Amlodipine Besylate 5 mg 02/25/18 21:00 03/04/18 08:31 Norvasc PO 5 mg BID CHELI Administration Aspirin 81 mg 02/26/18 09:00 03/04/18 08:31 Ecotrin PO 81 mg DAILY CHELI Administration Bumetanide 1 mg 02/25/18 23:30 03/04/18 08:32 Bumex Inj IV.PUSH 1 mg BID@0900,1800 CHELI Administration Bupropion HCl 150 mg 02/26/18 09:00 03/04/18 08:31 Wellbutrin Sr PO 150 mg DAILY CHELI Administration Cholestyramine Resin 4 gm 02/25/18 19:00 03/04/18 06:37 Questran 4 Gm Pkt PO 4 gm BID@0700,1900 CHELI Administration Diphenhydramine HCl 25 mg 02/25/18 18:14 03/03/18 01:33 Benadryl PO 25 mg HS PRN Administration Insomnia Diphenhydramine HCl 25 mg 03/01/18 15:31 03/01/18 17:58 Benadryl PO 25 mg Q4H PRN Administration SEE LABEL COMMENTS Donepezil HCl 10 mg 02/25/18 21:00 03/03/18 21:21 Aricept PO 10 mg HS CHELI Administration Escitalopram Oxalate 20 mg 02/26/18 09:00 03/04/18 08:31 Lexapro PO 20 mg DAILY CHELI Administration Hydralazine HCl 75 mg 02/25/18 22:00 03/04/18 13:15 Apresoline PO 75 mg Q8HR CHELI Administration Piperacillin/Tazobactam/Dextrose 50 mls @ 100 mls/hr 02/25/18 20:00 03/04/18 14:19 Zosyn 3.375 Gm Premix IV.SIG Infused Q6H CHELI Infusion Isosorbide Mononitrate 30 mg 02/26/18 07:00 03/04/18 06:31 Imdur PO 30 mg DAILY@0700 CHELI Administration Levofloxacin 750 mg 02/25/18 18:15 03/03/18 18:03 Levaquin PO 750 mg Q48H CHELI Administration Losartan Potassium 50 mg 02/26/18 09:00 03/04/18 08:31 Cozaar PO 50 mg DAILY CHELI Administration Metoprolol Tartrate 25 mg 02/25/18 21:00 03/04/18 08:31 Lopressor PO 25 mg BID CHELI Administration Montelukast Sodium 10 mg 02/25/18 21:00 03/03/18 21:20 Singulair PO 10 mg HS CHELI Administration Pantoprazole Sodium 20 mg 02/26/18 09:00 03/04/18 08:31 Protonix PO 20 mg DAILY CHELI Administration Pramipexole Dihydrochloride 0.125 mg 02/25/18 21:00 03/04/18 08:32 Mirapex PO 0.125 mg BID CHELI Administration Pravastatin Sodium 20 mg 02/25/18 21:00 03/03/18 21:20 Pravachol PO 20 mg HS CHELI Administration Prednisone 20 mg 03/01/18 21:00 03/04/18 08:31 Deltasone PO 03/04/18 20:59 20 mg BID CHELI Administration Senna/Docusate Sodium 1 tab 02/25/18 21:00 03/04/18 08:32 Mima-Colace PO Not Given BID CHELI Sennosides 17.2 mg 02/25/18 17:57 02/27/18 08:01 Senokot PO 17.2 mg Q12H PRN Administration Moderate Constipation Sodium Chloride 2 ml 02/25/18 21:00 03/04/18 08:32 Ns Flush IV.FLUSH 2 ml BID CHELI Administration Objective Remarks: GENERAL: Well-nourished, well-developed elderly female patient, in no acute distress. SKIN: Warm and dry. HEAD: Normocephalic. EYES: No scleral icterus. No injection or drainage. NECK: Supple, trachea midline. CARDIOVASCULAR: +S1/S2 3/6 systolic murmur. RESPIRATORY: Breath sounds equal bilaterally. Nonlabored at rest. O2 via NC. GASTROINTESTINAL: Abdomen soft, non-tender, nondistended. EXTREMITIES: No cyanosis, or edema. cast to left forearm, fingers warm, pink cap refill <2 sec. MUSCULOSKELETAL: Adequate muscle tone. NEUROLOGICAL: No obvious focal deficit. Awake and alert. PSYCHIATRIC: Appropriate mood and affect. Assessment/Plan - Plan Ms. Christian is a pleasant 78-year-old female patient who is currently hospitalized from [facility] for acute worsening of shortness of breath. 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 Other medical ailments include CVA 3 months ago, pneumonia, sepsis, diastolic heart failure, CKD stage III and coronary artery disease. Per her medical chart she also has a history of Alzheimer's dementia. Recommendations: 1. Possible MDS, Procrit has been held related to recent strokes, patient reports frequent blood transfusions. 2. Anemia of renal insufficiency, avoid Procrit due to recent stroke, avoid aggressive transfusions due to iron overload. Maintain hemoglobin above 7 g/dL. 3. Stool Hemoccult positive, will defer to attending in regards to possible further GI workup given the patients current respiratory status. 3. Continue to monitor hemoglobin and platelet count. 4. Continue supportive care.
--- NOTE | 2018-03-04 18:21 | P.PN ---
Subjective Interval history: ALERT NAD NOW ON MED FLOOR Physical Exam Vital signs: Vital Signs 03/03/18 18:42 03/03/18 19:00 03/03/18 20:00 Temperature 97.8 F Pulse Rate 79 76 64 Respiratory Rate 20 25 H 18 Blood Pressure 153/68 H 146/66 H 146/66 H Pulse Oximetry 97 95 96 03/03/18 21:00 03/03/18 21:32 03/03/18 22:00 Temperature Pulse Rate 68 65 66 Respiratory Rate 32 H 22 16 Blood Pressure 157/68 H 170/74 H Pulse Oximetry 92 L 96 95 03/03/18 23:00 03/03/18 23:30 03/04/18 00:00 Temperature Pulse Rate 60 61 62 Respiratory Rate 14 18 19 Blood Pressure 153/71 H 139/65 146/66 H Pulse Oximetry 94 L 94 L 93 L 03/04/18 00:30 03/04/18 01:00 03/04/18 01:30 Temperature 99.1 F Pulse Rate 65 66 65 Respiratory Rate 19 26 H 30 H Blood Pressure 149/92 H 158/72 H 152/67 H Pulse Oximetry 95 94 L 94 L 03/04/18 02:00 03/04/18 02:30 03/04/18 03:00 Temperature Pulse Rate 61 63 60 Respiratory Rate 21 20 25 H Blood Pressure 152/70 H 161/69 H 158/72 H Pulse Oximetry 94 L 96 95 03/04/18 03:30 03/04/18 04:00 03/04/18 04:30 Temperature 98.1 F Pulse Rate 66 59 L 61 Respiratory Rate 24 24 30 H Blood Pressure 154/69 H 151/66 H 168/73 H Pulse Oximetry 96 96 94 L 03/04/18 05:00 03/04/18 05:01 03/04/18 05:30 Temperature Pulse Rate 60 61 62 Respiratory Rate 20 26 H 22 Blood Pressure 169/74 H 170/77 H Pulse Oximetry 95 95 95 03/04/18 06:00 03/04/18 06:31 03/04/18 07:00 Temperature Pulse Rate 60 68 69 Respiratory Rate 28 H 16 21 Blood Pressure 173/74 H 172/106 H Pulse Oximetry 96 95 93 L 03/04/18 07:01 03/04/18 07:31 03/04/18 07:44 Temperature Pulse Rate 66 62 Respiratory Rate 24 22 Blood Pressure 188/80 H 160/70 H Pulse Oximetry 95 95 96 03/04/18 08:00 03/04/18 08:30 03/04/18 09:00 Temperature 97.8 F Pulse Rate 57 L 60 72 Respiratory Rate 13 17 23 Blood Pressure 170/71 H 167/74 H 141/65 H Pulse Oximetry 99 99 90 L 03/04/18 09:30 03/04/18 10:00 03/04/18 10:30 Temperature Pulse Rate 61 62 67 Respiratory Rate 20 13 16 Blood Pressure 164/74 H 147/68 H 148/67 H Pulse Oximetry 96 95 95 03/04/18 11:01 03/04/18 11:30 03/04/18 12:00 Temperature 97.7 F Pulse Rate 59 L 58 L 61 Respiratory Rate 15 15 16 Blood Pressure 141/67 H 152/70 H 151/67 H Pulse Oximetry 95 95 97 03/04/18 12:30 03/04/18 13:00 03/04/18 13:30 Temperature Pulse Rate 57 L 78 67 Respiratory Rate 14 20 28 H Blood Pressure 163/74 H 169/75 H 143/67 H Pulse Oximetry 97 93 L 94 L 03/04/18 14:00 03/04/18 14:30 03/04/18 15:00 Temperature Pulse Rate 78 62 61 Respiratory Rate 30 H 23 22 Blood Pressure 137/90 129/65 148/66 H Pulse Oximetry 94 L 86 L 94 L 03/04/18 15:31 03/04/18 16:00 03/04/18 16:30 Temperature 98.1 F Pulse Rate 60 68 60 Respiratory Rate 17 17 15 Blood Pressure 145/66 H 152/70 H 140/66 Pulse Oximetry 94 L 97 97 03/04/18 17:00 03/04/18 17:27 03/04/18 17:39 Temperature 97.6 F Pulse Rate 61 68 Respiratory Rate 15 22 Blood Pressure 141/67 H 153/65 H Pulse Oximetry 97 95 95 Intake & Output 03/03/18 03/04/18 03/04/18 18:59 06:59 18:59 Intake Total 100 / 100 300 / 300 600 / 600 Output Total 225 / 225 100 / 100 Balance 100 / 100 75 / 75 500 / 500 Weight 50 kg Intake: IV 100 / 100 100 / 100 100 / 100 Zosyn 3.375 GM Premix 50 ML @ 100 / 100 100 / 100 100 / 100 100 mls/hr IV.SIG Q6H [facility] Rx#: [id number] Oral 200 / 200 500 / 500 Output: Urine 225 / 225 Urine Amount (Catheter) 100 / 100 Female External 100 / 100 Other: # Voids 4 1 # Incontinent Voids 2 Date of Last Bowel Movement 03/03/18 03/03/18 03/04/18 # Bowel Movements 4 1 # Incontinent Bowel Movements 2 Narrative: GENERAL: Alert, NAD. SKIN: Warm and dry. HEAD: Normocephalic. EYES: No scleral icterus. No injection or drainage. NECK: Supple, trachea midline. No JVD or lymphadenopathy. CARDIOVASCULAR: Regular rate and rhythm without murmurs, gallops, or rubs. RESPIRATORY: Moderate air entry, no appreciable wheezing. No accessory muscle use. GASTROINTESTINAL: Abdomen soft, non-tender, nondistended. MUSCULOSKELETAL: No cyanosis, or edema. BACK: Nontender without obvious deformity. No CVA tenderness. - Urinary Catheter Management Indwelling Urethral Catheter Cath placed during this visit: yes, but has since been removed by the nurse Reason for continuing: Decision to DC catheter Insertion date: 02/25/18 Insertion time: 19:58 Removal date: 03/02/18 Removal time: 17:00 Female External Cath placed during this visit: no Results - Labs CBC & Chem 7: 03/04/18 10:32 03/04/18 10:32 Laboratory Results - last 24 hr 03/04/18 03/04/18 03/04/18 10:32 10:32 10:32 WBC 10.2 RBC 2.85 L Hgb 9.1 L Hct 26.5 L MCV 92.8 MCH 31.8 MCHC 34.2 RDW 17.9 H Plt Count 95 L MPV 7.6 Prelim Diff (Auto) Slide review pending Neut % (Auto) 95.1 H Lymph % (Auto) 1.4 L [place] % (Auto) 2.6 Eos % (Auto) 0.6 Baso % (Auto) 0.3 Neut # (Auto) 9.7 H Lymph # (Auto) 0.1 L [place] # (Auto) 0.3 Eos # (Auto) 0.1 Baso # (Auto) 0.0 WBC Differential . Diff Scan Auto diff confirmed Differential Comment . Platelet Estimate Low L Platelet Morphology Normal Sodium 138 Potassium 4.0 Chloride 103 Carbon Dioxide 26.6 Anion Gap 8 BUN 59 H Creatinine 1.75 H Estimated GFR 28 L Random Glucose 132 H Calcium 7.8 L Procalcitonin 0.10 H - Imaging Impressions Chest X-Ray 03/04/18 00:00 CONCLUSION: Interstitial fibrotic change with probable superimposed CHF. This is relatively stable compared to previous. - Procedures None Assessment and Plan - Plan RESPIRATORY FAILRE PNA CHF CKD PLAN O2 ANTIBX BRONCHODILATORS O2 NEEDED CHANGE TO PO MEDS INCREASE ACTIVITY
--- NOTE | 2018-03-04 19:31 | P.CONREH ---
History of Present Illness Service: Physical Medicine and Rehabilitation Reason for Consult: Comprehensive rehabilitation evaluation Primary Care Provider: UNKNOWN Chief Complaint: progressively worsening shortness of breath, pneumonia PMFSH - History History Provided By: Patient, Family Member, Medical Record - Medical History Medical History: Medical History (Last Reviewed 02/26/18 @ 07:31 by Nicolas Venegas) Alzheimer's dementia Anxiety CAD (coronary artery disease) CKD (chronic kidney disease), stage III CLL (chronic lymphocytic leukemia) CVA (cerebral vascular accident) H/O recurrent pneumonia History of recurrent UTIs Hyperlipidemia Hypertension Urinary incontinence - Surgical History Surgical History: Surgical History (Last Reviewed 02/26/18 @ 07:31 by Nicolas Venegas) History of appendectomy History of bilateral knee replacement - Family History Family History: Family History (Last Reviewed 02/25/18 @ 18:35 by Bryanna Weaver APRN) Mother CAD (coronary artery disease) CVA (cerebral vascular accident) Father CVA (cerebral vascular accident) - Tobacco History Second Hand Smoke Exposure: No Smoking Status: Former smoker Tobacco Type: Cigarettes Packs Per Day: 1 Years Smoked: 30 Number of Pack Years (if former smoker): 30 Smoking End Date: 1998 - Alcohol History How Often Do You Have a Drink Containing Alcohol: Never - Substance Use History Substance History: No History of Abuse - Travel History History of Recent Travel: No - Immunization History Tetanus Immunization: Unable to Assess Hx Influenza Vaccine This Season: Yes Medications and Allergies Active Medications: Active Medications Acetaminophen (Tylenol) 650 mg PO Q4H PRN PRN Reason: Temp > 100.4 Last Admin: 03/01/18 17:58 Dose: 650 mg Acetaminophen (Tylenol) 650 mg PO Q4H PRN PRN Reason: SEE LABEL COMMENTS Al Hydroxide/Mg Hydroxide (Milk Of Radha Mcallister) 30 ml PO Q12H PRN PRN Reason: Mild Constipation Albuterol (Albuterol Neb (Prn)) 2.5 mg NEB Q2HR NEB PRN PRN Reason: SHORTNESS OF BREATH Last Admin: 03/02/18 07:42 Dose: 2.5 mg Amlodipine Besylate (Norvasc) 5 mg PO BID [facility] Last Admin: 03/04/18 08:31 Dose: 5 mg Aspirin (Ecotrin) 81 mg PO DAILY [facility] Last Admin: 03/04/18 08:31 Dose: 81 mg Bisacodyl (Dulcolax Supp) 10 mg RECTAL DAILY PRN PRN Reason: SEVERE CONSITIPATION Bumetanide (Bumex Inj) 1 mg IV.PUSH BID@0900,1800 [facility] Last Admin: 03/04/18 17:55 Dose: 1 mg Bupropion HCl (Wellbutrin Sr) 150 mg PO DAILY [facility] Last Admin: 03/04/18 08:31 Dose: 150 mg Cholestyramine Resin (Questran 4 Gm Pkt) 4 gm PO BID@0700,1900 [facility] Last Admin: 03/04/18 18:20 Dose: 4 gm Diphenhydramine HCl (Benadryl) 25 mg PO HS PRN PRN Reason: Insomnia Last Admin: 03/03/18 01:33 Dose: 25 mg Diphenhydramine HCl (Benadryl) 25 mg PO Q4H PRN PRN Reason: SEE LABEL COMMENTS Last Admin: 03/01/18 17:58 Dose: 25 mg Donepezil HCl (Aricept) 10 mg PO HS [facility] Last Admin: 03/03/18 21:21 Dose: 10 mg Escitalopram Oxalate (Lexapro) 20 mg PO DAILY [facility] Last Admin: 03/04/18 08:31 Dose: 20 mg Hydralazine HCl (Apresoline) 75 mg PO Q8HR [facility] Last Admin: 03/04/18 13:15 Dose: 75 mg Piperacillin/Tazobactam/Dextrose (Zosyn 3.375 Gm Premix) 50 mls @ 100 mls/hr IV.SIG Q6H [facility] Last Infusion: 03/04/18 14:19 Dose: Infused Isosorbide Mononitrate (Imdur) 30 mg PO DAILY@0700 [facility] Last Admin: 03/04/18 06:31 Dose: 30 mg Lactulose (Lactulose Liq) 30 ml PO DAILY PRN PRN Reason: SEVERE CONSITIPATION Levofloxacin (Levaquin) 750 mg PO Q48H [facility] Last Admin: 03/03/18 18:03 Dose: 750 mg Losartan Potassium (Cozaar) 50 mg PO DAILY [facility] Last Admin: 03/04/18 08:31 Dose: 50 mg Metoprolol Tartrate (Lopressor) 25 mg PO BID [facility] Last Admin: 03/04/18 08:31 Dose: 25 mg Miscellaneous (Pill Splitter) 1 each OTHER [facility] Montelukast Sodium (Singulair) 10 mg PO HS [facility] Last Admin: 03/03/18 21:20 Dose: 10 mg Ondansetron HCl (Zofran Inj) 4 mg IV.PUSH Q6H PRN PRN Reason: NAUSEA OR VOMITING Pantoprazole Sodium (Protonix) 20 mg PO DAILY [facility] Last Admin: 03/04/18 08:31 Dose: 20 mg Pramipexole Dihydrochloride (Mirapex) 0.125 mg PO BID [facility] Last Admin: 03/04/18 08:32 Dose: 0.125 mg Pravastatin Sodium (Pravachol) 20 mg PO HS [facility] Last Admin: 03/03/18 21:20 Dose: 20 mg Prednisone (Deltasone) 20 mg PO BID [facility] Stop: 03/04/18 20:59 Last Admin: 03/04/18 08:31 Dose: 20 mg Senna/Docusate Sodium (Mima-Colace) 1 tab PO BID [facility] Last Admin: 03/04/18 08:32 Dose: Not Given Sennosides (Senokot) 17.2 mg PO Q12H PRN PRN Reason: Moderate Constipation Last Admin: 02/27/18 08:01 Dose: 17.2 mg Sodium Chloride (Ns Flush) 2 ml IV.FLUSH BID [facility] Last Admin: 03/04/18 08:32 Dose: 2 ml Sodium Chloride (Ns Flush) 2 ml IV.FLUSH PRN PRN PRN Reason: FLUSH AFTER USING IV ACCESS Allergies Allergy/AdvReac Type Severity Reaction Status Date / Time latex Allergy Rash, Verified 02/18/18 06:07 Localized soy Allergy Congestion Verified 02/18/18 06:07 sulfadiazine Allergy Hives Verified 02/18/18 06:07 wheat [Flour] Allergy Rash Verified 02/18/18 06:07 Home Medications Medication Instructions Recorded Confirmed Type amlodipine [Norvasc] 5 mg PO BID 02/17/18 02/17/18 History cholestyramine (with sugar) 4 g PO BID 02/17/18 02/17/18 History donepezil 10 mg PO HS 02/17/18 02/17/18 History escitalopram oxalate 20 mg PO DAILY 02/17/18 02/17/18 History hydralazine 75 mg PO Q8H 02/17/18 02/17/18 History levothyroxine [Synthroid] 50 mcg PO DAILY@0600 02/17/18 02/17/18 History metoprolol tartrate 25 mg PO BID 02/17/18 02/17/18 History montelukast 10 mg PO HS 02/17/18 02/17/18 History pantoprazole 20 mg PO DAILY 02/17/18 02/17/18 History pravastatin 20 mg PO HS 02/17/18 02/17/18 History Exam - Physical Examination Vital Signs / I&O: Vital Signs 03/03/18 20:00 03/03/18 21:00 03/03/18 21:32 Temperature 97.8 F Pulse Rate 64 68 65 Respiratory Rate 18 32 H 22 Blood Pressure 146/66 H 157/68 H Pulse Oximetry 96 92 L 96 03/03/18 22:00 03/03/18 23:00 03/03/18 23:30 Temperature Pulse Rate 66 60 61 Respiratory Rate 16 14 18 Blood Pressure 170/74 H 153/71 H 139/65 Pulse Oximetry 95 94 L 94 L 03/04/18 00:00 03/04/18 00:30 03/04/18 01:00 Temperature 99.1 F Pulse Rate 62 65 66 Respiratory Rate 19 19 26 H Blood Pressure 146/66 H 149/92 H 158/72 H Pulse Oximetry 93 L 95 94 L 03/04/18 01:30 03/04/18 02:00 03/04/18 02:30 Temperature Pulse Rate 65 61 63 Respiratory Rate 30 H 21 20 Blood Pressure 152/67 H 152/70 H 161/69 H Pulse Oximetry 94 L 94 L 96 03/04/18 03:00 03/04/18 03:30 03/04/18 04:00 Temperature 98.1 F Pulse Rate 60 66 59 L Respiratory Rate 25 H 24 24 Blood Pressure 158/72 H 154/69 H 151/66 H Pulse Oximetry 95 96 96 03/04/18 04:30 03/04/18 05:00 03/04/18 05:01 Temperature Pulse Rate 61 60 61 Respiratory Rate 30 H 20 26 H Blood Pressure 168/73 H 169/74 H Pulse Oximetry 94 L 95 95 03/04/18 05:30 03/04/18 06:00 03/04/18 06:31 Temperature Pulse Rate 62 60 68 Respiratory Rate 22 28 H 16 Blood Pressure 170/77 H 173/74 H 172/106 H Pulse Oximetry 95 96 95 03/04/18 07:00 03/04/18 07:01 03/04/18 07:31 Temperature Pulse Rate 69 66 62 Respiratory Rate 21 24 22 Blood Pressure 188/80 H 160/70 H Pulse Oximetry 93 L 95 95 03/04/18 07:44 03/04/18 08:00 03/04/18 08:30 Temperature 97.8 F Pulse Rate 57 L 60 Respiratory Rate 13 17 Blood Pressure 170/71 H 167/74 H Pulse Oximetry 96 99 99 03/04/18 09:00 03/04/18 09:30 03/04/18 10:00 Temperature Pulse Rate 72 61 62 Respiratory Rate 23 20 13 Blood Pressure 141/65 H 164/74 H 147/68 H Pulse Oximetry 90 L 96 95 03/04/18 10:30 03/04/18 11:01 03/04/18 11:30 Temperature Pulse Rate 67 59 L 58 L Respiratory Rate 16 15 15 Blood Pressure 148/67 H 141/67 H 152/70 H Pulse Oximetry 95 95 95 03/04/18 12:00 03/04/18 12:30 03/04/18 13:00 Temperature 97.7 F Pulse Rate 61 57 L 78 Respiratory Rate 16 14 20 Blood Pressure 151/67 H 163/74 H 169/75 H Pulse Oximetry 97 97 93 L 03/04/18 13:30 03/04/18 14:00 03/04/18 14:30 Temperature Pulse Rate 67 78 62 Respiratory Rate 28 H 30 H 23 Blood Pressure 143/67 H 137/90 129/65 Pulse Oximetry 94 L 94 L 86 L 03/04/18 15:00 03/04/18 15:31 03/04/18 16:00 Temperature 98.1 F Pulse Rate 61 60 68 Respiratory Rate 22 17 17 Blood Pressure 148/66 H 145/66 H 152/70 H Pulse Oximetry 94 L 94 L 97 03/04/18 16:30 03/04/18 17:00 03/04/18 17:27 Temperature 97.6 F Pulse Rate 60 61 68 Respiratory Rate 15 15 22 Blood Pressure 140/66 141/67 H 153/65 H Pulse Oximetry 97 97 95 03/04/18 17:39 Temperature Pulse Rate Respiratory Rate Blood Pressure Pulse Oximetry 95 Intake & Output 03/04/18 03/04/1818 06:59 18:59 06:59 Intake Total 300 / 300 960 / 960 Output Total 225 / 225 100 / 100 Balance 75 / 75 860 / 860 Weight 50 kg Intake: IV 100 / 100 100 / 100 Zosyn 3.375 GM Premix 50 ML @ 100 / 100 100 / 100 100 mls/hr IV.SIG Q6H [facility] Rx#: [id number] Oral 200 / 200 860 / 860 Output: Urine 225 / 225 Urine Amount (Catheter) 100 / 100 Female External 100 / 100 Other: # Voids 1 # Incontinent Voids 2 1 Date of Last Bowel Movement 03/03/18 03/04/18 # Bowel Movements 0 # Incontinent Bowel Movements 2 Intake & Output 03/02/18 03/03/18 03/04/18 03/05/18 06:59 06:59 06:59 06:59 Intake Total 1650 / 1650 1030 / 1030 400 / 400 960 / 960 Output Total 2100 / 2100 800 / 800 225 / 225 100 / 100 Balance -450 / -450 230 / 230 175 / 175 860 / 860 Weight 57 kg 54.5 kg 50 kg Date of Last Bowel Movement: 03/04/18 Results - Labs CBC & Chem 7: 03/04/18 10:32 03/04/18 10:32 Labs: Laboratory Results - last 24 hr 03/04/18 03/04/18 03/04/18 10:32 10:32 10:32 WBC 10.2 RBC 2.85 L Hgb 9.1 L Hct 26.5 L MCV 92.8 MCH 31.8 MCHC 34.2 RDW 17.9 H Plt Count 95 L MPV 7.6 Prelim Diff (Auto) Slide review pending Neut % (Auto) 95.1 H Lymph % (Auto) 1.4 L [place] % (Auto) 2.6 Eos % (Auto) 0.6 Baso % (Auto) 0.3 Neut # (Auto) 9.7 H Lymph # (Auto) 0.1 L [place] # (Auto) 0.3 Eos # (Auto) 0.1 Baso # (Auto) 0.0 WBC Differential . Diff Scan Auto diff confirmed Differential Comment . Platelet Estimate Low L Platelet Morphology Normal Sodium 138 Potassium 4.0 Chloride 103 Carbon Dioxide 26.6 Anion Gap 8 BUN 59 H Creatinine 1.75 H Estimated GFR 28 L Random Glucose 132 H Calcium 7.8 L Procalcitonin 0.10 H - Imaging Impressions Chest X-Ray 03/04/18 00:00 CONCLUSION: Interstitial fibrotic change with probable superimposed CHF. This is relatively stable compared to previous. Assessment and Plan - Plan Recommendations: 1. PT mobilizing and mod assist of 2 for transfer and gait 3 feet with rolling waker. Continue to mobilize with focus on strength and endurance for functional mobility 2. OT consult for ADL's 3.Case management working on discharge planning and anticipate that patient will need acute inpatient rehab 4. Will follow while hospitalized and at discharge as appropriate Thank you for this consult.
[2018-03-04] MEDS: Montelukast 10 MG Tablet PO SCH (20:45)
[2018-03-05] MEDS: Piperacil/Tazo 3.375 GM Premix 50 ML IV.SIG SCH ×4 (02:04→20:58)
[2018-03-05] MEDS: hydrALAZINE 25 MG Tablet PO SCH ×4 (06:48→21:08)
[2018-03-05] MEDS: Isosorbide Mononitrate 30 MG ER 24HR Tablet (Imdur) PO SCH (06:53)
[2018-03-05] MEDS: buPROPion 150 MG 12 HR Tablet PO SCH (09:14)
[2018-03-05] MEDS: Metoprolol Tartrate 25 MG Tablet PO SCH ×3 (09:14→21:41)
[2018-03-05] MEDS: Pantoprazole Sodium 20 MG DR Tablet PO SCH (09:14)
[2018-03-05] MEDS: amLODIPine 5 MG Tablet PO SCH (09:15)
[2018-03-05] MEDS: Senna/Docusate Sodium 8.6/50 MG Tablet PO SCH ×2 (09:15→21:00)
--- NOTE | 2018-03-05 10:14 | P.PN ---
Subjective Interval history: Follow up for pneumonia, congestive heart failure, CKD. Currently doing well. No chest pain, shortness of breath, fever or chills. She remains on 2 L of oxygen via nasal cannula. Physical Exam Vital signs: Vital Signs 03/04/18 10:30 03/04/18 11:01 03/04/18 11:30 Temperature Pulse Rate 67 59 L 58 L Respiratory Rate 16 15 15 Blood Pressure 148/67 H 141/67 H 152/70 H Pulse Oximetry 95 95 95 03/04/18 12:00 03/04/18 12:30 03/04/18 13:00 Temperature 97.7 F Pulse Rate 61 57 L 78 Respiratory Rate 16 14 20 Blood Pressure 151/67 H 163/74 H 169/75 H Pulse Oximetry 97 97 93 L 03/04/18 13:30 03/04/18 14:00 03/04/18 14:30 Temperature Pulse Rate 67 78 62 Respiratory Rate 28 H 30 H 23 Blood Pressure 143/67 H 137/90 129/65 Pulse Oximetry 94 L 94 L 86 L 03/04/18 15:00 03/04/18 15:31 03/04/18 16:00 Temperature 98.1 F Pulse Rate 61 60 68 Respiratory Rate 22 17 17 Blood Pressure 148/66 H 145/66 H 152/70 H Pulse Oximetry 94 L 94 L 97 03/04/18 16:30 03/04/18 17:00 03/04/18 17:27 Temperature 97.6 F Pulse Rate 60 61 68 Respiratory Rate 15 15 22 Blood Pressure 140/66 141/67 H 153/65 H Pulse Oximetry 97 97 95 03/04/18 17:39 03/04/18 20:00 03/05/18 00:00 Temperature 97.9 F 97.8 F Pulse Rate 73 66 Respiratory Rate 16 16 Blood Pressure 94/47 L 138/66 Pulse Oximetry 95 93 L 91 L 03/05/18 04:00 03/05/18 08:00 Temperature 97.9 F 97.5 F L Pulse Rate 68 63 Respiratory Rate 16 22 Blood Pressure 127/53 L 162/71 H Pulse Oximetry 91 L 93 L Intake & Output 03/04/18 03/05/18 03/05/18 18:59 06:59 18:59 Intake Total 960 / 960 580 / 580 50 / 50 Output Total 100 / 100 Balance 860 / 860 580 / 580 50 / 50 Weight 50.1 kg Intake: IV 100 / 100 100 / 100 50 / 50 Zosyn 3.375 GM Premix 50 ML @ 100 / 100 100 / 100 50 / 50 100 mls/hr IV.SIG Q6H [facility] Rx#: [id number] Oral 860 / 860 480 / 480 Output: Urine Amount (Catheter) 100 / 100 Female External 100 / 100 Other: # Voids 1 5 # Incontinent Voids 1 Date of Last Bowel Movement 03/04/18 03/04/18 # Bowel Movements 0 Narrative: GENERAL: Alert, NAD. SKIN: Warm and dry. HEAD: Normocephalic. EYES: No scleral icterus. No injection or drainage. NECK: Supple, trachea midline. No JVD or lymphadenopathy. CARDIOVASCULAR: Regular rate and rhythm without murmurs, gallops, or rubs. RESPIRATORY: Moderate air entry, no appreciable wheezing. No accessory muscle use. GASTROINTESTINAL: Abdomen soft, non-tender, nondistended. MUSCULOSKELETAL: No cyanosis, or edema. BACK: Nontender without obvious deformity. No CVA tenderness. - Urinary Catheter Management Indwelling Urethral Catheter Cath placed during this visit: yes, but has since been removed by the nurse Reason for continuing: Decision to DC catheter Insertion date: 02/25/18 Insertion time: 19:58 Removal date: 03/02/18 Removal time: 17:00 Female External Cath placed during this visit: no Results - Labs CBC & Chem 7: 03/04/18 10:32 03/04/18 10:32 Laboratory Results - last 24 hr 02/26/18 03/04/18 03/04/18 10:58 10:32 10:32 WBC 10.2 RBC 2.85 L Hgb 9.1 L Hct 26.5 L MCV 92.8 MCH 31.8 MCHC 34.2 RDW 17.9 H Plt Count 95 L MPV 7.6 Prelim Diff (Auto) Slide review pending Neut % (Auto) 95.1 H Lymph % (Auto) 1.4 L [place] % (Auto) 2.6 Eos % (Auto) 0.6 Baso % (Auto) 0.3 Neut # (Auto) 9.7 H Lymph # (Auto) 0.1 L [place] # (Auto) 0.3 Eos # (Auto) 0.1 Baso # (Auto) 0.0 WBC Differential . Diff Scan Auto diff confirmed Differential Comment . Platelet Estimate Low L Platelet Morphology Normal Sodium 138 Potassium 4.0 Chloride 103 Carbon Dioxide 26.6 Anion Gap 8 BUN 59 H Creatinine 1.75 H Estimated GFR 28 L Random Glucose 132 H Calcium 7.8 L Procalcitonin Aspergillus flavus Ab Negative Aspergill fumigatus Ab Negative Aspergillus niger Ab Negative 03/04/18 10:32 WBC RBC Hgb Hct MCV MCH MCHC RDW Plt Count MPV Prelim Diff (Auto) Neut % (Auto) Lymph % (Auto) [place] % (Auto) Eos % (Auto) Baso % (Auto) Neut # (Auto) Lymph # (Auto) [place] # (Auto) Eos # (Auto) Baso # (Auto) WBC Differential Diff Scan Differential Comment Platelet Estimate Platelet Morphology Sodium Potassium Chloride Carbon Dioxide Anion Gap BUN Creatinine Estimated GFR Random Glucose Calcium Procalcitonin 0.10 H Aspergillus flavus Ab Aspergill fumigatus Ab Aspergillus niger Ab - Imaging Impressions Chest X-Ray 03/04/18 00:00 CONCLUSION: Interstitial fibrotic change with probable superimposed CHF. This is relatively stable compared to previous. - Procedures None Assessment and Plan - Plan Patient is a 78 year old female with a past medical history significant for CLL, recent pneumonia, diastolic heart failure, stage III CKD, and left sided hand fracture. She was admitted from [facility] to [facility] under the care of the hospitalist service for progressively worsening shortness secondary to recurrent pneumonia. Acute on chronic hypoxic respiratory failure Pneumonia - possibly atypical. -continue Zosyn and Levaquin per infectious disease recommendations. We will discuss with ID to see if antibiotics can be switched to Levaquin alone. -Continue prednisone 20 mg twice daily -duonebs IV Q6H -pulmonary consulted. Patient may need bronchoscopy. -Urine legionella, histoplasma urine pending. Mycoplasma pneumonia IgG positive. -Blastomyces ab pending. -continue supplemental oxygen. Currently on 2 L of oxygen via nasal cannula. -Palliative care on board. Patient desires aggressive care and full code. Diastolic heart failure w/ volume overload Pulmonary hypertension -Echo shows normal LV size, EF 60-65%. Pulmonary artery pressure 61 mmHg. -continue diuretics, monitor renal function and electrolytes -cardiology following. Chronic kidney disease, stage III -Creatinine around 1.75 --> 1.94. Possibly due to diuretic use. -avoid nephrotoxic meds Closed, impacted, comminuted left distal radial and ulnar fracture with cast in place -PT/OT eval/treat -pain meds PRN CLL with hx of blood transfusions -continue to monitor H/H -Hgb 6.9 on 02/27/2018, received 2 units of PRBCs so far. Hemoglobin around 10 currently. 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 nightly. Full code. SCDs. Discharge plan: Patient can be discharged back to [facility]. I discussed with CIR RN who will evaluate patient. Dr. Hines already evaluated patient and recommended OT as well as inpatient rehab. Will order OT.
--- NOTE | 2018-03-05 10:23 | P.PNONC ---
Subjective Interval history: Afebrile, patient on O2 2 L via nasal cannula. Sleeping on approach, awakens easily to voice. Patient denies any shortness of breath, she has no complaints at this time. Objective Vital Signs/Intake & Output: Vital Signs 03/04/18 10:30 03/04/18 11:01 03/04/18 11:30 Temperature Pulse Rate 67 59 L 58 L Respiratory Rate 16 15 15 Blood Pressure 148/67 H 141/67 H 152/70 H Pulse Oximetry 95 95 95 03/04/18 12:00 03/04/18 12:30 03/04/18 13:00 Temperature 97.7 F Pulse Rate 61 57 L 78 Respiratory Rate 16 14 20 Blood Pressure 151/67 H 163/74 H 169/75 H Pulse Oximetry 97 97 93 L 03/04/18 13:30 03/04/18 14:00 03/04/18 14:30 Temperature Pulse Rate 67 78 62 Respiratory Rate 28 H 30 H 23 Blood Pressure 143/67 H 137/90 129/65 Pulse Oximetry 94 L 94 L 86 L 03/04/18 15:00 03/04/18 15:31 03/04/18 16:00 Temperature 98.1 F Pulse Rate 61 60 68 Respiratory Rate 22 17 17 Blood Pressure 148/66 H 145/66 H 152/70 H Pulse Oximetry 94 L 94 L 97 03/04/18 16:30 03/04/18 17:00 03/04/18 17:27 Temperature 97.6 F Pulse Rate 60 61 68 Respiratory Rate 15 15 22 Blood Pressure 140/66 141/67 H 153/65 H Pulse Oximetry 97 97 95 03/04/18 17:39 03/04/18 20:00 03/05/18 00:00 Temperature 97.9 F 97.8 F Pulse Rate 73 66 Respiratory Rate 16 16 Blood Pressure 94/47 L 138/66 Pulse Oximetry 95 93 L 91 L 03/05/18 04:00 03/05/18 08:00 Temperature 97.9 F 97.5 F L Pulse Rate 68 63 Respiratory Rate 16 22 Blood Pressure 127/53 L 162/71 H Pulse Oximetry 91 L 93 L Intake & Output 03/04/18 03/05/18 03/05/18 18:59 06:59 18:59 Intake Total 960 / 960 580 / 580 50 / 50 Output Total 100 / 100 Balance 860 / 860 580 / 580 50 / 50 Weight 50.1 kg Intake: IV 100 / 100 100 / 100 50 / 50 Zosyn 3.375 GM Premix 50 ML @ 100 / 100 100 / 100 50 / 50 100 mls/hr IV.SIG Q6H [facility] Rx#: [id number] Oral 860 / 860 480 / 480 Output: Urine Amount (Catheter) 100 / 100 Female External 100 / 100 Other: # Voids 1 5 # Incontinent Voids 1 Date of Last Bowel Movement 03/04/18 03/04/18 # Bowel Movements 0 Result Diagrams: 03/04/18 10:32 03/04/18 10:32 Laboratory Results: Laboratory Results - last 24 hr 02/26/18 03/04/18 03/04/18 10:58 10:32 10:32 WBC 10.2 RBC 2.85 L Hgb 9.1 L Hct 26.5 L MCV 92.8 MCH 31.8 MCHC 34.2 RDW 17.9 H Plt Count 95 L MPV 7.6 Prelim Diff (Auto) Slide review pending Neut % (Auto) 95.1 H Lymph % (Auto) 1.4 L Eagle % (Auto) 2.6 Eos % (Auto) 0.6 Baso % (Auto) 0.3 Neut # (Auto) 9.7 H Lymph # (Auto) 0.1 L Eagle # (Auto) 0.3 Eos # (Auto) 0.1 Baso # (Auto) 0.0 WBC Differential . Diff Scan Auto diff confirmed Differential Comment . Platelet Estimate Low L Platelet Morphology Normal Sodium 138 Potassium 4.0 Chloride 103 Carbon Dioxide 26.6 Anion Gap 8 BUN 59 H Creatinine 1.75 H Estimated GFR 28 L Random Glucose 132 H Calcium 7.8 L Procalcitonin Aspergillus flavus Ab Negative Aspergill fumigatus Ab Negative Aspergillus niger Ab Negative 03/04/18 10:32 WBC RBC Hgb Hct MCV MCH MCHC RDW Plt Count MPV Prelim Diff (Auto) Neut % (Auto) Lymph % (Auto) Eagle % (Auto) Eos % (Auto) Baso % (Auto) Neut # (Auto) Lymph # (Auto) Eagle # (Auto) Eos # (Auto) Baso # (Auto) WBC Differential Diff Scan Differential Comment Platelet Estimate Platelet Morphology Sodium Potassium Chloride Carbon Dioxide Anion Gap BUN Creatinine Estimated GFR Random Glucose Calcium Procalcitonin 0.10 H Aspergillus flavus Ab Aspergill fumigatus Ab Aspergillus niger Ab Culture Results: Microbiology 02/26/18 10:55 Aerobic Blood Culture - Final Blood - Peripheral No growth in 5 days Anaerobic Blood Culture - Final No growth in 5 days 02/26/18 10:55 Aerobic Blood Culture - Final Blood - Peripheral No growth in 5 days Anaerobic Blood Culture - Final No growth in 5 days Imaging Studies: Impressions Chest X-Ray 03/04/18 00:00 CONCLUSION: Interstitial fibrotic change with probable superimposed CHF. This is relatively stable compared to previous. Medications: Active Medications Generic Name Dose Route Start Last Admin Trade Name Freq PRN Reason Stop Dose Admin Acetaminophen 650 mg 02/25/18 17:57 03/01/18 17:58 Tylenol PO 650 mg Q4H PRN Administration Temp > 100.4 Albuterol 2.5 mg 02/25/18 18:09 03/02/18 07:42 Albuterol Neb (Prn) NEB 2.5 mg Q2HR NEB PRN Administration SHORTNESS OF BREATH Aspirin 81 mg 02/26/18 09:00 03/05/18 09:15 Ecotrin PO 81 mg DAILY [facility] Administration Bumetanide 1 mg 02/25/18 23:30 03/05/18 09:15 Bumex Inj IV.PUSH 1 mg BID@0900,1800 [facility] Administration Bupropion HCl 150 mg 02/26/18 09:00 03/05/18 09:14 Wellbutrin Sr PO 150 mg DAILY [facility] Administration Cholestyramine Resin 4 gm 02/25/18 19:00 03/05/18 06:53 Questran 4 Gm Pkt PO 4 gm BID@0700,1900 [facility] Administration Diphenhydramine HCl 25 mg 02/25/18 18:14 03/03/18 01:33 Benadryl PO 25 mg HS PRN Administration Insomnia Diphenhydramine HCl 25 mg 03/01/18 15:31 03/01/18 17:58 Benadryl PO 25 mg Q4H PRN Administration SEE LABEL COMMENTS Donepezil HCl 10 mg 02/25/18 21:00 03/04/18 20:45 Aricept PO 10 mg HS [facility] Administration Escitalopram Oxalate 20 mg 02/26/18 09:00 03/04/18 08:31 Lexapro PO 20 mg DAILY [facility] Administration Hydralazine HCl 75 mg 02/25/18 22:00 03/05/18 06:48 Apresoline PO Not Given Q8HR [facility] Piperacillin/Tazobactam/Dextrose 50 mls @ 100 mls/hr 02/25/18 20:00 03/05/18 09:05 Zosyn 3.375 Gm Premix IV.SIG Infused Q6H [facility] Infusion Isosorbide Mononitrate 30 mg 02/26/18 07:00 03/05/18 06:53 Imdur PO Not Given DAILY@0700 [facility] Levofloxacin 750 mg 02/25/18 18:15 03/03/18 18:03 Levaquin PO 750 mg Q48H [facility] Administration Losartan Potassium 50 mg 02/26/18 09:00 03/05/18 09:14 Cozaar PO 50 mg DAILY [facility] Administration Metoprolol Tartrate 25 mg 02/25/18 21:00 03/05/18 09:14 Lopressor PO 25 mg BID [facility] Administration Montelukast Sodium 10 mg 02/25/18 21:00 03/04/18 20:45 Singulair PO 10 mg HS [facility] Administration Pantoprazole Sodium 20 mg 02/26/18 09:00 03/05/18 09:14 Protonix PO 20 mg DAILY [facility] Administration Pramipexole Dihydrochloride 0.125 mg 02/25/18 21:00 03/05/18 09:14 Mirapex PO 0.125 mg BID [facility] Administration Pravastatin Sodium 20 mg 02/25/18 21:00 03/04/18 21:23 Pravachol PO 20 mg HS [facility] Administration Senna/Docusate Sodium 1 tab 02/25/18 21:00 03/05/18 09:15 Mima-Colace PO 1 tab BID [facility] Administration Sennosides 17.2 mg 02/25/18 17:57 02/27/18 08:01 Senokot PO 17.2 mg Q12H PRN Administration Moderate Constipation Sodium Chloride 2 ml 02/25/18 21:00 03/05/18 09:15 Ns Flush IV.FLUSH 2 ml BID [facility] Administration Objective Remarks: GENERAL: Well-nourished, well-developed elderly female patient, in no acute distress. SKIN: Warm and dry. HEAD: Normocephalic. EYES: No scleral icterus. No injection or drainage. NECK: Supple, trachea midline. CARDIOVASCULAR: +S1/S2 3/6 systolic murmur. RESPIRATORY: Breath sounds equal bilaterally. Nonlabored at rest. O2 via NC at 2 L. GASTROINTESTINAL: Abdomen soft, non-tender, nondistended. EXTREMITIES: No cyanosis, or edema. cast to left forearm, fingers warm, bruise to lateral thumb, [place] cap refill <2 sec. MUSCULOSKELETAL: Adequate muscle tone. NEUROLOGICAL: No obvious focal deficit. Sleeping on approach, awakens easily to voice. Answers questions appropriately. PSYCHIATRIC: Appropriate mood and affect. Assessment/Plan - Plan Ms. Christian is a pleasant 78-year-old female patient who [facility] worsening of shortness of breath. 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 Other medical ailments include CVA 3 months ago, pneumonia, sepsis, diastolic heart failure, CKD stage III and coronary artery disease. Per her medical chart she also has a history of Alzheimer's dementia. Recommendations: 1. Possible MDS, Procrit has been held related to recent strokes, patient reports frequent blood transfusions. 2. Anemia of renal insufficiency, avoid Procrit due to recent stroke, avoid aggressive transfusions due to iron overload. Maintain hemoglobin above 7 g/dL. 3. Stool Hemoccult positive, will defer to attending in regards to possible further GI workup. 3. Continue to monitor hemoglobin and platelet count, CBC pending today. 4. We will sign off from a hematology standpoint. Recommend periodic CBC checks while in rehab and to monitor for any bleeding. From a hematologic standpoint patient is cleared for discharge to rehab.
[2018-03-05 10:52] LABS: Hematocrit 27.5 % (35.0-46.0); Hemoglobin 9.4 gm/dL (11.6-15.3); Mean Corpuscular Hemoglobin 31.8 pg (27.0-34.0); Mean Corpuscular Volume 93.6 fL (80.0-100.0); Mean Platelet Volume 7.4 fL (7.0-11.0); Platelet Count 87 th/mm3 (150-450); Red Blood Count 2.94 mil/mm3 (4.00-5.30); Red Cell Distribution Width 17.7 % (11.6-17.2); White Blood Count 8.8 th/mm3 (4.0-11.0)
--- NOTE | 2018-03-05 14:48 | P.PNID ---
Subjective Remarks: Ms. Christian a 78-year-old female with past medical history significant for, CLL requiring multiple transfusions in the past. 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 Most of the history was obtained by review of medical records as patient is a poor historian. Patient was also recently hospitalized at [facility] and thereafter transferred to [facility]. She was hospitalized between January 03 after being diagnosed with pneumonia, sepsis, encephalopathy reportedly discharged home and ended up falling at home resulting in a closed impacted community distal radial and ulnar fracture on the left side. She was thereafter hospitalized at [facility]. She was evaluated by orthopedics at that hospital. Patient has needing transfusions in the past. Patient has been treated for recurrent pneumonia as well as recurrent urinary tract infections. Reported travel history to [place] in July 2017 but patient reports that she stayed at home mostly. Prior to these occurrences Patient [facility] L supplemental O2 via nasal cannula. A CT of the chest was done on February 22 which showed patchy diffuse mixed interstitial and alveolar infiltrates all patient was also noted to have bilateral pleural effusions. She was empirically treated with Zosyn and Levaquin IV. A VQ scan done on February 23 showed low probability of PE. Patient is known to have diastolic heart failure. Patient received IV Lasix 2 days in a row with worsening shortness of breath and therefore I had a CAT was called and patient was transferred to [facility] under the care of factious diseases consulted for evaluation and management of recurrent pneumonia. Overnight events reviewed. No fever No rash No diarrhea desats Pulm following. Antibiotics: Zosyn IV Levaquin Lines: Lines ok Past Medical History: reviewed Allergies/Adverse Reactions: Allergies latex Allergy (Verified 02/18/18 06:07) Rash, Localized soy Allergy (Verified 02/18/18 06:07) Congestion sinus congestion sulfadiazine Allergy (Verified 02/18/18 06:07) Hives wheat [Flour] Allergy (Verified 02/18/18 06:07) Rash Eczema Objective Vital Signs 03/04/18 15:00 03/04/18 15:31 03/04/18 16:00 Temperature 98.1 F Pulse Rate 61 60 68 Respiratory Rate 22 17 17 Blood Pressure 148/66 H 145/66 H 152/70 H Pulse Oximetry 94 L 94 L 97 03/04/18 16:30 03/04/18 17:00 03/04/18 17:27 Temperature 97.6 F Pulse Rate 60 61 68 Respiratory Rate 15 15 22 Blood Pressure 140/66 141/67 H 153/65 H Pulse Oximetry 97 97 95 03/04/18 17:39 03/04/18 20:00 03/05/18 00:00 Temperature 97.9 F 97.8 F Pulse Rate 73 66 Respiratory Rate 16 16 Blood Pressure 94/47 L 138/66 Pulse Oximetry 95 93 L 91 L 03/05/18 04:00 03/05/18 08:00 03/05/18 12:00 Temperature 97.9 F 97.5 F L 97.5 F L Pulse Rate 68 63 61 Respiratory Rate 16 22 20 Blood Pressure 127/53 L 162/71 H 139/63 Pulse Oximetry 91 L 93 L 90 L Intake & Output 03/04/18 03/05/18 03/05/18 18:59 06:59 18:59 Intake Total 960 / 960 580 / 580 50 / 50 Output Total 100 / 100 Balance 860 / 860 580 / 580 50 / 50 Weight 50.1 kg Intake: IV 100 / 100 100 / 100 50 / 50 Zosyn 3.375 GM Premix 50 ML @ 100 / 100 100 / 100 50 / 50 100 mls/hr IV.SIG Q6H [facility] Rx#: [id number] Oral 860 / 860 480 / 480 Output: Urine Amount (Catheter) 100 / 100 Female External 100 / 100 Other: # Voids 1 5 # Incontinent Voids 1 Date of Last Bowel Movement 03/04/18 03/04/18 # Bowel Movements 0 02/26/18 11:08 Blood - Peripheral Blood Fungal Culture - Preliminary No growth in 1 week 02/26/18 11:08 Blood - Peripheral Blood Fungal Culture - Preliminary No growth in 1 week 02/26/18 10:55 Blood - Peripheral Aerobic Blood Culture - Final No growth in 5 days 02/26/18 10:55 Blood - Peripheral Anaerobic Blood Culture - Final No growth in 5 days 02/26/18 10:55 Blood - Peripheral Aerobic Blood Culture - Final No growth in 5 days 02/26/18 10:55 Blood - Peripheral Anaerobic Blood Culture - Final No growth in 5 days Lab - Hematology Results 03/04/18 03/05/18 10:32 10:24 WBC 10.2 8.8 RBC 2.85 L 2.94 L Hgb 9.1 L 9.4 L Hct 26.5 L 27.5 L MCV 92.8 93.6 MCH 31.8 31.8 MCHC 34.2 34.0 RDW 17.9 H 17.7 H Plt Count 95 L 87 L MPV 7.6 7.4 Prelim Diff (Auto) Slide review pending Neut % (Auto) 95.1 H Lymph % (Auto) 1.4 L [place] % (Auto) 2.6 Eos % (Auto) 0.6 Baso % (Auto) 0.3 Neut # (Auto) 9.7 H Lymph # (Auto) 0.1 L [place] # (Auto) 0.3 Eos # (Auto) 0.1 Baso # (Auto) 0.0 WBC Differential . Diff Scan Auto diff confirmed Differential Comment . Platelet Estimate Low L Platelet Morphology Normal Lab - Chemistry Results 03/04/18 03/04/18 10:32 10:32 Sodium 138 Potassium 4.0 Chloride 103 Carbon Dioxide 26.6 Anion Gap 8 BUN 59 H Creatinine 1.75 H Estimated GFR 28 L Random Glucose 132 H Calcium 7.8 L Procalcitonin 0.10 H Imaging: ITS Impressions Chest X-Ray 03/04/18 00:00 CONCLUSION: Interstitial fibrotic change with probable superimposed CHF. This is relatively stable compared to previous. Physical Exam: GENERAL: Well-nourished well-developed, not in acute distress SKIN: Cool and dry, no generalized rash HEAD: Atraumatic. Normocephalic. No temporal or scalp tenderness. EYES: Pupils equal round and reactive. Scleral icterus. No injection or drainage. No petechia ENT: Nothing abnormal detected NECK: Trachea midline. Supple, nontender, no meningeal signs. CARDIOVASCULAR: HS audible. RESPIRATORY: Clear to auscultation bilaterally. Air entry decreased in the bases. GASTROINTESTINAL: Abdomen soft nontender. MUSCULOSKELETAL: Extremities without clubbing, cyanosis. NEUROLOGICAL: Alert oriented 3. Psych cooperative IV line sites ok. Assessment and Plan - Plan Healthcare associated pneumonia Recurrent pneumonia History of recurrent UTIs History of dementia History of CLL with chronic anemia requiring multiple transfusions. Recommendations dc Zosyn IV Continue Levaquin for 2-3 more days then stop/ Follow clinical course If resp status improves would like to get bronch as this is recurrent pneumonia now several times a year. Appreciate palliative care consult. everette Stephens. Will sign off please call back if any change in clinical condition or questions.
[2018-03-05] MEDS: levoFLOXacin 750 MG Tablet PO SCH (18:11)
[2018-03-05] MEDS: Montelukast 10 MG Tablet PO SCH (21:00)
[2018-03-06] MEDS: Piperacil/Tazo 3.375 GM Premix 50 ML IV.SIG SCH ×2 (00:59→08:37)
[2018-03-06] MEDS: hydrALAZINE 25 MG Tablet PO SCH ×2 (05:54→13:57)
[2018-03-06] MEDS: Isosorbide Mononitrate 30 MG ER 24HR Tablet (Imdur) PO SCH (06:00)
[2018-03-06] MEDS: Pantoprazole Sodium 20 MG DR Tablet PO SCH (08:38)
[2018-03-06] MEDS: buPROPion 150 MG 12 HR Tablet PO SCH (08:38)
[2018-03-06] MEDS: Senna/Docusate Sodium 8.6/50 MG Tablet PO SCH (08:38)
[2018-03-06] MEDS: Metoprolol Tartrate 25 MG Tablet PO SCH (08:38)
[2018-03-06] MEDS ORDERED: amLODIPine 5 MG Tablet PO SCH (09:00)
--- NOTE | 2018-03-06 09:01 | P.PN ---
Subjective Interval history: alert nad Physical Exam Vital signs: Vital Signs 03/05/18 12:00 03/05/18 16:00 03/05/18 20:00 Temperature 97.5 F L 97.8 F 97.3 F L Pulse Rate 61 66 73 Respiratory Rate 20 20 20 Blood Pressure 139/63 112/51 L 108/49 L Pulse Oximetry 90 L 90 L 93 L 03/06/18 00:00 03/06/18 00:28 03/06/18 04:00 Temperature 97.0 F L 97.1 F L Pulse Rate 71 70 Respiratory Rate 20 16 20 Blood Pressure 122/59 L 140/64 Pulse Oximetry 92 L 93 L Intake & Output 03/05/18 03/06/18 03/06/18 18:59 06:59 18:59 Intake Total 750 / 750 100 / 100 Balance 750 / 750 100 / 100 Weight 53.1 kg Intake: IV 100 / 100 100 / 100 Zosyn 3.375 GM Premix 50 ML @ 100 / 100 100 / 100 100 mls/hr IV.SIG Q6H [facility] Rx#: [id number] Oral 650 / 650 Other: # Voids 4 # Incontinent Voids 4 Date of Last Bowel Movement 03/04/18 03/05/18 # Bowel Movements 1 Narrative: GENERAL: Alert, NAD. SKIN: Warm and dry. HEAD: Normocephalic. EYES: No scleral icterus. No injection or drainage. NECK: Supple, trachea midline. No JVD or lymphadenopathy. CARDIOVASCULAR: Regular rate and rhythm without murmurs, gallops, or rubs. RESPIRATORY: Moderate air entry, no appreciable wheezing. No accessory muscle use. GASTROINTESTINAL: Abdomen soft, non-tender, nondistended. MUSCULOSKELETAL: No cyanosis, or edema. BACK: Nontender without obvious deformity. No CVA tenderness. - Urinary Catheter Management Indwelling Urethral Catheter Cath placed during this visit: yes, but has since been removed by the nurse Reason for continuing: Decision to DC catheter Insertion date: 02/25/18 Insertion time: 19:58 Removal date: 03/02/18 Removal time: 17:00 Female External Cath placed during this visit: no Results - Labs CBC & Chem 7: 03/05/18 10:24 03/04/18 10:32 Laboratory Results - last 24 hr 03/05/18 10:24 WBC 8.8 RBC 2.94 L Hgb 9.4 L Hct 27.5 L MCV 93.6 MCH 31.8 MCHC 34.0 RDW 17.7 H Plt Count 87 L MPV 7.4 Microbiology 02/26/18 11:08 Blood - Peripheral Blood Fungal Culture - Preliminary No growth in 1 week 02/26/18 11:08 Blood - Peripheral Blood Fungal Culture - Preliminary No growth in 1 week - Procedures None Assessment and Plan - Plan RESPIRATORY FAILRE PNA CHF CKD PLAN O2 as needed BRONCHODILATORS O2 NEEDED CHANGE TO PO MEDS INCREASE ACTIVITY
[2018-03-06 09:43] VITALS: RESP 18; O2SAT 92
--- NOTE | 2018-03-06 12:25 | P.DS ---
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 Patient with recent hospitalization at [facility] in around Jan 03 until January 23 after being diagnosed with pneumonia, sepsis, encephalopathy and UTI. She was discharged home but ended up falling at home resulting in a closed impacted comminuted distal radial and ulnar fracture on the left side. She was hospitalized at [facility] in [place]. She was evaluated by Ortho and had a cast placed. She is currently non-weight bearing to the left upper extremity. Patient was also noted to have volume overload with a history of diastolic heart failure and stage III chronic kidney disease. Patient was diuresed with Lasix and Bumex during her hospitalization. Patient has CLL and was noted to be anemic with a Hgb of 6.1 and required 2 units of PRBC's with improvement in her hemoglobin to 9.1. Patients stated that she has required repeat transfusions over the past year. [facility] was [facility] 02/17/18. The hospitalist service was consulted for medical management. stated that patient has had recurrent pneumonia since July of this year. Patient reports travel to [place] in July of this year. Patient became increasingly more hypoxic while at rehab. She required 4 L of supplemental O2 via nasal cannula. Chest x-ray was completed 02/22/18 and showed a diffusely abnormal lung exam, probable acute multifocal pneumonia vs diffuse fibrotic process. CT chest was completed for follow up 02/22/18 and showed patchy diffuse mixed interstitial and alveolar infiltrates involving all segments of both lungs. Bilateral pleural effusions were noted right greater than left. Patient was started on Zosyn and Levaquin IV. VQ scan was completed 02/23/18 and showed low probability of PE. A BNP level was checked and resulted as slightly over 400. Patient received IV Lasix 2 days in a row with worsening shortness of breath. Patient complains of moderate shortness of breath while at rest and moderate to severe dyspnea with mild exertion. She denies chest pain, cough, fever or chills. Also denies lower extremity pain/edema. Olivia was called and patient is being transferred to [facility] under the care of the hospitalist service for continued treatment of pneumonia. DS: Medications - Discharge Medications Prescriptions: levofloxacin 750 mg PO Q48H #2 tab DS: Summary Hospital Course: Patient is a 78 year old female with a past medical history significant for CLL, recent pneumonia, diastolic heart failure, stage III CKD, and left sided hand fracture. She was admitted from [facility] to [facility] under the care of the hospitalist service for progressively worsening shortness secondary to recurrent pneumonia. Acute on chronic hypoxic respiratory failure Pneumonia - possibly atypical. -continued Zosyn and Levaquin per infectious disease recommendations. Later on, ID recommended Levaquin only. We will continue Levaquin 750mg Q48hrs X 2 doses. -Continued prednisone 20 mg twice daily -duonebs IV Q6H -pulmonary consulted. -continue supplemental oxygen. Currently on 2 L of oxygen via nasal cannula. -Palliative care on board. Patient desires aggressive care and full code. Diastolic heart failure w/ volume overload Pulmonary hypertension -Echo shows normal LV size, EF 60-65%. Pulmonary artery pressure 61 mmHg. -continue diuretics, monitor renal function and electrolytes -cardiology followed patient. Chronic kidney disease, stage III -Creatinine around 1.75 --> 1.94. Possibly due to diuretic use. -avoid nephrotoxic meds Closed, impacted, comminuted left distal radial and ulnar fracture with cast in place -PT/OT eval/treat -pain meds PRN CLL with hx of blood transfusions -continue to monitor H/H -Hgb 6.9 on 02/27/2018, received 2 units of PRBCs. Hemoglobin around 10. 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 nightly. Full code. SCDs. - Time Spent with Patient Total time spent providing and/or coordinating discharge services: Less than 30 minutes - Quality: VTE Deep Vein Thrombosis/Pulmonary Embolism Present on Admission: No Exam Vital signs: Vital Signs 03/05/18 16:00 03/05/18 20:00 03/06/18 00:00 Temperature 97.8 F 97.3 F L 97.0 F L Pulse Rate 66 73 71 Respiratory Rate 20 20 20 Blood Pressure 112/51 L 108/49 L 122/59 L Pulse Oximetry 90 L 93 L 92 L 03/06/18 00:28 03/06/18 04:00 03/06/18 08:00 Temperature 97.1 F L 98 F Pulse Rate 70 80 Respiratory Rate 16 20 18 Blood Pressure 140/64 147/65 H Pulse Oximetry 93 L 92 L Intake & Output 03/05/18 03/06/18 03/06/18 18:59 06:59 18:59 Intake Total 750 / 750 100 / 100 50 / 50 Balance 750 / 750 100 / 100 50 / 50 Weight 53.1 kg Intake: IV 100 / 100 100 / 100 50 / 50 Zosyn 3.375 GM Premix 50 ML @ 100 / 100 100 / 100 50 / 50 100 mls/hr IV.SIG Q6H CHELI Rx#: [id number] Oral 650 / 650 Other: # Voids 4 # Incontinent Voids 4 Date of Last Bowel Movement 03/04/18 03/05/18 03/04/18 # Bowel Movements 1 Results Procedures completed during hospitalization: Echo 02/27/2018 Normal left ventricular size. Mild concentric left ventricular hypertrophy. The left ventricular systolic function is normal with an estimated ejection fraction in the range of 60-65%. The left atrial size is moderately dilated. Moderate to severe aortic valve regurgitation. Mild aortic valve stenosis. 19 mean mmhg gradient The estimated pulmonary arterial pressure is 61 mmHg. There is moderate to severe tricuspid valve regurgitation. Labs on day of discharge: Preliminary micro results at discharge 02/26/18 11:08 Blood Fungal Culture - Preliminary Blood - Peripheral No growth in 1 week Blood Fungal Culture - Preliminary No growth in 1 week - Impressions ITS Impressions Chest X-Ray 03/04/18 00:00 CONCLUSION: Interstitial fibrotic change with probable superimposed CHF. This is relatively stable compared to previous. Discharge Plan - Discharge Disposition Patient Disposition: [facility] Rehab Inpatient - Discharge Condition Condition: Good - Discharge Order Discharge Orders: Discharge Order (Routine); Ordered 03/06/18 Ordered By: Romeo Aguilera - Discharge Details Anticipated Discharge Date: 03/06/18 - Physicians Team Primary Care Provider: UNKNOWN, Attending Provider: Romeo Aguilera Other Providers: Desean August MD ; Dung Carson MD ; Maru Oliva MD ; Ainsley Schmitz MD ; Blank Castaneda MD ; Sarthak Quinones MD ; Patience Hines MD - Rxs /Orders / Referrals /Forms Prescriptions: New levofloxacin 750 mg Tablet 750 mg PO Q48H Qty: 2 RF: 0 Continue acetaminophen 325 mg Tablet 650 mg PO Q4H PRN (Reason: Pain Scale 1 To 4/Cough) RF: 0 amlodipine [Norvasc] 5 mg tablet 5 mg PO BID aspirin 81 mg Tablet,Delayed Release (Dr/Ec) 81 mg PO DAILY RF: 0 bisacodyl [Bisac-Evac] 10 mg Suppository 10 mg CA DAILY PRN (Reason: Severe Consitipation) RF: 0 bumetanide 1 mg Tablet 1 mg PO BID@0900,1800 RF: 0 bupropion HCl [Wellbutrin XL] 150 mg Tablet Extended Release 24 Hr 150 mg PO DAILY RF: 0 cholestyramine (with sugar) 4 gram Powder In Packet 4 g PO BID dextromethorphan-guaifenesin 10-100 mg/5 mL Syrup 10 ml PO Q6H PRN (Reason: Cough) RF: 0 diphenhydramine HCl 25 mg Capsule 25 mg PO HS PRN (Reason: Insomnia) RF: 0 donepezil 10 mg Tablet 10 mg PO HS escitalopram oxalate 20 mg tablet 20 mg PO DAILY hydralazine 25 mg tablet 75 mg PO Q8H ipratropium-albuterol 0.5 mg-3 mg(2.5 mg base)/3 mL Solution For Nebulization 1 amp NEB Q4HR NEB RF: 0 ipratropium-albuterol 0.5 mg-3 mg(2.5 mg base)/3 mL Solution For Nebulization 1 amp NEB Q4HR NEB PRN (Reason: Dyspnea) RF: 0 isosorbide mononitrate 30 mg Tablet Extended Release 24 Hr 30 mg PO DAILY@0700 RF: 0 lactulose 20 gram/30 mL Solution 30 ml PO DAILY PRN (Reason: Severe Consitipation) RF: 0 levothyroxine [Synthroid] 50 mcg tablet 50 mcg PO DAILY@0600 losartan 50 mg Tablet 50 mg PO DAILY RF: 0 magnesium hydroxide [Milk of Magnesia] 400 mg/5 mL Suspension 30 ml PO Q12H PRN (Reason: Mild Constipation) RF: 0 metoprolol tartrate 25 mg tablet 25 mg PO BID montelukast 10 mg tablet 10 mg PO HS pantoprazole 20 mg Tablet,Delayed Release (Dr/Ec) 20 mg PO DAILY pramipexole [Mirapex] 0.25 mg Tablet 0.125 mg PO BID RF: 0 pravastatin 20 mg tablet 20 mg PO HS sennosides [Senna Lax] 8.6 mg Tablet 17.2 mg PO Q12H PRN (Reason: Moderate Constipation) RF: 0 sennosides-docusate sodium [Senna Plus] 8.6-50 mg Tablet 1 tab PO BID RF: 0 Discontinued enoxaparin [Lovenox] 30 mg/0.3 mL Syringe 30 mg subcut DAILY RF: 0 levofloxacin in D5W 750 mg/150 mL Piggyback 750 mg IV Q48H RF: 0 [id number] [Zosyn in dextrose (iso-osm)] 3.375 gram/50 mL Piggyback 3.375 mg IV Q6H RF: 0 prednisone 20 mg Tablet 20 mg PO DAILY RF: 0 Referrals: UNKNOWN, [Primary Care Provider] - See Instructions - Discharge Instructions Patient Printed Instructions: Heart Failure (GEN), Chronic Kidney Disease (DC) , Weakness (DC), Dyspnea (DC), Shortness of Breath (DC) - Post Discharge Care Plan Care Plan Goals: Your Health Problems: Goals to Promote Your Health: * To prevent worsening of your condition * To maintain your health at the optimal level Directions to Meet Your Goals: * Take your medications as prescribed * Follow your dietary instruction * Follow activity as directed * Keep your appointments as scheduled * Take your immunizations and boosters as scheduled * If your symptoms worsen call your PCP * If no PCP go to Urgent Care or Emergency Room Smoking is dangerous to your health. Avoid second hand smoke. You may reach the 24-hour crisis hotline for domestic abuse at .
[2018-03-06 13:59] VITALS: BP 111/51; PULSE 68; TEMP 98.5
== END 2018-03-07 13:48 ==
LOC: HIMC 18:04 → H7ONC 03-04 17:10
PROVIDERS: ADMIT Hospitalist; ATTEND Hospitalist